=== PATIENT | female | born 1940 | race Caucasian/White ===

== ENCOUNTER 2020-02-01 09:42 | Outpatient (REF) | payer MEDICARE, OTHER, SELFPAY ==
[2020-02-01 10:35] LABS: MANUAL DIFF FLAG NO
[2020-02-01 10:45] LABS: Basophils Percent Auto 0.3 % (0-2); Eosinophils Absolute Auto 0.1 X10*3/uL (0.0-0.4); Eosinophils Percent Auto 1.4 % (0-4); Hematocrit 44.1 % (37-47); Hemoglobin 14.1 g/dl (12.0-16.0); Imm Gran Abs Auto 0.02 X10*3/uL (0.00-0.03); Imm Gran Pct Auto 0.2 % (0.0-0.4); Lymphocytes Absolute Auto 3.7 X10*3/uL (1.2-4.9); Lymphocytes Percent Auto 40.6 % (20-40); Mean Corpuscular Hemoglobin 29.3 pg (27.0-33.0); Mean Corpuscular Volume 91.7 fL (80-98); Mean Platelet Volume 11.9 fL (9.4-12.3); Monocytes Absolute Auto 0.7 X10*3/uL (0.1-1.2); Monocytes Percent Auto 7.3 % (2-11); Neutrophils Absolute Auto 4.5 X10*3/uL (2.0-8.3); Neutrophils Percent Auto 50.2 % (45-73); Platelet Count 180 X10*3/uL (160-400); Red Blood Count 4.81 X10*6/uL (4.20-5.50); Red Cell Distribution Width 13.5 % (11.0-16.0)
[2020-02-01 12:25] LABS: Thyroid Stimulating Hormone 1.61 mIU/mL (0.32-4.0)
== END 2020-02-01 09:43 | disposition home or self-care (01) ==
LOC: HO.LAB 09:42
PROVIDERS: PCP Internal Medicine; Visit Provider Internal Medicine
DX: R53.83 Other fatigue (principal); D72.820 Lymphocytosis (symptomatic)
CPT/HCPCS: 36415; 84443; 85025

== ENCOUNTER 2020-12-19 11:11 | Outpatient (REF) | payer MEDICARE, OTHER, SELFPAY ==
[2020-12-19 11:14] LABS: MANUAL DIFF FLAG NO
[2020-12-19 11:30] LABS: Basophils Percent Auto 0.5 % (0-2); Eosinophils Absolute Auto 0.2 X10*3/uL (0.0-0.4); Eosinophils Percent Auto 2.2 % (0-4); Hematocrit 44.9 % (37-47); Hemoglobin 14.4 g/dl (12.0-16.0); Imm Gran Abs Auto 0.03 X10*3/uL (0.00-0.03); Imm Gran Pct Auto 0.4 % (0.0-0.4); Lymphocytes Absolute Auto 3.7 X10*3/uL (1.2-4.9); Lymphocytes Percent Auto 44.6 % (20-40); Mean Corpuscular HGB Conc 32.1 g/dl (31.0-35.0); Mean Corpuscular Hemoglobin 29.3 pg (27.0-33.0); Mean Corpuscular Volume 91.4 fL (80-98); Mean Platelet Volume 12.3 fL (9.4-12.3); Monocytes Absolute Auto 0.6 X10*3/uL (0.1-1.2); Monocytes Percent Auto 7.8 % (2-11); Neutrophils Absolute Auto 3.7 X10*3/uL (2.0-8.3); Neutrophils Percent Auto 44.5 % (45-73); Platelet Count 180 X10*3/uL (160-400); Red Blood Count 4.91 X10*6/uL (4.20-5.50); Red Cell Distribution Width 14.3 % (11.0-16.0); White Blood Count 8.3 X10*3/uL (4.8-10.8)
[2020-12-19 12:10] LABS: Alanine Aminotransferase 20 U/L (0-31); Alkaline Phosphatase 63 U/L (39-117); Anion Gap 10 (12-20); Aspartate Amino Transferase 30 U/L (5-31); Bilirubin Total 0.5 mg/dL (0.0-1.0); Blood Urea Nitrogen 19 mg/dL (9-16); Calcium 9.3 mg/dL (8.4-10.2); Carbon Dioxide 29 mmol/L (22-29); Chloride 107 mmol/L (96-108); Cholesterol 146 mg/dL; Estimated Glomerular Filt Rate > 60; Glucose Fasting 92 mg/dL (60-99); HDL Cholesterol 60 mg/dL; LDL Cholesterol Calculated 71 mg/dl; Potassium 4.2 mmol/L (3.3-5.1); Sodium 142 mmol/L (135-145); Total Protein 6.6 g/dL (6.5-8.0); Triglycerides 78 mg/dL
[2020-12-19 12:35] LABS: Prostate Specific Antigen < 0.05 ng/mL; Vitamin D 25-OH Total 33.4 ng/mL (>30)
[2020-12-19 12:43] LABS: Appearance Urine CLEAR; Color Urine YELLOW; Glucose Urine UA NEG (NEG); Leukocyte Esterase Urine NEG (NEG); Nitrite Urine NEG (NEG); Specific Gravity - Urine 1.025 (1.005-1.025); Urine Blood NEG (NEG); Urine Ketones NEG (NEG); Urine Protein NEG (NEG-TRACE)
[2020-12-19 12:46] LABS: Reflex LDLD? No
[2020-12-19 12:50] LABS: Creatinine Urine 112.51 mg/dL; Microalbum/Creatinine Ratio Ur 19.5 ug/mg cr
[2020-12-19 13:17] LABS: Estimated Average Glucose 103 mg/dL; Hemoglobin A1c % 5.2 %
== END 2020-12-19 11:12 | disposition home or self-care (01) ==
LOC: HO.LNP 11:11
PROVIDERS: Visit Provider Internal Medicine
DX: E78.00 Pure hypercholesterolemia, unspecified (principal); I10 Essential (primary) hypertension; R73.03 Prediabetes; E55.9 Vitamin D deficiency, unspecified
CPT/HCPCS: 80053; 80061; 81003; 82043; 82306; 83036; 84153; 85025

== ENCOUNTER 2021-05-21 10:19 | Outpatient (REF) | payer MEDICARE, OTHER, SELFPAY ==
[2021-05-21 10:40] LABS: Alanine Aminotransferase 18 U/L (0-31); Alkaline Phosphatase 60 U/L (39-117); Aspartate Amino Transferase 30 U/L (5-31); Bilirubin Direct 0.3 mg/dL (0.0-0.5); Bilirubin Total 0.7 mg/dL (0.0-1.0); Cholesterol 155 mg/dL; Glucose Fasting 96 mg/dL (60-99); HDL Cholesterol 53 mg/dL; LDL Cholesterol Calculated 87 mg/dl; Total Protein 6.7 g/dL (6.5-8.0); Triglycerides 75 mg/dL
[2021-05-21 10:57] LABS: Estimated Average Glucose 108 mg/dL; Hemoglobin A1c % 5.4 %
[2021-05-21 12:54] LABS: Reflex LDLD? No
== END 2021-05-21 10:20 | disposition home or self-care (01) ==
LOC: HO.LNP 10:19
PROVIDERS: PCP Internal Medicine; Visit Provider Internal Medicine
DX: E78.00 Pure hypercholesterolemia, unspecified (principal); R73.03 Prediabetes
CPT/HCPCS: 80061; 80076; 82947; 83036

== ENCOUNTER 2021-08-30 07:32 | Outpatient (REF) | payer MEDICARE, OTHER, SELFPAY ==
--- NOTE | ~2021-08-30 | XR_ITS ---
EXAMINATION: BILATERAL AP KNEE STANDING. RIGHT KNEE. CLINICAL INFORMATION: Knee pain. COMPARISON: Right knee 02/02/2015. TECHNIQUE: AP bilateral knee standing and right knee 2 views. FINDINGS: Bilateral AP knee standing. There is moderate signal loss of medial and mild loss of lateral compartment joint space with periarticular spurring medial compartment right knee. No visible acute fracture, dislocation seen. There are no loose bodies. Right knee: There is moderate loss of the distal femoral compartment joint space without bony erosive changes. There are no loose bodies. No suprapatellar joint effusion seen. XR/XR knee RT 2V IMPRESSION: Mild degenerative changes medial and lateral compartments of both knees with periarticular spurring medial compartment right knee. No visible acute fracture or dislocation seen. There is mild degenerative changes patellofemoral compartment with mild inferior spurring.
--- NOTE | ~2021-08-30 | XR_ITS ---
EXAMINATION: BILATERAL AP KNEE STANDING. RIGHT KNEE. CLINICAL INFORMATION: Knee pain. COMPARISON: Right knee 02/02/2015. TECHNIQUE: AP bilateral knee standing and right knee 2 views. FINDINGS: Bilateral AP knee standing. There is moderate signal loss of medial and mild loss of lateral compartment joint space with periarticular spurring medial compartment right knee. No visible acute fracture, dislocation seen. There are no loose bodies. Right knee: There is moderate loss of the distal femoral compartment joint space without bony erosive changes. There are no loose bodies. No suprapatellar joint effusion seen. XR/XR knee standing BI IMPRESSION: Mild degenerative changes medial and lateral compartments of both knees with periarticular spurring medial compartment right knee. No visible acute fracture or dislocation seen. There is mild degenerative changes patellofemoral compartment with mild inferior spurring.
== END 2021-08-30 07:33 | disposition home or self-care (01) ==
LOC: HO.HOSX 07:32
PROVIDERS: Visit Provider Orthopaedic Surgery
DX: M17.11 Unilateral primary osteoarthritis, right knee (principal)
CPT/HCPCS: 20610; 73560; 73565; 99202; J1100

== ENCOUNTER 2021-12-24 11:51 | Outpatient (REF) | payer MEDICARE, OTHER, SELFPAY ==
[2021-12-24 11:57] LABS: MANUAL DIFF FLAG NO
[2021-12-24 12:18] LABS: Basophils Absolute Auto 0.1 X10*3/uL (0.0-0.2); Basophils Percent Auto 0.6 % (0-2); Eosinophils Absolute Auto 0.2 X10*3/uL (0.0-0.4); Eosinophils Percent Auto 2.4 % (0-4); Hematocrit 44.3 % (37.0-47.0); Hemoglobin 14.1 g/dl (12.0-16.0); Imm Gran Abs Auto 0.01 X10*3/uL (0.00-0.03); Imm Gran Pct Auto 0.1 % (0.0-0.4); Lymphocytes Absolute Auto 3.7 X10*3/uL (1.2-4.9); Lymphocytes Percent Auto 42.5 % (20-40); Mean Corpuscular HGB Conc 31.8 g/dl (31.0-35.0); Mean Corpuscular Volume 91.2 fL (80.0-98.0); Monocytes Absolute Auto 0.7 X10*3/uL (0.1-1.2); Monocytes Percent Auto 7.4 % (2-11); Neutrophils Absolute Auto 4.1 x10*3/uL (2.0-8.3); Platelet Count 186 X10*3/uL (160-400); Red Blood Count 4.86 X10*6/uL (4.20-5.50); White Blood Count 8.7 X10*3/uL (4.8-10.8)
[2021-12-24 12:20] LABS: Appearance Urine Clear; Color Urine Yellow; Glucose Urine UA Negative (Negative); Leukocyte Esterase Urine Trace (Negative); Nitrite Urine Negative (Negative); PH 6.5 (5.0-9.0); Specific Gravity - Urine 1.015 (1.005-1.025); Urine Blood Negative (Negative); Urine Ketones Negative (Negative); Urine Protein Negative (Neg-Trace)
[2021-12-24 12:26] LABS: Bacteria Urine 1+ (None Seen); Hyaline Casts Urine 0-2 /LPF (0-2); Squamous Epithelial Cell Urine 0-2 /HPF (0-2); WBC Urine 0-5 /HPF (0-5)
[2021-12-24 12:35] LABS: Estimated Average Glucose 103 mg/dL; Hemoglobin A1C 122.2767 umol/L; Hemoglobin A1c % 5.2 %
[2021-12-24 12:37] LABS: Alanine Aminotransferase 23 U/L (0-31); Albumin Level 3.8 g/dL (3.5-5.0); Alkaline Phosphatase 67 U/L (39-117); Anion Gap 17 (12-20); Aspartate Amino Transferase 33 U/L (5-31); Bilirubin Total 0.5 mg/dL (0.0-1.0); Blood Urea Nitrogen 16 mg/dL (9-16); Calcium 8.7 mg/dL (8.4-10.2); Carbon Dioxide 25 mmol/L (22-29); Chloride 106 mmol/L (96-108); Cholesterol 145 mg/dL; Estimated Glomerular Filt Rate > 60; Glucose Fasting 89 mg/dL (60-99); HDL Cholesterol 53 mg/dL; LDL Cholesterol Calculated 80 mg/dl; Potassium 4.5 mmol/L (3.3-5.1); Sodium 143 mmol/L (135-145); Total Protein 6.6 g/dL (6.5-8.0); Triglycerides 64 mg/dL
[2021-12-24 12:43] LABS: Microalbum/Creatinine Ratio Ur 21.6 ug/mg cr
[2021-12-24 12:53] LABS: Vitamin D 25-OH Total 40.2 ng/mL (>30)
== END 2021-12-24 11:52 | disposition home or self-care (01) ==
LOC: HO.LNP 11:51
PROVIDERS: Visit Provider Internal Medicine
DX: I10 Essential (primary) hypertension (principal); E55.9 Vitamin D deficiency, unspecified; R73.03 Prediabetes; E78.00 Pure hypercholesterolemia, unspecified; D72.820 Lymphocytosis (symptomatic); Z87.448 Personal history of other diseases of urinary system
CPT/HCPCS: 80053; 80061; 81001; 82043; 82306; 83036; 85025

== ENCOUNTER 2022-01-01 10:25 | Outpatient (REF) | payer MEDICARE, OTHER, SELFPAY ==
--- NOTE | ~2022-01-01 | XR_ITS ---
EXAMINATION: XR CHEST CLINICAL INFORMATION: Bilateral Rales COMPARISON: None TECHNIQUE: 2 views of the chest were obtained. FINDINGS: The lungs are well-expanded with increased interstitial markings but no consolidation or nodules seen. The heart size and pulmonary vascularity is normal. No gross bony abnormality. XR/XR chest 2V IMPRESSION: Bilateral increased interstitial markings likely chronic changes or interstitial pneumonitis. No acute consolidation seen. There is mild elevated left hemidiaphragm.
== END 2022-01-01 10:26 | disposition home or self-care (01) ==
LOC: HO.XRAY 10:25
PROVIDERS: PCP Internal Medicine; Visit Provider Internal Medicine
DX: R09.89 Other specified symptoms and signs involving the circulatory and respiratory systems (principal)
CPT/HCPCS: 71046

== ENCOUNTER → 2022-02-04 14:14 | Outpatient (BNVA) | payer MEDICARE, OTHER, SELFPAY | PROVIDERS: PCP Internal Medicine; Visit Provider Internal Medicine | DX: J84.10 Pulmonary fibrosis, unspecified (principal); Z87.891 Personal history of nicotine dependence | CPT/HCPCS: 99202 ==

== ENCOUNTER 2022-06-24 11:02 | Outpatient (REF) | payer MEDICARE, OTHER, SELFPAY ==
[2022-06-24 12:26] LABS: Alanine Aminotransferase 20 U/L (0-31); Alkaline Phosphatase 66 U/L (39-117); Aspartate Amino Transferase 32 U/L (5-31); Bilirubin Direct 0.2 mg/dL (0.0-0.5); Bilirubin Total 0.8 mg/dL (0.0-1.0); Cholesterol 160 mg/dL; Glucose Fasting 96 mg/dL (60-99); HDL Cholesterol 53 mg/dL; LDL Cholesterol Calculated 92 mg/dl; Total Protein 6.6 g/dL (6.5-8.0); Triglycerides 78 mg/dL
[2022-06-24 12:44] LABS: Estimated Average Glucose 105 mg/dL; Hemoglobin A1c % 5.3 %
[2022-06-24 13:55] LABS: Reflex LDLD? No
== END 2022-06-24 11:03 | disposition home or self-care (01) ==
LOC: HO.LNP 11:02
PROVIDERS: Visit Provider Internal Medicine
DX: R73.03 Prediabetes (principal); E78.00 Pure hypercholesterolemia, unspecified
CPT/HCPCS: 80061; 80076; 82947; 83036

== ENCOUNTER 2022-12-27 12:04 | Outpatient (REF) | payer MEDICARE, OTHER, SELFPAY ==
[2022-12-27 12:43] LABS: Appearance Urine Clear; Color Urine Yellow; Glucose Urine UA Negative (Negative); Leukocyte Esterase Urine Small (1+) (Negative); Nitrite Urine Negative (Negative); PH 6.5 (5.0-9.0); Specific Gravity - Urine 1.015 (1.005-1.025); UMIC TRIGGER UACC YES; Urine Blood Negative (Negative); Urine Ketones Negative (Negative); Urine Protein Negative (Neg-Trace)
[2022-12-27 12:54] LABS: Basophils Absolute Auto 0.1 X10*3/uL (0.0-0.2); Basophils Percent Auto 0.5 % (0-2); Eosinophils Absolute Auto 0.5 X10*3/uL (0.0-0.4); Hematocrit 44.8 % (37.0-47.0); Hemoglobin 14.3 g/dl (12.0-16.0); Imm Gran Abs Auto 0.03 X10*3/uL (0.00-0.03); Imm Gran Pct Auto 0.3 % (0.0-0.4); Lymphocytes Absolute Auto 5.2 X10*3/uL (1.2-4.9); Lymphocytes Percent Auto 46.6 % (20-40); MANUAL DIFF FLAG SCAN; Mean Corpuscular HGB Conc 31.9 g/dl (31.0-35.0); Mean Corpuscular Hemoglobin 28.5 pg (27.0-33.0); Mean Corpuscular Volume 89.4 fL (80.0-98.0); Mean Platelet Volume 12.4 fL (9.4-12.3); Monocytes Percent Auto 8.5 % (2-11); Neutrophils Absolute Auto 4.5 x10*3/uL (2.0-8.3); Neutrophils Percent Auto 40.1 % (45-73); Platelet Count 211 X10*3/uL (160-400); Red Blood Count 5.01 X10*6/uL (4.20-5.50); Red Cell Distribution Width 14.5 % (11.0-16.0); SCAN SMEAR FLAG 1; White Blood Count 11.2 X10*3/uL (4.8-10.8)
[2022-12-27 13:03] LABS: Bacteria Urine None Seen (None Seen); Hyaline Casts Urine 0-2 /LPF (0-2); Squamous Epithelial Cell Urine 0-2 /HPF (0-2); UACC Culture Trigger YES; WBC Urine 0-5 /HPF (0-5)
[2022-12-27 13:20] LABS: SLIDE REVIEW VERIFIED
[2022-12-27 14:25] LABS: Alanine Aminotransferase 17 U/L (0-31); Albumin Level 3.8 g/dL (3.5-5.0); Alkaline Phosphatase 61 U/L (39-117); Anion Gap 12 (12-20); Aspartate Amino Transferase 35 U/L (5-31); Bilirubin Total 0.5 mg/dL (0.0-1.0); Blood Urea Nitrogen 22 mg/dL (9-16); Calcium 9.2 mg/dL (8.4-10.2); Carbon Dioxide 26 mmol/L (22-29); Chloride 108 mmol/L (96-108); Cholesterol 152 mg/dL (<200); Estimated Glomerular Filt Rate > 60; Glucose Fasting 84 mg/dL (60-99); HDL Cholesterol 55 mg/dL (>40); LDL Cholesterol Calculated 84 mg/dL (<100); Sodium 142 mmol/L (135-145); Total Protein 6.8 g/dL (6.5-8.0); Triglycerides 67 mg/dL (<150); Vitamin D 25-OH Total 55.1 ng/mL (>30)
[2022-12-27 15:04] LABS: Estimated Average Glucose 100 mg/dL; Hemoglobin A1c % 5.1 % (<6.0)
[2022-12-27 15:17] LABS: Creatinine Urine 73.13 mg/dL; Microalbum/Creatinine Ratio Ur 10.9 ug/mg cr (<30)
== END 2022-12-27 12:05 | disposition home or self-care (01) ==
LOC: HO.LNP 12:04
PROVIDERS: Visit Provider Internal Medicine
DX: I10 Essential (primary) hypertension (principal); E55.9 Vitamin D deficiency, unspecified; R73.03 Prediabetes; E78.00 Pure hypercholesterolemia, unspecified; D72.820 Lymphocytosis (symptomatic)
CPT/HCPCS: 80053; 80061; 81001; 82043; 82306; 82570; 83036; 85025; 87086

== ENCOUNTER 2023-01-03 11:51 | Outpatient (REF) | payer MEDICARE, OTHER, SELFPAY ==
--- NOTE | ~2023-01-03 | XR_ITS ---
EXAMINATION: XR CHEST CLINICAL INFORMATION: Pulmonary fibrosis COMPARISON: 01/01/2022 TECHNIQUE: 2 views of the chest were obtained. FINDINGS: There is no gross pneumothorax. Lung volumes are low. Redemonstration of prominent bilateral diffuse increased interstitial markings. No pleural effusion. Degenerative changes in the thoracic spine. XR/XR chest 2V IMPRESSION: Redemonstration of prominent bilateral diffuse increased interstitial markings.
== END 2023-01-03 11:52 | disposition home or self-care (01) ==
LOC: HO.XRAY 11:51
PROVIDERS: PCP Internal Medicine; Visit Provider Internal Medicine
DX: J84.10 Pulmonary fibrosis, unspecified (principal)
CPT/HCPCS: 71046

== ENCOUNTER 2023-01-17 11:15 | Outpatient (REF) | payer MEDICARE, OTHER, SELFPAY | END 2023-01-17 11:16 | disposition home or self-care (01) | LOC: HO.LNP 11:15 | PROVIDERS: Visit Provider Internal Medicine | DX: D72.820 Lymphocytosis (symptomatic) (principal) | CPT/HCPCS: 85025 ==

== ENCOUNTER 2023-02-17 10:50 | Outpatient (REF) | payer MEDICARE, OTHER, SELFPAY ==
[2023-02-17 10:53] LABS: MANUAL DIFF FLAG NO
[2023-02-17 10:58] LABS: Basophils Absolute Auto 0.1 X10*3/uL (0.0-0.2); Basophils Percent Auto 0.7 % (0-2); Eosinophils Absolute Auto 0.5 X10*3/uL (0.0-0.4); Eosinophils Percent Auto 4.7 % (0-4); Hematocrit 45.7 % (37.0-47.0); Hemoglobin 14.7 g/dl (12.0-16.0); Imm Gran Abs Auto 0.02 X10*3/uL (0.00-0.03); Imm Gran Pct Auto 0.2 % (0.0-0.4); Lymphocytes Absolute Auto 3.9 X10*3/uL (1.2-4.9); Mean Corpuscular HGB Conc 32.2 g/dl (31.0-35.0); Mean Corpuscular Hemoglobin 29.1 pg (27.0-33.0); Mean Corpuscular Volume 90.5 fL (80.0-98.0); Mean Platelet Volume 12.4 fL (9.4-12.3); Monocytes Percent Auto 9.7 % (2-11); Neutrophils Absolute Auto 4.5 x10*3/uL (2.0-8.3); Neutrophils Percent Auto 45.7 % (45-73); Platelet Count 199 X10*3/uL (160-400); Red Blood Count 5.05 X10*6/uL (4.20-5.50); Red Cell Distribution Width 14.4 % (11.0-16.0); White Blood Count 9.9 X10*3/uL (4.8-10.8)
== END 2023-02-17 10:51 | disposition home or self-care (01) ==
LOC: HO.LNP 10:50
PROVIDERS: Visit Provider Internal Medicine
DX: D72.820 Lymphocytosis (symptomatic) (principal)
CPT/HCPCS: 85025

== ENCOUNTER 2023-02-26 10:07 | Outpatient (AMB) | payer MEDICARE, OTHER, SELFPAY ==
[2023-02-26 10:16] VITALS: BP 120/70; PULSE 102; O2SAT 93; BMI 28.7
--- NOTE | 2023-02-26 10:16 | MHC.OFFVIS ---
Intake Vital Signs 02/26/23 10:16 Height 5 ft Weight 147 lb BMI 28.7 BP 120/70 Blood Pressure Location Lt brachial Position Sitting Pulse 102 H Pulse Source Pulse Oximeter Pulse Oximetry (%) 93 Oxygen Delivery Method Room Air Intake Visit Reasons: Shortness of breath Intake Note: pt is here for a follow up and states her breathing is not good with any exertion and even standing. [employer] Supervisor Required: No Allergies anthesia Adverse Reaction (Uncoded 02/26/23 10:46) Confusion Medication List - Last Reconciled 02/26/23 by Abrahan Bautista MD aspirin 81 mg PO DAILY atorvastatin 10 mg PO DAILY cetirizine (Zyrtec) 10 mg PO DAILY cholecalciferol (vitamin D3) 25 mcg PO DAILY estazolam 0.5 mg PO BEDTIME PRN hvvnsuhj-ppl-xplaf-[id number]-bxrm 500-500-66.7 mg (Fszrmwqoyyz-Xmwcbkxevqr-KGY (with antiox)) tabs PO melatonin 0.5 mg PO BEDTIME PRN sctlsqlmmvqr-Ov-nbir-minerals tabs PO naproxen 375 mg PO BID raloxifene 60 mg PO DAILY valsartan 80 mg PO DAILY Do you need a note to return to daycare/school/sports/work: No HPI Shortness of breath HPI Details 83 years old very pleasant female, 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 Luckily she has been free of any acute infection. Today she comes with the complaint of gradually increasing shortness of breath on minimal exertion at home, like walking. Around of or especially climbing stairs Along with that she also starts having intermittent cough, without much sputum. Denies. Any chest pain She did have nuclear stress test for the heart recently and she was told that there was no ischemia or infarction. And LVEF was 66%. However she was told by the nurse that her O2 sat did drop into low 80s during exercise. [facility] Medical History (Updated 02/26/23 @ 11:23 by Abrahan Bautista MD) Exercise hypoxemia Pulmonary fibrosis History of smoking at least 1 pack per day for at least 30 years Early menopause Hypertension Surgical History H/O oral surgery Social History Patient Tobacco Use Status: Former Tobacco user Years Smoked: 39 Review of Systems Const All systems reviewed & are unremarkable except as noted in HPI and below Eyes Reports no additional complaints ENT Reports nasal congestion (Mild off and on) and Reports nasal discharge (Mild off and on, when she has sinus infection.) Card Denies chest pain, Denies irregular heart rhythm and Denies leg edema Resp Reports as per HPI GI Reports no additional complaints Reports no additional complaints Musc Reports arthralgias (mild) Skin/Breast Reports system reviewed and no additional complaints, except as documented Neuro Reports no additional complaints Psych Reports no additional complaints Endo Reports no additional complaints Physical Exam Vital Signs: Last Vital Signs Pulse 102 H 02/26/23 10:16 BP 120/70 02/26/23 10:16 Pulse Ox 93 02/26/23 10:16 Oxygen Delivery Method Room Air 02/26/23 10:16 BMI result Body Mass Index 28.7 Const General: healthy appearing, comfortable, no acute distress, alert and awake Orientation/consciousness: patient oriented x3 HEENT Head: Yes normal to inspection General nose exam: No nasal polyps present and No nasal discharge present Face and sinus: Yes sinuses nontender Mouth: oropharynx normal Throat: Yes posterior oropharynx normal Eyes General: appearance normal, both eyes and all related structures Neck Neck: Yes normal visual inspection, Yes no lymphadenopathy, Yes trachea midline and Yes no JVD Thyroid: Thyroid normal Chest Chest palpation & inspection: normal inspection of the chest, normal palpation of entire chest wall and no tenderness Resp Other: Percussion note is resonant, She does have good breath sounds on both sides. Inspiratory crackles are heard over both lower lobes and mid lungs. Cardio Palpation: normal PMI Rate: regular rate Rhythm: regular rhythm Heart sounds: no gallops and no murmurs Peripheral pulses: Peripheral pulses 2+ throughout GI Palpation (GI): Soft to palpation, nontender, No hepatosplenomegaly present and no masses Auscultation: normal bowel sounds Back/Spine/Pelvis Thoracic/Lumbar Spine: thoracic and lumbar spine normal to inspection Skin General skin exam: no rashes or lesions noted Neuro General: patient oriented x3 and no focal motor deficits Cranial nerves: Yes CN's II-XII intact bilaterally Extrem General: Yes normal to inspection, Yes no clubbing, cyanosis or edema and Yes no calf tenderness Psych Appearance: grossly normal and well kempt Speech and movement: Normal speech and movement present Results Reviewed Results Reviewed: 6 minutes walk test ; Desaturates very quickly and required O2 2 L/minute during walk. Tested for oxygen conserving unit. She was able to maintain O2 sat above 92% with 2 L/minute. Assessment & Plan Assessment & Plan (1) Pulmonary fibrosis: Comment: Physical examination and chest x-ray findings are consistent with interstitial lung disease/pulmonary fibrosis. She has been relatively asymptomatic , and in good general health. However during the past year her symptoms are glad jury worsening. Clinically I think the pulmonary fibrosis has progressed. PLAN : CT scan of the chest, high-resolution. Pulmonary function test , complete, especially for DLCO. Discussed about further modalities of treatment , including oxygen, possible use of anti fibrotic agents, and possible use of steroids.. Will decide after the above planned workup. Code(s): J84.10 - Pulmonary fibrosis, unspecified (2) History of smoking at least 1 pack per day for at least 30 years: Comment: She has history of smoking 3/4 packs a day for 40 years. Luckily she quit more than 25 years ago. Code(s): Z87.891 - Personal history of nicotine dependence (3) Exercise hypoxemia: Comment: Patient has increasing shortness of breath on minimal walking or doing any physical work. 6 minutes walk confirms that she has exercise induced hypoxemia, Controlled with O2 2 L/minute. She does qualify for using oxygen conserving unit. Discussed with her in detail and also with her son. She does except to go on portable O2 2 L/minute . SHE DOES QUALIFY FOR A POC. Code(s): R09.02 - Hypoxemia Orders: Orders CT chest wo con - High Res Today J84.10 - Pulmonary fibrosis, unspecified, Z87.891 - Personal history of nicotine dependence PFT pulmonary function test Today J84.10 - Pulmonary fibrosis, unspecified, Z87.891 - Personal history of nicotine dependence Coding Level of Care Code Est Pt Level 4 (61407) Diagnoses Pulmonary fibrosis J84.10 History of smoking at least 1 pack per day for at least 30 years Z87.891 Exercise hypoxemia R09.02
[2023-02-26 11:41] VITALS: PULSE 84; O2SAT 94
== END 2023-02-26 11:17 | disposition home or self-care (01) ==
PROVIDERS: PCP Internal Medicine; Visit Provider Internal Medicine
DX: J84.10 Pulmonary fibrosis, unspecified (principal); Z87.891 Personal history of nicotine dependence; R09.02 Hypoxemia
CPT/HCPCS: 94618; 99214

== ENCOUNTER → 2023-02-26 10:07 | Outpatient (BNVA) | payer MEDICARE, OTHER, SELFPAY | PROVIDERS: PCP Internal Medicine; Visit Provider Internal Medicine | DX: J84.10 Pulmonary fibrosis, unspecified (principal); R09.02 Hypoxemia; Z87.891 Personal history of nicotine dependence | CPT/HCPCS: 94618; 99212 ==

== ENCOUNTER 2023-03-11 14:06 | Outpatient (REF) | payer MEDICARE, OTHER, SELFPAY ==
--- NOTE | ~2023-03-11 | CT_ITS ---
STUDY: UNENHANCED CT of chest INDICATION: Pulmonary pulmonary fibrosis. COMPARISON: 01/03/2023 chest radiograph TECHNIQUE: Without IV contrast. Reconstructed images performed in the coronal and sagittal planes. High-resolution imaging and MIP images generated. This CT examination was performed using dose optimization techniques as appropriate, variously including the following: *Automated exposure control *Adjustment of mA and/or kV according to patient size (this includes techniques or standardized protocols for targeted exams where dose is matched to indication/reason for exam; i.e. extremities or head) *Use of iterative reconstruction technique TOTAL EXAM DLP: 126 mGy-cm FINDINGS: Blocklayer: Fibrotic changes. Aortic calcifications. Slightly elevated left hemidiaphragm with air-filled viscus structure. Airways and lungs: Study limited by respiratory motion. The lungs are hyper aerated with centrilobular and paraseptal emphysema. Peripheral septal thickening/fibrosis identified upper and lower lobes. Honeycombing present predominantly in the lower lobes. No consolidations or groundglass opacities. No focal lung nodules. Pleura: No effusions, pneumothoraces, thickening or masses. Mediastinum: Unremarkable thyroid. Multiple prominent mediastinal lymph nodes largest in the left paratracheal region measuring 9 mm in short axis. Heart size within normal limits. No pericardial effusion. Degree of coronary calcifications: Moderate. Nonaneurysmal aorta with atherosclerotic calcifications. Mildly ectatic pulmonary arteries. Chest wall and axilla: No pathologic lymphadenopathy. Upper abdomen: No upper abdominal pathology recognized. Osseous structures: Degenerative changes. No suspicious osseous lesions. 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 Prominent mediastinal lymph nodes.
== END 2023-03-11 14:07 | disposition home or self-care (01) ==
LOC: HO.CT 14:06
PROVIDERS: PCP Internal Medicine; Visit Provider Internal Medicine
DX: J84.10 Pulmonary fibrosis, unspecified (principal); Z87.891 Personal history of nicotine dependence
CPT/HCPCS: 71250

== ENCOUNTER 2023-03-25 09:40 | Outpatient (REF) | payer MEDICARE, OTHER, SELFPAY ==
--- NOTE | 2023-03-25 09:46 | PFT_ITS ---
Flows: FEV1: 108 % of predicted at 1.69 L FVC: 99 % of predicted at 1.96 L FEV1/FVC: 86 % Bronchodilator response: Present in small to medium airways only Volumes: Total lung capacity: 60 % of predicted at 2.54 L Residual volume: 30 % of predicted at 0.56 L Slow vital capacity: 88 % of predicted at 1.98 L Expiratory reserve volume: 15 % of predicted at 0.08 L Diffusion capacity: Mildly decreased. Impression: Mild restrictive ventilatory defect with no bronchodilator response except and small to medium airways. Decreased diffusion capacity suggests emphysema. MTDD
== END 2023-03-25 09:41 | disposition home or self-care (01) ==
LOC: HO.RESP 09:40
PROVIDERS: PCP Internal Medicine; Visit Provider Internal Medicine
DX: J84.10 Pulmonary fibrosis, unspecified (principal); R09.02 Hypoxemia; Z87.891 Personal history of nicotine dependence
CPT/HCPCS: 94010; 94729; 99212

== ENCOUNTER 2023-03-25 09:44 | Outpatient (AMB) | payer MEDICARE, OTHER, SELFPAY ==
[2023-03-25 11:48] VITALS: BP 112/68; PULSE 96; O2SAT 97; BMI 27.9
--- NOTE | 2023-03-25 11:48 | MHC.OFFVIS ---
Intake Vital Signs 03/25/23 11:48 Height 5 ft Weight 143 lb BMI 27.9 BP 112/68 Blood Pressure Location Lt brachial Position Sitting Pulse 96 Pulse Source Pulse Oximeter Pulse Oximetry (%) 97 Oxygen Delivery Method Room Air Intake Visit Reasons: Same day PFT Intake Note: pt is here for follow up and just had pft, she is noticing when she has little movement that her O2 stays good, but pulse goes high, what are the perimeters for the pulse for her to watch for her to do something. (109 to 112). She is also having trouble sleeping that has been going on for many years. Hx of using prosom but pcp had some concerns, she is wondering what is safe for her to take. [employer] Delegate Required: No Allergies anthesia Adverse Reaction (Uncoded 03/25/23 12:01) Confusion Medication List - Last Reconciled 03/25/23 by Abrahan Bautista MD aspirin 81 mg PO DAILY atorvastatin 10 mg PO DAILY cetirizine (Zyrtec) 10 mg PO DAILY cholecalciferol (vitamin D3) 25 mcg PO DAILY estazolam 0.5 mg PO BEDTIME PRN dndfwxhr-dhh-cqjyf-ldh311-ssxu 500-500-66.7 mg (Dyhsnjoqwul-Kbrkqkwjdov-SVE (with antiox)) tabs PO melatonin 0.5 mg PO BEDTIME PRN qiclbpiohcuu-Gh-jwhj-minerals tabs PO naproxen 375 mg PO BID raloxifene 60 mg PO DAILY valsartan 80 mg PO DAILY Do you need a note to return to daycare/school/sports/work: No HPI Same day PFT HPI Details THIS 83 YEARS OLD VERY PLEASANT FEMALE WITH THE PULMONARY FIBROSIS, HAS BEEN STARTED ON OXYGEN, SHE IS NOT USING ANY OTHER MEDS FOR PULMONARY FIBROSIS, SHE HAS HAD CT SCAN WELL PULMONARY FUNCTION TEST AND. IS HERE FOR FOLLOW-UP HER MAIN COMPLAINT IS INTERMITTENT COUGH, AND SHE GETS SHORT OF BREATH VERY EASILY ON ANY PHYSICAL EXERTION LIKE EVEN WALKING IN THE HOUSE. SHE DOES USE PORTABLE OXYGEN EVEN WHEN SHE IS WALKING IN THE HOUSE, AND P.R.N. DURING THE DAYTIME. [facility] Medical History Exercise hypoxemia Pulmonary fibrosis History of smoking at least 1 pack per day for at least 30 years Early menopause Hypertension Surgical History H/O oral surgery Social History Patient Tobacco Use Status: Former Tobacco user Years Smoked: 39 Review of Systems Const All systems reviewed & are unremarkable except as noted in HPI and below Eyes Reports no additional complaints ENT Reports nasal congestion (Mild off and on) and Reports nasal discharge (Mild off and on, when she has sinus infection.) Card Denies chest pain, Denies irregular heart rhythm and Denies leg edema Resp Reports as per HPI GI Reports no additional complaints Reports no additional complaints Musc Reports arthralgias (mild) Skin/Breast Reports system reviewed and no additional complaints, except as documented Neuro Reports no additional complaints Psych Reports no additional complaints Endo Reports no additional complaints Physical Exam Vital Signs: Last Vital Signs Pulse 96 03/25/23 11:48 BP 112/68 03/25/23 11:48 Pulse Ox 97 03/25/23 11:48 Oxygen Delivery Method Room Air 03/25/23 11:48 BMI result Body Mass Index 27.9 Const General: healthy appearing, comfortable, no acute distress, alert and awake Orientation/consciousness: patient oriented x3 HEENT Head: Yes normal to inspection General nose exam: No nasal polyps present and No nasal discharge present Face and sinus: Yes sinuses nontender Mouth: oropharynx normal Throat: Yes posterior oropharynx normal Eyes General: appearance normal, both eyes and all related structures Neck Neck: Yes normal visual inspection, Yes no lymphadenopathy, Yes trachea midline and Yes no JVD Thyroid: Thyroid normal Chest Chest palpation & inspection: normal inspection of the chest, normal palpation of entire chest wall and no tenderness Resp Other: Percussion note is resonant, She does have good breath sounds on both sides. Inspiratory crackles are heard over both lower lobes and mid lungs. Cardio Palpation: normal PMI Rate: regular rate Rhythm: regular rhythm Heart sounds: no gallops and no murmurs Peripheral pulses: Peripheral pulses 2+ throughout GI Palpation (GI): Soft to palpation, nontender, No hepatosplenomegaly present and no masses Auscultation: normal bowel sounds Back/Spine/Pelvis Thoracic/Lumbar Spine: thoracic and lumbar spine normal to inspection Skin General skin exam: no rashes or lesions noted Neuro General: patient oriented x3 and no focal motor deficits Cranial nerves: Yes CN's II-XII intact bilaterally Extrem General: Yes normal to inspection, Yes no clubbing, cyanosis or edema and Yes no calf tenderness Psych Appearance: grossly normal and well kempt Speech and movement: Normal speech and movement present Results Reviewed Results Reviewed: IMPRESSION: Diffuse pulmonary fibrosis with predominantly lower lobe honeycombing suspicious for UIP pattern, 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 Prominent mediastinal lymph nodes. PULM. FUNCTION ; MODERATELY SEVERE RESTRICTIVE PULMONARY DISORDER. NO OBSTRUCTIVE AIRWAY DISORDER, Assessment & Plan Assessment & Plan (1) History of smoking at least 1 pack per day for at least 30 years: Comment: She has history of smoking 3/4 packs a day for 40 years. Luckily she quit more than 25 years ago. Code(s): Z87.891 - Personal history of nicotine dependence Plan: ABOVE (2) Pulmonary fibrosis: Comment: Physical examination and chest x-ray findings are consistent with interstitial lung disease/pulmonary fibrosis. She has been relatively asymptomatic , and in good general health. However during the past year her symptoms are glad jury worsening. Clinically I think the pulmonary fibrosis has progressed to some extent . PLAN : CT scan of the chest, high-resolution. Pulmonary function test , complete, especially for DLCO. Code(s): J84.10 - Pulmonary fibrosis, unspecified Plan: Discussed about further modalities of treatment , including oxygen, At this time I think using oxygen is the mainstay of her treatment. I do not think antifibrotic agents or warranted at this time. Patient is being referred for pulmonary rehab program, to improve her strength and ability to cope with. Her disease . The main objective is to prevent any respiratory infections. (3) Exercise hypoxemia: Comment: Patient is doing better with oxygen. Code(s): R09.02 - Hypoxemia Plan: Advised to use 2 L/minute whenever she has to walk even in the house or go outdoors. She can use. 2 L/minute p.r.n. even when resting Orders: Orders Pulmonary Rehab Today J84.10 - Pulmonary fibrosis, unspecified, R09.02 - Hypoxemia Coding Level of Care Code Est Pt Level 4 (75332) Diagnoses History of smoking at least 1 pack per day for at least 30 years Z87.891 Pulmonary fibrosis J84.10 Exercise hypoxemia R09.02
== END 2023-03-25 13:16 | disposition home or self-care (01) ==
PROVIDERS: PCP Internal Medicine; Visit Provider Internal Medicine
DX: J84.10 Pulmonary fibrosis, unspecified (principal)
CPT/HCPCS: 94060; 94727; 94729; 99214

== ENCOUNTER 2023-05-30 07:44 | Outpatient (REF) | payer MEDICARE, OTHER, SELFPAY ==
--- NOTE | ~2023-05-30 | FL_ITS ---
EXAMINATION: XR FLUOROSCOPY UPPER GI WITH AIR CLINICAL INFORMATION: GERD, dysphagia COMPARISON: 02/05/2011 TECHNIQUE: Fluoroscopic air contrast upper GI examination was performed utilizing standard techniques with thin and thick barium and effervescent granules. Numerous spot images were obtained. FINDINGS: The diaphragms are tented bilaterally, and there appears to be pulmonary fibrosis in the lung bases. Lateral cine images of the oropharynx and hypopharynx demonstrate normal swallow mechanism with normal epiglottic inversion and soft palate elevation. There is trace laryngeal penetration with thick barium. No glottic or subglottic aspiration. No nasopharyngeal reflux present. Hypopharyngeal structures appear normal without evidence of mass. There is a small posterior pharyngeal diverticulum present. There is ballooning of hypopharynx with associated moderate cricopharyngeal achalasia. Dual and single contrast images of the esophagus demonstrate normal caliber, contour, and mucosal pattern. No evidence of stricture, mass, or ulcerations identified. There is to and fro motion of the barium column with extensive disorganized esophageal peristalsis. There is mild narrowing at the GE junction, possibly related to benign stricture versus mild achalasia. No evidence of hiatus hernia identified. No significant gastroesophageal reflux was seen during the course of the examination and on reflux views. Dual contrast and single contrast images of the stomach demonstrated a normal contour. The gastric mucosal rugae appear mildly thickened. There are multiple areas of contrast pooling in the body and antrum of the stomach, without surrounding edema, suggesting aphthous type ulcers. No discrete mass identified. Contrast freely passed into the gastric antrum and duodenal bulb without delay. Single and air-contrast images of the duodenal bulb demonstrate no abnormality. The duodenal sweep also demonstrates somewhat diffuse fold thickening suggesting peptic disease. There is a small diverticulum in the second portion of the duodenum. The imaged proximal jejunum has a normal fold pattern and caliber. FLUOROSCOPY TIME: 6 minutes 15 seconds Number of Spot Images: 18 Number of Cine: 8 DOSE AREA PRODUCT: 2262 uGy-m2 (microgray-meter squared) FL/FL upper GI series IMPRESSION: 1. Trace laryngeal penetration with thick barium. 2. Ballooning of the hypopharynx with associated moderate cricopharyngeal achalasia. 3. Small posterior pharyngeal diverticulum. 4. Marked esophageal dysmotility 5. Mild to moderate narrowing at the GE junction that may represent mild achalasia versus benign stricture. 6. Thickened gastric mucosal folds. Focal areas of contrast pooling in the body and antrum of the stomach, suggesting abscess type ulcers. These findings suggest erosive gastritis. Recommend correlation with EGD. 7. Diffuse duodenal fold thickening suggesting duodenal inflammation, likely peptic in nature. Small diverticulum in the second portion the duodenum. This procedure was performed by Hamlet Galloway PA-C, and supervised by Dr. Gonzalez
== END 2023-05-30 07:45 | disposition home or self-care (01) ==
LOC: HO.XRAY 07:44
PROVIDERS: PCP Internal Medicine; Visit Provider Internal Medicine
DX: R13.19 Other dysphagia (principal)
CPT/HCPCS: 74240

== ENCOUNTER → 2023-05-30 07:46 | Outpatient (BNV) | payer MEDICARE, OTHER, SELFPAY | PROVIDERS: PCP Internal Medicine; Visit Provider Radiology Diagnostic Radiology | DX: R13.10 Dysphagia, unspecified (principal); K21.9 Gastro-esophageal reflux disease without esophagitis | CPT/HCPCS: 74246 ==

== ENCOUNTER 2023-06-20 11:42 | Outpatient (REF) | payer MEDICARE, OTHER, SELFPAY ==
[2023-06-20 12:58] LABS: Alanine Aminotransferase 18 U/L (0-31); Albumin Level 3.9 g/dL (3.5-5.0); Alkaline Phosphatase 69 U/L (39-117); Aspartate Amino Transferase 33 U/L (5-31); Bilirubin Direct 0.2 mg/dL (0.0-0.5); Bilirubin Total 0.5 mg/dL (0.0-1.0); Cholesterol 157 mg/dL (<200); HDL Cholesterol 51 mg/dL (>40); LDL Cholesterol Calculated 90 mg/dL (<100); Triglycerides 83 mg/dL (<150)
[2023-06-20 15:31] LABS: Reflex LDLD? No
== END 2023-06-20 11:43 | disposition home or self-care (01) ==
LOC: HO.LNP 11:42
PROVIDERS: Visit Provider Internal Medicine
DX: E78.00 Pure hypercholesterolemia, unspecified (principal)
CPT/HCPCS: 80061; 80076

== ENCOUNTER 2023-06-24 10:09 | Outpatient (AMB) | payer MEDICARE, OTHER, SELFPAY ==
[2023-06-24 10:19] VITALS: BP 120/72; PULSE 85; O2SAT 98; BMI 26.9
--- NOTE | 2023-06-24 10:19 | A.OFFVIS_ITS ---
Intake Vital Signs 06/24/23 10:19 Height 5 ft Weight 137 lb 12.623 oz BMI 26.9 BP 120/72 Blood Pressure Location Lt brachial Position Sitting Pulse 85 Pulse Source Pulse Oximeter Pulse Oximetry (%) 98 Oxygen Delivery Method Nasal Cannula Oxygen Flow Rate 2 Intake Visit Reasons: pulm. fibrosis Intake Note: pt is here for follow up and she is doing well, in pulm rehab, and she is enjoying the pulm rehab program, and will continue one day a week on her own. Agriculture Specialist Required: No Allergies anthesia Adverse Reaction (Uncoded 06/24/23 10:48) Confusion Medication List - Last Reconciled 06/24/23 by Abrahan Bautista MD aspirin 81 mg PO DAILY atorvastatin 10 mg PO DAILY cetirizine (Zyrtec) 10 mg PO DAILY cholecalciferol (vitamin D3) 25 mcg PO DAILY estazolam 0.5 mg PO BEDTIME PRN dxnnhdnu-xhz-ffpti-lka620-srxr 500-500-66.7 mg (Hmtixmjbosn-Yphkmcanfrg-KEE (with antiox)) tabs PO melatonin 0.5 mg PO BEDTIME PRN xcsvfevjokly-Zh-wwak-minerals tabs PO naproxen 375 mg PO BID PRN raloxifene 60 mg PO DAILY Do you need a note to return to daycare/school/sports/work: No HPI pulm. fibrosis HPI Details This 83 years old, most pleasant lady, is being followed up for pulmonary fibrosis. She has completed her pulmonary rehab program, and now would be signing for maintenance phase. She uses O2 2 L/minute mainly when with any physical activity or when she goes outdoors. Patient is not on any bronchodilator inhalers or steroids. She is holding very stable, without any further decline. [facility] Medical History Exercise hypoxemia Pulmonary fibrosis History of smoking at least 1 pack per day for at least 30 years Early menopause Hypertension Surgical History H/O oral surgery Social History Patient Tobacco Use Status: Former Tobacco user Years Smoked: 39 Review of Systems Const All systems reviewed & are unremarkable except as noted in HPI and below Eyes Reports no additional complaints ENT Reports nasal congestion (Mild off and on) and Reports nasal discharge (Mild off and on, when she has sinus infection.) Card Denies chest pain, Denies irregular heart rhythm and Denies leg edema Resp Reports as per HPI GI Reports no additional complaints Reports no additional complaints Musc Reports arthralgias (mild) Skin/Breast Reports system reviewed and no additional complaints, except as documented Neuro Reports no additional complaints Psych Reports no additional complaints Endo Reports no additional complaints Physical Exam Vital Signs: Last Vital Signs Pulse 85 06/24/23 10:19 BP 120/72 06/24/23 10:19 Pulse Ox 98 06/24/23 10:19 Oxygen Delivery Method Nasal Cannula 06/24/23 10:19 Oxygen Flow Rate 2 06/24/23 10:19 BMI result Body Mass Index 26.9 Const General: healthy appearing, comfortable, no acute distress, alert and awake Orientation/consciousness: patient oriented x3 HEENT Head: Yes normal to inspection General nose exam: No nasal polyps present and No nasal discharge present Face and sinus: Yes sinuses nontender Mouth: oropharynx normal Throat: Yes posterior oropharynx normal Eyes General: appearance normal, both eyes and all related structures Neck Neck: Yes normal visual inspection, Yes no lymphadenopathy, Yes trachea midline and Yes no JVD Thyroid: Thyroid normal Chest Chest palpation & inspection: normal inspection of the chest, normal palpation of entire chest wall and no tenderness Resp Other: Percussion note is resonant, She does have good breath sounds on both sides. Inspiratory crackles are heard over both lower lobes and mid lungs. Cardio Palpation: normal PMI Rate: regular rate Rhythm: regular rhythm Heart sounds: no gallops and no murmurs Peripheral pulses: Peripheral pulses 2+ throughout GI Palpation (GI): Soft to palpation, nontender, No hepatosplenomegaly present and no masses Auscultation: normal bowel sounds Back/Spine/Pelvis Thoracic/Lumbar Spine: thoracic and lumbar spine normal to inspection Skin General skin exam: no rashes or lesions noted Neuro General: patient oriented x3 and no focal motor deficits Cranial nerves: Yes CN's II-XII intact bilaterally Extrem General: Yes normal to inspection, Yes no clubbing, cyanosis or edema and Yes no calf tenderness Psych Appearance: grossly normal and well kempt Speech and movement: Normal speech and movement present Results Reviewed Results Reviewed: CT scan of the chest on 03/11/2023 High resolution : IMPRESSION: Diffuse pulmonary fibrosis with predominantly lower lobe honeycombing suspicious for UIP pattern, 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 Prominent mediastinal lymph nodes. Assessment & Plan Assessment & Plan (1) Pulmonary fibrosis: Comment: Physical examination and chest x-ray findings are consistent with interstitial lung disease/pulmonary fibrosis. She has been relatively asymptomatic , and in good general health. Her status of pulmonary fibrosis has remained stable Code(s): J84.10 - Pulmonary fibrosis, unspecified Plan: Continue to use O2 2 L/minute with any physical activity. Continue in the maintenance phase of pulmonary rehab program. Discuss about any possible meds. I told her that she does not need to use any systemic steroids, and she is not candidate for antifibrotic agents. (2) History of smoking at least 1 pack per day for at least 30 years: Comment: She has history of smoking 3/4 packs a day for 40 years. Luckily she quit more than 25 years ago. Code(s): Z87.891 - Personal history of nicotine dependence Plan: as above (3) Exercise hypoxemia: Comment: She was found to have exercise induced hypoxemia , being treated with O2 2 L/minute why a POC, and is very happy with this. Code(s): R09.02 - Hypoxemia Plan: Continue to use O2 2 L/minute with portable unit. And use O2 2 L/minute at home only p.r.n. if there is any increased shortness of breath. Coding Level of Care Code Est Pt Level 3 (65735) Diagnoses Pulmonary fibrosis J84.10 History of smoking at least 1 pack per day for at least 30 years Z87.891 Exercise hypoxemia R09.02
== END 2023-06-24 10:50 | disposition home or self-care (01) ==
PROVIDERS: PCP Internal Medicine; Visit Provider Internal Medicine
DX: J84.10 Pulmonary fibrosis, unspecified (principal); Z87.891 Personal history of nicotine dependence; R09.02 Hypoxemia
CPT/HCPCS: 99213

== ENCOUNTER → 2023-06-24 10:09 | Outpatient (BNVA) | payer MEDICARE, OTHER, SELFPAY | PROVIDERS: PCP Internal Medicine; Visit Provider Internal Medicine | DX: J84.10 Pulmonary fibrosis, unspecified (principal); R09.02 Hypoxemia; Z87.891 Personal history of nicotine dependence | CPT/HCPCS: 99212 ==

== ENCOUNTER 2023-09-25 10:51 | Outpatient (REF) | payer MEDICARE, OTHER, SELFPAY ==
[2023-09-25 11:33] LABS: Alanine Aminotransferase 20 U/L (0-31); Alkaline Phosphatase 75 U/L (39-117); Aspartate Amino Transferase 36 U/L (5-31); Bilirubin Direct 0.2 mg/dL (0.0-0.5); Bilirubin Total 0.5 mg/dL (0.0-1.0); Cholesterol 148 mg/dL (<200); Glucose Fasting 97 mg/dL (60-99); HDL Cholesterol 54 mg/dL (>40); LDL Cholesterol Calculated 83 mg/dL (<100); Total Protein 7.1 g/dL (6.5-8.0); Triglycerides 58 mg/dL (<150)
[2023-09-25 11:44] LABS: Estimated Average Glucose 105 mg/dL; Hemoglobin A1c % 5.3 % (<6.0)
[2023-09-25 12:06] LABS: Reflex LDLD? No
== END 2023-09-25 10:52 | disposition home or self-care (01) ==
LOC: HO.LNP 10:51
PROVIDERS: Visit Provider Internal Medicine
DX: E78.00 Pure hypercholesterolemia, unspecified (principal); R73.09 Other abnormal glucose
CPT/HCPCS: 80061; 80076; 82947; 83036

== ENCOUNTER 2023-12-29 10:52 | Outpatient (REF) | payer MEDICARE, OTHER, SELFPAY ==
[2023-12-29 11:11] LABS: Basophils Absolute Auto 0.1 X10*3/uL (0.0-0.2); Basophils Percent Auto 0.6 % (0-2); Eosinophils Absolute Auto 0.5 X10*3/uL (0.0-0.4); Eosinophils Percent Auto 4.3 % (0-4); Hemoglobin 14.9 g/dl (12.0-16.0); Imm Gran Abs Auto 0.03 X10*3/uL (0.00-0.03); Imm Gran Pct Auto 0.3 % (0.0-0.4); Lymphocytes Absolute Auto 5.1 X10*3/uL (1.2-4.9); Lymphocytes Percent Auto 46.8 % (20-40); MANUAL DIFF FLAG SCAN; Mean Corpuscular HGB Conc 32.4 g/dl (31.0-35.0); Mean Corpuscular Hemoglobin 29.2 pg (27.0-33.0); Mean Corpuscular Volume 90.2 fL (80.0-98.0); Mean Platelet Volume 12.5 fL (9.4-12.3); Monocytes Absolute Auto 0.8 X10*3/uL (0.1-1.2); Monocytes Percent Auto 7.5 % (2-11); Neutrophils Absolute Auto 4.4 x10*3/uL (2.0-8.3); Neutrophils Percent Auto 40.5 % (45-73); Platelet Count 217 X10*3/uL (160-400); Red Cell Distribution Width 14.6 % (11.0-16.0); SCAN SMEAR FLAG 1; White Blood Count 10.8 X10*3/uL (4.8-10.8)
[2023-12-29 11:13] LABS: Appearance Urine Clear; Color Urine Yellow; Glucose Urine UA Negative (Negative); Leukocyte Esterase Urine Trace (Negative); Nitrite Urine Negative (Negative); PH 6.5 (5.0-9.0); Specific Gravity - Urine 1.015 (1.005-1.025); UMIC TRIGGER UACC YES; Urine Blood Negative (Negative); Urine Ketones Negative (Negative); Urine Protein Negative (Neg-Trace)
[2023-12-29 11:17] LABS: Bacteria Urine None Seen (None Seen); Hyaline Casts Urine 0-2 /LPF (0-2); RBC Urine 0-2 /HPF (0-2); WBC Urine 0-5 /HPF (0-5)
[2023-12-29 11:27] LABS: Alanine Aminotransferase 19 U/L (0-31); Albumin Level 3.8 g/dL (3.5-5.0); Alkaline Phosphatase 69 U/L (39-117); Anion Gap 12 (12-20); Aspartate Amino Transferase 35 U/L (5-31); Bilirubin Total 0.6 mg/dL (0.0-1.0); Blood Urea Nitrogen 15 mg/dL (9-16); Calcium 9.4 mg/dL (8.4-10.2); Carbon Dioxide 27 mmol/L (22-29); Chloride 107 mmol/L (96-108); Cholesterol 148 mg/dL (<200); Estimated Glomerular Filt Rate > 60; Glucose Fasting 99 mg/dL (60-99); HDL Cholesterol 51 mg/dL (>40); LDL Cholesterol Calculated 83 mg/dL (<100); Potassium 3.9 mmol/L (3.3-5.1); Sodium 142 mmol/L (135-145); Total Protein 6.9 g/dL (6.5-8.0); Triglycerides 71 mg/dL (<150)
[2023-12-29 11:46] LABS: SLIDE REVIEW VERIFIED
== END 2023-12-29 10:53 | disposition home or self-care (01) ==
LOC: HO.LNP 10:52
PROVIDERS: Visit Provider Internal Medicine
DX: I10 Essential (primary) hypertension (principal); E55.9 Vitamin D deficiency, unspecified; E78.00 Pure hypercholesterolemia, unspecified; D72.820 Lymphocytosis (symptomatic)
CPT/HCPCS: 80053; 80061; 81001; 82306; 85025

== ENCOUNTER 2024-01-21 14:31 | Outpatient (AMB) | payer MEDICARE, OTHER, SELFPAY ==
[2024-01-21 14:45] VITALS: BP 102/60; PULSE 83; O2SAT 95; BMI 24.3
--- NOTE | 2024-01-21 14:45 | A.OFFVIS_ITS ---
Vital Signs 01/21/24 14:45 Height 5 ft Weight 124 lb 8.979 oz BMI 24.3 BP 102/60 Blood Pressure Location Lt brachial Position Sitting Pulse 83 Pulse Source Pulse Oximeter Pulse Oximetry (%) 95 Oxygen Delivery Method Nasal Cannula Oxygen Flow Rate 2 Intake Visit Reasons: pulm fibrosis Intake Note: pt is here for follow up and states mostly pretty good, still in pulm rehab 2x a week, using oxygen when showering. Cardiac Cath Technologist Required: No Allergies anthesia Adverse Reaction (Uncoded 01/21/24 15:26) Confusion Medication List - Last Reconciled 01/21/24 by Abrahan Bautista MD aspirin 81 mg PO DAILY atorvastatin 10 mg PO DAILY cetirizine (Zyrtec) 10 mg PO DAILY cholecalciferol (vitamin D3) 25 mcg PO DAILY estazolam 0.5 mg PO BEDTIME PRN eziwrdpt-ssc-ltmya-jxb068-breo 500-500-66.7 mg (Wvclysklmeq-Eczpaeaucgp-ZJT (with antiox)) tabs PO melatonin 0.5 mg PO BEDTIME PRN opqqsuvxztmc-Ev-nqre-minerals tabs PO naproxen 375 mg PO BID PRN omeprazole 20 mg PO BID raloxifene 60 mg PO DAILY Do you need a note to return to daycare/school/sports/work: No HPI HPI pulm fibrosis: Details: THIS 83 YEARS OLD VERY PLEASANT FEMALE, IS HERE FOR 6 MONTHS FOLLOW-UP FOR HER PULMONARY FIBROSIS AND EXERTIONAL HYPOXEMIA. SHE HAS BEEN DOING VERY WELL. SHE IS GOING FOR PULMONARY REHAB PROGRAM REGULARLY TWICE A WEEK. SHE LOVES THE PULMONARY REHAB PROGRAM AND THE TEAM. AT HOME REMAINS ACTIVE. SHE DOES MOST OF THE HOUSEWORK HERSELF . SHE USES O2 2 L/MINUTE WITH ANY PHYSICAL ACTIVITY AND WHEN SHE GOES OUTDOORS. DOES NOT NEED TO USE O2 AT REST OR DURING SLEEP. SHE DOES NOT NEED TO USE ANY INHALERS. LUCKILY SHE HAS HAD NO RESPIRATORY INFECTION. [facility] Medical History Exercise hypoxemia Pulmonary fibrosis History of smoking at least 1 pack per day for at least 30 years Early menopause Hypertension Surgical History H/O oral surgery Social History Patient Tobacco Use Status: Former Tobacco user Years Smoked: 39 Review of Systems Const All systems reviewed & are unremarkable except as noted in HPI and below Eyes Reports no additional complaints ENT Reports nasal congestion (Mild off and on) and Reports nasal discharge (Mild off and on, when she has sinus infection.) Card Denies chest pain, Denies irregular heart rhythm and Denies leg edema Resp Reports as per HPI GI Reports no additional complaints Reports no additional complaints Musc Reports arthralgias (mild) Skin/Breast Reports system reviewed and no additional complaints, except as documented Neuro Reports no additional complaints Psych Reports no additional complaints Endo Reports no additional complaints Physical Exam Vital Signs: Last Vital Signs Pulse 83 01/21/24 14:45 BP 102/60 01/21/24 14:45 Pulse Ox 95 01/21/24 14:45 Oxygen Delivery Method Nasal Cannula 01/21/24 14:45 Oxygen Flow Rate 2 01/21/24 14:45 BMI result Body Mass Index 24.3 Const General: healthy appearing, comfortable, no acute distress, alert and awake Orientation/consciousness: patient oriented x3 HEENT Head: Yes normal to inspection General nose exam: No nasal polyps present and No nasal discharge present Face and sinus: Yes sinuses nontender Mouth: oropharynx normal Throat: Yes posterior oropharynx normal Eyes General: appearance normal, both eyes and all related structures Neck Neck: Yes normal visual inspection, Yes no lymphadenopathy, Yes trachea midline and Yes no JVD Thyroid: Thyroid normal Chest Chest palpation & inspection: normal inspection of the chest, normal palpation of entire chest wall and no tenderness Resp Other: Percussion note is resonant, She does have good breath sounds on both sides. Inspiratory crackles are heard over both lower lobes and mid lungs. Cardio Palpation: normal PMI Rate: regular rate Rhythm: regular rhythm Heart sounds: no gallops and no murmurs Peripheral pulses: Peripheral pulses 2+ throughout GI Palpation (GI): Soft to palpation, nontender, No hepatosplenomegaly present and no masses Auscultation: normal bowel sounds Back/Spine/Pelvis Thoracic/Lumbar Spine: thoracic and lumbar spine normal to inspection Skin General skin exam: no rashes or lesions noted Neuro General: patient oriented x3 and no focal motor deficits Cranial nerves: Yes CN's II-XII intact bilaterally Extrem General: Yes normal to inspection, Yes no clubbing, cyanosis or edema and Yes no calf tenderness Psych Appearance: grossly normal and well kempt Speech and movement: Normal speech and movement present Assessment & Plan Assessment & Plan (1) History of smoking at least 1 pack per day for at least 30 years: Comment: She has history of smoking 3/4 packs a day for 40 years. Luckily she quit more than 25 years ago. Code(s): Z87.891 - Personal history of nicotine dependence Category: Social Hx Plan: HAS NO URGE TO GO BACK TO SMOKING (2) Pulmonary fibrosis: Comment: Physical examination and chest x-ray findings are consistent with interstitial lung disease/pulmonary fibrosis. She has been relatively asymptomatic , and in good general health. Her status of pulmonary fibrosis has remained stable Code(s): J84.10 - Pulmonary fibrosis, unspecified Category: Medical Plan: NO SPECIFIC MEDS FOR PULMONARY FIBROSIS. THE ONLY TREATMENT IS WITH O2 , AND SHE IS ADVISED TO CONTINUE MAINTENANCE PHASE OF PULMONARY REHAB PROGRAM (3) Exercise hypoxemia: Comment: She was found to have exercise induced hypoxemia , being treated with O2 2 L/minute via POC, and is very happy with this. Code(s): R09.02 - Hypoxemia Category: Medical Plan: Continue to use O2 2 L/minute, with any physical activity and also when going outdoors. Coding Level of Care Code Est Pt Level 3 (56841) Diagnoses History of smoking at least 1 pack per day for at least 30 years Z87.891 Pulmonary fibrosis J84.10 Exercise hypoxemia R09.02
== END 2024-01-21 15:30 | disposition home or self-care (01) ==
PROVIDERS: PCP Internal Medicine; Visit Provider Internal Medicine
DX: Z87.891 Personal history of nicotine dependence (principal); J84.10 Pulmonary fibrosis, unspecified; R09.02 Hypoxemia
CPT/HCPCS: 99213

== ENCOUNTER → 2024-01-21 14:31 | Outpatient (BNVA) | payer MEDICARE, OTHER, SELFPAY | PROVIDERS: PCP Internal Medicine; Visit Provider Internal Medicine | DX: J84.10 Pulmonary fibrosis, unspecified (principal); R09.02 Hypoxemia; Z87.891 Personal history of nicotine dependence | CPT/HCPCS: 99212 ==

== ENCOUNTER 2024-02-10 08:59 | Outpatient (AMB) | payer MEDICARE, OTHER, SELFPAY ==
[2024-02-10 11:14] VITALS: BP 116/60; PULSE 96; O2SAT 95
--- NOTE | 2024-02-10 11:14 | MHC.OFFVIS ---
Vital Signs 02/10/24 11:14 Height 5 ft BP 116/60 Blood Pressure Location Rt brachial Position Sitting Pulse 96 Pulse Source Pulse Oximeter Pulse Oximetry (%) 95 Oxygen Delivery Method Nasal Cannula Intake Visit Reasons: 6 minute walk Allergies anthesia Adverse Reaction (Uncoded 02/10/24 11:14) Confusion Medication List - Last Reconciled 02/10/24 by Shirley Allen LPN aspirin 81 mg PO DAILY atorvastatin 10 mg PO DAILY cetirizine (Zyrtec) 10 mg PO DAILY cholecalciferol (vitamin D3) 25 mcg PO DAILY estazolam 0.5 mg PO BEDTIME PRN iroskbkx-abp-rblag-qor360-iacb 500-500-66.7 mg (Kvrhgsbvmgs-Jdflzbmqmus-HDU (with antiox)) tabs PO melatonin 0.5 mg PO BEDTIME PRN rzhsjiwvbywd-Hx-palr-minerals tabs PO naproxen 375 mg PO BID PRN omeprazole 20 mg PO BID raloxifene 60 mg PO DAILY PFSH Medical History Exercise hypoxemia Pulmonary fibrosis History of smoking at least 1 pack per day for at least 30 years Early menopause Hypertension Surgical History H/O oral surgery Social History Patient Tobacco Use Status: Former Tobacco user Years Smoked: 39 Physical Exam Vital Signs: Last Vital Signs Pulse 96 02/10/24 11:14 BP 116/60 02/10/24 11:14 Pulse Ox 95 02/10/24 11:14 Oxygen Delivery Method Nasal Cannula 02/10/24 11:14 Office Procedures 6 Minute Walk Time:: 09:00 SPO2 % at rest: 95 Pulse at rest: 96 SPO2 % during excercise: 87 Pulse during excercise: 108 SPO2 % after excercise: 97 Pulse after excercise: 106 Distance in yards walked: 200 Ellen Score: 3 Performance Observations:: Radha walked on level ground with the assistance of a walker. She walked on room air for 100 yards before her SPO2 decreased to 87%, pulsed O2 started at setting 2 her SPO2 recovered to 96%. She walked for 75 yards before her SPO2 decreased to 88% pulsed O2 increased to setting 3. She maintained her SPO2 95-96% on setting #3 pulsed O2. [address] - 6 Minute Walk Assessment & Plan Assessment & Plan (1) Exercise hypoxemia: Comment: She was found to have exercise induced hypoxemia , being treated with O2 2 L/minute via POC, and is very happy with this. Code(s): R09.02 - Hypoxemia Category: Medical Plan: TESTED FOR USE OF O2 CONSERVING UNIT. MAINTAINED O2 SAT ABOVE 90% WITH 2-3 L/MINUTE SETTING. Plan SHE IS FIT TO USE THE POC UNIT OR BE CYLINDER FOR EASY PORTABILITY. Orders: Orders AMB 6 minute walk Today R09.02 - Hypoxemia Coding Level of Care Code Established Pt Est Pt Level 1 (89746) Patient Type Established Diagnoses Exercise hypoxemia R09.02 CPT Codes Coding ([id number]) Comment NURSE VISIT ONLY
[2024-02-10 11:17] VITALS: PULSE 96; O2SAT 95
== END 2024-02-10 11:18 | disposition home or self-care (01) ==
LOC: HO.HPS 09:00
PROVIDERS: PCP Internal Medicine; Visit Provider Internal Medicine
DX: R09.02 Hypoxemia (principal)
CPT/HCPCS: 94618

== ENCOUNTER → 2024-02-10 08:59 | Outpatient (BNVA) | payer MEDICARE, OTHER, SELFPAY | PROVIDERS: PCP Internal Medicine; Visit Provider Internal Medicine | DX: R09.02 Hypoxemia (principal) | CPT/HCPCS: 94618; 99211 ==

== ENCOUNTER 2024-06-28 10:41 | Outpatient (REF) | payer MEDICARE, OTHER, SELFPAY ==
[2024-06-28 13:14] LABS: Alanine Aminotransferase 17 U/L (0-31); Albumin Level 3.9 g/dL (3.5-5.0); Alkaline Phosphatase 69 U/L (39-117); Aspartate Amino Transferase 33 U/L (5-31); Bilirubin Direct 0.2 mg/dL (0.0-0.5); Bilirubin Total 0.6 mg/dL (0.0-1.0); Cholesterol 150 mg/dL (<200); HDL Cholesterol 53 mg/dL (>40); LDL Cholesterol Calculated 82 mg/dL (<100); Total Protein 7.1 g/dL (6.5-8.0); Triglycerides 76 mg/dL (<150)
[2024-06-28 13:21] LABS: Reflex LDLD? No
== END 2024-06-28 10:42 | disposition home or self-care (01) ==
LOC: HO.LNP 10:41
PROVIDERS: Visit Provider Internal Medicine
DX: E78.00 Pure hypercholesterolemia, unspecified (principal)
CPT/HCPCS: 80061; 80076

== ENCOUNTER 2024-07-26 10:10 | Outpatient (AMB) | payer MEDICARE, OTHER, SELFPAY ==
[2024-07-26 10:22] VITALS: BP 120/68; PULSE 80; O2SAT 98; BMI 21.3
--- NOTE | 2024-07-26 10:22 | MHC.OFFVIS ---
Vital Signs 07/26/24 10:22 Height 5 ft Weight 109 lb 2.061 oz BMI 21.3 BP 120/68 Blood Pressure Location Lt brachial Position Sitting Pulse 80 Pulse Source Pulse Oximeter Pulse Oximetry (%) 98 Oxygen Delivery Method Nasal Cannula Oxygen Flow Rate 3 Intake Visit Reasons: Pulm Fibrosis Intake Note: pt is here for follow up and states is mostly on 3 liters now, and 4 liters on exertion. Transfer Engineer Required: No Allergies anthesia Adverse Reaction (Uncoded 07/26/24 10:40) Confusion Medication List - Last Reconciled 07/26/24 by Abrahan Bautista MD aspirin 81 mg PO DAILY atorvastatin 10 mg PO DAILY cetirizine (Zyrtec) 10 mg PO DAILY cholecalciferol (vitamin D3) 25 mcg PO DAILY estazolam 0.5 mg PO BEDTIME PRN fqvahbon-qis-jeevs-rbz451-wwst 500-500-66.7 mg (Eijwdjirdnq-Ntkfinldiwf-IVV (with antiox)) tabs PO guaifenesin 200 mg PO BID PRN melatonin 0.5 mg PO BEDTIME PRN azjzyujfqsom-Fl-jjvc-minerals tabs PO naproxen 375 mg PO BID PRN pantoprazole 40 mg PO DAILY raloxifene 60 mg PO DAILY Do you need a note to return to daycare/school/sports/work: No HPI HPI Pulm Fibrosis: Details: THIS 84 YEARS OLD VERY PLEASANT FEMALE, IS HERE FOR 6 MONTHS FOLLOW-UP FOR HER PULMONARY FIBROSIS AND EXERTIONAL HYPOXEMIA. SHE DOES HAVE POC UNIT AND USES O2 3-4 L/MINUTE TO MAINTAIN HER O2 SATS ABOVE 90%. SHE HAS BEEN DOING VERY WELL. SHE IS GOING FOR PULMONARY REHAB PROGRAM REGULARLY TWICE A WEEK, AND LOVES IT . AT HOME REMAINS ACTIVE. SHE DOES MOST OF THE HOUSEWORK HERSELF . SHE USES O2 3 L/MINUTE WITH ANY PHYSICAL ACTIVITY AND WHEN SHE GOES OUTDOORS. AFTER HER LAST VISIT SHE WAS QUALIFIED FOR USING OXYGEN CONSERVING UNIT, AND SINCE THEN SHE HAS HAD A POC. FOR PORTABILITY SHE IS VERY HAPPY ABOUT THIS . DOES NOT NEED TO USE O2 AT REST OR DURING SLEEP. SHE DOES NOT NEED TO USE ANY INHALERS. LUCKILY SHE HAS HAD NO RESPIRATORY INFECTION. [facility] Medical History Exercise hypoxemia Pulmonary fibrosis History of smoking at least 1 pack per day for at least 30 years Early menopause Hypertension Surgical History H/O oral surgery Social History Patient Tobacco Use Status: Former Tobacco user Years Smoked: 39 Review of Systems Const All systems reviewed & are unremarkable except as noted in HPI and below Eyes Reports no additional complaints ENT Reports nasal congestion (Mild off and on) and Reports nasal discharge (Mild off and on, when she has sinus infection.) Card Denies chest pain, Denies irregular heart rhythm and Denies leg edema Resp Reports as per HPI GI Reports no additional complaints Reports no additional complaints Musc Reports arthralgias (mild) Skin/Breast Reports system reviewed and no additional complaints, except as documented Neuro Reports no additional complaints Psych Reports no additional complaints Endo Reports no additional complaints Physical Exam Vital Signs: Last Vital Signs Pulse 80 07/26/24 10:22 BP 120/68 07/26/24 10:22 Pulse Ox 98 07/26/24 10:22 Oxygen Delivery Method Nasal Cannula 07/26/24 10:22 Oxygen Flow Rate 3 07/26/24 10:22 BMI result Body Mass Index 21.3 Const General: healthy appearing, comfortable, no acute distress, alert and awake Orientation/consciousness: patient oriented x3 HEENT Head: Yes normal to inspection General nose exam: No nasal polyps present and No nasal discharge present Face and sinus: Yes sinuses nontender Mouth: oropharynx normal Throat: Yes posterior oropharynx normal Eyes General: appearance normal, both eyes and all related structures Neck Neck: Yes normal visual inspection, Yes no lymphadenopathy, Yes trachea midline and Yes no JVD Thyroid: Thyroid normal Chest Chest palpation & inspection: normal inspection of the chest, normal palpation of entire chest wall and no tenderness Resp Other: Percussion note is resonant, She does have good breath sounds on both sides. Inspiratory crackles are heard over both lower lobes and mid lungs, not any worse than before. Cardio Palpation: normal PMI Rate: regular rate Rhythm: regular rhythm Heart sounds: no gallops and no murmurs Peripheral pulses: Peripheral pulses 2+ throughout GI Palpation (GI): Soft to palpation, nontender, No hepatosplenomegaly present and no masses Auscultation: normal bowel sounds Back/Spine/Pelvis Thoracic/Lumbar Spine: thoracic and lumbar spine normal to inspection Skin General skin exam: no rashes or lesions noted Neuro General: patient oriented x3 and no focal motor deficits Cranial nerves: Yes CN's II-XII intact bilaterally Extrem General: Yes normal to inspection, Yes no clubbing, cyanosis or edema and Yes no calf tenderness Psych Appearance: grossly normal and well kempt Speech and movement: Normal speech and movement present Assessment & Plan Assessment & Plan (1) Pulmonary fibrosis: Comment: Physical examination and chest x-ray findings are consistent with interstitial lung disease/pulmonary fibrosis. She has been relatively asymptomatic , and in good general health. Except for the need to use O2 with any physical activity. Her status of pulmonary fibrosis has remained stable Code(s): J84.10 - Pulmonary fibrosis, unspecified Category: Medical Plan: We discussed about pulmonary fibrosis and treatment modalities. She does not need to use any antifibrotic agents. She is also not needing to use. Any bronchodilators She is happy with the use of oxygen. (2) Exercise hypoxemia: Comment: She was found to have exercise induced hypoxemia , being treated with O2 3 L/minute via POC, and is very happy with this. Had lot of questions about the oximeter recording devices, and finally she understands that she can use any good compliance. Code(s): R09.02 - Hypoxemia Category: Medical Plan: Continue to use O2 3-4 L/minute with POC. Goal is to keep O2 sat above 89%. (3) History of smoking at least 1 pack per day for at least 30 years: Comment: She has history of smoking 3/4 packs a day for 40 years. Luckily she quit more than 25 years ago. Code(s): Z87.891 - Personal history of nicotine dependence Category: Social Hx Plan: She has no inclination to go back to smoker Coding Level of Care Code Est Pt Level 3 (70472) Diagnoses Pulmonary fibrosis J84.10 Exercise hypoxemia R09.02 History of smoking at least 1 pack per day for at least 30 years Z87.891
--- OUTSIDE RECORDS SUMMARY | 2024-07-26 11:35 | XMS_ITS ---
Author Organization Grant Corlye MD Address [address] [place], [place] [phone] Care Team Providers Care Pelletizer Operator Name Role Phone Grant Corley Primary Care Provider [phone] Allergies No Known Allergies REASON FOR VISIT [...] kg/m2 07/05/2024 weight is down 5 pounds [facility] e 03-19-24 Encounters Encounter Location Date Provider Diagnosis Grant Corley MD [address] [place] [address] [place] [phone] 07/05/2024 Grant Corley Esophageal dysmotility K22.4 ; [...] Details Provider Name:Grant chamorro, 12/30/2024 07:45:00 AM, [address] [place] [address], [address], [place], [place], [phone], Provider Name:Grant paulr, 01/06/2025 01:00:00 PM, [address] [facility], [address], [place], [phone], Progress Notes * Radha SILVERMAN MDOB: [birth year] (84 yo F)Acc No.[id number]:07/05/2024 Progress Notes Patient:?Radha SILVERMAN Provider:?Grant Corley MD :1940???Age:84 Y???Sex:Female D ate:07/05/2024 Address:[address] [place], [place] [phone] Subjective: * Chief Complaints: * ???6 MO F/U * HPI: ???Symptom(s):?patient is a 84 yo female here for 6 month follow up visit, some day good and some days bad. has? to take pantoprazole. * ROS:?General/Constitutional:?Denies?Chills.?Denies?Fatigue.?Denies?Fever.?Denies?Headache.?ENT:?Patient denies?decreased sense of smell, any loss of taste, sore throat.?Denies?Sore throat.?Respiratory:?Patient complaining of?shortness of breath with exertion even with oxygen. pulsing oxygen not as good as the tanks.?.?Denies?Cough.?Denies?Shortness of breath at rest.?Denies?Shortness of breath with exertion.?Gastrointestinal:?Denies?Diarrhea.?Denies?Nausea.?Musculoskeletal:?Patient denies?muscle aches.?Peripheral Vascular:?Patient denies?red and blue toes.? * Medical History:? * Surgical History:? * Hospitalization/Major Diagno stic Procedure:? * Medications:?TakingOndansetr on 4 MG Tablet Disintegrating 1 tablet on [...] reviewed and reconciled with the patient * Allergies:?N.K.D.A.yes[Aller gies Verified] Objective: * Vitals:?Ht: 61, Wt: 113, BMI :21.35, BP:114/80, Wt-k.26. weight is down 5 pounds since 03-19-24. * ???Past Orders: ???Lab:Liver Panel (Order Da te 06/28/2024) (Collection Date & Time - 06/28/2024 07:45 AM) ? Value Reference Range ?Bilirubin Total 0.6 0.0- 1.0 - mg/dL ?Bilirubin Direct 0.2 0.0 -0.5 - mg/dL ?Aspartate Amino Transferase 33 H 5-31 - U/L ?Alanine Aminotransferase 17 0-31 - U/L ?Total Protein 7.1 6.5-8. 0 - g/dL ?Albumin Level 3.9 3.5-5. 0 - g/dL ?Alkaline Phosphatase 69 39-117 - U/L ???Lab:Lipid Panel with Refl ex (Order Date - 06/28/2024) (Collection Date & Time - 06/28/2024 07:45 AM) ? Value Reference Range ?Triglycerides 76 <150 - mg/dL ?Cholesterol 150 <200 - m g/dL ?LDL Cholesterol Calculated 82 <100 - mg/dL ?HDL Cholesterol 53 >40 - mg/dL * Examination: ???General Examination: ?GENERAL APPEARANCE:?alert, well hydrated, in no distress.?HEAD:?normocephalic.?EYES:?extraocular movement full and smooth.?SKIN:?good turgor.?HEART:?regular rate and rhythm, no murmurs, rubs, gallops.?LUNGS:?with few rales and wheezes.? Assessment: * Assessment: 1.?Esophageal dysmotility - K22.4 (Primary)???2.?Insomnia - G47.00???3.?Herpes - B00.9??? Plan: * Treatment: 2.?Insomnia? Refill Estazolam Tablet, 1 MG, take 1 tablet by mouth every day at bedtime as needed, Orally, Once a day as needed, 90 days, 60, Refills 3.?? 3.?Herpes? Continue Valtrex Tablet, 1 GM, 1 tablet, Orally, 3 times a day, 7 days, 21 Tablet, Refills 3.?? * Procedure Codes:? * * Sign off status: Completed true * Provider:?Grant Corley MD Date:?0 07/05/2024 Generated for Jocelyn winters/Sarahi/eTransmitting on:?07/26/2024 11:35 AM EDT History and Physical Notes * HPI [...]
--- OUTSIDE RECORDS SUMMARY | 2024-07-26 11:35 | XMS_ITS ---
Author Organization Grant Corley MD Address [address] [place] [phone] Care Team Providers Care Rn Clinical Documentation Specialist Name Role Phone Grant Corley Primary Care Provider [phone] REASON FOR VISIT tacchycardia Encounters Encounter Location Date Provider Diagnosis Grant Corley MD [address] [place] [address] [address] [place] [phone] 06/11/2024 Grant Corley Plan Of Treatment Next Appt Details Provider Name:Grant Coe ier, 12/30/2024 07:45:00 AM, [address] [place] [address], [address] [place], [phone], Provider Name:Grant chamorro, 01/06/2025 01:00:00 PM, [address] [place] [address], [address] [place], [phone], Progress Notes * Radha SILVERMAN MDOB: [birth year] (84 yo F)Acc No.[id number]:06/11/2024 Progress Notes Patient:?Radha SILVERMAN Provider:?Grant Corley MD :1940???Age:84 Y???Sex:Female D ate:06/11/2024 Address:[address] [place] [address] Subjective: * Chief Complaints: * ???1. Tacchycardia. * Medical History:? Objective: * Vitals:? Assessment: Plan: * Treatment: * * The named appointment provid er may or may not be the originator of this progress note, and it is not deemed complete until electronically signed by the appointment provider. Sign off status: Pending * Provider:?Grant Corley MD Date:?0 06/11/2024 Generated for Jocelyn winters/Sarahi/Davonsmitting on:?07/26/2024 11:35 AM EDT
--- OUTSIDE RECORDS SUMMARY | 2024-07-26 11:36 | XMS_ITS | Patient Health Record ---
Author Organization Grant Corley MD Address [address] [place], [place] [id number] Care Team Providers Care [facility]care Center Director Name Role Phone Grant Corley Primary Care Provider Allergies No Known Allergies Results Component Value Reference Range Notes Liver Panel Reviewed date:09/25/2023 12:08:56 PM Interpretation: Performing Lab:[facility], [address] [place] [phone] Notes/Report: Bilirubin Total 0.5 0.0-1.0 mg/dL Bilirubin Direct 0.2 0.0-0.5 mg/dL Aspartate Amino Transferase 36 5-31 U/L Alanine Aminotransferase 20 0-31 U/L Total Protein 7.1 6.5-8.0 g/dL Albumin Level 4.0 3.5-5.0 g/dL Alkaline Phosphatase 75 39-117 U/L Glucose Fasting Reviewed date:09/25/2023 12:08:26 PM Interpretation: Performing Lab:[facility], [address] [place] [phone] Notes/Report: Glucose Fasting 97 60-99 mg/dL Lipid Panel with Reflex Reviewed date:09/25/2023 12:21:01 PM Interpretation: Performing Lab:[facility], [address] [place] [phone] Notes/Report: Triglycerides 58 <150 mg/dL Desirable Triglyceride: less than 150 mg/dL Borderline High Triglyceride 150-199 mg/dL High Triglyceride: 200-499 mg/dL Very High Triglyceride: greater than or equal to 5OO mg/dL Cholesterol 148 <200 mg/dL Desirable Cholesterol: less than 200 mg/dL Borderline High Cholesterol: 200-239 mg/dL High Cholesterol: greater than 239 mg/dL LDL Cholesterol Calculated 83 <100 mg/dL Desirable LDL: less than 100 mg/dL Near Optimal/Above Optimal LDL: 110-129 mg/dL Borderline High LDL: 130-159 mg/dL High LDL: 160-189 mg/dL Very High LDL: greater than or equal to 190 mg/dL HDL Cholesterol 54 >40 mg/dL Desirable HDL: greater than 40 mg/dL Note: This HDL assay may give artificially low results in patients with liver disease. Hemoglobin A1c Reviewed date:09/25/2023 11:56:07 AM Interpretation: Performing Lab:[facility], [address] [place] [phone] Notes/Report: Hemoglobin A1c % 5.3 <6.0 % Hemoglobin A1C Reference Range Adults: 4.8 - 6.0 % Non diabetic: < 6.0 % Goal: < 7.0 % Additional Action Suggested: > 8.0 % Note: Hemoglobin A1c results are invalid for patients with abnormal amounts of HbF. Blood transfusions may impact the HbA1c concentration in the patient sample. Estimated Average Glucose 105 eAG = Estimated average glucose which is %A1C expressed as average glucose, using the formula of the [id number] Average Glucose study (ADAG), Diabetes Care, Vol.31,#8, Nov. 2007 Complete Blood Count Auto Di ff Reviewed date:12/29/2023 12:52:35 PM Interpretation: Performing Lab:[facility], [address] [place] [phone] Notes/Report: White Blood Count 10.8 4.8-10.8 X10*3/uL Red Blood Count 5.10 4.20-5.50 X10*6/uL Hemoglobin 14.9 12.0-16.0 g/dl Hematocrit 46.0 37.0-47.0 % Mean Corpuscular Volume 90.2 80.0-98.0 fL Mean Corpuscular Hemoglobin 29.2 27.0-33.0 pg Mean Corpuscular HGB Conc 32.4 31.0-35.0 g/dl Red Cell Distribution Width 14.6 11.0-16.0 % Platelet Count 217 160-400 X10*3/uL Mean Platelet Volume 12.5 9.4-12.3 fL Neutrophils Percent Auto 40.5 45-73 % Imm Gran Pct Auto 0.3 0.0-0.4 % Lymphocytes Percent Auto 46.8 20-40 % Monocytes Percent Auto 7.5 2-11 % Eosinophils Percent Auto 4.3 0-4 % Basophils Percent Auto 0.6 0-2 % NRBC Pct Auto 0.0 0.0-0.2 /100WBC Neutrophils Absolute Auto 4.4 2.0-8.3 x10*3/u L Imm Gran Abs Auto 0.03 0.00-0.03 X10*3/uL Lymphocytes Absolute Auto 5.1 1.2-4.9 X10*3/u L Monocytes Absolute Auto 0.8 0.1-1.2 X10*3/uL Eosinophils Absolute Auto 0.5 0.0-0.4 X10*3/u L Basophils Absolute Auto 0.1 0.0-0.2 X10*3/uL NRBC Abs Auto 0.000 0.0-0.012 X10*3/uL White Blood Count 10.8 4.8-10.8 X10*3/uL Red Blood Count 5.10 4.20-5.50 X10*6/uL Hemoglobin 14.9 12.0-16.0 g/dl Hematocrit 46.0 37.0-47.0 % Mean Corpuscular Volume 90.2 80.0-98.0 fL Mean Corpuscular Hemoglobin 29.2 27.0-33.0 pg Mean Corpuscular HGB Conc 32.4 31.0-35.0 g/dl Red Cell Distribution Width 14.6 11.0-16.0 % Platelet Count 217 160-400 X10*3/uL Mean Platelet Volume 12.5 9.4-12.3 fL Neutrophils Percent Auto 40.5 45-73 % Imm Gran Pct Auto 0.3 0.0-0.4 % Lymphocytes Percent Auto 46.8 20-40 % Monocytes Percent Auto 7.5 2-11 % Eosinophils Percent Auto 4.3 0-4 % Basophils Percent Auto 0.6 0-2 % NRBC Pct Auto 0.0 0.0-0.2 /100WBC Neutrophils Absolute Auto 4.4 2.0-8.3 x10*3/u L Imm Gran Abs Auto 0.03 0.00-0.03 X10*3/uL Lymphocytes Absolute Auto 5.1 1.2-4.9 X10*3/u L Monocytes Absolute Auto 0.8 0.1-1.2 X10*3/uL Eosinophils Absolute Auto 0.5 0.0-0.4 X10*3/u L Basophils Absolute Auto 0.1 0.0-0.2 X10*3/uL NRBC Abs Auto 0.000 0.0-0.012 X10*3/uL CORRECTED REPORT CORRECTED REPORT Comprehensive Palmer. Panel Fa st Reviewed date:12/29/2023 12:53:08 PM Interpretation: Performing Lab:[facility], [address] [place] [phone] Notes/Report: Sodium 142 135-145 mmol/L Potassium 3.9 3.3-5.1 mmol/L Slight Hemoly sis Chloride 107 96-108 mmol/L Carbon Dioxide 27 22-29 mmol/L Anion Gap 12 12-20 Blood Urea Nitrogen 15 9-16 mg/dL Creatinine 0.83 0.5-1.4 mg/dL Estimated Glomerular Filt Rate > 60 NOTE: For -[place] individuals, multiply the result by 1.210. Chronic Kidney Disease: Estimated GFR < 60 mL/min/1.73m2 Severe Kidney Disease: Estimated GFR < 15 mL/min/1.73m2 Glucose Fasting 99 60-99 mg/dL Calcium 9.4 8.4-10.2 mg/dL Bilirubin Total 0.6 0.0-1.0 mg/dL Aspartate Amino Transferase 35 5-31 U/L Slight Hemolysis Alanine Aminotransferase 19 0-31 U/L Total Protein 6.9 6.5-8.0 g/dL Albumin Level 3.8 3.5-5.0 g/dL Alkaline Phosphatase 69 39-117 U/L Lipid Panel Reviewed date:12/29/2023 12:42:41 PM Interpretation: Performing Lab:[facility], [address] [place] [phone] Notes/Report: Triglycerides 71 <150 mg/dL Desirable Triglyceride: less than 150 mg/dL Borderline High Triglyceride 150-199 mg/dL High Triglyceride: 200-499 mg/dL Very High Triglyceride: greater than or equal to 5OO mg/dL Cholesterol 148 <200 mg/dL Desirable Cholesterol: less than 200 mg/dL Borderline High Cholesterol: 200-239 mg/dL High Cholesterol: greater than 239 mg/dL LDL Cholesterol Calculated 83 <100 mg/dL Desirable LDL: less than 100 mg/dL Near Optimal/Above Optimal LDL: 110-129 mg/dL Borderline High LDL: 130-159 mg/dL High LDL: 160-189 mg/dL Very High LDL: greater than or equal to 190 mg/dL HDL Cholesterol 51 >40 mg/dL Desirable HDL: greater than 40 mg/dL Note: This HDL assay may give artificially low results in patients with liver disease. Vitamin D 25-OH Total Reviewed date:12/29/2023 12:43:08 PM Interpretation: Performing Lab:[facility], [address] [place] [phone] Notes/Report: Vitamin D 25-OH Total 62.0 >30 ng/mL Health Based Reference Values* < 20 ng/mL Deficient 20-30 ng/mL Insufficient > 30 ng/mL Sufficient *Umberto AC. N Engl J Med. 2007;357:266-280 Care must be taken in interpreting Vitamin D results from different laboratories and methodologies. Published data demonstrated that results from patients undergoing hemodialysis may show a negative bias when tested with various automated 25-OH vitamin D assays when compared to LC-MS/MS. When testing samples from patients whose predominant form of Vitamin D is Vitamin D2, such as patients receiving Vitamin D2 supplementation, results that are subtherapeutic should be confirmed with another method such as LC-MS/MS. UA ClnCatch+Micro w/rflx Cul t Reviewed date:12/29/2023 05:03:52 PM Interpretation: Performing Lab:[address] [phone] Notes/Report: Urine, Clean Catch Color Urine Yellow Appearance Urine Clear PH 6.5 5.0-9.0 Glucose Urine UA Negative Negative mg/dL Urine Blood Negative Negative Specific [place] - Urine 1.015 1.005-1.025 Urine Protein Negative Neg-Trace mg/dL Urine Ketones Negative Negative mg/dL Nitrite Urine Negative Negative Leukocyte Esterase Urine Trace Negative RBC Urine 0-2 0-2 /HPF WBC Urine 0-5 0-5 /HPF Squamous Epithelial Cell Urine 6-10 0-2 /HPF Bacteria Urine None Seen None Seen Hyaline Casts Urine 0-2 0-2 /LPF Liver Panel Reviewed date:06/28/2024 04:21:08 PM Interpretation: Performing Lab:[facility], [address] [place] [phone] Notes/Report: Bilirubin Total 0.6 0.0-1.0 mg/dL Bilirubin Direct 0.2 0.0-0.5 mg/dL Aspartate Amino Transferase 33 5-31 U/L Alanine Aminotransferase 17 0-31 U/L Total Protein 7.1 6.5-8.0 g/dL Albumin Level 3.9 3.5-5.0 g/dL Alkaline Phosphatase 69 39-117 U/L Lipid Panel with Reflex Reviewed date:06/28/2024 04:21:39 PM Interpretation: Performing Lab:[address] [phone] Notes/Report: Triglycerides 76 <150 mg/dL Desirable Triglyceride: [...] low results in patients with liver disease. Rivka Jimenes Reviewed date:09/25/2023 11:56:37 AM Interpretation: Performing Lab:[facility], [address] [place] [phone] Notes/Report: Rivka Jimenes See Note Specimen held untested for 24 hours; Call to request Chemistry testing. MAMMOGRAM DIGITAL BILATERAL SCREEN Reviewed date:10/27/2023 11:08:05 AM Interpretation:Negative Performing Lab: Notes/Report: Negative Rivka Jimenes Reviewed date:12/29/2023 12:42:30 PM Interpretation: Performing Lab:[facility], [address] [place] [phone] Notes/Report: Rivka Jimenes See Note Specimen held untested for 24 hours; Call to request Chemistry testing. SLIDE REVIEW Reviewed date:12/29/2023 12:42:22 PM Interpretation: Performing Lab:[facility], [address] [place] [phone] Notes/Report: SLIDE REVIEW VERIFIED Rivka Jimenes Reviewed date:06/28/2024 11:59:55 AM Interpretation: Performing Lab:[facility], [address] [place] [phone] Notes/Report: Rivka Jimenes See Note Specimen held untested for 24 hours; Call to request Chemistry testing. Reason For Referral No Information Medications Medication SIG (Take, Route, Frequency, Duration) Notes Start Date End Date Status Atorvastatin Calcium 20 MG TAKE 1 TABLET BY MOUTH EVERY DAY FOR 90 DAYS for 90 Active Prosom Active Myrbetriq 25 MG 1 tablet Orally Once a day for 30 day(s) 07/02/2022 Not-Taking Pantoprazole Sodium 40 MG 1 tablet 1/2 t o 1 hour before morning meal Orally Once a day for 90 days 03/19/2024 Active ZyrTEC Allergy 10 MG 1 tablet Orally Onc e a day Active Aspir-81 81 MG 1 tablet Orally Once a day 08/06/2012 Active Naproxen 375 MG TAKE 1 TABLET BY JUAN CARLOS TH TWICE A DAY for 90 Active Ondansetron 4 MG 1 tablet on the tong ue and allow to dissolve Orally Once a day for 30 day(s) 03/19/2024 Active Raloxifene HCl 60 MG TAKE 1 TABLET BY MO UTH EVERY DAY for 90 Active Estazolam 1 MG take 1 tablet by juan carlos th every day at bedtime as needed Orally Once a day as needed for 90 days 07/05/2024 Active Glucosamine Chondroitin Vit D3 1500/1200 as directed Orally once a day Active Valtrex 1 GM 1 tablet Orally 3 ti mes a day for 7 days 03/18/2023 Active Vitamin D 25 MCG (1000 UT) 1 tablet Orally Once a day Active Immunizations Vaccine Route Administration Date Status Comme nts Flu Vaccine IM Intramuscular 01/01/2011 Administered Shingles IM Intramuscular 02/04/2011 Administered Tetanus IM Intramuscular 03/04/2011 Administered TDaP IM Intramuscular 12/09/2011 Administered Flu Vaccine IM Intramuscular 12/30/2011 Administered Prevnar 13 IM Intramuscular 05/05/2012 Administered PPSV23 (Pnemovax) Unknown 02/05/2005 Administered Flu Vaccine IM Intramuscular 12/24/2012 Administered Fluarix Quadrivalent IM Intramuscular 12/28/2013 Administe red PPSV23 (Pnemovax) IM Intramuscular 05/05/2014 Administered Fluarix Quadrivalent IM Intramuscular 01/24/2015 Administe red Fluarix Quadrivalent IM Intramuscular 12/29/2015 Administe red Fluarix Quadrivalent IM Intramuscular 01/17/2017 Administe red Shingrix IM Intramuscular 09/12/2017 Administered Shingrix IM Intramuscular 12/16/2017 Administered Fluarix Quadrivalent IM Intramuscular 01/01/2018 Administe red Fluarix Quadrivalent IM Intramuscular 12/22/2018 Administe red PPSV23 (Pnemovax) IM Intramuscular 11/01/2019 Administered Influenza High Dose Unknown 01/18/2020 Administered Grisel jones's SARS-COV-2 Pfizer Unknown 05/23/2020 Administered SARS-COV-2 Pfizer Unknown 06/13/2020 Administered SARS-COV-2 Pfizer Unknown 01/25/2021 Administered Influenza High Dose Unknown 01/02/2021 Administered SARS-COV-2 Pfizer Unknown 08/15/2021 [facility]ered [facility] Influenza High Dose Unknown 01/07/2022 [facility]ered [facility] SARS-COV-2 Pfizer Unknown 01/14/2022 Administered SARS-COV-2 Pfizer Unknown 08/09/2022 [facility]ered [facility] SARS-COV-2 Pfizer Unknown 01/21/2023 [facility]ered [facility] RSV Unknown 01/31/2023 [facility]ered [facility] SARS-COV-2 Pfizer Unknown 01/15/2024 [facility]ered [facility] Influenza High Dose Unknown 01/22/2024 [facility]ered [facility] Flu Vaccine Unknown 12/28/2013 Pending Social History Tobacco Use: Social History Observation Description Date Details (start date - stop date) Former Smoker NA - NA Tobacco Use/Smoking Question Answer Notes Patient is a former smoker How long has it been since y ou last smoked? > 10 years Additional Findings: Tobacco Non-User Fo rmer smoker, currently using no form of tobacco Alcohol Screen Question Answer Notes Did you have a drink contain ing alcohol in the past year? Yes How often did you have a dri nk containing alcohol in the past year? Monthly or less (1 point) How many drinks did you have on a typical day when you were drinking in the past year? 1 or 2 drinks (0 point) How often did you have 6 or more drinks on one occasion in the past year? 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) Active confirmed Problem 30435805 Essential hypert ension (I10) Active confirmed Problem 6471358 Prediabetes (R73.09) Active confirmed Problem 92551471 RBBB (I45.10) Active confirmed Problem 392993583 History of hemat uria (Z87.448) Active confirmed Problem 085816217 Esophageal dysmo tility (K22.4) Active confirmed Problem 84098184 Dysthymia (F34.1) Active confirmed Problem 85280771 Carotid stenosis (I65.29) Active confirmed Problem 512228251 Pure hypercholesterolemia (E78.00) Active confirmed Problem 18285348 Pulmonary fibros is (J84.10) Active confirmed Problem 936675827 Osteopenia deter mined by x-ray (M85.80) Active confirmed Problem 639230831 Chronic insomnia (F51.04) Active confirmed Problem 196534256 Seasonal allergi c rhinitis, unspecified trigger (J30.2) Active confirmed Problem 336925637 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) Active confirmed Vital Signs Blood pressure diastolic 80 mm Hg 07/05/2024 nel ght is down 5 pounds since 03-19-24 Height 61 in 07/05/2024 weight is down 5 pounds since 03-19-24 Blood pressure systolic 114 mm Hg 07/05/2024 weig ht is down 5 pounds since 03-19-24 Weight 113 lbs 07/05/2024 weight is down 5 pounds since 03-19-24 BMI 21.35 kg/m2 07/05/2024 weight is down 5 pounds since 03-19-24 Encounters Encounter Location Date Provider Diagnosis Grant Corley MD [address] [place] [id number] 09/25/2023 Grant Corley Prediabetes R73.09 a nd Pure hypercholesterolemia E78.00 Grant Corley MD [address] [place] [id number] 12/29/2023 Grant Corley Essential hypertensi on I10 ; Vitamin D deficiency E55.9 ; Pure hypercholesterolemia E78.00 and Lymphocytosis D72.820 Grant Corley MD [address] [place] [id number] 06/28/2024 Grant Corley Pure hypercholestero lemia E78.00 Grant Corley MD [address] [place] [id number] 10/03/2023 Grant Corley Idiopathic interstit ial fibrosis J84.112 ; Pulmonary fibrosis J84.10 and Insomnia G47.00 Grant Corley MD [address] [place] [id number] 01/05/2024 Grant Corley Insomnia G47.00 ; Essential hypertension I10 ; Pure hypercholesterolemia E78.00 ; Chronic nausea R11.0 ; Esophageal dysmotility K22.4 ; Prediabetes R73.09 ; Vitamin D deficiency E55.9 and Lymphocytosis D72.820 Grant Corley MD [address] [place] [id number] 03/19/2024 Grant Corley Esophageal dysmotili ty K22.4 Grant Corley MD [address] [place] [id number] 07/05/2024 Grant Corley Esophageal dysmotili ty K22.4 ; Insomnia G47.00 and Herpes B00.9 Grant Corley MD [address] [place] [id number] 11/10/2023 Grant Corley MD [address] [place] [id number] 12/22/2023 Grant Corley Chronic nausea R11.0 Grant Corley MD [address] [place] [id number] 04/15/2024 Grant Corley Esophageal dysmotili ty K22.4 Grant Corley MD [address] [place] [id number] 06/01/2024 Grnat Corley Herpes B00.9 Assessments Encounter Date Diagnosis (ICD Code) Assessment Notes Treatment Notes Treatment Clinical Notes Section Notes 09/25/2023 Prediabetes (ICD-10 - R73.09) 09/25/2023 Pure hypercholesterolemia (ICD-10 - E78.00) 12/29/2023 Essential hypertensi on (ICD-10 - I10) 12/29/2023 Vitamin D deficiency (ICD-10 - E55.9) 06/28/2024 Pure hypercholesterolemia (ICD-10 - E78.00) 10/03/2023 Idiopathic interstit ial fibrosis (ICD-10 - J84.112) is doing a litlle better with going to rehab. still getting short of breath 10/03/2023 Pulmonary fibrosis (ICD-10 - J84.10) stable 01/05/2024 Insomnia (ICD-10 - G47.00) 03/19/2024 Esophageal dysmotili ty (ICD-10 - K22.4) [patient and caregiver verbalized understanding of medications and directions for use 07/05/2024 Esophageal dysmotili ty (ICD-10 - K22.4) taking pantoprazole daily and is doing better. 07/05/2024 Insomnia (ICD-10 - G47.00) 12/22/2023 Chronic nausea (ICD- 10 - R11.0) 04/15/2024 Esophageal dysmotili ty (ICD-10 - K22.4) 06/01/2024 Herpes (ICD-10 - B00.9) 12/29/2023 Pure hypercholesterolemia (ICD-10 - E78.00) 10/03/2023 Insomnia (ICD-10 - G47.00) doing well with the meds as is 01/05/2024 Essential hypertensi on (ICD-10 - I10) well controllled, is at goal, 01/05/2024 Pure hypercholesterolemia (ICD-10 - E78.00) doing well on meds, is at goal, will continue current regiment 07/05/2024 Herpes (ICD-10 - B00.9) 12/29/2023 Lymphocytosis (ICD-1 0 - D72.820) 01/05/2024 Chronic nausea (ICD- 10 - R11.0) maintian omeprazole 01/05/2024 Esophageal dysmotili ty (ICD-10 - K22.4) 01/05/2024 Prediabetes (ICD-10 - R73.09) stable, no need for medication at this time 01/05/2024 Vitamin D deficiency (ICD-10 - E55.9) stable at goal, will continue current regiment 01/05/2024 Lymphocytosis (ICD-1 0 - D72.820) still present, will continue to monitor Plan Of Treatment Pending Test Test Name Order Date Electrocardiogram (EKG) 02/04/2011 Electrocardiogram (EKG) 06/13/2017 XR CHEST 2 VIEW PA & LAT 12/31/2021 XR CHEST 2 VIEW PA & LAT 01/03/2023 XR GI SERIES 03/18/2023 Stress Test 01/06/2023 MAMMOGRAM DIGITAL BILATERAL SCREEN 05/12 Next Appt Details Provider Name:Grant chamorro, 12/30/2024 07:45:00 AM, [address] [place] [address], Suite [facility], [place], [place], [phone], Provider Name:Grant chamorro, 01/06/2025 01:00:00 PM, [address], [address], [place], [place], [phone], Insurance Providers Payer Name Payer Address Payer Phone Subscriber Number Group Number Insured Name Patient Relationship to Insured Coverage Start Date Coverage End Date [employer] [address] [place] [address] [id number] Miles, Radha Self - patient is the insured [facility] [address] [place] [phone] [id number] Miles, Radha Self - patient is the insured Medical (General) History Medical History History ICD Code hematuria worked up by dr cantrell 2006 esophageal dysmotility 201012/19/2010 Colonoscopy has [facility] appt in May DR. Nicolás wagner WRandell Valenzuela.
--- OUTSIDE RECORDS SUMMARY | 2024-07-26 11:36 | XMS_ITS ---
Author Organization Grant Corley MD Address [address] [place], [place] [id number] Care Team Providers Care Electrical Automation Engineer Name Role Phone Grant Corley Primary Care Provider [phone] Results Component Value Reference Range Notes Liver Panel Reviewed date:06/28/2024 04:21:08 PM Interpretation: Performing Lab:[facility], [address] [place] [phone] Notes/Report: Bilirubin Total 0.6 0.0-1.0 mg/dL Bilirubin Direct 0.2 0.0-0.5 mg/dL Aspartate Amino Transferase 33 5-31 U/L Alanine Aminotransferase 17 0-31 U/L Total Protein 7.1 6.5-8.0 g/dL Albumin Level 3.9 3.5-5.0 g/dL Alkaline Phosphatase 69 39-117 U/L Lipid Panel with Reflex Reviewed date:06/28/2024 04:21:39 PM Interpretation: Performing Lab:[facility], [address] [place] [address] Notes/Report: Triglycerides 76 <150 mg/dL Desirable Triglyceride: [...] Location Date Provider Diagnosis Grant Corley MD [address] [place] [address] [place] [id number] 06/28/2024 Grant Corley Pure hypercholestero lemia E78.00 Assessments Encounter Date Diagnosis (ICD Code) Assessment Notes Treatment Notes Treatment Clinical Notes Section Notes 06/28/2024 Pure hypercholesterolemia (ICD-10 - E78.00) Plan Of Treatment Next Appt Details Provider Name:Grant chamorro, 12/30/2024 07:45:00 AM, [address] [place] [address], [address], [phone], Provider Name:Grant chamorro, 01/06/2025 01:00:00 PM, [address] [place] [address], Suite [facility], [place], [place], [phone], Progress Notes * Radha SILVERMAN MDOB: [birth year] (84 yo F)Acc No.[id number]:06/28/2024 Progress Note Patient:?Radha SILVERMAN Provider:?Grant Corley MD :1940???Age:84 Y???Sex:Female D ate:06/28/2024 Address:[address] [place] [address] Subjective: * Chief Complaints: * ???1. FASTING LIPIDS. * Medical History:? Objective: * Vitals:? Assessment: * Assessment: 1.?Pure hypercholesterolemia - E78.00 (Primary)??? Plan: * Treatment: * Procedure Codes:?35959 VENIP UNCT, ROUTINE* * * The named appointment provid er may or may not be the originator of this progress note, and it is not deemed complete until electronically signed by the appointment provider. Sign off status: Pending * Provider:?Grant Corley MD Date:?0 06/28/2024 Generated for Jocelyn winters/Sarahi/Judyitting on:?07/26/2024 11:35 AM EDT
--- OUTSIDE RECORDS SUMMARY | 2024-07-26 11:36 | XMS_ITS | Clinical Summary ---
Author Organization [facility] Address [address] [place] [address] Care Team Providers Care Box Bender Name Role Phone Grant Turcios MD Primary Care Provider Social History Tobacco Use Types Packs/Day Years Used Date Smoking Tobacco: Former Cigarettes Q uit: 04/14/1995 Smokeless Tobacco: Never Alcohol Use Standard Drinks/Week Comments Yes 0 (1 standard drink = 0.6 oz pur e alcohol) Comments Unknown Sex and Gender Information Value Date Recorded Sex Assigned at Not on file Legal Sex Female 12:33 AM EST Gender Identity Not on file Sexual Orientation Not on file Obstetrics History Last Filed Vital Signs Vital Sign Reading Time Taken Comments Blood Pressure 128/74 02/05/2024 9:39 AM EDT Sit ting R Arm Pulse 102 08/06/2023 8:23 AM EDT Temperature - - Respiratory Rate - - Oxygen Saturation 97% 08/06/2023 8:23 AM EDT 2 l O2 Inhaled Oxygen Concentration - - Weight 58.1 kg (128 lb) 02/05/2024 9:39 AM EDT Height 152.4 cm (5') 02/05/2024 9:39 AM EDT Body Mass Index 25 02/05/2024 9:39 AM EDT Plan of Treatment Upcoming Encounters Date Type Department Care Team (Late st Contact Info) Description 01/24/2025 10:45 AM EDT Ancillary Procedure [facility] [address] [place] [address] Health Maintenance Due Date Last Done Comments DTaP,Tdap,and Td Vaccines (1 - Tdap) 02/10/1959 Pneumococcal Vaccine: 50+ Years (1 of 1 - PCV) 02/10/1990 Zoster Vaccines (1 of 2) 02/10/1990 RSV Immunization Adult Patients (1 - 1-dose 75+ series) 02/10/2015 Cholesterol Screening (Lipid Panel) 03/17/2022 Depression Screening 03/17/2022 Falls Risk Assessment 03/17/2022 Medicare Annual Wellness Visit 03/17/2022 Social Influencers of Health Screening 03/17/2022 Hypertension/CHF/CAD Annual BMP Blood Test 11/07/2023 COVID-19 Vaccine (1 - 2023-2 5 season) 2023 Influenza Vaccine (Season Ended) 2024 Osteoporosis Screening (Bone Density Screening) 10/18/2029 10/19/2019, 06/26/2017 HIB Vaccines Aged Out No longer eligi ble based on patient's age to complete this topic HPV Vaccines Aged Out No longer eligi ble based on patient's age to complete this topic Hepatitis A Vaccines Aged Out No long er eligible based on patient's age to complete this topic Hepatitis B Vaccines Aged Out No long er eligible based on patient's age to complete this topic IPV Vaccines Aged Out No longer eligi ble based on patient's age to complete this topic MMR Vaccines Aged Out No longer eligi ble based on patient's age to complete this topic Meningococcal ACWY Vaccine Aged Out N o longer eligible based on patient's age to complete this topic Meningococcal B Vaccine Aged Out No l onger eligible based on patient's age to complete this topic RSV Immunization Patients Under 20 months Aged Out No longer eligible b ased on patient's age to complete this topic Varicella Vaccines Aged Out No longer eligible based on patient's age to complete this topic Procedures Procedure Name Priority Date/Time Associated Diagnosis Comments [facility] DEXA AXIAL SKELETON Routine 10/19/2019 10:35 AM EDT Asymptomatic menopausal state from Last 3 Months or Most Recently Relevant to Health Maintenance Results * [facility] DEXA AXIAL SKELETON (10/19/2019 10:35 AM EDT) Anatomical Region Laterality Modality Mammography 10/19/2019 9:50 AM EDT Narrative 10/19/2019 10:[address] [facility] Diagnostic Imaging Department [address] [place] [address] Patient: ??RADHA SILVERMAN ?/Age/Sex: 1940 - F Unit#: ??[id number] ? Location/Status: ??SPDIMAM/REG CLI ? Mnemonic/Ordering Site: ??MAMDEXAAX/SPMAM Ordering Physician: ??GRANT TURCIOS MD [facility] Dexa Axial Skeleton - 10/19/19 - 1023 HISTORY: ??The patient is a 79-year-old postmenopausal female with clinical concern for metabolic bone disease. FINDINGS: ??Dual energy x-ray absorptiometry of the lumbar spine and femurs is performed. The mean bone mineral density at L1-2 is 1.049 gm/cm2 which is 90% of that of young normals and 110% of that of age matched controls. This yields a T- score of -1.0 and a Z-score of 0.8 and there is therefore no evidence of osteoporosis or osteopenia here. The mean bone mineral density of the femurs bilaterally is 0.846 gm/cm2 which is 84% of that of young normals and 110% of that of age matched controls. ??This yields a T-score of -1.3 and a Z-score of 0.6 which is diagnostic of osteopenia. The T-score of the right femoral neck is -2.1 and that of the left femoral neck is -1.8 which is diagnostic of osteopenia. IMPRESSION: 1. Osteopenia. ??There has been an increase of 6.5% in bone mineral density in the lumbar spine since the prior examination of 06/26/2017. ??There has been a decrease of 2.4% in bone mineral density in the right femur and a decrease of 2.1% in bone mineral density in the left femur. 2. FRAX analysis yields a 10-year probability of major osteoporotic fracture of 39.0% and a 10-year probability of hip fracture of 24.6%. Code 71807 Dictating Physician: ??CHRISTIANO JOSEPH MD Electronically Signed by: ??CHRISTIANO JOSEPH MD Dic Date/Time: ??10/19/19 1034 Sign date/Time: ??10/19/19 1035 Procedure Note Christiano Joseph MD - 04/03/2022 [facility] Diagnostic Imaging Department [address] [place] [address] Patient: ADALISANDEERADHACANDICE Dumont D.O.B./Age/Sex: 1940 - F Unit#: [id number] Location/Status: [facility] Mnemonic/Ordering Site: [facility] Ordering Physician: GRANT TURCIOS MD [facility] Dexa Axial Skeleton - 10/19/19 - 1023 HISTORY: The patient is a 79-year-old postmenopausal female withclinical concern for metabolic bone disease. FINDINGS: Dual energy x-ray absorptiometry of the lumbar spine and femursis performed. The mean bone mineral density at L1-2 is 1.049 gm/cm2 which is90% of that of young normals and 110% of that of age matched controls. Thisyields a T- score of -1.0 and a Z-score of 0.8 and there is therefore no evidence of osteoporosis or osteopenia here. The mean bone mineral density of the femurs bilaterally is 0.846 gm/mk0lhtwa is 84% of that of young normals and 110% of that of age matched controls.This yields a T-score of -1.3 and a Z-score of 0.6 which is diagnostic ofosteopenia. The T-score of the right femoral neck is -2.1 and that of the left femoralneck is -1.8 which is diagnostic of osteopenia. IMPRESSION: 1. Osteopenia. There has been an increase of 6.5% in bone mineral densityin the lumbar spine since the prior examination of 06/26/2017. There has madhav decrease of 2.4% in bone mineral density in the right femur and a decreaseof 2.1% in bone mineral density in the left femur. 2. FRAX analysis yields a 10-year probability of major osteoporoticfracture of 39.0% and a 10-year probability of hip fracture of 24.6%. Code 99868 Dictating Physician: CHRISTIANO JOSEPH MD Electronically Signed by: CHRISTIANO JOSEPH MD Dic Date/Time: 10/19/19 1034 Sign date/Time: 10/19/19 1035 Grant Turcios MD IMG BI PROCEDURES Final Res ult from Last 3 Months or Most Recently Relevant to Health Maintenance Insurance MEDICARE [facility] Care Teams Box Bender Relationship Specialty Start Date End Date Grant Turcios MD PCP - General 08/18/12
== END 2024-07-26 11:04 | disposition home or self-care (01) ==
LOC: HO.HPS 10:11
PROVIDERS: PCP Internal Medicine; Visit Provider Internal Medicine
DX: J84.10 Pulmonary fibrosis, unspecified (principal); R09.02 Hypoxemia; Z87.891 Personal history of nicotine dependence
CPT/HCPCS: 99213

== ENCOUNTER → 2024-07-26 10:10 | Outpatient (BNVA) | payer MEDICARE, OTHER, SELFPAY | PROVIDERS: PCP Internal Medicine; Visit Provider Internal Medicine | DX: J84.10 Pulmonary fibrosis, unspecified (principal); R09.02 Hypoxemia; Z99.81 Dependence on supplemental oxygen; Z87.891 Personal history of nicotine dependence | CPT/HCPCS: 99212 ==

== ENCOUNTER 2024-12-16 13:38 | Outpatient (AMB) | payer MEDICARE, OTHER, SELFPAY ==
--- OUTSIDE RECORDS SUMMARY | 2024-04-15 06:09 | XMS_ITS ---
Author Organization Grant Corley MD Address [address] [place] [phone] Care Team Providers Care Heel Reducer Name Role Phone Barney Grant Primary Care Provider [phone] REASON FOR VISIT refill Medications Medication SIG (Take, Route, Frequency, Duration) Notes Start Date End Date Status Pantoprazole Sodium 40 MG 1 tablet 1/2 t o 1 hour before morning meal Orally Once a day for 90 days 03/19/2024 Active Encounters Encounter Location Date Provider Diagnosis Grant Corley MD [address] [place] [phone] 04/15/2024 Grant Corley Esophageal dysmotility K22.4 Assessments Encounter Date Diagnosis (ICD Code) Assessment Notes Treatment Notes Treatment Clinical Notes Section Notes 04/15/2024 Esophageal dysmotility (ICD-10 - K22.4) Plan Of Treatment Medication Medication Name Sig Start Date Stop Date Notes Pantoprazole Sodium 40 MG 1 tablet 1/2 t o 1 hour before morning meal Orally Once a day for 90 days 03/19/2024 Next Appt Details Provider Name:Grant Coe ier, 12/30/2024 07:45:00 AM, [address] [place] [address], Suite [facility], [place], [place], [phone], Provider Name:Grant Coe ier, 01/06/2025 01:00:00 PM, [address] [place] [address], [place] [address], [place], [place], [phone], Progress Notes * Radha SILVERMAN MDOB: [birth year] (84 yo F)Acc No.[id number]:04/15/2024 Patient: Tim saini Radha Dumont :1940 A ge:84 Y S ex:Female Address:[address] [place] [id number] * Refills Refill Pantoprazole Sodium Tablet Delayed Release, 40 MG, Orally, 90, 1 tablet 1/2 to 1 hour before morning meal, Once a day, 90 days, Refills=3 * true * Date: Generated for Jocelyn winters/Sarahi/Judyitting on: 0 12/16/2024 02:54 PM EDT
--- OUTSIDE RECORDS SUMMARY | 2024-06-01 05:50 | XMS_ITS ---
Author Organization Grant Corley MD Address [address] [place] [phone] Care Team Providers Care Cloth Folder Machine Name Role Phone Barney Grant Primary Care Provider [phone] REASON FOR VISIT refill Medications Medication SIG (Take, Route, Frequency, Duration) Notes Start Date End Date Status Valtrex 1 GM 1 tablet Orally 3 ti mes a day for 7 days 03/18/2023 Active Encounters Encounter Location Date Provider Diagnosis Grant Corley MD [address] [place], [place] [phone] 06/01/2024 Grant Corley Herpes B00.9 Assessments Encounter Date Diagnosis (ICD Code) Assessment Notes Treatment Notes Treatment Clinical Notes Section Notes 06/01/2024 Herpes (ICD-10 - B00.9) Plan Of Treatment Medication Medication Name Sig Start Date Stop Date Notes Valtrex 1 GM 1 tablet Orally 3 times a day for 7 days 08/2022 Next Appt Details Provider Name:Grant Coe ier, 12/30/2024 07:45:00 AM, [address], [address], [place], [place], [phone], Provider Name:Grant Coe ier, 01/06/2025 01:00:00 PM, [address] [facility], Suite [facility], [place], [place], [phone], Progress Notes * Radha SILVERMAN MDOB: [birth year] (84 yo F)Acc No.[id number]:06/01/2024 Patient: Tim VALDES Radha Tim :1940 A ge:84 Y S ex:Female Address:[address] [place] [phone] * Refills Continue Valtrex Tablet, 1 GM, Orally, 21 Tablet, 1 tablet, 3 times a day, 7 days * true * Date: Generated for Jocelyn winters/Sarahi/eTransmitting on: 0 12/16/2024 02:54 PM EDT
--- OUTSIDE RECORDS SUMMARY | 2024-06-11 12:45 | XMS_ITS ---
Author Organization Grant Corley MD Address [address] [place] [phone] Care Team Providers Care Restaurant Host Name Role Phone Grant Corley Primary Care Provider REASON FOR VISIT tacchycardia Encounters Encounter Location Date Provider Diagnosis Grant Corley MD [address] [place] [address] [place] [phone] 06/11/2024 Grant Corley Plan Of Treatment Next Appt Details Provider Name:Grant Coe ier, 12/30/2024 07:45:00 AM, [address] [place] [address], [address] [place], [phone], Provider Name:Grant chamorro, 01/06/2025 01:00:00 PM, [address] [place] [address], [address] [place], [phone], Progress Notes * Radha SILVERMAN MDOB: [birth year] (84 yo F)Acc No.[id number]:06/11/2024 Progress Notes Patient: Radha DE LA ROSA Provider: Amber Corley MD :1940 A ge:84 Y S ex:Female Date:06/11/2024 Address:[address] [place] [address] Subjective: * Chief Complaints: * 1 . Tacchycardia. * Medical History: Objective: * Vitals: Assessment: Plan: * Treatment: * * The named appointment provid er may or may not be the originator of this progress note, and it is not deemed complete until electronically signed by the appointment provider. Sign off status: Pending * Provider: Amber Corley MD Date: 0 06/11/2024 Generated for Jocelyn winters/Sarahi/Judyitting on: 0 12/16/2024 02:54 PM EDT
--- OUTSIDE RECORDS SUMMARY | 2024-06-28 03:45 | XMS_ITS ---
Author Organization Grant Corley MD Address [address] [place], [place] [phone] Care Team Providers Care Referral Coordinator Name Role Phone Grant Corley Primary Care Provider [phone] Results Component Value Reference Range Notes Liver Panel Reviewed date:06/28/2024 04:21:08 PM Interpretation: Performing Lab:[facility], [address] [place] [phone] Notes/Report: Bilirubin Total 0.6 0.0-1.0 mg/dL Bilirubin Direct 0.2 0.0-0.5 mg/dL Aspartate Amino Transferase 33 5-31 U/L Alanine Aminotransferase 17 0-31 U/L Total Protein 7.1 6.5-8.0 g/dL Albumin Level 3.9 3.5-5.0 g/dL Alkaline Phosphatase 69 39-117 U/L Lipid Panel with Reflex Reviewed date:06/28/2024 04:21:39 PM Interpretation: Performing Lab:[facility], [address] [place] [phone] Notes/Report: Triglycerides 76 <150 mg/dL Desirable Triglyceride: less than 150 mg/dL Borderline High Triglyceride 150-199 mg/dL High Triglyceride: 200-499 mg/dL Very High Triglyceride: greater than or equal to 5OO mg/dL Cholesterol 150 <200 mg/dL Desirable Cholesterol: less than 200 mg/dL Borderline High Cholesterol: 200-239 mg/dL High Cholesterol: greater than 239 mg/dL LDL Cholesterol Calculated 82 <100 mg/dL Desirable LDL: less than 100 mg/dL Near Optimal/Above Optimal LDL: 110-129 mg/dL Borderline High LDL: 130-159 mg/dL High LDL: 160-189 mg/dL Very High LDL: greater than or equal to 190 mg/dL HDL Cholesterol 53 >40 mg/dL Desirable HDL: greater than 40 mg/dL Note: This HDL assay may give artificially low results in patients with liver disease. REASON FOR VISIT FASTING LIPIDS Encounters Encounter Location Date Provider Diagnosis Grant Corley MD [address] [place] [address] [place] [phone] 06/28/2024 Grant Corley Pure hypercholestero lemia E78.00 Assessments Encounter Date Diagnosis (ICD Code) Assessment Notes Treatment Notes Treatment Clinical Notes Section Notes 06/28/2024 Pure hypercholesterolemia (ICD-10 - E78.00) Plan Of Treatment Next Appt Details Provider Name:Grant chamorro, 12/30/2024 07:45:00 AM, [address] [place] [address], [address], [phone], Provider Name:Grant chamorro, 01/06/2025 01:00:00 PM, [address] [place] [address], Suite [facility], [place], [place], [phone], Progress Notes * Radha SILVERMAN MDOB: [birth year] (84 yo F)Acc No.[id number]:06/28/2024 Progress Note Patient: Terry DE LA ROSAtrude Tim Provider: Amber Corley MD :1940 A ge:84 Y S ex:Female Date:06/28/2024 Address:[address] [place], [place] [phone] Subjective: * Chief Complaints: * 1 . FASTING LIPIDS. * Medical History: Objective: * Vitals: Assessment: * Assessment: 1. P ure hypercholesterolemia - E78.00 (Primary) Plan: * Treatment: * Procedure Codes: 3 6415 VENIPUNCT, ROUTINE* * * The named appointment provid er may or may not be the originator of this progress note, and it is not deemed complete until electronically signed by the appointment provider. Sign off status: Pending * Provider: Amber Corley MD Date: 0 06/28/2024 Generated for Jocelyn winters/Sarahi/Judyitting on: 0 12/16/2024 02:54 PM EDT
--- OUTSIDE RECORDS SUMMARY | 2024-07-05 06:15 | XMS_ITS ---
Author Organization Grant Corley MD Address [address] [place], [place] [phone] Care Team Providers Care Pullman Conductor Name Role Phone Grant Corley Primary Care Provider Allergies No Known Allergies REASON FOR VISIT 6 MO F/U Medications Medication SIG (Take, Route, Frequency, Duration) Notes Start Date End Date Status Prosom Active ZyrTEC Allergy 10 MG 1 tablet Orally Onc e a day Active Aspir-81 81 MG 1 tablet Orally Once a day 08/06/2012 Active Ondansetron 4 MG 1 tablet on the tong ue and allow to dissolve Orally Once a day for 30 day(s) 03/19/2024 Active Myrbetriq 25 MG 1 tablet Orally Once a day for 30 day(s) 07/02/2022 Not-Taking Pantoprazole Sodium 40 MG 1 tablet 1/2 t o 1 hour before morning meal Orally Once a day for 90 days 03/19/2024 Active Naproxen 375 MG TAKE 1 TABLET BY JUAN CARLOS TH TWICE A DAY for 90 Active Raloxifene HCl 60 MG TAKE 1 TABLET BY MO UTH EVERY DAY for 90 Active Estazolam 1 MG take 1 tablet by juan carlos th every day at bedtime as needed Orally Once a day as needed for 90 days 07/05/2024 Active Atorvastatin Calcium 20 MG take 1 tablet by mouth every day Orally Once a day Active Glucosamine Chondroitin Vit D3 1500/1200 as directed Orally once a day Active Valtrex 1 GM 1 tablet Orally 3 ti mes a day for 7 days 03/18/2023 Active Vitamin D 25 MCG (1000 UT) 1 tablet Orally Once a day Active Vital Signs Blood pressure systolic 114 mm Hg 07/06/19 25 Blood pressure diastolic 80 mm Hg 025 Height 61 in 07/05/2024 Weight 113 lbs 07/05/2024 BMI 21.35 kg/m2 07/05/2024 weight is down 5 pounds [facility] [address] e 03-19-24 Encounters Encounter Location Date Provider Diagnosis Grant Corley MD [address] [place] [address] [place] [phone] 07/05/2024 Grant Corley Esophageal dysmotility K22.4 ; Insomnia G47.00 and Herpes B00.9 Assessments Encounter Date Diagnosis (ICD Code) Assessment Notes Treatment Notes Treatment Clinical Notes Section Notes 07/05/2024 Esophageal dysmotility (ICD-10 - K22.4) taking pantoprazole daily and is doing better. 07/05/2024 Insomnia (ICD-10 - G47.00) 07/05/2024 Herpes (ICD-10 - B00.9) Plan Of Treatment Medication Medication Name Sig Start Date Stop Date Notes Pantoprazole Sodium 40 MG 1 tablet 1/2 t o 1 hour before morning meal Orally Once a day for 90 days 03/19/2024 Estazolam 1 MG take 1 tablet by juan carlos th every day at bedtime as needed Orally Once a day as needed for 90 days 07/05/2024 Valtrex 1 GM 1 tablet Orally 3 ti mes a day for 7 days 03/18/2023 Treatment Notes Assessment Notes Esophageal dysmotility taking pantoprazo le daily and is doing better. Next Appt Details Provider Name:Grant chamorro, 12/30/2024 07:45:00 AM, [address], [address], [place], [place], [phone], Provider Name:Grant Coe ier, 01/06/2025 01:00:00 PM, [address], [address], [place], [place], [phone], Progress Notes * Radha SILVERMAN MDOB: [birth year] (84 yo F)Acc No.[id number]:07/05/2024 Progress Notes Patient: Radha DE LA ROSA Provider: Amber Corley MD :1940 A ge:84 Y S ex:Female Date:07/05/2024 Address:[address] [place], [place] [phone] Subjective: * Chief Complaints: * 6 MO F/U * HPI: S ymptom(s): patient is a 84 yo female here for 6 month follow up visit, some day good and some days bad. has? to take pantoprazole. * ROS: G eneral/Constitutional: Denies C hills. D enies F atigue. D enies F ever. D enies H eadache. E NT: Patient denies d ecreased sense of smell, any loss of taste, sore throat. D enies S ore throat. R espiratory: Patient complaining of s hortness of breath with exertion even with oxygen. pulsing oxygen not as good as the tanks. . D enies C ough. D enies?Shortness of breath at rest. D enies S hortness of breath with exertion. ? G astrointestinal: Denies D iarrhea. D enies N ausea. M usculoskeletal: Patient denies m uscle aches. P eripheral Vascular: Patient denies r ed and blue toes. * Medical History: * Surgical History: * Hospitalization/Major Diagno stic Procedure: * Medications: T akingOndansetron 4 MG Tablet Disintegrating 1 tablet on the tongue and allow to dissolve Orally Once a day Prosom ZyrTEC Allergy 10 MG Tablet 1 tablet Orally Once a day Aspir-81 81 MG Tablet Delayed Release 1 tablet Orally Once a day Glucosamine Chondroitin Vit D3 1500/1200 Capsule as directed Orally once a day Estazolam 1 MG Tablet take 1 tablet by mouth every day at bedtime as needed Orally Once a day as needed Vitamin D 25 MCG (1000 UT) Tablet 1 tablet Orally Once a day Atorvastatin Calcium 20 MG Tablet take 1 tablet by mouth every day Orally Once a day Pantoprazole Sodium 40 MG Tablet Delayed Release 1 tablet 1/2 to 1 hour before morning meal Orally Once a day Naproxen 375 MG Tablet TAKE 1 TABLET BY MOUTH TWICE A DAY Raloxifene HCl 60 MG Tablet TAKE 1 TABLET BY MOUTH EVERY DAY Valtrex 1 GM Tablet 1 tablet Orally 3 times a day Taking Ondansetron 4 MG Tablet Disintegrating 1 tablet on the tongue and allow to dissolve Orally Once a day Taking Prosom Taking ZyrTEC Allergy 10 MG Tablet 1 tablet Orally Once a day Taking Aspir-81 81 MG Tablet Delayed Release 1 tablet Orally Once a day Taking Glucosamine Chondroitin Vit D3 1500/1200 Capsule as directed Orally once a day Taking Estazolam 1 MG Tablet take 1 tablet by mouth every day at bedtime as needed Orally Once a day as needed Taking Vitamin D 25 MCG (1000 UT) Tablet 1 tablet Orally Once a day Taking Atorvastatin Calcium 20 MG Tablet take 1 tablet by mouth every day Orally Once a day Taking Pantoprazole Sodium 40 MG Tablet Delayed Release 1 tablet 1/2 to 1 hour before morning meal Orally Once a day Taking Naproxen 375 MG Tablet TAKE 1 TABLET BY MOUTH TWICE A DAY Taking Raloxifene HCl 60 MG Tablet TAKE 1 TABLET BY MOUTH EVERY DAY Taking Valtrex 1 GM Tablet 1 tablet Orally 3 times a day Not-Taking/PRNMyrbetriq 25 MG Tablet Extended Release 24 Hour 1 tablet Orally Once a day Not-Taking/PRN Myrbetriq 25 MG Tablet Extended Release 24 Hour 1 tablet Orally Once a day DiscontinuedMelatonin 3 MG Tablet 1 tablet at bedtime as needed Orally Once a day Medication List reviewed and reconciled with the patientDiscontinued Melatonin 3 MG Tablet 1 tablet at bedtime as needed Orally Once a day Medication List reviewed and reconciled with the patient * Allergies: N .K.D.A.yes[Allergies Verified] Objective: * Vitals: H t: 61, Wt: 113, BMI:21.35, BP:114/80, Wt-k.26. weight is down 5 pounds since 03-19-24. * P ast Orders: L ab:Liver Panel (Order Date - 06/28/2024) (Collection Date & Time - 06/28/2024 07:45 AM) Value Reference Range Bilirubin Total 0.6 0.0-1.0 - mg/dL Bilirubin Direct 0.2 0.0-0.5 - mg/dL Aspartate Amino Transferase 33 H 5-31 - U/L Alanine Aminotransferase 17 0-31 - U/L Total Protein 7.1 6.5-8.0 - g/dL Albumin Level 3.9 3.5-5.0 - g/dL Alkaline Phosphatase 69 39-117 - U/L L ab:Lipid Panel with Reflex (Order Date - 06/28/2024) (Collection Date & Time - 06/28/2024 07:45 AM) Value Reference Range Triglycerides 76 <150 - mg/dL Cholesterol 150 <200 - mg/dL LDL Cholesterol Calculated 82 <100 - mg/dL HDL Cholesterol 53 >40 - mg/dL * Examination: G eneral Examination: GENERAL APPEARANCE: a lert, well hydrated, in no distress.? HEAD: n ormocephalic. EYES: e xtraocular movement full and smooth. SKIN: g ood turgor. HEART: r egular rate and rhythm, no murmurs, rubs, gallops.? LUNGS: w ith few rales and wheezes. Assessment: * Assessment: 1. E sophageal dysmotility - K22.4 (Primary) 2 . I nsomnia - G47.00 ? 3 . H erpes - B00.9 Plan: * Treatment: 2. I nsomnia Refill Estazolam Tablet, 1 MG, take 1 tablet by mouth every day at bedtime as needed, Orally, Once a day as needed, 90 days, 60, Refills 3. 3. H erpes Continue Valtrex Tablet, 1 GM, 1 tablet, Orally, 3 times a day, 7 days, 21 Tablet, Refills 3. ? * Procedure Codes: * * Sign off status: Completed true * Provider: Amber Corley MD Date: 0 07/05/2024 Generated for Casandrai ng/Sarahi/eTransmitting on: 0 12/16/2024 02:54 PM EDT History and Physical Notes * HPI (History of Present Illness) Category Sub-Category Detail Notes Category Not es Symptom(s) patient is a 84 yo female here for 6 month follow up visit, some day good and some days bad. has to take pantoprazole. Examination Category Sub-Category Detail Notes Category Not es General Examination GENERAL APPEARANCE: alert, w ell hydrated, in no distress HEAD: normocephalic EYES: extraocular movement full and smooth HEART: regular rate and rhy thm, no murmurs, rubs, gallops LUNGS: with few rales and w heezes SKIN: good turgor
[2024-12-16 13:45] VITALS: BP 110/64; PULSE 92; O2SAT 93; BMI 18.7
--- NOTE | 2024-12-16 13:45 | MHC.OFFVIS ---
Vital Signs 12/16/24 13:45 Height 5 ft Weight 95 lb 14.417 oz BMI 18.7 BP 110/64 Blood Pressure Location Lt brachial Position Sitting Pulse 92 Pulse Source Pulse Oximeter Pulse Oximetry (%) 93 Oxygen Delivery Method Nasal Cannula Oxygen Flow Rate 3 Intake Visit Reasons: pulmonary fibrosis Intake Note: pt is here for follow up and would like to discuss changes that are occurring with her breathing, she is also dealing with allergies [employer] Required: No Allergies anthesia Adverse Reaction (Uncoded 12/16/24 13:53) Confusion Medication List - Last Reconciled 12/16/24 by Abrahan Bautista MD aspirin 81 mg PO DAILY atorvastatin 10 mg PO DAILY cetirizine (Zyrtec) 10 mg PO DAILY cholecalciferol (vitamin D3) 25 mcg PO DAILY estazolam 0.5 mg PO BEDTIME PRN yeyfirbj-ise-rfkto-hkm982-pklg 500-500-66.7 mg (Oluagzzgfkh-Feadwyixmkn-EDC (with antiox)) tabs PO guaifenesin 200 mg PO BID PRN melatonin 0.5 mg PO BEDTIME PRN xxkmhffbjxpo-Pt-jitl-minerals tabs PO naproxen 375 mg PO BID PRN pantoprazole 40 mg PO DAILY raloxifene 60 mg PO DAILY Do you need a note to return to daycare/school/sports/work: No HPI HPI pulmonary fibrosis: Details: 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 Is being treated for pulmonary fibrosis. Cough is mild to moderate and she does control it with Robitussin syrup p.r.n.. She gets short of breath when she walks around or goes outdoors but she stays in the house most of the time. Lately she is getting more short of breath on her usual level of exertion, and has to Colin up the oxygen flow to 4 or 5 L/minute with any physical exertion. Her main problem is generalized weakness, and also runny nose due to her lifelong allergy problem. Luckily she has had no acute bacterial infection. She lives alone in the house but is watched closely by her son who drops in the house a few times during the day. She is worried that her pulmonary fibrosis is progressing, and wants to know what else can be done. [facility] Medical History (Updated 12/16/24 @ 14:44 by Abrahan Bautista MD) Allergic rhinitis Exercise hypoxemia Pulmonary fibrosis History of smoking at least 1 pack per day for at least 30 years Early menopause Hypertension Surgical History H/O oral surgery Social History Patient Tobacco Use Status: Former Tobacco user Years Smoked: 39 Review of Systems Const All systems reviewed & are unremarkable except as noted in HPI and below Eyes Reports no additional complaints ENT Reports nasal congestion (Mild off and on) and Reports nasal discharge (Mild off and on, when she has sinus infection.) Card Denies chest pain, Denies irregular heart rhythm and Denies leg edema Resp Reports as per HPI GI Reports no additional complaints Reports no additional complaints Musc Reports arthralgias (mild) Skin/Breast Reports system reviewed and no additional complaints, except as documented Neuro Reports no additional complaints Psych Reports no additional complaints Endo Reports no additional complaints Physical Exam Vital Signs: Last Vital Signs Pulse 92 12/16/24 13:45 BP 110/64 12/16/24 13:45 Pulse Ox 93 12/16/24 13:45 Oxygen Delivery Method Nasal Cannula 12/16/24 13:45 Oxygen Flow Rate 3 12/16/24 13:45 BMI result Body Mass Index 18.7 She has lost a few lb of weight Const General: comfortable, no acute distress, alert and awake Orientation/consciousness: patient oriented x3 HEENT Head: Yes normal to inspection General nose exam: No nasal polyps present, No nasal discharge present and Other nasal findings present (Mild nasal congestion) Face and sinus: Yes sinuses nontender Mouth: oropharynx normal Throat: Yes posterior oropharynx normal Eyes General: appearance normal, both eyes and all related structures Neck Neck: Yes normal visual inspection, Yes no lymphadenopathy, Yes trachea midline and Yes no JVD Thyroid: Thyroid normal Chest Chest palpation & inspection: normal inspection of the chest, normal palpation of entire chest wall and no tenderness Resp Other: Percussion note is resonant, She does have good breath sounds on both sides. Inspiratory crackles are heard over both lower lobes and mid lungs, not any worse than before. Cardio Palpation: normal PMI Rate: regular rate Rhythm: regular rhythm Heart sounds: no gallops and no murmurs Peripheral pulses: Peripheral pulses 2+ throughout GI Palpation (GI): Soft to palpation, nontender, No hepatosplenomegaly present and no masses Auscultation: normal bowel sounds Back/Spine/Pelvis Thoracic/Lumbar Spine: thoracic and lumbar spine normal to inspection Skin General skin exam: no rashes or lesions noted Neuro General: patient oriented x3 and no focal motor deficits Cranial nerves: Yes CN's II-XII intact bilaterally Extrem General: Yes normal to inspection, Yes no clubbing, cyanosis or edema and Yes no calf tenderness Psych Appearance: grossly normal and well kempt Speech and movement: Normal speech and movement present Results Reviewed Results Reviewed: I showed her the images of previous CT scan of the chest the last being in 2022, showing bilateral pulmonary fibrosis with honeycombing, predominantly in the lower lobes Assessment & Plan Assessment & Plan (1) History of smoking at least 1 pack per day for at least 30 years: Comment: She has history of smoking 3/4 packs a day for 40 years. Luckily she quit more than 25 years ago. Code(s): Z87.891 - Personal history of nicotine dependence Category: Social Hx Plan: No active intervention at this time (2) Pulmonary fibrosis: Comment: Physical examination and chest x-ray / CT scan findings are consistent with interstitial lung disease/pulmonary fibrosis. She has been relatively asymptomatic , and in good general health. Except for the need to use O2 with any physical activity. Currently she feels that lung condition is getting little bit worse, as she has more cough and also needs higher flow of oxygen with exertion. Code(s): J84.10 - Pulmonary fibrosis, unspecified Category: Medical Plan: I think we should get a CT scan of her lungs to, see if there is any progression. We have discussed before about using antifibrotic agents but considering pros and cons have decided not to use. If on the repeat CT scan there is significant progression then she may need small dose of prednisone as anti-inflammatory agent. (3) Exercise hypoxemia: Comment: She was found to have exercise induced hypoxemia , being treated with O2 3 L/minute via POC, and is very happy with this. Had lot of questions about the oximeter recording devices, and finally she understands that she can use any good brand . As noted above she is requiring a higher flow when moving around going outdoors. Code(s): R09.02 - Hypoxemia Category: Medical Plan: Getting CT scan of the chest to see if there is any progression of the disease Advise that when she is using stationary concentrator and sitting and resting she can use O2 2 L/minute. With any exertion or doing any household work she can increase the flow to 4 or 5 L/minute. The goal is to keep O2 sat above 90%. (4) Allergic rhinitis: Comment: She has history of life long nasal allergies around the year. Has been using Zyrtec 10 mg daily for many years. She used to be on inhaled steroid preps , but it was stopped by the ENT specialist many years ago. Code(s): J30.9 - Allergic rhinitis, unspecified Category: Medical Plan: I advised her that she should try to cut down Zyrtec 10 mg tablet to half tablet a day. And also use Flonase -50, nasal spray 1 spray in each nostril b.i.d.. Orders: Orders CT chest wo IV con Today J84.10 - Pulmonary fibrosis, unspecified, R09.02 - Hypoxemia Coding Level of Care Code Est Pt Level 3 (39917) Diagnoses History of smoking at least 1 pack per day for at least 30 years Z87.891 Pulmonary fibrosis J84.10 Exercise hypoxemia R09.02 Allergic rhinitis J30.9
--- OUTSIDE RECORDS SUMMARY | 2024-12-16 14:55 | XMS_ITS | Patient Health Record ---
Author Organization [facility] Address [address] [place] [address] Care Team Providers Care Cold Roller Name Role Phone Grant Corley MD Primary Care Provider Sedrick Castillo [phone] Reason For Referral No Information Problems Problem Type SNOMED Code ICD Code Onset Dates Problem Status W/U Status Risk Notes Problem Screening for malignant neoplasm of colon (030224910) Special screening for malignant neoplasms, colon (V76.51) Active confirmed Plan Of Treatment No Information Insurance Providers Payer Name Payer Address Payer Phone Subscriber Number Group Number Insured Name Patient Relationship to Insured Coverage Start Date Coverage End Date MEDICARE OF [place] [address] [place] [address] [id number] BLAYNE BRO Self - patient is the insured [facility] [employer] [address] [place] [address] [phone] [id number] BLAYNE BRO Self - patient is the insured
--- OUTSIDE RECORDS SUMMARY | 2024-12-16 14:55 | XMS_ITS | Patient Health Record ---
Author Organization Grant Corley MD Address [address] [place], [place] [id number] Care Team Providers Care Boil Off Worker Name Role Phone Barney Grant Primary Care Provider Allergies No Known Allergies Results Component Value Reference Range Notes Complete Blood Count Auto Di ff Reviewed date:12/29/2023 12:52:35 PM Interpretation: Performing Lab:[facility], [address] [place] [phone] Notes/Report: White Blood Count 10.8 4.8-10.8 X10*3/uL [...] 0.0-0.012 X10*3/uL CORRECTED REPORT CORRECTED REPORT Comprehensive [place]. Panel Fa st Reviewed date:12/29/2023 12:53:08 PM Interpretation: Performing Lab:[facility], [address] [place] [phone] Notes/Report: Sodium 142 135-145 mmol/L Potassium 3.9 3.3-5.1 mmol/L Slight Hemoly sis Chloride 107 96-108 mmol/L Carbon Dioxide 27 22-29 mmol/L Anion Gap 12 12-20 Blood Urea Nitrogen 15 9-16 mg/dL Creatinine 0.83 0.5-1.4 mg/dL Estimated Glomerular Filt Rate > 60 NOTE: For -[place] individuals, multiply the result by 1.210. Chronic [...] Panel Reviewed date:12/29/2023 12:42:41 PM Interpretation: Performing Lab:[address] [phone] Notes/Report: Triglycerides 71 <150 mg/dL Desirable Triglyceride: [...] Total Reviewed date:12/29/2023 12:43:08 PM Interpretation: Performing Lab:[address] [phone] Notes/Report: Vitamin D 25-OH Total 62.0 >30 [...] t Reviewed date:12/29/2023 05:03:52 PM Interpretation: Performing Lab:[facility] [address] [phone] Notes/Report: Urine, Clean Catch Color Urine Yellow Appearance Urine Clear PH 6.5 5.0-9.0 Glucose Urine UA Negative Negative mg/dL Urine Blood Negative Negative Specific [place] - Urine 1.015 1.005-1.025 Urine Protein Negative Neg-Trace mg/dL Urine Ketones Negative Negative mg/dL Nitrite Urine Negative Negative Leukocyte Esterase Urine Trace Negative RBC Urine 0-2 0-2 /HPF WBC Urine 0-5 0-5 /HPF Squamous Epithelial Cell Urine 6-10 0-2 /HPF Bacteria Urine None Seen None Seen Hyaline Casts Urine 0-2 0-2 /LPF Liver Panel Reviewed date:06/28/2024 04:21:08 PM Interpretation: Performing Lab:[address] [phone] Notes/Report: Bilirubin Total 0.6 0.0-1.0 mg/dL Bilirubin Direct 0.2 0.0-0.5 mg/dL Aspartate Amino Transferase 33 5-31 U/L Alanine Aminotransferase 17 0-31 U/L Total Protein 7.1 6.5-8.0 g/dL Albumin Level 3.9 3.5-5.0 g/dL Alkaline Phosphatase 69 39-117 U/L Lipid Panel with Reflex Reviewed date:06/28/2024 04:21:39 PM Interpretation: Performing Lab:[address] [phone] Notes/Report: Triglycerides 76 <150 mg/dL Desirable Triglyceride: [...] patients with liver disease. Rivka Jimenes Reviewed date:12/29/2023 12:42:30 PM Interpretation: Performing Lab:[facility], [address] [place] [phone] Notes/Report: Rivka Jimenes See Note Specimen held untested for 24 hours; Call to request Chemistry testing. SLIDE REVIEW Reviewed date:12/29/2023 12:42:22 PM Interpretation: Performing Lab:[facility], [address] [place] [phone] Notes/Report: SLIDE REVIEW VERIFIED Rivka Jimenes Reviewed date:06/28/2024 11:59:55 AM Interpretation: Performing Lab:[facility], [address] [place] [phone] Notes/Report: Rivka Jimenes See Note Specimen held [...] Administered Influenza High Dose Unknown 01/18/[address] [facility] SARS-COV-2 Pfizer Unknown 05/23/2020 Administered SARS-COV-2 Pfizer [...] Status Risk Notes Problem Carotid artery disease (891281694) Carotid artery disease (447.9) Active confirmed Problem 46901247 Lymphocytosis (D72.820) Active confirm ed Problem Insomnia (808562758) Insomnia (G47.00) Active confirmed Problem 96201934 Vitamin D defici ency (E55.9) Active confirmed Problem 3172174 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) Active confirmed Problem 97726789 Essential hypert ension (I10) Active confirmed Problem 8067680 Prediabetes (R73.09) Active confirmed Problem 96647202 RBBB (I45.10) Active confirmed Problem 847782167 History of hemat uria (Z87.448) Active confirmed Problem 605342008 Esophageal dysmo tility (K22.4) Active confirmed Problem 10555274 Dysthymia (F34.1) Active confirmed Problem 88641120 Carotid stenosis (I65.29) Active confirmed Problem 260988830 Pure hypercholesterolemia (E78.00) Active confirmed Problem 61672712 Pulmonary fibros is (J84.10) Active confirmed Problem 503403456 Osteopenia deter mined by x-ray (M85.80) Active confirmed Problem 370935986 Chronic insomnia (F51.04) Active confirmed Problem 727452510 Seasonal allergi c rhinitis, unspecified trigger (J30.2) Active confirmed Problem 861123993 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) Active confirmed [...] Grant Corley MD [address] [place] [id number] 12/29/2023 Grant Corley Essential hypertensi on I10 ; Vitamin D deficiency E55.9 ; Pure hypercholesterolemia E78.00 and Lymphocytosis D72.820 Grant Corley MD [address] [place] [id number] 06/28/2024 Grant Corley Pure hypercholestero lemia E78.00 Grant Corley MD [address] [place] [id number] 01/05/2024 Grant Corley Insomnia G47.00 ; Essential hypertension I10 ; Pure hypercholesterolemia E78.00 ; Chronic nausea R11.0 ; Esophageal dysmotility K22.4 ; Prediabetes R73.09 ; Vitamin D deficiency E55.9 and Lymphocytosis D72.820 Grant Corley MD [address] [place] [address] [id number] 03/19/2024 Grant Corley Esophageal dysmotili ty K22.4 Grant Corley MD [address] [place] [address] [id number] 07/05/2024 Grant Corley Esophageal dysmotili ty K22.4 ; Insomnia G47.00 and Herpes B00.9 Grant Corley MD [address] [place] [id number] 12/22/2023 Grant Corley Chronic nausea R11.0 Grant Corley MD [address] [place] [address] [id number] 04/15/2024 Grant Corley Esophageal dysmotili ty K22.4 Grant Corley MD [address] [place] [address] [id number] 06/01/2024 Grant Corley Herpes B00.9 Assessments Encounter Date Diagnosis (ICD Code) Assessment Notes Treatment Notes Treatment Clinical Notes Section Notes 12/29/2023 Essential hypertensi on (ICD-10 - I10) 12/29/2023 Vitamin D deficiency (ICD-10 - E55.9) 06/28/2024 Pure hypercholesterolemia (ICD-10 - E78.00) 01/05/2024 Insomnia (ICD-10 - G47.00) 03/19/2024 Esophageal [...] B00.9) 12/29/2023 Pure hypercholesterolemia (ICD-10 - E78.00) 01/05/2024 Essential hypertensi on (ICD-10 - I10) [...] Provider Name:Grant chamorro, 12/30/2024 07:45:00 AM, [address] [facility], [address], [place], [place], [id number], Provider Name:Grant Coe ier, 01/06/2025 01:00:00 PM, [address] [facility], [address], [place], [place], [id number], Insurance Providers Payer Name Payer Address Payer Phone Subscriber Number Group Number Insured Name Patient Relationship to Insured Coverage Start Date Coverage End Date MEDICARE [facility] [address] [place] [address] [id number] Miles, Radha Self - patient is the insured [facility] [address] [place] [phone] [id number] Miles, Radha Self - patient is the insured Medical (General) History Medical History History ICD Code hematuria worked up by dr cantrell 2006 esophageal dysmotility 201012/19/2010 Colonoscopy has [facility] appt in May DR. Nicolás wagner WRandell S.
--- OUTSIDE RECORDS SUMMARY | 2024-12-16 14:55 | XMS_ITS | Clinical Summary ---
Author Organization [facility] Address [address] [place] [address] Care Team Providers Care Armature Straightener Name Role Phone Grant Turcios MD Primary Care Provider [phone] Social History Tobacco Use Types Packs/Day Years [...] Description 01/24/2025 10:45 AM EDT Ancillary Procedure [facility] [address] [place] [address] Health Maintenance Due Date Last Done Comments DTaP,Tdap,and Td Vaccines (1 - Tdap) 02/10/1959 Pneumococcal Vaccine: 50+ Years (1 of 1 - PCV) 02/10/1990 Zoster Vaccines (1 of 2) 02/10/1990 RSV Immunization Adult Patients (1 - 1-dose 75+ series) 02/10/2015 Cholesterol Screening (Lipid Panel) 03/17/2022 Falls Risk Assessment 03/17/2022 Medicare Annual Wellness Visit 03/17/2022 Social Influencers of Health Screening 03/17/2022 Hypertension/CHF/CAD Annual BMP Blood Test 11/07/2023 Depression Screening 04/14/2024 COVID-19 Vaccine (1 - 2023-2 5 season) 2024 Influenza Vaccine (#1) 2024 Osteoporosis Screening (Bone Density Screening) 10/18/2029 [...] Procedure Name Priority Date/Time Associated Diagnosis Comments [facility] DEXA AXIAL SKELETON Routine 10/19/2019 10:35 AM EDT Asymptomatic menopausal state from Last 3 Months or Most Recently Relevant to Health Maintenance Results * [facility] DEXA AXIAL SKELETON (10/19/2019 10:35 AM EDT) Anatomical Region Laterality Modality Mammography 10/19/2019 9:50 AM EDT Narrative 10/19/2019 10:35 AM EDT [facility] Diagnostic Imaging Department [address] [place] [address] Patient: RADHA SILVERMAN /Age/Sex: 1940 - 79 - F Unit#: [id number] Location/Status: [facility] CLI Mnemonic/Ordering Site: MAMDEXAAX/SPMAM Ordering Physician: GRANT TURCIOS MD [facility] Dexa Axial Skeleton - 10/19/19 - 1023 HISTORY: The patient is a 79-year-old postmenopausal female with clinical concern for metabolic bone disease. FINDINGS: Dual [...] of age matched controls. This yields a T-score of -1.3 and a [...] the prior examination of 06/26/2017. There has been a decrease of 2.4% in bone mineral density in the right femur and a decrease of 2.1% in bone mineral density in the left femur. 2. FRAX analysis yields a 10-year probability of major osteoporotic fracture of 39.0% and a 10-year probability of hip fracture of 24.6%. Code 56843 Dictating Physician: CHRISTIANO JOSEPH MD Electronically Signed by: CHRISTIANO JOSEPH MD Dic Date/Time: 10/19/19 1034 Sign date/Time: 10/19/19 1035 Procedure Note Christiano Joseph MD - 04/03/2022 [facility] Diagnostic Imaging Department [address] [place] [address] Patient: RADHA SILVERMAN./Age/Sex: 1940 - F Unit#: [id number] [facility]/Ordering Site: [facility] Ordering Physician: GRANT TURCIOS MD [facility] Dexa Axial Skeleton - 10/19/19 [...] density of the femurs bilaterally is 0.846 gm/[id number] is 84% of that of young normals [...] probability of hip fracture of 24.6%. Code 73105 Dictating Physician: CHRISTIANO JOSEPH MD Electronically Signed by: CHRISTIANO JOSEPH MD Dic Date/Time: 10/19/19 1034 Sign date/Time: 10/19/19 1035 Grant Turcios MD IMG BI PROCEDURES Final Res ult from Last 3 Months or Most Recently Relevant to Health Maintenance Insurance MEDICARE [facility] Care Teams Armature Straightener Relationship Specialty Start Date End Date Grant Turcios MD PCP - General 08/18/12
--- OUTSIDE RECORDS SUMMARY | 2024-12-16 14:55 | XMS_ITS | Clinical Summary ---
Author Organization [facility] Address [address] [address] Phone Care Team Providers Care Guest House Manager Name Role Phone Grant Corley MD Primary Care Provider Allergies No known active allergies Medications atorvastatin (LIPITOR) 10 MG tablet Take 1 tablet by mouth every morning. 02/01/2023 Active estazolam (PROSOM) 1 MG tablet Take 1 mg by mouth nightly at bedtime as needed. 01/06/2023 Active naproxen (NAPROSYN) 375 MG tablet Take 1 tablet by mouth 2 (two) times a day. 12/27/2022 Active raloxifene (EVISTA) 60 mg tablet Take 1 tablet by mouth every morning. 02/02/2023 Active aspirin 81 MG EC tablet Take 81 mg by mouth daily. Active glucosamine HCl/chondroitin barrientos (GLUCOSAMINE-CH ONDROITIN ORAL) Take 1 tablet by mouth daily. Active multivitamin/ir on/folic acid (SPECTRAVITE ULTRA WOMEN ORAL) Take 1 tablet by mouth daily. Active cetirizine (ZYRTEC) 10 MG tablet Take 10 mg by mouth daily. Active valsartan (DIOVAN) 80 MG tablet Take 2 tablets (160 mg total) by mouth every morning. 90 tablet 3 03/14/2023 Active Active Problems Problem Noted Date Diagnosed Date Benign essential hypertension 03/14/2023 Assessment & Plan (03/14/2023 11:54 AM EST): Her blood pressure could be better controlled I am going to increase Diovan to 160 a day Pure hypercholesterolemia 03/14/2023 Assessment & Plan (03/14/2023 11:54 AM EST): Given the peripheral arterial disease LDL should be less than 70 Peripheral arterial occlusive disease 03/14/2023 Assessment & Plan (03/14/2023 11:54 AM EST): She has mild to moderate PVD not symptomatic Pulmonary fibrosis 03/14/2023 Assessment & Plan (03/14/2023 11:54 AM EST): More than likely her shortness of breath is due to her recent diagnosis of pulmonary fibrosis she is on oxygen. I am going to order an echo and look at her right heart function and pulmonary artery systolic pressure. Social History Tobacco Use Types Packs/Day Years Used Date Smoking Tobacco: Former Cigarettes Smokeless Tobacco: Never Tobacco Cessation:Counseling Given: Not Answered Alcohol Use Standard Drinks/Week Comments Yes 0 (1 standard drink = 0.6 oz pur e alcohol) occasionally Education Answer Date Recorded Are you interested in more education? Not on andrea e 08/10/2022 Are you concerned about learning? Not on file 08/10/2022 No 08/10/2022 No 08/10/2022 Digital Access Answer Date Recorded No 09/10/2022 No 09/10/2022 Reliable internet access at home? Not on file 09/10/2022 Device with a working camera? Not on file Comments Unknown Sex and Gender Information Value Date Recorded Sex Assigned at Not on file Legal Sex Female 11:29 AM EDT Gender Identity Not on file Sexual Orientation Not on file Last Filed Vital Signs Vital Sign Reading Time Taken Comments Blood Pressure 140/74 03/14/2023 11:43 AM EST Pulse 105 03/14/2023 11:43 AM EST Temperature - - Respiratory Rate - - Oxygen Saturation 99% 03/14/2023 11:43 AM EST Inhaled Oxygen Concentration - - Weight 55.8 kg (123 lb) 03/14/2023 11:43 AM EST Height - - Body Mass Index - - Plan of Treatment Health Maintenance Due Date Last Done Comments Adult Td,Tdap Booster 1940 CREATININE LEVEL 1940 POTASSIUM LEVEL 1940 DEPRESSION SCREENING 1952 LIPID PANEL 02/10/1958 PNEUMOCOCCAL VACCINES (50+ y ears) (1 of 2 - PCV) 02/10/1959 ZOSTER VACCINES (1 of 2) 02/10/1990 OSTEOPOROSIS SCREENING INITI AL (ONE-TIME) 02/10/2005 RSV VACCINE (1 - 1-dose 75+ series) 02/10/2015 BLOOD PRESSURE 09/13/2023 03/14/2023 COVID-19 VACCINE (1 - 2023-2 5 season) 2023 HEPATITIS A VACCINES Aged Out No long er eligible based on patient's age to complete this topic HIB VACCINES Aged Out No longer eligi ble based on patient's age to complete this topic MENINGOCOCCAL VACCINES (ACWY) Aged Out No longer eligible based on patient's age to complete this topic MENINGOCOCCAL VACCINES (B) Aged Out N o longer eligible based on patient's age to complete this topic Medical Devices Not on file Insurance MEDICARE PART A & B [facility] MEDICARE SUPPLEMENT MEDICARE PART A & B [employer] MEDICARE SUPPLEMENT MEDICARE PART A & B [employer] MEDICARE SUPPLEMENT MEDICARE PART A & B [employer] MEDICARE SUPPLEMENT MEDICARE PART A & B [employer] MEDICARE SUPPLEMENT MEDICARE PART A & B [facility] MEDICARE SUPPLEMENT Care Teams Guest House Manager Relationship Specialty Start Date End Date Grant Corley MD [address] [place] [address] [place] [address] PCP - General Internal Medicine 08/05/22 Additional Source Comments The information contained in this document represents components of the legal health record. It is not the complete legal health record.[facility]
--- OUTSIDE RECORDS SUMMARY | 2024-12-16 14:55 | XMS_ITS | Patient Health Record ---
[facility] Address [address] [place] [address] Care Team Providers Care Camera Engineer Name Role Phone Grant Corley MD Primary Care Provider Arnie Cast Unavailable [phone] Allergies Allergen (clinical drug ingredient) Drug/Non Drug Allergy documented on EMR Reaction Allergy Type Onset Date Status codeine Codeine sleep Drug Allergy Active general slow to wake up Drug Allergy A ctive Reason For Referral No Information Medications Medication SIG (Take, Route, Frequency, Duration) Notes Start Date End Date Status Naprosyn 375 MG 1 tablet Orally Twic e a day; Duration: 30 day(s) Active Aspirin 81 MG 1 tablet Orally Once a day; Duration: 30 day(s) Active Lipitor 10 MG Orally Active Glucosamine-Chondroitin 1590-0937 MG/30ML 30 ounces after a meal Orally Once a day; Duration: 30 day(s) Active Calcium-Vitamin D 500-200 MG-UNIT 1 tablet with food Orally Once a day; Duration: 30 day(s) Not-Taking Evista 60 MG 1 tablet Orally Once a day; Duration: 30 day(s) Active Social History Tobacco Use: Social History Observation Description Date Details (start date - stop date) Former Smoker NA - NA Tobacco Use/Smoking Question Answer Notes Are you a: former smoker When did you stop smoking? 1995 Additional Findings: Tobacco Non-User Current no n-smoker Tobacco use other than smoking: Question Answer Notes Are you an other tobacco user? No Problems Problem Type SNOMED Code ICD Code Onset Dates Problem Status W/U Status Risk Notes Problem Pain in limb (85484069) Pain in unspecified foot (M79.673) Active confirmed Problem Acquired hammer toe of right foot (619340121095 9105) Other hammer toe(s) (acquired), right foot (M20.41) Active confirmed Problem Acquired hammer toe of left foot (206929863367 9103) Other hammer toe(s) (acquired), left foot (M20.42) Active confirmed Plan Of Treatment Pending Test Test Name Order Date X ray : Foot, right 3V 03/17/2017 [id number] Plate 08/21/2011 [id number] Plate 12/11/2011 Insurance Providers Payer Name Payer Address Payer Phone Subscriber Number Group Number Insured Name Patient Relationship to Insured Coverage Start Date Coverage End Date Medicare National [employer] [address] [place] [address] [id number] Radha Silverman Self - patient is the insured [id number] [facility] [address] [place] [address] [id number] Radha Silverman Self - patient is the insured Medical (General) History Medical History History ICD Code osteoarthritis broken bones cataracts glaucoma headaches/migraines sinus conditions measles chicken pox Back,Hip,and Knee pain Surgical History Surgery Date(Month/Year) cataract surgery 2002, 2003 iridectomy 2000, 2001 tridotomies 2000,2001 osseous surgeries 1979,1999
== END 2024-12-16 14:30 | disposition home or self-care (01) ==
LOC: HO.HPS 13:39
PROVIDERS: PCP Internal Medicine; Visit Provider Internal Medicine
DX: Z87.891 Personal history of nicotine dependence (principal); J84.10 Pulmonary fibrosis, unspecified; R09.02 Hypoxemia; J30.9 Allergic rhinitis, unspecified
CPT/HCPCS: 99213

== ENCOUNTER → 2024-12-16 13:38 | Outpatient (BNVA) | payer MEDICARE, OTHER, SELFPAY | PROVIDERS: PCP Internal Medicine; Visit Provider Internal Medicine | DX: J84.10 Pulmonary fibrosis, unspecified (principal); R06.02 Shortness of breath; J30.9 Allergic rhinitis, unspecified; Z87.891 Personal history of nicotine dependence | CPT/HCPCS: 99212 ==

== ENCOUNTER 2024-12-25 12:50 | Emergency (ER) | payer MEDICARE, OTHER, SELFPAY ==
--- OUTSIDE RECORDS SUMMARY | 2024-06-11 12:45 | XMS_ITS ---
Author Organization Grant Corley MD Address [address] [place] [phone] Care Team Providers Care Fuel Pilot Engineer Name Role Phone Grant Corley Primary Care Provider [phone] REASON FOR VISIT tacchycardia Encounters Encounter Location Date Provider Diagnosis Grant Corley MD [address] [place] [address] [place] [phone] 06/11/2024 Grant Corley Plan Of Treatment Next Appt Details Provider Name:Grant Coe ier, 12/30/2024 07:45:00 AM, [address] [place] [address], [address] [place], [phone], Provider Name:Grant chamorro, 01/06/2025 01:00:00 PM, [address] [place] [address], [address] [place], [phone], Progress Notes * Radha SILVERMAN MDOB: [birth year] (84 yo F)Acc No.[id number]:06/11/2024 Progress Notes Patient: Radha DE LA ROSA Provider: Amber Corley MD :1940 A ge:84 Y S ex:Female Date:06/11/2024 Address:[address] [place] [address] Subjective: * Chief Complaints: * 1 . [...] 06/11/2024 Generated for Jocelyn winters/Sarahi/Judyitting on: 0 12/25/2024 02:44 PM EDT
--- OUTSIDE RECORDS SUMMARY | 2024-06-28 03:45 | XMS_ITS ---
Author Organization Grant Corley MD Address [address] [place], [place] [phone] Care Team Providers Care Basting Marker Name Role Phone Grant Corley Primary Care Provider [phone] Results Component Value Reference Range Notes Liver Panel Reviewed date:06/28/2024 04:21:08 PM Interpretation: Performing Lab:[facility], [address] [place] [id number] Notes/Report: Bilirubin Total 0.6 0.0-1.0 mg/dL Bilirubin Direct 0.2 0.0-0.5 mg/dL Aspartate Amino Transferase 33 5-31 U/L Alanine Aminotransferase 17 0-31 U/L Total Protein 7.1 6.5-8.0 g/dL Albumin Level 3.9 3.5-5.0 g/dL Alkaline Phosphatase 69 39-117 U/L Lipid Panel with Reflex Reviewed date:06/28/2024 04:21:39 PM Interpretation: Performing Lab:[facility], [address] [place] [id number] Notes/Report: Triglycerides 76 <150 mg/dL Desirable Triglyceride: [...] Location Date Provider Diagnosis Grant Corley MD [address] [place] [address] [place] [phone] 06/28/2024 Grant Corley Pure hypercholestero lemia E78.00 Assessments Encounter Date Diagnosis (ICD Code) Assessment Notes Treatment Notes Treatment Clinical Notes Section Notes 06/28/2024 Pure hypercholesterolemia (ICD-10 - E78.00) Plan Of Treatment Next Appt Details Provider Name:Grant chamorro, 12/30/2024 07:45:00 AM, [address] [place] [address], [address], [phone], Provider Name:Grant chamorro, 01/06/2025 01:00:00 PM, [address] [place] [address], Suite [facility], [place], [place], [phone], Progress Notes * Radha SILVERMAN MDOB: [birth year] (84 yo F)Acc No.[id number]:06/28/2024 Progress Note Patient: Terry DE LA ROSAtrude Tim Provider: Amber Corley MD :1940 A ge:84 Y S ex:Female Date:06/28/2024 Address:[address] [place], [place] [id number] Subjective: * Chief Complaints: * 1 . [...] 06/28/2024 Generated for Jocelyn winters/Sarahi/Judyitting on: 0 12/25/2024 02:44 PM EDT
--- OUTSIDE RECORDS SUMMARY | 2024-07-05 06:15 | XMS_ITS ---
Author Organization Grant Corley MD Address [address] [place], [place] [phone] Care Team Providers Care Butcher Apprentice Name Role Phone Grant Corley Primary Care [...] kg/m2 07/05/2024 weight is down 5 pounds [facility] e 03-19-24 Encounters Encounter Location Date Provider Diagnosis Grant Corley MD [address] [place] [address] [place] [phone] 07/05/2024 Grant Corley Esophageal dysmotility K22.4 ; [...] 07:45:00 AM, [address], [address], [place], [place], [phone], Provider Name:Grant Coe ier, 01/06/2025 01:00:00 PM, [address], [address], [place], [place], [phone], Progress Notes * Radha SILVERMAN MDOB: [birth year] (84 yo F)Acc No.[id number]:07/05/2024 Progress Notes Patient: Radha DE LA ROSA Provider: Amber Corley MD :1940 A ge:84 Y S ex:Female Date:07/05/2024 Address:[address] [place], [place] [phone] Subjective: * Chief Complaints: * 6 MO [...] 07/05/2024 Generated for Casandrai ng/Sarahi/eTransmitting on: 0 12/25/2024 02:44 PM EDT History and Physical Notes * [...]
--- OUTSIDE RECORDS SUMMARY | 2024-12-20 07:10 | XMS_ITS ---
Author Organization Grant Corley MD Address [address] [place] [phone] Care Team Providers Care Teradata Solution Architect Name Role Phone Barney Grant Primary Care Provider REASON FOR VISIT refills Medications Medication SIG (Take, Route, Fr equency, Duration) Notes Start Date End Date Status Estazolam 1 MG take 1 tablet by erendira th every day at bedtime as needed Orally Once a day as needed for 90 days 12/20/2024 Active Encounters Encounter Location Date Provider Diagnosis Grant Corley MD [address] [place] [phone] 12/20/2024 Grant Corley Insomnia G47.00 Assessments Encounter Date Diagnosis (ICD Code) Assessment Notes Treatment Notes Treatment Clinical Notes Section Notes 12/20/2024 Insomnia (ICD-10 - G47.00) Plan Of Treatment Medication Medication Name Sig Start Date Stop Date Notes Estazolam 1 MG take 1 tablet by erendira th every day at bedtime as needed Orally Once a day as needed for 90 days 12/20/2024 Next Appt Details Provider Name:Grant Coe humbertor, 12/30/2024 07:45:00 AM, [address] [place] [address], [place] [address], [place], [place], [phone], Provider Name:Grant Coe ier, 01/06/2025 01:00:00 PM, [address] [place] [address], [place] [address], [place], [place], [phone], Progress Notes * Radha SILVERMAN MDOB: [birth year] (84 yo F)Acc No.[id number]:12/20/2024 Patient: Tim VALDES Radha Dumont :1940 A ge:84 Y S ex:Female Address:[address] [place] [address] * Refills Refill Estazolam Tablet, 1 MG, Orally, 60, take 1 tablet by mouth every day at bedtime as needed, Once a day as needed, 90 days, Refills=3 * true * Date: Generated for Jocelyn winters/Sarahi/Judyitting on: 0 12/25/2024 02:45 PM EDT
--- OUTSIDE RECORDS SUMMARY | 2024-12-23 09:22 | XMS_ITS ---
Author Organization Grant Corley MD Address [address] [place] [phone] Care Team Providers Care Heating Repair Technician Name Role Phone Grant Corley Primary Care Provider REASON FOR VISIT needs P-A for [place] Encounters Encounter Location Date Provider Diagnosis Grant Corley MD [facility] [address] [place] [phone] 12/23/2024 Grant Corley Plan Of Treatment Next Appt Details Provider Name:Grant chamorro, 12/30/2024 07:45:00 AM, [address] [place] [address], [address], [phone], Provider Name:Grant chamorro, 01/06/2025 01:00:00 PM, [address] [place] [address], [address], [phone], Progress Notes * Radha SILVERMAN MDOB: [birth year] (84 yo F)Acc No.[id number]:12/23/2024 Patient: Terry DE LA ROSAtrude Tim :1940 A ge:84 Y S ex:Female Address:[address] [place] [address] * * Date:
--- NOTE | ~2024-12-25 | XR_ITS ---
CLINICAL HISTORY: SOB 2 view chest x-ray Comparison: DX/SR - XR CHEST 2 VIEWS - 01/03/23 12:18 EDT CR/SR - XR CHEST 2 VIEWS - 01/01/22 10:56 EDT Findings: Reticular opacities throughout the left and right lung with decreased lung volumes. Heart size is normal. Mild osteopenia. Mild calcified atherosclerotic disease of the aortic arch. IMPRESSION: 1. IPF. 2. Mild osteopenia. 3. Mild calcified atherosclerotic disease of the aortic arch. This document has been electronically signed by: Sixto Preciado MD on 12/25/2024 14:00:24
[2024-12-25 13:02] VITALS: BP 135/77; PULSE 93; RESP 18; TEMP 36.3; O2SAT 95; BMI 18.6
--- NOTE | 2024-12-25 13:04 | ED.GENADULT ---
HPI - General Adult General Chief complaint: Weakness Stated complaint: weak Time Seen by Provider: 12/25/24 15:19 History of Present Illness ED Provider: Vasyl Minor MD HPI narrative: 84-year-old female previously self sufficient at home she does have oxygen requirement due to recently diagnosed about 2 years ago with pulmonary fibrosis. She sees pulmonology here. She has had worsening generalized deconditioning shortness of breath decreased exertional capacity and ability to care for self including preparing food. She is coming in for generalized weakness and inability to care for herself she feels personally she needs to be placed Related Data Home Medications ?Medication ?Instructions ?Recorded ?Confirmed atorvastatin 10 mg tablet 20 mg PO DAILY 08/30/21 12/26/24 raloxifene 60 mg tablet 60 mg PO DAILY 08/30/21 12/26/24 aspirin 81 mg tablet,delayed 81 mg PO DAILY 02/04/22 12/26/24 release cholecalciferol (vitamin D3) 25 25 mcg PO DAILY 02/04/22 12/26/24 mcg (1,000 unit) capsule cetirizine 10 mg tablet (Zyrtec) 10 mg PO DAILY 02/26/23 12/26/24 estazolam 1 mg tablet 0.5 mg PO BEDTIME PRN Sleep 02/26/23 12/26/24 naproxen 375 mg tablet 375 mg PO DAILY PRN Pain 06/24/23 12/26/24 pantoprazole 40 mg tablet,delayed 40 mg PO DAILY 07/26/24 12/26/24 release ondansetron 4 mg disintegrating 4 mg PO DAILY 12/26/24 12/26/24 tablet Allergies Allergy/AdvReac Type Severity Reaction Status Date / Time anthesia AdvReac Confusion Uncoded 12/25/24 13:03 [facility] Past Medical History Medical History Allergic rhinitis Exercise hypoxemia Pulmonary fibrosis History of smoking at least 1 pack per day for at least 30 years Early menopause Hypertension Surgical History H/O oral surgery Social History Social History Patient Tobacco Use Status: Former Tobacco user Years Smoked: 39 Smoked in Last 30 Days: No Advance Directives: No Advance Directives Information Provided: No Do you have a plan to hurt others: No Plan Physical Exam ED Exam Exam: EXAM: Gen: Alert, awake, thin and frail but not ill or toxic mild tachypnea rate 22 Head: Atraumatic Eyes: Anicteric, Normal conjunctiva. ENT: Moist mucosa, no pallor. ? Neck: Supple. Skin: ?No observable rash or bruising on exposed or examined skin Respiratory: Mild tachypnea. Mild diffuse crackles Cardiovascular: Regular rate and rhythm. No murmurs or rub. Well perfused periphery, warm extremities. No edema. ? Abdominal: No focal tenderness. Soft, no objective distension. No palpable masses or obvious organomegaly. ?No guarding, no rebound tenderness or other peritoneal findings. : No flank tenderness. Neuro: Alert. Gross movement of all extremities intact. ?5/5 strength distally and proximally of the lower legs and arms. Gait not assessed Psych: Calm. Cooperative. MSK: No grossly visible deformity. Vital signs: See flowsheet Vital Signs: Vital Signs - 24 hr 12/27/24 20:00 12/28/24 06:27 12/28/24 14:00 Temperature 97.8 F 97.9 F 98.5 F Pulse Rate 79 78 60 Respiratory Rate 19 18 16 Blood Pressure 138/69 109/68 122/79 Pulse Oximetry 97 96 100 Oxygen Delivery Method Nasal Cannula Nasal Cannula Room Air Oxygen Flow Rate 2 2 BMI result Body Mass Index 18.6 Course Course Course Narrative: Rapid medical examination performed in triage by Evita Arthur PA-C. Patient is a 84 year old assigned female at presenting to the emergency department with increased weakness and shortness of breath. Detailed physical exam and review of systems are deferred to the quarryman. EKG, labs, imaging, and swabs ordered. Patient placed back in the waiting room pending room availability and results. Reevaluation(s) Reevaluation #1: Time: 10:33 Date: 12/26/24 Provider: SARAH Cornell Patient in physician observation for case management needs. No acute events reported overnight.? No current issues or complaints. VS stable. Patient is pending PT/CM eval. Will continue to monitor. Time: 08:29 Date: 12/27/24 Provider: SARAH Perdue Patient in physician observation for case management needs. No acute events reported overnight.? No current issues or complaints. Vital signs stable, pending PT eval, case management to follow. We will continue to monitor. Time: 08:22 Date: 12/28/24 Provider: Evita Arthur PA-C Observation continues. Case management continues to follow. Time: 15:51 Date: 12/28/24 Provider: Evita Arthur PA-C Observation care revealed the the patient does not meet medical necessity for hospitalization. Final disposition of discharge to [facility] discussed with the patient. Patient completed observation care at 1550, total time spent in observation care was 1 day, 23 hours, and 37 minutes. Medications Administered Generic Name Dose Route Start Last Admin Trade Name Freq PRN Reason Stop Dose Admin Aspirin 81 mg 12/28/24 09:00 12/28/24 09:32 Aspirin Enteric Coated 81 Mg Tablet. PO 81 mg DAILY ROBERT Administration Atorvastatin Calcium 20 mg 12/26/24 10:45 12/28/24 09:32 Atorvastatin Calcium 20 Mg Tablet PO 20 mg DAILY ROBERT Administration Loratadine 10 mg 12/28/24 09:00 12/28/24 09:32 Loratadine 10 Mg Tablet PO 10 mg DAILY ROBERT Administration Pt Own (Estazolam 1 0.5 each 12/26/24 20:05 12/27/24 23:14 Mg Tablet) PO 0.5 each BEDTIME PRN Administration Sleep Omeprazole 20 mg 12/26/24 11:00 12/28/24 06:29 Omeprazole 20 Mg Capsule. PO 20 mg DAILY@0630 ROBERT Administration Vitamin D 25 mcg 12/28/24 09:00 12/28/24 09:32 Cholecalciferol (Vitamin D3) 25 Mcg Tablet PO 25 mcg DAILY ROBERT Administration Discontinued Medications Generic Name Dose Route Start Last Admin Trade Name Freq PRN Reason Stop Dose Admin Ondansetron HCl 4 mg 12/26/24 04:37 12/26/24 05:10 Ondansetron Odt 4 Mg Tab.Rapdis TRANSLINGU 12/26/24 04:38 4 mg ONCE ONE Administration Medical Decision Making Medical Decision Making MDM Narrative: Medical Decision Makin-year-old female with pulmonary fibrosis with generalized deconditioning at this point unable to take care of herself at home. There does not appear to be any acute decompensation of her pulmonary fibrosis she is at baseline stable oxygen requirement she is not distressed. No acute medical emergency identified on examination and workup here. Preliminary Favored Differential Diagnosis: Deconditioning, electrolyte derangement, dehydration, acute on chronic pulmonary fibrosis with decompensation among additional considered etiologies Testing Interpreted Independently: ?See below for details Radiology or Lab testing Results Reviewed: ?See below for details Consults: ?See below for details Independent Historians/External Chart Reviews: ?See below for details Social Determinants of Health Impacting MDM/Planning: ?See below for details Lab Data 12/25/24 13:21 12/25/24 13:21 Labs: Lab Results 12/25/24 12/25/24 Range/Units 13:21 13:29 WBC 10.0 (4.8-10.8) X10*3/uL RBC 5.26 (4.20-5.50) X10*6/uL Hgb 15.9 (12.0-16.0) g/dl Hct 47.5 H (37.0-47.0) % MCV 90.3 (80.0-98.0) fL MCH 30.2 (27.0-33.0) pg MCHC 33.5 (31.0-35.0) g/dl RDW 13.9 (11.0-16.0) % Plt Count 212 (160-400) X10*3/uL MPV 11.6 (9.4-12.3) fL Immature Gran % (Auto) 0.2 (0.0-0.4) % Neut % (Auto) 55.3 (45-73) % Lymph % (Auto) 33.5 (20-40) % [place] % (Auto) 7.0 (2-11) % Eos % (Auto) 3.5 (0-4) % Baso % (Auto) 0.5 (0-2) % Lymph # (Auto) 3.3 (1.2-4.9) X10*3/uL [place] # (Auto) 0.7 (0.1-1.2) X10*3/uL Eos # (Auto) 0.4 (0.0-0.4) X10*3/uL Baso # (Auto) 0.1 (0.0-0.2) X10*3/uL Abs Immat Gran (auto) 0.02 (0.00-0.03) X10*3/uL Absolute Neuts (auto) 5.5 (2.0-8.3) x10*3/uL Absolute Nucleated RBC 0.000 (0.0-0.012) X10*3/uL Nucleated RBC % (auto) 0.0 (0.0-0.2) /100WBC PT 11.6 (10.9-12.4) SEC INR 1.0 (0.9-1.1) VBG pH 7.42 (7.32-7.43) VBG pCO2 44 mmHg VBG pO2 40 mmHg VBG HCO3 28 H (22-26) mmol/L VBG O2 Saturation 64.0 % VBG Base Excess 3.6 mmol/L Sodium 141 (135-145) mmol/L Potassium 4.1 (3.3-5.1) mmol/L Chloride 103 (96-108) mmol/L Carbon Dioxide 28 (22-29) mmol/L Anion Gap 14 (12-20) BUN 14 (9-16) mg/dL Creatinine 0.72 (0.5-1.4) mg/dL Estim Creat Clear Calc 39.5 Estimated GFR > 60 Random Glucose 128 H (60-115) mg/dL Calcium 9.1 (8.4-10.2) mg/dL Magnesium 1.9 (1.6-2.6) mg/dL Total Bilirubin 0.7 (0.0-1.0) mg/dL AST 34 H (5-31) U/L ALT 20 (0-31) U/L Alkaline Phosphatase 64 (39-117) U/L Troponin I High Sens 5.3 (<3.5-17.0) ng/L B-Natriuretic Peptide 117 H (<100) pg/mL Total Protein 7.0 (6.5-8.0) g/dL Albumin 3.9 (3.5-5.0) g/dL COVID-19 (CHASE) Negative (Negative) COVID-19 Clin Com See Note Influenza Type A (PANCHO) Negative (Negative) Influenza Type B (PANCHO) Negative (Negative) Influenza A & B Note See Note Discharge Plan Discharge Clinical Impression: Shortness of breath, Physical deconditioning Patient Disposition: Xfer SNF Transfer Details: [facility] Prescriptions: No Action ondansetron 4 mg tablet,disintegrating 4 mg PO DAILY raloxifene 60 mg tablet 60 mg PO DAILY atorvastatin 10 mg tablet 20 mg PO DAILY naproxen 375 mg tablet 375 mg PO DAILY PRN (Reason: Pain) cholecalciferol (vitamin D3) 25 mcg (1,000 unit) capsule 25 mcg PO DAILY aspirin 81 mg tablet,delayed release (DR/EC) 81 mg PO DAILY cetirizine [Zyrtec] 10 mg tablet 10 mg PO DAILY estazolam 1 mg tablet 0.5 mg PO BEDTIME PRN (Reason: Sleep) pantoprazole 40 mg tablet,delayed release (DR/EC) 40 mg PO DAILY Referrals: [facility] [Other] Print Language: Occitan
--- NOTE | 2024-12-25 13:05 | ECG_ITS ---
Test Reason : WEAKNESS Blood Pressure : */* mmHG Vent. Rate : 84 BPM Atrial Rate : 84 BPM P-R Int : 128 ms QRS Dur : 126 ms QT Int : 402 ms P-R-T Axes : 74 114 -37 degrees QTcB Int : 475 ms Normal sinus rhythm Right bundle branch block Left posterior fascicular block Bifascicular block Cannot rule out Inferior infarct , age undetermined Abnormal ECG When compared with ECG of 08-Jun-2003 10:05, (RBBB and left posterior fascicular block) is now Present Referred By: Evita Arthur Electronically Signed By: TAWANA WATKINS MD
[2024-12-25 13:29] LABS: MANUAL DIFF FLAG NO
[2024-12-25 13:31] LABS: Hematocrit 47.5 % (37.0-47.0); Hemoglobin 15.9 g/dl (12.0-16.0); Imm Gran Abs Auto 0.02 X10*3/uL (0.00-0.03); Imm Gran Pct Auto 0.2 % (0.0-0.4); Lymphocytes Absolute Auto 3.3 X10*3/uL (1.2-4.9); Mean Corpuscular HGB Conc 33.5 g/dl (31.0-35.0); Mean Corpuscular Hemoglobin 30.2 pg (27.0-33.0); Mean Corpuscular Volume 90.3 fL (80.0-98.0); NRBC Abs Auto 0.000 X10*3/uL (0.0-0.012); NRBC Pct Auto 0.0 /100WBC (0.0-0.2); Platelet Count 212 X10*3/uL (160-400); Red Blood Count 5.26 X10*6/uL (4.20-5.50); White Blood Count 10.0 X10*3/uL (4.8-10.8)
[2024-12-25 13:32] LABS: Venous Blood Gas Refer to POC result
[2024-12-25 13:34] LABS: VBG HCO3 28 mmol/L (22-26); VBG O2 % Saturation 64.0 %
[2024-12-25 13:36] LABS: INTERNATIONAL NORM RATIO 1.0 (0.9-1.1); Prothrombin Time 11.6 SEC (10.9-12.4)
[2024-12-25 13:44] LABS: Alanine Aminotransferase 20 U/L (0-31); Albumin Level 3.9 g/dL (3.5-5.0); Alkaline Phosphatase 64 U/L (39-117); Anion Gap 14 (12-20); Aspartate Amino Transferase 34 U/L (5-31); Blood Urea Nitrogen 14 mg/dL (9-16); Calcium 9.1 mg/dL (8.4-10.2); Carbon Dioxide 28 mmol/L (22-29); Chloride 103 mmol/L (96-108); Creatinine Clr Calc Pharmacy 39.5; Estimated Glomerular Filt Rate > 60; Magnesium 1.9 mg/dL (1.6-2.6); Potassium 4.1 mmol/L (3.3-5.1); Sodium 141 mmol/L (135-145); Total Protein 7.0 g/dL (6.5-8.0)
[2024-12-25 13:48] LABS: COVID-19 Test Negative (Negative); IDNOW Serial# 55D5AD1C; IDNOW Serial# 58CA691E; Influenza B2 Negative (Negative)
[2024-12-25 13:51] LABS: Troponin-I High Sensitivity 5.3 ng/L (<3.5-17.0)
[2024-12-25 14:12] LABS: B Type Natriuretic Peptide 117 pg/mL (<100)
--- OUTSIDE RECORDS SUMMARY | 2024-12-25 14:44 | XMS_ITS | Patient Health Record ---
Author Organization Grant Corley MD Address [address] [place], [place] [address] Care Team Providers Care Program Clinician Name Role Phone Barney Grant Primary Care Provider Allergies No Known Allergies Results Component Value Reference Range Notes Complete Blood Count Auto Di ff Reviewed date:12/29/2023 12:52:35 PM Interpretation: Performing Lab:[facility], [address] [place] [phone] Notes/Report: White Blood Count 10.8 4.8-10.8 X10*3/uL [...] 0.0-0.2 /100WBC Neutrophils Absolute Auto 4.4 2.0-8.3 x10*3/uL Imm Gran Abs Auto 0.03 0.00-0.03 X10*3/uL Lymphocytes Absolute Auto 5.1 1.2-4.9 X10*3/uL Monocytes Absolute Auto 0.8 0.1-1.2 X10*3/uL Eosinophils Absolute Auto 0.5 0.0-0.4 X10*3/uL Basophils Absolute Auto 0.1 0.0-0.2 X10*3/uL NRBC [...] 0.0-0.2 /100WBC Neutrophils Absolute Auto 4.4 2.0-8.3 x10*3/uL Imm Gran Abs Auto 0.03 0.00-0.03 X10*3/uL Lymphocytes Absolute Auto 5.1 1.2-4.9 X10*3/uL Monocytes Absolute Auto 0.8 0.1-1.2 X10*3/uL Eosinophils Absolute Auto 0.5 0.0-0.4 X10*3/uL Basophils Absolute Auto 0.1 0.0-0.2 X10*3/uL NRBC Abs Auto 0.000 0.0-0.012 X10*3/uL C ORRECTED REPORT C ORRECTED REPORT Comprehensive [place]. Panel Fa st Reviewed date:12/29/2023 12:53:08 PM Interpretation: Performing Lab:[facility], [address] [place] [phone] Notes/Report: Sodium 142 135-145 mmol/L Potassium 3.9 3.3-5.1 mmol/L Slight Hemoly sis Chloride 107 96-108 mmol/L Carbon Dioxide 27 22-29 mmol/L Anion Gap 12 12-20 Blood Urea Nitrogen 15 9-16 mg/dL Creatinine 0.83 0.5-1.4 mg/dL Estimated Glomerular Filt Rate > 60 NOTE: For -[place] individuals, multiply the result by 1.210. Chronic [...] Panel Reviewed date:12/29/2023 12:42:41 PM Interpretation: Performing Lab:[facility], [address] [place] [phone] Notes/Report: Triglycerides 71 <150 mg/dL Desirable Triglyceride: [...] Total Reviewed date:12/29/2023 12:43:08 PM Interpretation: Performing Lab:[address] [phone] Notes/Report: Vitamin D 25-OH Total 62.0 >30 [...] t Reviewed date:12/29/2023 05:03:52 PM Interpretation: Performing Lab:[facility], [address] [place] [phone] Notes/Report: Urine, Clean Catch Color Urine Yellow Appearance Urine Clear PH 6.5 5.0-9.0 Glucose Urine UA Negative Negative mg/dL Urine Blood Negative Negative Specific [place] - Urine 1.015 1.005-1.025 Urine Protein Negative Neg-Trace mg/dL Urine Ketones Negative Negative mg/dL Nitrite Urine Negative Negative Leukocyte Esterase Urine Trace Negative RBC Urine 0-2 0-2 /HPF WBC Urine 0-5 0-5 /HPF Squamous Epithelial Cell Urine 6-10 0-2 /HPF Bacteria Urine None Seen None Seen Hyaline Casts Urine 0-2 0-2 /LPF Liver Panel Reviewed date:06/28/2024 04:21:08 PM Interpretation: Performing Lab:[address] [phone] Notes/Report: Bilirubin Total 0.6 0.0-1.0 mg/dL Bilirubin Direct 0.2 0.0-0.5 mg/dL Aspartate Amino Transferase 33 5-31 U/L Alanine Aminotransferase 17 0-31 U/L Total Protein 7.1 6.5-8.0 g/dL Albumin Level 3.9 3.5-5.0 g/dL Alkaline Phosphatase 69 39-117 U/L Lipid Panel with Reflex Reviewed date:06/28/2024 04:21:39 PM Interpretation: Performing Lab:[address] [phone] Notes/Report: Triglycerides 76 <150 mg/dL Desirable Triglyceride: [...] Jimenes Reviewed date:12/29/2023 12:42:30 PM Interpretation: Performing Lab:[facility], [address] [place] [phone] Notes/Report: Rivka Jimenes See Note Specimen held untested for 24 hours; Call to request Chemistry testing. SLIDE REVIEW Reviewed date:12/29/2023 12:42:22 PM Interpretation: Performing Lab:[facility], [address] [place] [phone] Notes/Report: SLIDE REVIEW VERIFIED Rivka Jimenes Reviewed date:06/28/2024 11:59:55 AM Interpretation: Performing Lab:[facility], [address] [place] [phone] Notes/Report: Rivka Jimenes See Note Specimen held untested for 24 hours; Call to request Chemistry testing. Complete Blood Count Auto Di ff (Not yet reviewed by provider) Interpretation: Performing Lab:[facility], [address] [place] [phone] Notes/Report: White Blood Count 10.0 4.8-10.8 X10*3/uL Red Blood Count 5.26 4.20-5.50 X10*6/uL Hemoglobin 15.9 12.0-16.0 g/dl Hematocrit 47.5 37.0-47.0 % Mean Corpuscular Volume 90.3 80.0-98.0 fL Mean Corpuscular Hemoglobin 30.2 27.0-33.0 pg Mean Corpuscular HGB Conc 33.5 31.0-35.0 g/dl Red Cell Distribution Width 13.9 11.0-16.0 % Platelet Count 212 160-400 X10*3/uL Mean Platelet Volume 11.6 9.4-12.3 fL Neutrophils Percent Auto 55.3 45-73 % Imm Gran Pct Auto 0.2 0.0-0.4 % Lymphocytes Percent Auto 33.5 20-40 % Monocytes Percent Auto 7.0 2-11 % Eosinophils Percent Auto 3.5 0-4 % Basophils Percent Auto 0.5 0-2 % NRBC Pct Auto 0.0 0.0-0.2 /100WBC Neutrophils Absolute Auto 5.5 2.0-8.3 x10*3/uL Imm Gran Abs Auto 0.02 0.00-0.03 X10*3/uL Lymphocytes Absolute Auto 3.3 1.2-4.9 X10*3/uL Monocytes Absolute Auto 0.7 0.1-1.2 X10*3/uL Eosinophils Absolute Auto 0.4 0.0-0.4 X10*3/uL Basophils Absolute Auto 0.1 0.0-0.2 X10*3/uL NRBC Abs Auto 0.000 0.0-0.012 X10*3/uL Prothrombin Time INR (Not ye t reviewed by provider) Interpretation: Performing Lab:[address] [phone] Notes/Report: Prothrombin Time 11.6 10.9-12.4 SEC INTERNATIONAL NORM RATIO 1.0 0.9-1.1 INTERNATIONAL NORMALIZED RATIO (INR) REFERENCE RANGES Reference Range For patients not on anticoagulant therapy: 0.9 - 1.1 INR ranges for oral anticoagulant therapy: For prevention and treatment of venous thrombosis and pulmonary embolism: 2.0 - 3.0 For acute myocardial infarction with aspirin therapy: 2.0 - 3.0 For acute myocardial infarction without aspirin therapy: 3.0 - 4.0 For patients with mechanical prosthetic heart valves: 2.5 - 3.5 Comprehensive Met. Panel (No t yet reviewed by provider) Interpretation: Performing Lab:[address] [address] Notes/Report: Sodium 141 135-145 mmol/L Potassium 4.1 3.3-5.1 mmol/L Chloride 103 96-108 mmol/L Carbon Dioxide 28 22-29 mmol/L Anion Gap 14 12-20 Blood Urea Nitrogen 14 9-16 mg/dL Creatinine 0.72 0.5-1.4 mg/dL Creatinine Clr Calc Pharmacy 39.5 Provided height and weight: 152.4 cm, 43.091 kg. eGFR (calculated from the MDRD study equation) and eCrCl (calculated from the Cockcroft-Gault equation) are based on different parameters and may not yield comparable results. If eCrCl result is absurd, please check patient's height/weight. Estimated Glomerular Filt Rate > 60 Chronic Kidney Disease: Estimated GFR < 60 mL/min/1.73m2 Severe Kidney Disease: Estimated GFR < 15 mL/min/1.73m2 Glucose Random 128 60-115 mg/dL Calcium 9.1 8.4-10.2 mg/dL Bilirubin Total 0.7 0.0-1.0 mg/dL Aspartate Amino Transferase 34 5-31 U/L Alanine Aminotransferase 20 0-31 U/L Total Protein 7.0 6.5-8.0 g/dL Albumin Level 3.9 3.5-5.0 g/dL Alkaline Phosphatase 64 39-117 U/L Magnesium (Not yet reviewed by provider) Interpretation: Performing Lab:[facility], [address] [place] [phone] Notes/Report: Magnesium 1.9 1.6-2.6 mg/dL Troponin-I High Sensitivity (Not yet reviewed by provider) Interpretation: Performing Lab:[address] [address] Notes/Report: Troponin-I High Sensitivity 5.3 <3.5-17.0 ng/L The [place] high sensitivity Troponin-I results should be used in conjunction with other diagnostic information such as ECG, clinical observations and information, and patient symptoms to aid in the diagnosis of [place]. B Type Natriuretic Peptide ( Not yet reviewed by provider) Interpretation: Performing Lab:[address] [phone] Notes/Report: B Type Natriuretic Peptide 117 <100 pg/mL COVID-19 ID NOW ([place]) (No t yet reviewed by provider) Interpretation: Performing Lab:[address] [address] Notes/Report: IDNOW Serial# [id number] COVID-19 Test Negative Negative COVID-19 Note See Note Results are for the identification of SARS-CoV2 RNA. The SARS-CoV2 RNA is generally detectable in respiratory samples during the acute phase of infection. Positive results are indicative of the presence of SARS-CoV-2 RNA; clinical correlation with patient history and other diagnostic information is necessary to determine patient infection status. Positive results do not rule out bacterial infection or co-infection with other viruses. Testing facilities within the [facility] and its territories are required to report all positive results to the appropriate public health authorities. Negative results should be treated as presumptive and, if inconsistent with clinical signs and symptoms or necessary for patient management, should be tested with different authorized or cleared molecular tests. Negative results do not preclude SARS-CoV2 RNA infection and should not be used as the sole basis for patient management decisions. Negative results should be considered in the context of a patient's recent exposures, history and the presence of clinical signs and symptoms consistent with COVID-19. This test has been authorized by the FDA under an Emergency Use Authorization (EUA) for use by authorized laboratories. Testing performed on the [place] ID NOW utilizing NAAT. Venous Blood Gases - POC (No t yet reviewed by provider) Interpretation: Performing Lab:[address] [address] Notes/Report: VBG pH 7.42 7.32-7.43 METER #: [id number] additional_comment: Cb moselef VBG pCO2 44 METER #: [id number] additional_comment: Cb moselef VBG pO2 40 METER #: [id number] additional_comment: Cb moselef VBG Base Excess 3.6 METER #: [id number] additional_comment: Cb moselef VBG HCO3 28 22-26 mmol/L METER #: [id number] additional_comment: Cb moselef VBG O2 % Saturation 64.0 METER #: [id number] additional_comment: rachel Influenza A B2 ID NOW ([place]) (Not yet reviewed by provider) Interpretation: Performing Lab:[facility], [address] [place] [phone] Notes/Report: IDNOW Serial# [id number] Influenza A Negative Negative Influenza B2 Negative Negative Influenza A B2 Note See Note The [place] ID NOW Influenza A B2 test is used for the qualitative detection of influenza A and B from patients with signs and symptoms of respiratory infection. Negative results do not preclude influenza virus infection and should not be used as the sole basis for diagnosis, treatment or other patient management decisions. There is a risk of false negative results due to the presence of variants in the viral targets of the assay, low levels of virus in the specimen and co-infection with Respiratory Syncytial Virus. XR chest 2V (Not yet reviewe d by provider) Interpretation: Performing Lab: Notes/Report: [address] [place] [address] XRay Report Signed Patient: Radha Silverman MR#: [id number] : 1940 Acct:[id number] Age/Sex: 84 / F ADM Date: 12/25/24 Loc: .ED Attending Dr: Ordering Physician: Evita Arthur Date of Service: 12/25/24 Procedure(s): XR chest 2V Accession Number(s): [id number] cc: Grant Corley MD; Evita Arthur Reason for Exam: SOB CLINICAL HISTORY: SOB 2 view chest x-ray Comparison: DX/SR - XR CHEST 2 VIEWS - 01/03/23 12:18 EDT CR/SR - XR CHEST 2 VIEWS - 01/01/22 10:56 EDT Findings: Reticular opacities throughout the left and right lung with decreased lung volumes. Heart size is normal. Mild osteopenia. Mild calcified atherosclerotic disease of the aortic arch. IMPRESSION: 1. IPF. 2. Mild osteopenia. 3. Mild calcified atherosclerotic disease of the aortic arch. This document has been electronically signed by: Sixto Preciado MD on 12/25/2024 14:00:24 Dictated By: Sixto Preciado MD Signed By: <Electronically signed by Sixto Preciado MD in [place]> 12/25/24 1401 DD/ 1400 TD/TT: 12/25/24 1400 Parachute Rigger: [place] [address] XRay Report Signed Patient: hCrista Silverman MR#: [id number] : 1940 Acct:[id number] Age/Sex: 84 / F ADM Date: 12/25/24 Loc: .ED Attending Dr: Ordering Physician: Evita Arthur Date of Service: 12/25/24 Procedure(s): XR guido st 2V Accession Number(s): [id number] cc: Grant Corley MD; Evita Arthur Reason for Exam: SOB CLINICAL HISTORY: SOB 2 view chest x-ray Comparison: DX/SR - XR CHEST 2 VIEWS - 01/03/23 12:18 EDT CR/SR - XR CHEST 2 VIEWS - 01/01/22 10:56 EDT Findings: Reticular opacities throughout the left and right lung with decreased lung volumes. Heart size is normal. Mild osteopenia. Mild calcified atherosclerotic disease of the aortic arch. IMPRESSION: 1. IPF. 2. Mild osteopenia. 3. Mild calcified atherosclerotic disease of the aortic arch. This document has be en electronically signed by: Sixto Preciado MD on 12/25/2024 14:00:24 Dictated By: Sixto Preciado MD Signed By: <Electronically signed by Sixto Preciado MD in OV> 12/25/24 1401 DD/ 1400 TD/TT: 12/25/24 1400 Parachute Rigger: Reason For Referral No Information Medications Medication [...] Naproxen 375 MG TAKE 1 TABLET BY [facility] TWICE A DAY for 90 Active Ondansetron 4 MG 1 tablet on the tong ue and allow to dissolve Orally Once a day for 30 day(s) 03/19/2024 Active Raloxifene HCl 60 MG TAKE 1 TABLET BY [facility] EVERY DAY for 90 Active Estazolam 1 MG [facility] day at bedtime as needed Orally Once a day as needed for 90 days 12/20/2024 Active Glucosamine Chondroitin Vit D3 1500/1200 as [...] Status Risk Notes Problem Carotid artery disease (050660987) Carotid artery disease (447.9) Active confirmed Problem 41701051 Lymphocytosis (D72.820) Active confirm ed Problem Insomnia (968452264) Insomnia (G47.00) Active confirmed Problem 72212983 Vitamin D defici ency (E55.9) Active confirmed Problem 7602799 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) Active confirmed Problem 97819036 Essential hypert ension (I10) Active confirmed Problem 3851059 Prediabetes (R73.09) Active confirmed Problem 99868353 RBBB (I45.10) Active confirmed Problem 630182092 History of hemat uria (Z87.448) Active confirmed Problem 002502582 Esophageal dysmo tility (K22.4) Active confirmed Problem 29957161 Dysthymia (F34.1) Active confirmed Problem 51403818 Carotid stenosis (I65.29) Active confirmed Problem 645606980 Pure hypercholesterolemia (E78.00) Active confirmed Problem 79516510 Pulmonary fibros is (J84.10) Active confirmed Problem 588974078 Osteopenia deter mined by x-ray (M85.80) Active confirmed Problem 746628855 Chronic insomnia (F51.04) Active confirmed Problem 234428905 Seasonal allergi c rhinitis, unspecified trigger (J30.2) Active confirmed Problem 295270402 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) Active confirmed [...] Grant Corley MD [address] [place] [id number] 12/29/2023 Grant Corley Essential hypertensi on I10 ; Vitamin D deficiency E55.9 ; Pure hypercholesterolemia E78.00 and Lymphocytosis D72.820 Grant Corley MD [address] [place] [id number] 06/28/2024 Grant Corley Pure hypercholestero lemia E78.00 Grant Corley MD [address] [place] [id number] 01/05/2024 Grant Corley Insomnia G47.00 ; Essential hypertension I10 ; Pure hypercholesterolemia E78.00 ; Chronic nausea R11.0 ; Esophageal dysmotility K22.4 ; Prediabetes R73.09 ; Vitamin D deficiency E55.9 and Lymphocytosis D72.820 Grant Corley MD [address] [place] [id number] 03/19/2024 Grant Corley Esophageal dysmotili ty K22.4 Grant Corley MD [address] [place] [id number] 07/05/2024 Grant Corley Esophageal dysmotili ty K22.4 ; Insomnia G47.00 and Herpes B00.9 rGant Corley MD [address] [place] [id number] 12/23/2024 Grant Corley MD [address] [place] [id number] 04/15/2024 Grant Corley Esophageal dysmotili ty K22.4 Grant Corley MD [address] [place] [id number] 06/01/2024 Grant Corley Herpes B00.9 Grant Corley MD [address] [place] [id number] 12/20/2024 Grant Corley Insomnia G47.00 Assessments Encounter [...] doing better. 07/05/2024 Insomnia (ICD-10 - G47.00) 04/15/2024 Esophageal dysmotili ty (ICD-10 - K22.4) 06/01/2024 Herpes (ICD-10 - B00.9) 12/20/2024 Insomnia (ICD-10 - G47.00) 12/29/2023 Pure hypercholesterolemia (ICD-10 - E78.00) 01/05/2024 [...] Test Test Name Order Date Electrocardiogram (EKG) 06/13/2017 Electrocardiogram (EKG) 02/04/2011 XR CHEST 2 VIEW PA & LAT 12/31/2021 XR CHEST 2 VIEW PA & LAT 01/03/2023 XR GI SERIES 03/18/2023 Stress Test 01/06/2023 Complete Blood Count Auto Diff Prothrombin Time INR 12/25/2024 Comprehensive Met. Panel 12/25/2024 Magnesium 12/25/2024 Troponin-I High Sensitivity 12/25/2024 B Type Natriuretic Peptide 12/25/2024 XR chest 2V 12/25/2024 COVID-19 ID NOW ([place]) 12/25/2024 Venous Blood Gases - POC 12/25/2024 Influenza A B2 ID NOW ([place]) MAMMOGRAM DIGITAL BILATERAL SCREEN 05/12 Next Appt Details Provider Name:Grantthea Coe ier, 12/30/2024 07:45:00 AM, [address] [place] [address], [address], [phone], Provider Name:Grantthea Coe ier, 01/06/2025 01:00:00 PM, [address] [place] [address], [place] [address], [place], [place], [phone], Insurance Providers Payer Name Payer Address Payer Phone Subscriber Number Group Number Insured Name Patient Relationship to Insured Coverage Start Date Coverage End Date MEDICARE [employer] [place] [address] [place] [address] [id number] [place] Radha Self - patient is the insured [facility] [address] [place] [phone] [id number] [place] [facility] Self - patient is the insured Medical (General) History Medical History History ICD Code hematuria worked up by dr cantrell 2006 esophageal dysmotility 201012/19/2010 Colonoscopy has [facility] appt in May Hannah Calderón Cas.
--- OUTSIDE RECORDS SUMMARY | 2024-12-25 14:44 | XMS_ITS | Clinical Summary ---
Author Organization [facility] Address [address] [place] [address] Care Team Providers Care Ultrasound Spec Name Role Phone Grant Turcios MD Primary [...] Description 01/24/2025 10:45 AM EDT Ancillary Procedure [facility] - [address] [place] [phone] 02/10/2025 8:20 AM EDT Office Visit [facility] - [facility] [address] [place] [phone] Sam Madrid MD [address] [place] [address] [place] [address] Health Maintenance Due Date Last Done Comments [...] Test 11/07/2023 Depression Screening 04/14/2024 COVID-19 Vaccine ( - 2023-2 5 season) 2024 Influenza Vaccine [...] Procedure Name Priority Date/Time Associated Diagnosis Comments [facility] DEXA AXIAL SKELETON Routine 10/19/2019 10:35 AM EDT Asymptomatic menopausal state from Last 3 Months or Most Recently Relevant to Health Maintenance Results * [facility] DEXA AXIAL SKELETON (10/19/2019 10:35 AM EDT) Anatomical Region Laterality Modality Mammography 10/19/2019 9:50 AM EDT Narrative 10/19/2019 10:35 AM EDT [facility] Diagnostic Imaging Department [address] [place] [address] Patient: ADALISANDEERADHAGIULIANA Tristan/Age/Sex: 1940 79 - F Unit#: [id number] Location/Status: SPDIMAM/REG CLI Mnemonic[facility] Ordering Physician: GRANT TURCIOS MD [facility] Dexa Axial Skeleton - 10/19/19 [...] probability of hip fracture of 24.6%. Code 09902 Dictating Physician: CHRISTIANO JOSEPH MD Electronically Signed by: CHRISTIANO JOSEPH MD Dic Date/Time: 10/19/19 1034 Sign date/Time: 10/19/19 1035 Procedure Note Christiano Joseph MD - 04/03/2022 [facility] Diagnostic Imaging Department [address] [place] [address] Patient: RADHA SILVERMAN Tim Art./Age/Sex: 1940 - 79 - F Unit#: [id number] Location/Status: [facility] Mnemonic/[facility]ing [facility] Ordering Physician: GRANT TURCIOS MD [facility] Dexa [...] density of the femurs bilaterally is 0.846 gm/od8qgpll is 84% of that of young normals [...] probability of hip fracture of 24.6%. Code 98948 Dictating Physician: CHRISTIANO JOSEPH MD Electronically Signed by: CHRISTIANO JOSEPH MD Dic Date/Time: 10/19/19 1034 Sign date/Time: 10/19/19 1035 Grant Turcios MD IM BI PROCEDURES Final Res ult from Last 3 Months or Most Recently Relevant to Health Maintenance Insurance MEDICARE [employer] Care Teams Ultrasound Spec Relationship Specialty Start Date End Date Grant Turcios MD PCP - General 08/18/12
--- OUTSIDE RECORDS SUMMARY | 2024-12-25 14:44 | XMS_ITS | Patient Health Record ---
Author Organization [facility] Address [address] [place] [address] Care Team Providers Care Zigzag Elastic Attacher Name Role Phone Grant Corley MD Primary Care Provider Arnie Cast Unavailable [phone] Allergies Allergen (clinical drug ingredient) Drug/Non Drug [...] Active Lipitor 10 MG Orally Active Glucosamine-Chondroitin 0458-1526 MG/30ML 30 ounces after a meal Orally [...] Status Risk Notes Problem Pain in limb (83331563) Pain in unspecified foot (M79.673) Active confirmed Problem Acquired hammer toe of right foot (180867257034 9105) Other hammer toe(s) (acquired), right foot (M20.41) Active confirmed Problem Acquired hammer toe of left foot (322385048404 9103) Other hammer toe(s) (acquired), left foot (M20.42) Active confirmed Plan Of Treatment Pending Test Test Name Order Date X ray : Foot, right 3V 03/17/2017 [id number] Plate 08/21/2011 [id number] Plate 12/11/2011 Insurance Providers Payer Name Payer Address Payer Phone Subscriber Number Group Number Insured Name Patient Relationship to Insured Coverage Start Date Coverage End Date Medicare National [employer] [address] [place] [address] [id number] Radha Silverman Self - patient is the insured [employer] [email or web address] [address] [place] [address] [id number] Radha Silverman Self - patient is the insured Medical (General) History Medical History History ICD Code osteoarthritis broken bones cataracts glaucoma headaches/migraines sinus conditions measles chicken pox Back,Hip,and Knee pain Surgical History Surgery Date(Month/Year) cataract surgery 2002, 2003 iridectomy 2000, 2001 tridotomies 2000,2001 osseous surgeries 1979,1999
--- OUTSIDE RECORDS SUMMARY | 2024-12-25 14:45 | XMS_ITS | Patient Health Record ---
Author Organization [facility] Address [address] [place] [address] Care Team Providers Care Technical Operator Name Role Phone Grant Corley MD Primary Care Provider Sedrick Castillo [phone] Reason For Referral No Information Problems Problem Type SNOMED Code ICD Code Onset Dates Problem Status W/U Status Risk Notes Problem Screening for malignant neoplasm of colon (075942144) Special screening for malignant neoplasms, colon (V76.51) Active confirmed Plan Of Treatment No Information Insurance Providers Payer Name Payer Address Payer Phone Subscriber Number Group Number Insured Name Patient Relationship to Insured Coverage Start Date Coverage End Date MEDICARE [place] [address] [place] [address] [id number] BLAYNE BRO Self - patient is the insured [facility] [employer] [employer] INDEMNITY [address] [place] [address] [id number] BLAYNE BRO Self - patient is the insured
[2024-12-25 15:06] VITALS: BP 123/63; PULSE 77; RESP 18; TEMP 36.6; O2SAT 96
--- NOTE | 2024-12-25 15:10 | PC.NURSE ---
Pt to ED 2 from triage, son present at bedside. A/O x 3, denies pain. Pt states she has had increased weakness and is having difficulty with ADL's. Also reports increased O2 requirements, wears 2L O2 baseline. Son is at bedside. Call tenorio placed within reach.
[2024-12-25 16:28] VITALS: BP 128/70; PULSE 78; RESP 20; TEMP 36.7; O2SAT 97
--- NOTE | 2024-12-25 19:03 | PC.NURSE ---
this rn assumed care of pt, pt resting in stretcher, respirations even and unlabored, offers no complaints at this time. pt placed in hospital bed for comfort. son at bedside.
[2024-12-25 20:27] VITALS: BP 141/80; PULSE 77; RESP 20; TEMP 36.6; O2SAT 97
[2024-12-25 22:06] VITALS: BP 141/78; PULSE 78; RESP 20; TEMP 36.5; O2SAT 97
[2024-12-26] VITALS (7 sets, daily range): BP systolic 124–142; BP diastolic 67–74; PULSE 70–87; RESP 14–20; TEMP 36.6–36.8; O2SAT 93–98
--- NOTE | 2024-12-26 05:59 | PC.NURSE ---
pt assisted to bathroom with 1A and 3L nc at baseline. pt tolerated well and offers no complaints. vss.
--- NOTE | 2024-12-26 12:04 | PHA.MEDREC ---
Addendum entered by Aki Mora, Ryan 12/26/24 12:07: MED REC CHECKED BY [facility] Original Note: Pharmacy Consult ? Medication Reconciliation Pharmacy has completed the medication reconciliation. Confirmed med rec from nursing team.
--- NOTE | 2024-12-26 16:14 | MHC.CM.ED ---
Received consult for assessment of d/c needs: pt resides alone in a single level ranch: has [employer] for home (O2 dependent) and was d/c'd from pulmonary rehab at [facility]. Pt has a son who assists w/appts and shopping but pt feels her strength is markedly declined and needs STR. Pt does not have a Medicare qualifying stay: will refer to acute rehab initially - pt does have a LTC insurance plan - interested facilities can contact pt's son for information on policy. HCP copy requested. PT eval on 12/27. ED CM to follow
[2024-12-26] MEDS: ESTAZOLAM 1 MG 0.5 EACH PO (20:47)
[2024-12-27 05:52] VITALS: BP 123/74; PULSE 81; RESP 18; TEMP 36.6; O2SAT 97
[2024-12-27 08:42] VITALS: BP 123/74; PULSE 81; O2SAT 97
--- NOTE | 2024-12-27 09:53 | MHC.CM.ED ---
Patient remains in ER. Physical therapy eval completed. Rehab is recommended. [facility] is unable to offer a bed. Clinical updates sent to Veronica. Continue to monitor for d/c needs.
--- NOTE | 2024-12-27 14:34 | MHC.CM.ED ---
[facility] can accept patient clinically. However, they don't have a bed available today. Met with patient and son, Fernando, in regards to discharge planning. Patient and Fernando are aware of above information. Aware they will be in the ER overnight. Continue to monitor for d/c needs.
--- NOTE | 2024-12-27 14:58 | PC.NURSE ---
Pt arrives from Main ED. A&Ox3, son at bedside. Pt expresses feeling overwhelmed with all the changes and information happening. Pt assured that resources are available for all questions and that she can alert staff at any time of needs and/or questions. Pt offers no complaints at this time. NAD noted.
--- NOTE | 2024-12-27 17:28 | MHC.CM.ED ---
Pt and son are agreeable to Acute rehab at [facility]. Son is aware that they do not have a bed yet. Will re-assess tomorrow.
[2024-12-27 20:00] VITALS: BP 138/69; PULSE 79; RESP 19; TEMP 36.6; O2SAT 97
--- NOTE | 2024-12-27 22:21 | PC.NURSE ---
1 assist to commode, continent void of urine
[2024-12-27] MEDS: ESTAZOLAM 1 MG 0.5 EACH PO (23:14)
--- NOTE | 2024-12-28 02:48 | PC.NURSE ---
Patient up to commode with one assist
--- NOTE | 2024-12-28 05:50 | PC.NURSE ---
pt up to urinate with very minim assistance to the commode
[2024-12-28 06:27] VITALS: BP 109/68; PULSE 78; RESP 18; TEMP 36.6; O2SAT 96
[2024-12-28] MEDS: Aspirin Enteric Coated 81 MG TABLET.DR PO (09:32)
[2024-12-28 14:00] VITALS: BP 122/79; PULSE 60; RESP 16; TEMP 36.9; O2SAT 100
--- NOTE | 2024-12-28 14:52 | MHC.CM.ED ---
Patient remains in ER overflow. [facility] can offer a bed. Patient can leave at 5pm. Germán TAYLOR booked. Med [facility] with chart. Patient, son Janette King RN and Evita SMITH aware. Continue to monitor for d/c needs.
[2024-12-28 17:17] VITALS: BP 122/79; PULSE 60; RESP 16; TEMP 36.9; O2SAT 95
== END 2024-12-28 17:21 | disposition skilled nursing facility (03) ==
PROVIDERS: Physician Assistant Medical; Emergency Provider Emergency Medicine; PCP Internal Medicine
DX: R06.02 Shortness of breath (principal); R53.1 Weakness; J84.10 Pulmonary fibrosis, unspecified; I10 Essential (primary) hypertension; Z79.899 Other long term (current) drug therapy; Z03.818 Encounter for observation for suspected exposure to other biological agents ruled out; Z74.1 Need for assistance with personal care
CPT/HCPCS: 71046; 80053; 82803; 83735; 83880; 84484; 85025; 85610; 87502; 87635; 93005; 97161; 99285

== ENCOUNTER → 2024-12-25 13:05 | Outpatient (BNV) | payer MEDICARE, OTHER, SELFPAY | PROVIDERS: Emergency Provider Emergency Medicine; PCP Internal Medicine; Visit Provider Internal Medicine Cardiovascular Disease | DX: I45.2 Bifascicular block (principal) | CPT/HCPCS: 93010 ==

== ENCOUNTER → 2024-12-25 13:05 | Outpatient (BNV) | payer MEDICARE, OTHER, SELFPAY | PROVIDERS: PCP Internal Medicine; Visit Provider Radiology Diagnostic Radiology | DX: J84.112 Idiopathic pulmonary fibrosis (principal) | CPT/HCPCS: 71046 ==

== ENCOUNTER 2025-03-08 16:24 | Outpatient (REF) | payer MEDICARE, OTHER, SELFPAY ==
--- OUTSIDE RECORDS SUMMARY | 2025-01-06 11:30 | XMS_ITS ---
Author Organization Grant Corley MD Address [address] [place], [place] [phone] Care Team Providers Care Principal Architect Name Role Phone Grant Corley Primary Care Provider Allergies No Known Allergies REASON FOR VISIT COMP EXAM Social History Tobacco Use: Social History Observation [...] Never (0 point) Points 1 Interpretation Negative Encounters Encounter Location Date Provider Diagnosis Grant Corley MD [address] [place], [place] [phone] 01/06/2025 Grant Corley Plan Of Treatment Next Appt Details Provider Name:Grant Coe ier, 04/18/2025 10:00:00 AM, [address], [address], [place], [place], [phone], Progress Notes * Radha SILVERMAN MDOB: [birth year] (85 yo F)Acc No.[id number]:01/06/2025 Patient: Christa DE LA ROSAude Tim Provider: Amber Corley MD :1940 A ge:84 Y S ex:Female Date:01/06/2025 Address:[address] [place] [address] Subjective: * Chief Complaints: * 1 . COMP EXAM. * HPI: D epression Screening: PHQ-9 L ittle interest or pleasure in doing things N ot at all, F eeling down, depressed, or hopeless N ot at all, T rouble falling or staying asleep, or sleeping too much N ot at all, F eeling tired or having little energy N ot at all, P oor appetite or overeating N ot at all, F eeling bad about yourself or that you are a failure, or have let yourself or your family down N ot at all, T rouble concentrating on things, such as reading the newspaper or watching television N ot at all, M oving or speaking so slowly that other people could have noticed; or the opposite, being so fidgety or restless that you have been moving around a lot more than usual N ot at all, T houghts that you would be better off or of hurting yourself in some way N ot at all, T otal Score 0 . C ommunication Needs: Communication Needs D oes the patient have a hearing impairment N o, D oes the patient have a vision impairment? Y es, I f yes, what is the vision impairment? G lasses, D oes the patient have a cognition impairment? N o. F all Risk: History H ave you had any falls with injury in the past year? N o, H ave you had two or more falls in the past year? N o. S ELICIA Questions: SDOH Questions I n the past year have you been worried about losing housing? N o, I n the past year have you or any family members you live with been unable to get any of the following when it was really needed? Check all that apply: N one. * Medical History: H ematuria worked up by dr cantrell 2006, Esophageal dysmotility 2010, 12/19/2010 Colonoscopy, has [employer] [facility] appt in May Hannah Staples. * Family History: F ather: 76 yrs, diagnosed with Hypertension. M other: 93 yrs, stroke.?1 sister(s) . 1 son(s) . . 1 brother 1 sister, Denies mental health/substance abuse family history, No pertinent family medical history, Denies mental health/substance abuse family history. * Social History: T obacco Use: T obacco Use/Smoking P atient is a f ormer smoker, H ow long has it been since you last smoked? > 10 years, A dditional Findings: Tobacco Non-User F ormer smoker, currently using no form of tobacco. D rugs/Alcohol: A lcohol Screen D id you have a drink containing alcohol in the past year? Y es, H ow often did you have a drink containing alcohol in the past year? M onthly or less (1 point), H ow many drinks did you have on a typical day when you were drinking in the past year? 1 or 2 drinks (0 point), H ow often did you have 6 or more drinks on one occasion in the past year? N ever (0 point), P oints 1 , I nterpretation N egative. M iscellaneous: C affeine: yes, frequency:, 1-2 cups per day. Children: yes. Community involvements: yes. Exercise: yes, 3 times a week, couple times a week walking Treadmill half hour 2 times a week Pulmonary Rehab. Housing: owning. Living with: alone. Marital status: . Occupation: retired. Pets: none. * Allergies: N .K.D.A. Objective: * Vitals: Assessment: Plan: * Treatment: * * The named appointment provid er may or may not be the originator of this progress note, and it is not deemed complete until electronically signed by the appointment provider. Sign off status: Pending * Provider: Amber Corley MD Date: 0 01/06/2025 Generated for Jocelyn winters/Sarahi/Davonsmitting on: 05/08/2024 07:32 PM EST History and Physical Notes * HPI (History of Present Illness) Category Sub-Category Detail Notes Category Not es Depression Screening PHQ-9 Little inte rest or pleasure in doing things: Not at all Feeling down, depressed, or hopeless: No t at all Trouble falling or staying asleep, or sl eeping too much: Not at all Feeling tired or having little energy: N ot at all Poor appetite or overeating: Not at all Feeling bad about yourself o r that you are a failure, or have let yourself or your family down: Not at all Trouble concentrating on thi ngs, such as reading the newspaper or watching television: Not at all Moving or speaking so slowly that other people could have noticed; or the opposite, being so fidgety or restless that you have been moving around a lot more than usual: Not at all Thoughts that you would be b saul off or of hurting yourself in some way: Not at all Total Score: 0 SDOH Questions SDOH Questions In the past year have you been worried about losing housing?: No In the past year have you or any family members you live with been unable to get any of the following when it was really needed? Check all that apply:: None Fall Risk History Have you had any falls with injury i n the past year?: No Have you had two or more falls in the year?: No Communication Needs Communication Needs Does the patient have a hearing impairment: No Does the patient have a vision impairmen t?: Yes If yes, what is the vision impairment?: Glasses Does the patient have a cognition impair ment?: No
--- OUTSIDE RECORDS SUMMARY | 2025-01-10 04:45 | XMS_ITS ---
Author Organization Grant Corley MD Address [address] [place] [phone] Care Team Providers Care Shadow Graph Weight Operator Name Role Phone Barney Grant Primary Care Provider REASON FOR VISIT ischarge summary rec'd Encounters Encounter Location Date Provider Diagnosis Grant Corley MD [address] [place] [address] [place] [phone] 01/10/2025 Grant Corley Plan Of Treatment Next Appt Details Provider Name:Grant chamorro, 04/18/2025 10:00:00 AM, [address] [place] [address], [address], [phone], Progress Notes * Radha SILVERMAN MDOB: [birth year] (84 yo F)Acc No.[id number]:01/10/2025 Patient: Radha DE LA ROSA :1940 A ge:84 Y S ex:Female Address:[address] [place] [address] * true * Date: Generated for Jocelyn winters/Sarahi/Zoila on: 05/08/2024 07:32 PM EST
--- OUTSIDE RECORDS SUMMARY | 2025-01-14 08:30 | XMS_ITS ---
Author Organization Grant Corley MD Address [address] [place], [place] [phone] Care Team Providers Care Hot Die Press Feeder Name Role Phone Grant Corley Primary Care Provider Allergies No Known Allergies REASON FOR VISIT PH/TCM, Accompanied by son Medications Medication SIG (Take, Route, Frequency, Duration) Notes Start Date End Date Status Pantoprazole Sodium 40 MG 1 tablet 1/2 t o 1 hour before morning meal Orally Once a day for 90 days 03/19/2024 Active Valtrex 1 GM 1 tablet Orally 3 times a day for 7 days 03/18/2023 Active Atorvastatin Calcium 20 MG TAKE 1 TABLET BY MOUTH EVERY DAY FOR 90 DAYS for 90 Active Estazolam 1 MG take 1 tablet by mouth every day at bedtime as needed Orally Once a day as needed for 90 days 12/20/2024 Active Myrbetriq 25 MG 1 tablet Orally Once a day for 30 day(s) 07/02/2022 Not-Taking Raloxifene HCl 60 MG TAKE 1 TABLET BY MOUTH EVERY DAY for 90 Active Glucosamine Chondroitin Vit D3 1500/1200 as directed Orally once a day Active Naproxen 375 MG TAKE 1 TABLET BY MOUTH TWICE A DAY for 90 Active Prosom Active Aspir-81 81 MG 1 tablet Orally Once a day 08/06/2012 Active Flonase Allergy Relief 50 MCG/ACT 1 spray in each nostril Nasally Twice a day Active Cetirizine HCl 10 MG 0.5 tab Orally Once a day Active Cholecalciferol 25 MCG (1000 UT) 1 capsule Orally Once a day Active Mucinex 600 MG 1 tablet as needed Orally every 12 hrs Active Ondansetron 4 MG 1 tablet on the tongue and allow to dissolve Orally Once a day for 30 day(s) 03/19/2024 Active Immunizations Vaccine Route Administration Date Status Comme nts Influenza High Dose IM Intramuscular 01/14/2025 Administer ed Problems Problem Type SNOMED Code ICD Code Onset Dates Problem Status W/U Status Risk Notes Problem 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) (439039858050222 02) Bed sore on buttock, right, unstageable (L89.310) Active confirmed Vital Signs Blood pressure systolic 85 mm Hg 01/15/20 25 Blood pressure diastolic 50 mm Hg 025 Height 61 in 01/14/2025 Weight 97 lbs 01/14/2025 BMI 18.33 kg/m2 01/14/2025 weight is down 16 pounds sin 3-24-25 Encounters Encounter Location Date Provider Diagnosis Grant Corley MD 10 [facility] [address] [place] [phone] 01/14/2025 Grant Corley Essential hypertensi on I10 ; Idiopathic interstitial fibrosis J84.112 ; Bed sore on buttock, right, unstageable L89.310 and Encounter for administration of vaccine Z23 Assessments Encounter Date Diagnosis (ICD Code) Assessment Notes Treatment Notes Treatment Clinical Notes Section Notes 01/14/2025 Essential hypertension (ICD-10 - I10) running low, will continue to monitor 01/14/2025 Idiopathic interstitial fibrosis (ICD-10 - J84.112) doing better after her admission 01/14/2025 Bed sore on buttock, right, unstageable (ICD-10 - L89.310) is almost healed, will continue to monitor 01/14/2025 Encounter for administration of vaccine (ICD-10 - Z23) HD flu vaccine administered Plan Of Treatment Treatment Notes Assessment Notes Essential hypertension running low, will continue to monitor Idiopathic interstitial fibrosis doing b saul after her admission Bed sore on buttock, right, unstageable is almost healed, will continue to monitor Encounter for administration of vaccine HD flu vaccine administered Next Appt Details Follow Up: 3 Months, Reason: Provider Name:Grant Coe ier, 04/18/2025 10:00:00 AM, [address] [place] [address], [address], [place], [place], [phone], Progress Notes * Radha SILVERMAN MDOB: [birth year] (84 yo F)Acc No.[id number]:01/14/2025 Patient: Radha DE LA ROSA Provider: Amber Corley MD :1940 A ge:84 Y S ex:Female Date:01/14/2025 Address:[address] [place] [address] Subjective: * Chief Complaints: * P H/TCMAccompanied by son * HPI: S ymptom(s): patient is a 84 yo female here for transitional care management visit following recent hospitalization. Discharge summary has been reviewed and medications reconcilled/ got to the point that couldn't take care of self at home. went to er. and they found nothing acute. [facility] days. did alt of rehab and pt and ot. wore o2 at night made no difference. * ROS: G eneral/Constitutional: Denies C hills. D enies F atigue. D enies F ever. D enies H eadache. E NT: Denies S ore throat. R espiratory: Denies C ough. D enies S hortness of breath at rest. D enies S hortness of breath with exertion. G astrointestinal: Denies D iarrhea. A dmits N ausea. * Medical History: * Surgical History: * Hospitalization/Major Diagno stic Procedure: * Medications: T akingFlonase Allergy Relief 50 MCG/ACT Suspension 1 spray in each nostril Nasally Twice a day Cetirizine HCl 10 MG Tablet 0.5 tab Orally Once a day Cholecalciferol 25 MCG (1000 UT) Capsule 1 capsule Orally Once a day Mucinex 600 MG Tablet Extended Release 12 Hour 1 tablet as needed Orally every 12 hrs Ondansetron 4 MG Tablet Disintegrating 1 tablet on the tongue and allow to dissolve Orally Once a day Prosom Aspir-81 81 MG Tablet Delayed Release 1 tablet Orally Once a day Glucosamine Chondroitin Vit D3 1500/1200 Capsule as directed Orally once a day Naproxen 375 MG Tablet TAKE 1 TABLET BY MOUTH TWICE A DAY Raloxifene HCl 60 MG Tablet TAKE 1 TABLET BY MOUTH EVERY DAY Pantoprazole Sodium 40 MG Tablet Delayed Release 1 tablet 1/2 to 1 hour before morning meal Orally Once a day Valtrex 1 GM Tablet 1 tablet Orally 3 times a day Atorvastatin Calcium 20 MG Tablet TAKE 1 TABLET BY MOUTH EVERY DAY FOR 90 DAYS Estazolam 1 MG Tablet take 1 tablet by mouth every day at bedtime as needed Orally Once a day as needed Taking Flonase Allergy Relief 50 MCG/ACT Suspension 1 spray in each nostril Nasally Twice a day Taking Cetirizine HCl 10 MG Tablet 0.5 tab Orally Once a day Taking Cholecalciferol 25 MCG (1000 UT) Capsule 1 capsule Orally Once a day Taking Mucinex 600 MG Tablet Extended Release 12 Hour 1 tablet as needed Orally every 12 hrs Taking Ondansetron 4 MG Tablet Disintegrating 1 tablet on the tongue and allow to dissolve Orally Once a day Taking Prosom Taking Aspir-81 81 MG Tablet Delayed Release 1 tablet Orally Once a day Taking Glucosamine Chondroitin Vit D3 1500/1200 Capsule as directed Orally once a day Taking Naproxen 375 MG Tablet TAKE 1 TABLET BY MOUTH TWICE A DAY Taking Raloxifene HCl 60 MG Tablet TAKE 1 TABLET BY MOUTH EVERY DAY Taking Pantoprazole Sodium 40 MG Tablet Delayed Release 1 tablet 1/2 to 1 hour before morning meal Orally Once a day Taking Valtrex 1 GM Tablet 1 tablet Orally 3 times a day Taking Atorvastatin Calcium 20 MG Tablet TAKE 1 TABLET BY MOUTH EVERY DAY FOR 90 DAYS Taking Estazolam 1 MG Tablet take 1 tablet by mouth every day at bedtime as needed Orally Once a day as needed Not-Taking/PRNMyrbetriq 25 MG Tablet Extended Release 24 Hour 1 tablet Orally Once a day Medication List reviewed and reconciled with the patientNot-Taking/PRN Myrbetriq 25 MG Tablet Extended Release 24 Hour 1 tablet Orally Once a day Medication List reviewed and reconciled with the patient * Allergies: N .K.D.A.yes[Allergies Verified] Objective: * Vitals: H t: 61, Wt: 97, BMI:18.33, BP:85/50, Wt-k. weight is down 16 pounds since 07-05-24. * Examination: G eneral Examination: GENERAL APPEARANCE: p leasant, in no acute distress. HEAD: n ormocephalic. SKIN: g ood turgor. bed sore has healed almost completely.? HEART: n o murmurs, rubs, gallops, regular rate and rhythm.? LUNGS: n o wheezes, rales, rhonchi, good air movement, clear to auscultation bilaterally. Assessment: * Assessment: 1. E ssential hypertension - I10 (Primary) 2 . I diopathic interstitial fibrosis - J84.112 3 . B ed sore on buttock, right, unstageable - L89.310 ? 4 . E ncounter for administration of vaccine - Z23 Plan: * Treatment: 2. I diopathic interstitial fibrosis Notes: doing better after her admission 3. B ed sore on buttock, right, unstageable Notes: is almost healed, will continue to monitor 4. E ncounter for administration of vaccine Notes: HD flu vaccine administered * Immunizations: Influenza High Dose : 0.5 mL (Dose No:1) (Route: Intramuscular) given by Jyotsna Specne , Office Staff on Left Deltoid * Procedure Codes: 9 0662 FLU VACC PRSV FREE INC [id number] ADMN FLU VAC NO FEE SCHED SAME DAY * Follow Up: 3 Months * * Sign off status: Completed true * Provider: Amber Corley MD Date: Generated for Jocelyn winters/Sarahi/Judyitting on: 05/08/2024 07:33 PM EST History and Physical Notes * HPI (History of Present Illness) Category Sub-Category Detail Notes Category Not es Symptom(s) patient is a 84 yo female here for transitional care management visit following recent hospitalization. Discharge summary has been reviewed and medications reconcilled/ got to the point that couldn't take care of self at home. went to er. and they found nothing acute. [facility]. did alt of rehab and pt and ot. wore o2 at night made no difference. Examination Category Sub-Category Detail Notes Category Not es General Examination GENERAL APPEARANCE: pleasant, in n o acute distress HEAD: normocephalic HEART: no murmurs, rubs, ga llops, regular rate and rhythm LUNGS: no wheezes, rales, r honchi, good air movement, clear to auscultation bilaterally SKIN: good turgor. bed sor e has healed almost completely
--- OUTSIDE RECORDS SUMMARY | 2025-02-03 08:20 | XMS_ITS ---
Author Organization Grant Corley MD Address [address] [place] [phone] Care Team Providers Care Car Body Inspector Name Role Phone Grant Corley Primary Care Provider [phone] REASON FOR VISIT NOSE BLEEDS Encounters Encounter Location Date Provider Diagnosis Grant Corley MD 10 [facility] [address] [place] [phone] 02/03/2025 Grant Corley Plan Of Treatment Next Appt Details Provider Name:Grant Coe ier, 04/18/2025 10:00:00 AM, [address] [place] [address], [address] [place] [address], [phone], Progress Notes * Radha SILVERMAN MDOB: [birth year] (84 yo F)Acc No.[id number]:02/03/2025 Patient: Radha DE LA ROSA :1940 A ge:84 Y S ex:Female Address:[address] [place] [address] * true * Date: Generated for Jocelyn winters/Sarahi/Zoila on: 05/08/2024 07:33 PM EST
--- OUTSIDE RECORDS SUMMARY | 2025-02-07 03:15 | XMS_ITS ---
Author Organization Grant Corley MD Address [address] [place] [address] [phone] Care Team Providers Care Street Light Wirer Name Role Phone Barney Grant Primary Care Provider REASON FOR VISIT ER Visit rec'd Encounters Encounter Location Date Provider Diagnosis Grant Corley MD [address] [place] [address] [place] [address] [phone] 02/07/2025 Grant Corley Plan Of Treatment Next Appt Details Provider Name:Grant chamorro, 04/18/2025 10:00:00 AM, [address] [place] [address], [address], [phone], Progress Notes * Radha SILVERMAN MDOB: [birth year] (84 yo F)Acc No.[id number]:02/07/2025 Patient: Radha DE LA ROSA :1940 A ge:84 Y S ex:Female Address:[address] [place] [address] * true * Date: Generated for Jocelyn winters/Sarahi/Zoila on: 05/08/2024 07:33 PM EST
--- OUTSIDE RECORDS SUMMARY | 2025-02-07 10:30 | XMS_ITS ---
Author Organization Grant Corley MD Address [address] [place] [address] [phone] Care Team Providers Care Strip Deburrer Name Role Phone Grant Corley Primary Care Provider REASON FOR VISIT NOSE BLEEDS Encounters Encounter Location Date Provider Diagnosis Grant Corley MD [address] [place] [address] [place] [address] [phone] 02/07/2025 Grant Corley Plan Of Treatment Next Appt Details Provider Name:Grant Coe ier, 04/18/2025 10:00:00 AM, [address] [place] [address], [address] [place] [address], [phone], Progress Notes * Radha SILVERMAN MDOB: [birth year] (84 yo F)Acc No.[id number]:02/07/2025 Patient: Radha DE LA ROSA :1940 A ge:84 Y S ex:Female Address:[address] [place] [address] * true * Date: Generated for Jocelyn winters/Sarahi/Zoila on: 05/08/2024 07:33 PM EST
--- OUTSIDE RECORDS SUMMARY | 2025-02-08 04:42 | XMS_ITS ---
Author Organization Grant Corley MD Address [address] [place] [address] [phone] Care Team Providers Care Alliance Director Name Role Phone Barney Grant Primary Care Provider REASON FOR VISIT ER visit rec'd Encounters Encounter Location Date Provider Diagnosis Grant Corley MD 10 [facility] [address] [place] [address] [phone] 02/08/2025 Grant Corley Plan Of Treatment Next Appt Details Provider Name:Grant chamorro, 04/18/2025 10:00:00 AM, [address] [place] [address], [address], [phone], Progress Notes * Radha SILVERMAN MDOB: [birth year] (85 yo F)Acc No.[id number]:02/08/2025 Patient: Radha DE LA ROSA :1940 A ge:84 Y S ex:Female Address:[address] [place] [address] * true * Date: Generated for Jocelyn winters/Sarahi/Zoila on: 05/08/2024 07:32 PM EST
--- OUTSIDE RECORDS SUMMARY | 2025-02-11 09:05 | XMS_ITS ---
Author Organization Grant Corley MD Address [address] [place] [address] [phone] Care Team Providers Care Card Services Specialist Name Role Phone Grant Corley Primary Care Provider [phone] Encounters Encounter Location Date Provider Diagnosis Grant Corley MD 10 [facility] [address] [place] [address] [phone] 2025 Grant Corley Plan Of Treatment Next Appt Details Provider Name:Grant Coe ier, 04/18/2025 10:00:00 AM, [address] [place] [address], Suite [facility], [place], [place], [phone], Progress Notes * Radha SILVERMAN MDOB: [birth year] (85 yo F)Acc No.[id number]:2025 Patient: Radha DE LA ROSA :1940 A ge:85 Y S ex:Female Address:[address] [place] [address] * true * Date: Generated for Jocelyn winters/Sarahi/Zoila on: 05/08/2024 07:31 PM EST
--- OUTSIDE RECORDS SUMMARY | 2025-02-14 11:30 | XMS_ITS ---
Author Organization Grant Corley MD Address [address] [place] [address] [phone] Care Team Providers Care Power Plant Mechanic Name Role Phone Grant Corley Primary Care Provider REASON FOR VISIT PH/TCM Encounters Encounter Location Date Provider Diagnosis Grant Corley MD 10 [facility] [address] [place] [address] [phone] 02/14/2025 Grant Corley Plan Of Treatment Next Appt Details Provider Name:Grant Coe ier, 04/18/2025 10:00:00 AM, [address] [place] [address], [address] [place] [address], [phone], Progress Notes * Radha SILVERMAN MDOB: [birth year] (85 yo F)Acc No.[id number]:02/14/2025 Patient: Radha DE LA ROSA Provider: Amber Corley MD :1940 A ge:85 Y S ex:Female Date:02/14/2025 Address:[address] [place], [place] [phone] Subjective: * Chief Complaints: * 1 . PH/TCM. * Medical History: Objective: * Vitals: Assessment: Plan: * Treatment: * * The named appointment provid er may or may not be the originator of this progress note, and it is not deemed complete until electronically signed by the appointment provider. Sign off status: Pending * Provider: Amber Corley MD Date: 04/16/2024 Generated for Jocelyn winters/Sarahi/Judyitting on: 05/08/2024 07:33 PM EST
--- OUTSIDE RECORDS SUMMARY | 2025-02-24 08:32 | XMS_ITS ---
Author Organization Grant Corley MD Address [address] [place] [address] [phone] Care Team Providers Care Docketing Specialist Name Role Phone Grant Corley Primary Care Provider REASON FOR VISIT medication request Encounters Encounter Location Date Provider Diagnosis Grant Corley MD 10 [facility] [address] [place] [address] [phone] 02/24/2025 Grant Corley Plan Of Treatment Next Appt Details Provider Name:Grant Coe ier, 04/18/2025 10:00:00 AM, [address] [place] [address], [address] [place] [address], [phone], Progress Notes * Radha SILVERMAN MDOB: [birth year] (85 yo F)Acc No.[id number]:02/24/2025 Patient: Radha DE LA ROSA :1940 A ge:85 Y S ex:Female Address:[address] [place] [address] * true * Date: Generated for Jocelyn winters/Sarahi/Zoila on: 05/08/2024 07:32 PM EST
--- NOTE | ~2025-03-08 | CT_ITS ---
EXAMINATION: CT CHEST WITHOUT CONTRAST CLINICAL INFORMATION: J84.10 - Pulmonary fibrosis, unspecified, to evaluate for progression of the disease; COMPARISON: 03-11-23 TECHNIQUE: Multidetector volumetric CT imaging of the chest was done. Axial MIP volume rendering provided. Sagittal and coronal reformatted images were obtained. This CT examination was performed using dose optimization techniques as appropriate, variously including the following: *Automated exposure control *Adjustment of mA and/or kV according to patient size (this includes techniques or standardized protocols for targeted exams where dose is matched to indication/reason for exam; i.e. extremities or head) *Use of iterative reconstruction technique FINDINGS: LUNGS: Again seen are diffuse abnormalities most pronounced in the lung bases. There is extensive honeycombing in the lung bases, more so posteriorly, increased from the prior. There is also peripheral honeycombing extending up to the lung apexes. There is also underlying centrilobular emphysema, more pronounced in the upper lungs.. There are also scattered pulmonary cysts and bulla. The largest is in the posterior right chest, at the posterior superior extent of the major fissure, the junction of upper and lower lobes measuring 3 x 4.6 cm (AP by transverse). There is cystic bronchiectasis, more pronounced in the posterior lower lobes, greater on the left. MEDIASTINUM: There are a few shotty AP window lymph nodes, less prominent than on the prior Heart size is within normal limits. CORONARY ARTERY CALCIFICATION: Present and dense PLEURA: There is no pleural effusion. No pleural mass or thickening. AXILLA: No lymphadenopathy. UPPER ABDOMEN: Again seen is a simple cyst partially exophytic involving medial upper pole right kidney. There is elevation of the left hemidiaphragm. OSSEOUS STRUCTURES: Multilevel degenerative disc disease is mildly progressed since the prior. There is moderate degenerative changes of the shoulders with joint space narrowing and subchondral sclerosis. 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 Fleischner guidelines were followed. Electronically signed by: Rick Huang MD 03/08/2025 04:59 PM EST
--- OUTSIDE RECORDS SUMMARY | 2025-03-08 19:32 | XMS_ITS | Clinical Summary ---
Author Organization [address] [place] [address] [place] [phone] Phone Care Team Providers Care Cotton Ginner Name Role Phone Yuri Turcios MD Primary Care Provider [phone] Allergies No known active allergies Medications atorvastatin (LIPITOR) 20 mg tablet Take 1 tablet (20 mg total) by mouth 1 (one) time each day. Active estazolam (PROSOM) 1 mg tablet Take 1 tablet (1 mg total) by mouth at bedtime as needed for sleep. Active cholecalciferol (VITAMIN D-3) 25 mcg (1,000 unit) tablet Take 1 tablet (1,000 Units total) by mouth 1 (one) time each day. Active pantoprazole (PROTONIX) 40 mg EC tablet Take 1 tablet (40 mg total) by mouth 1 (one) time each day before breakfast. Active raloxifene (EVISTA) 60 mg tablet Take 1 tablet (60 mg total) by mouth 1 (one) time each day. Active aspirin 81 mg EC tablet Take 1 tablet (81 mg total) by mouth 1 (one) time each day. 02/09/20 Discontinu ed(Stop Taking at Discharge) naproxen (NAPROSYN) 375 mg tablet Take 1 tablet (375 mg total) by mouth 2 (two) times a day with meals. 02/09/20 Discontinu ed(Stop Taking at Discharge) Active Problems Problem Noted Date Diagnosed Date Epistaxis 02/07/2025 Encounters Date Type Department Care Team Description 02/07/2025 3:06 PM EDT - 02/08/2025 12:03 PM EDT Hospital Encounter [facility] [address] [place] [phone] Wendie John MD Bukalo, Nermina, MD Ziebro, John, MD Jones, Christopher, MD Alam, Aroosa, MD Acute anterior epistaxis (Primary Dx); Epistaxis Discharge Disposition: Home-Health Care Svc 02/05/2025 10:31 AM EDT - 02/05/2025 11:13 AM EDT Emergency [facility] [address] [place] [phone] Arminda Frost MD Epistaxis (Primary Dx) Discharge Disposition: Home or Self Care 01/24/2025 Telephone [facility]iology [facility] [address] [place] [phone] Sam Madrid MD 01/03/2025 Lab Requisition [facility] [address] [place] [address] Deniz Duran MD Encounter for other general examination 12/29/2024 Lab Requisition [facility] [address] [place] [address] Donal Rodriguez PA Other usp (current) drug therapy from Last 3 Months Surgical History Surgery Date Site/Laterality Comments CATARACT EXTRACTION Medical History Medical History Date Comments Carotid stenosis Pulmonary fibrosis ([facility] V24, [facility] V28) Chronic hypoxic respiratory failure ([facility] V24 , [facility] V28) Family History Medical History Relation Name Comments Coronary artery disease Father No Known Problems Mother Rheum arthritis Sister Relation Name Status Comments Father Mother Sister Social History Tobacco Use Types Packs/Day Years Used Date Smoking Tobacco: Former Cigarettes 0 Q uit: 04/14/1995 Smokeless Tobacco: Never Alcohol Use Standard Drinks/Week Comments Yes 0 (1 standard drink = 0.6 oz pur e alcohol) occasional consumption Housing Instability Answer Date Recorde d Are you worried that in the next 2 months you may not have stable housing? No 02/07/2025 Food Access & Nutrition Answer Date Rec orded Do you have access to a vari ety of food including fruits and vegetables? Yes 02/07/2025 Health Literacy Answer Date Recorded How often do you need to hav e someone help you when you read instructions, pamphlets, or other written material from your doctor or pharmacy? Never 02/07/2025 Caregiver: How often do you need to have someone help you when you read instructions, pamphlets, or other written material from your doctor or pharmacy? Not on file 02/07/2025 Financial Risk Answer Date Recorded How hard is it for you to pa y for the very basics like food, housing, medical care, and air conditioning / heating? Not very hard 02/07/2025 Transportation Answer Date Recorded Has the lack of transportati on kept you from meetings, work, or from getting things needed for daily living? No Has the lack of transportati on kept you from medical appointments or from getting medications? No 02/07/2025 Social Isolation Answer Date Recorded How often do you feel lonely or isolated from th ose around you? Never 02/07/2025 Food Risk Answer Date Recorded Within the past 12 months we worried whether our food would run out before we got money to buy more. Never true 02/07/2025 Within the past 12 months th e food we bought just didn't last and we didn't have money to get more. Never true 02/07/2025 Dependent Care Answer Date Recorded Do you need help finding or paying for care for your loved ones. For example, child daycare worker or elderly care for an older adult? No 02/07/2025 Education Answer Date Recorded Do you think completing more education or training, like finishing a GED, going to college, or learning a trade, would be helpful for you? No 02/07/2025 Employment and Income Answer Date Recor ded During the last four weeks, have you been actively looking for work? No 02/07/2025 Living Situation Answer Date Recorded What is your living situation? Unrecognized valu e 02/07/2025 Interpersonal Safety Answer Date Record ed Physical Abuse Unrecognized value 02/07/2025 Verbal Abuse Unrecognized value 02/07/2025 Comments No Sex and Gender Information Value Date Recorded Sex Assigned at Not on file Legal Sex Female 12:33 AM EST Gender Identity Not on file Sexual Orientation Not on file Obstetrics History Last Filed Vital Signs Vital Sign Reading Time Taken Comments Blood Pressure 123/66 02/08/2025 7:59 AM EDT Pulse 82 02/08/2025 7:59 AM EDT Temperature 36.7 C (98.1 F) 02/08/2025 7:59 AM EDT Respiratory Rate 16 02/08/2025 7:59 AM EDT Oxygen Saturation 99% 02/08/2025 7:59 AM EDT Inhaled Oxygen Concentration - - Weight 39.4 kg (86 lb 13.8 oz) 02/07/2025 8:10 P M EDT Height 152.4 cm (5') 02/07/2025 8:10 PM EDT Body Mass Index 16.96 02/07/2025 8:10 PM EDT Plan of Treatment Health Maintenance Due Date Last Done Comments DTaP,Tdap,and Td Vaccines (1 - Tdap) 02/10/1959 Cholesterol Screening (Lipid Panel) 03/17/2022 Medicare Annual Wellness Visit 03/17/2022 Depression Screening 04/14/2024 COVID-19 Vaccine ( season) 2025 01/30/2025, 07/26/2024, 01/15/2024, Additional history exists Social Influencers of Health Screening 02/07/2026 02/07/2025 Falls Risk Assessment 02/08/2026 02/08/2025 Hypertension/CHF/CAD Annual BMP Blood Test 02/08/2026 02/08/2025, 01/03/2025, 12/29/2024 Osteoporosis Screening (Bone Density Screening) 10/18/2029 10/19/2019, 06/26/2017 Zoster Vaccines Completed 12/16/2017, 09/12/2017 RSV Immunization Adult Patients Completed 01/31/2023 Pneumococcal Vaccine: 50+ Years Completed 09/12/2024, 11/01/2019 Influenza Vaccine Completed 01/14/2025, , 01/13/2023, Additional history exists HIB Vaccines Aged Out No longer eligi [...] 20 months Aged Out No longer eligible based on patient's age to complete this topic Varicella Vaccines Aged Out No longer eligible based on patient's age to complete this topic Procedures Procedure Name Priority Date/Time Associated Diagnosis Comments COMPLETE BLOOD COUNT Routine 02/08/2025 6:23 AM EDT BASIC METABOLIC PANEL Routine 02/08/2025 6:23 AM EDT CBC WITH AUTO DIFFERENTIAL STAT 02/07/2025 4:54 PM EDT CBC AND DIFFERENTIAL STAT 02/07/2025 4:54 PM EDT HC TREATMENT/PROCEDURE ENT Routine 02/07/2025 4:49 PM EDT OH CONTROL NOSEBLEED ANTERIOR SIMPLE Routine 02/07/2025 4:49 PM EDT OH CRITICAL CARE 30-74 MINUTES Routine 02/07/2025 2:55 PM EDT CBC WITH AUTO DIFFERENTIAL Routine 01/03/2025 5:49 AM EDT Encounter for other general examination COMPREHENSIVE METABOLIC PANEL Routine 01/03/2025 5:49 AM EDT Encounter for other general examination CBC AND DIFFERENTIAL Routine 01/03/2025 5:49 AM EDT Encounter for other general examination CBC WITH AUTO DIFFERENTIAL Routine 12/29/2024 6:30 AM EDT Other drencher (current) drug therapy MAGNESIUM Routine 12/29/2024 6:30 AM EDT Other usp (current) drug therapy COMPREHENSIVE METABOLIC PANEL Routine 12/29/2024 6:30 AM EDT Other usp (current) drug therapy CBC AND DIFFERENTIAL Routine 12/29/2024 6:30 AM EDT Other drencher (current) drug therapy SHANNEN DEXA AXIAL SKELETON Routine 10/19/2019 10:35 AM EDT Asymptomatic menopausal state from Last 3 Months or Most Recently Relevant to Health Maintenance Results * (ABNORMAL) Complete blood count (02/08/2025 6:23 AM EDT) [facility] WBC 10.3 4.8 - 10.8 K/mcL LAB HEMETOLOGY METHOD 02/08/2025 7:28 AM [facility] RBC 4.90(H) 3.80 - 4.80 M/mcL LAB HEMETOLOGY METHOD 02/08/2025 7:28 AM [facility] Hemoglobin 14.4 11.5 - 16.0 g/dL LAB HEMETOLOGY METHOD 02/08/2025 7:28 AM [facility] Hematocrit 45.4 35.0 - 47.0 % LAB HEMETOLOGY METHOD 02/08/2025 7:28 AM [facility] MCV 93.4 79.0 - 98.0 FL LAB HEMETOLOGY METHOD 02/08/2025 7:28 AM [facility] MCH 29.6 27.0 - 32.0 pcg LAB HEMETOLOGY METHOD 02/08/2025 7:28 AM [facility] MCHC 31.7(L) 32.0 - 37.0 g/dL LAB HEMETOLOGY METHOD 02/08/2025 7:28 AM [facility] RDW 14.8 11.0 - 15.0 % LAB HEMETOLOGY METHOD 02/08/2025 7:28 AM [facility] Platelets 208 130 - 400 K/mcL LAB HEMETOLOGY METHOD 02/08/2025 7:28 AM EDT [facility] MPV 11.8(H) 7.0 - 11.0 FL LAB HEMETOLOGY METHOD 02/08/2025 7:28 AM EDT [facility] NRBC 0.0 <1.0 % LAB HEMETOLOGY METHOD 02/08/2025 7:28 AM EDT [facility] NRBC Absolute 0.00 <0.10 K/mcL LAB HEMETOLOGY METHOD 02/08/2025 7:28 AM EDT [facility] Blood Venous blood specimen / Unknown Venipuncture / Unknown 02/08/2025 6:23 AM EDT 02/08/2025 7:10 AM EDT us Robert Jones MD LAB BLOOD ORDERABLES Final Res ult [facility] [address] [place] [address], [place] [phone] * Basic metabolic panel (02/08/2025 6:23 AM EDT) Sodium 139 133 - 145 mmol/L LAB CHEMISTRY METHOD 02/08/2025 7:55 AM [facility] Potassium 4.2 3.5 - 5.5 mmol/L LAB CHEMISTRY METHOD 02/08/2025 7:55 AM [facility] Chloride 104 96 - 110 mmol/L LAB CHEMISTRY METHOD 02/08/2025 7:55 AM [facility] CO2 31 21 - 32 mmol/L LAB CHEMISTRY METHOD 02/08/2025 7:55 AM [facility] Anion Gap 4 3 - 11 LAB CHEMISTRY METHOD 02/08/2025 7:55 AM [facility] Glucose 79 70 - 100 mg/dL LAB CHEMISTRY METHOD 02/08/2025 7:55 AM EDT [facility] BUN 15 5 - 25 mg/dL LAB CHEMISTRY METHOD 02/08/2025 7:55 AM EDT [facility] Creatinine 0.62 0.50 - 1.10 mg/dL LAB CHEMISTRY METHOD 02/08/2025 7:55 AM EDT [facility] eGFR 88 >=60 mL/min/1. 73m2 LAB CHEMISTRY METHOD 02/08/2025 7:55 AM EDT [facility] Comment:Calculation based on the Chronic Kidney Disease Epidemiology Collaboration (CKD-EPI) equation refit without adjustment for race. BUN/Creatinine Ratio 24.2 LAB CHEMISTRY METHOD 02/08/2025 7:55 AM EDT [facility] Calcium 8.9 8.5 - 10.5 mg/dL LAB CHEMISTRY METHOD [facility] Blood Venous blood specimen / Unknown Venipuncture / Unknown 02/08/2025 6:23 AM EDT 02/08/2025 7:10 AM EDT us Robert Jones MD LAB BLOOD ORDERABLES Final Res ult [facility] [address] [place] [address], [place] [phone] * (ABNORMAL) CBC auto differential (02/07/2025 4:54 PM EDT) Only the most recent of3 resultswithin the time period is included. WBC 10.9(H) 4.8 - 10.8 K/mcL LAB HEMETOLOGY METHOD 02/07/2025 5:27 PM EDT [facility] RBC 4.90(H) 3.80 - 4.80 M/mcL LAB HEMETOLOGY METHOD 02/07/2025 5:27 PM EDT [facility] Hemoglobin 14.4 11.5 - 16.0 g/dL LAB HEMETOLOGY METHOD 02/07/2025 5:27 PM EDT [facility] Hematocrit 45.0 35.0 - 47.0 % LAB HEMETOLOGY METHOD 02/07/2025 5:27 PM EDT [facility] MCV 92.6 79.0 - 98.0 FL LAB HEMETOLOGY METHOD 02/07/2025 5:[facility] MCH 29.6 27.0 - 32.0 pcg LAB HEMETOLOGY METHOD 02/07/2025 5:27 PM EDT [facility] MCHC 32.0 32.0 - 37.0 g/dL LAB HEMETOLOGY METHOD 02/07/2025 5:27 [facility] RDW 14.9 11.0 - 15.0 % LAB HEMETOLOGY METHOD 02/07/2025 5:27 [facility] Platelets 212 130 - 400 K/mcL LAB HEMETOLOGY METHOD 02/07/2025 5:27 PM EDT [facility] MPV 11.7(H) 7.0 - 11.0 FL LAB HEMETOLOGY METHOD 02/07/2025 5:27 PM [facility] NRBC 0.0 <1.0 % LAB HEMETOLOGY METHOD 02/07/2025 5:27 [facility] NRBC Absolute 0.00 <0.10 K/mcL LAB HEMETOLOGY METHOD 02/07/2025 5:27 PM [facility] Neutrophils Relative 53.4 % LAB HEMETOLOGY METHOD 02/07/2025 5:27 PM EDT [facility] Lymphocytes Relative 35.4 % LAB HEMETOLOGY METHOD 02/07/2025 5:27 PM [facility] Monocytes Relative 7.8 % LAB HEMETOLOGY METHOD 02/07/2025 5:27 [facility] Eosinophils Relative 2.5 % LAB HEMETOLOGY METHOD 02/07/2025 5:27 PM EDT [facility] Basophils Relative 0.6 % LAB HEMETOLOGY METHOD 02/07/2025 5:27 PM EDT [facility] Immature Granulocytes Relative 0.3 % LAB HEMETOLOGY METHOD 02/07/2025 5:27 PM EDT [facility] Neutrophils Absolute 5.83 1.50 - 7.00 K/mcL LAB HEMETOLOGY METHOD 02/07/2025 5:27 PM EDT [facility] Lymphocytes Absolute 3.86 1.00 - 5.00 K/mcL LAB HEMETOLOGY METHOD 02/07/2025 5:27 PM EDT [facility] Monocytes Absolute 0.85 0.20 - 1.00 K/mcL LAB HEMETOLOGY METHOD 02/07/2025 5:27 PM EDT [facility] Eosinophils Absolute 0.27 0.00 - 0.50 K/mcL LAB HEMETOLOGY METHOD 02/07/2025 5:27 PM EDT [facility] Basophils Absolute 0.06 0.00 - 0.20 K/mcL LAB HEMETOLOGY METHOD 02/07/2025 5:27 PM EDT [facility] Immature Granulocytes Absolute 0.03 0.00 - 0.03 K/mcL LAB HEMETOLOGY METHOD 02/07/2025 5:27 PM EDT [facility] Blood Venous blood specimen / Unknown Venipuncture / Unknown 02/07/2025 4:54 PM EDT 02/07/2025 5:18 PM EDT us Wendie John MD LAB BLOOD ORDERABLES Final Result [facility] [address] [place] [address], * OH CONTROL NOSEBLEED ANTERIOR SIMPLE, HC TREATMENT/PROCEDURE ENT (02/07/2025 4:49 PM EDT) Narrative Wendie John MD - 02/07/2025 4:49 PM EDT Wendie John MD 02/07/2025 6:12 PM Epistaxis Management Date/Time: 02/07/2025 4:49 PM Performed by: Wendie John MD Authorized by: Wendie John MD Consent: Consent obtained: Verbal Consent given by: Patient Risks, benefits, and alternatives were discussed: yes Risks discussed: Nasal injury and pain [place] protocol: Patient identity confirmed: Verbally with patient and arm band Anesthesia: Anesthesia method: None Procedure details: Treatment site: L anterior Treatment method: Silver nitrate Treatment complexity: Limited Treatment episode: initial Post-procedure details: Assessment: Bleeding stopped Procedure completion: Tolerated well, no immediate complications Comments: Procedure completed at approximately 4:30 PM. Will observe to ensure hemostasis. Will check CBC, anticipate can be discharged should patient remain stable. Will apply bacitracin to the area. us Wendie John MD IN CLINIC/BEDSIDE ORDERABLE S Final Result * [facility] CRITICAL CARE 30-74 MINUTES (02/07/2025 2:55 PM EDT) Narrative Wendie John MD - 02/07/2025 2:55 PM EDT Wendie John MD 02/07/2025 6:12 PM Critical Care Performed by: Wendie John MD Authorized by: Wendie John MD Critical care provider statement: Critical care time (minutes): 35 Total face to face critical care time (minutes): 20 Critical care time was exclusive of: Separately billable procedures and treating other patients Critical care was necessary to treat or prevent imminent or life-threatening deterioration of the following conditions: epistaxis. Critical care was time spent personally by me on the following activities: Re-evaluation of patient's condition, review of old charts, ordering and performing treatments and interventions and discussions with consultants I assumed direction of critical care for this patient from another provider in my specialty: no Care discussed with: admitting provider us Wendie John MD IN CLINIC/BEDSIDE ORDERABLE S Final Result * (ABNORMAL) Comprehensive metabolic panel (01/03/2025 5:49 AM EDT) Only the most recent of2 resultswithin the time period is included. Sodium 139 133 - 145 mmol/L LAB CHEMISTRY METHOD 01/03/2025 2:25 PM [facility] Potassium 4.3 3.5 - 5.5 mmol/L LAB CHEMISTRY METHOD 01/03/2025 2:25 PM [facility] Chloride 100 96 - 110 mmol/L LAB CHEMISTRY METHOD 01/03/2025 2:25 PM [facility] CO2 32 21 - 32 mmol/L LAB CHEMISTRY METHOD 01/03/2025 2:25 PM [facility] Anion Gap 7 3 - 11 LAB CHEMISTRY METHOD 01/03/2025 2:25 PM [facility] Glucose 66(L) 70 - 100 mg/dL LAB CHEMISTRY METHOD 01/03/2025 2:25 PM [facility] BUN 13 5 - 25 mg/dL LAB CHEMISTRY METHOD 01/03/2025 2:25 PM [facility] Creatinine 0.64 0.50 - 1.10 mg/dL LAB CHEMISTRY METHOD 01/03/2025 2:25 PM [facility] eGFR 87 >=60 mL/min/1. 73m2 LAB CHEMISTRY METHOD 01/03/2025 2:25 PM [facility] Comment:Calculation based on the Chronic Kidney Disease Epidemiology Collaboration (CKD-EPI) equation refit without adjustment for race. BUN/Creatinine Ratio 20.3 LAB CHEMISTRY METHOD 01/03/2025 2:25 PM [facility] Calcium 8.8 8.5 - 10.5 mg/dL LAB CHEMISTRY METHOD 01/03/2025 2:25 PM [facility] AST (SGOT) 30 10 - 42 unit/L LAB CHEMISTRY METHOD 01/03/2025 2:25 PM [facility] ALT (SGPT) 29 10 - 60 unit/L LAB CHEMISTRY METHOD 01/03/2025 2:25 PM EDT [facility] Alkaline Phosphatase 58 42 - 121 unit/L LAB CHEMISTRY METHOD 01/03/2025 2:25 PM EDT [facility] Total Protein 5.7(L) 6.0 - 8.0 g/dL LAB CHEMISTRY METHOD 01/03/2025 2:25 PM EDT [facility] Albumin 3.1(L) 3.2 - 5.0 g/dL LAB CHEMISTRY METHOD 01/03/2025 2:25 PM EDT [facility] Total Bilirubin 0.5 0.0 - 1.4 mg/dL LAB CHEMISTRY METHOD 01/03/2025 2:25 PM EDT [facility] Blood Venous blood specimen / Unknown Venipuncture / Unknown 01/03/2025 5:49 AM EDT 01/03/2025 11:04 AM EDT Deniz Duran MD LAB BLOOD ORDERABLES Final Resu lt [facility] [address] [place] [address], [place] [phone] * Magnesium (12/29/2024 6:30 AM EDT) Magnesium 2.1 1.9 - 2.6 mg/dL LAB CHEMISTRY METHOD 12/29/2024 11:26 AM EDT [facility] Blood Venous blood specimen / Unknown Venipuncture / Unknown 12/29/2024 6:30 AM EDT 12/29/2024 10:37 AM EDT Donal SMITH LAB BLOOD ORDERABLES Final R esult [facility] [address] [place] [address], [place] [phone] * SHANNEN DEXA AXIAL SKELETON (10/19/2019 10:35 AM EDT) Anatomical Region Laterality Modality Mammography 10/19/2019 9:50 AM EDT Narrative 10/19/2019 10:35 AM EDT [facility] Diagnostic Imaging Department [address] [place] [id number] Patient: ADALIRADHA Tim PryorB./Age/Sex: 1940 - Unit#: [id number] Location/Status: SPDIMAM/REG CLI [facility] Ordering Physician: YURI TURCIOS MD Shannen Dexa Axial Skeleton - [...] probability of hip fracture of 24.6%. Code 88353 Dictating Physician: CHRISTIANO JOSEPH MD Electronically Signed by: CHRISTIANO JOSEPH MD Dic Date/Time: 10/19/19 1034 Sign date/Time: 10/19/19 1035 Procedure Note Christiano Joseph MD - 04/03/2022 [facility] Diagnostic Imaging Department [address] [place] [address] Patient: ADALISANDEERADHACANDICE Art./Age/Sex: 1940 - 79 - F Unit#: [id number] Location/Status: [facility]em[facility] Ordering Physician: YURI TURCIOS MD Shannen Dexa Axial Skeleton - [...] density of the femurs bilaterally is 0.846 gm/[id number] is 84% of that of young normals [...] probability of hip fracture of 24.6%. Code 43575 Dictating Physician: CHRISTIANO JOSEPH MD Electronically Signed by: CHRISTIANO JOSEPH MD Dic Date/Time: 10/19/19 1034 Sign date/Time: 10/19/19 1035 Yuri Turcios MD IMG BI PROCEDURES Final Res ult from Last 3 Months or Most Recently Relevant to Health Maintenance Insurance MEDICARE [employer] Advance Directives * No CPR/Do Not Intubate (Latest Code Status on File) Date Activated Date Inactivated Comments 02/07/2025 8:42 PM 02/08/2025 2:03 PM This code status was ascertained in the following way: Code status discussion: discussion with patient and son arminda/HCP at bedside. To update the patient's code status, place a code status order. Do not modify or discontinue any currently active code status orders. * Full Code - Default Date Activated Date Inactivated Comments 02/07/2025 6:20 PM 02/07/2025 8:42 PM This is or bekah is used when code status has not been discussed with the patient, or code status is otherwise unknown/unconfirmed To update the patient's code status, place a code status order. Do not modify or discontinue any currently active code status orders. Care Teams Cotton Ginner Relationship Specialty Start Date End Date Yuri Turcios MD [address] [facility] [address] [place] [id number] PCP - General Internal Medicine 02/07/25
--- OUTSIDE RECORDS SUMMARY | 2025-03-08 19:32 | XMS_ITS | Patient Health Record ---
Author Organization Grant Corley MD Address [address] [place], [place] [id number] Care Team Providers Care Contact Lens Manufacturer Name Role Phone Grant Corley Primary Care Provider [phone] Allergies No Known Allergies Results Component Value Reference Range Notes Liver Panel Reviewed date:06/28/2024 04:21:08 PM Interpretation: Performing Lab:[facility], [address] [place] [phone] Notes/Report: Bilirubin Total 0.6 0.0-1.0 mg/dL Bilirubin Direct 0.2 0.0-0.5 mg/dL Aspartate Amino Transferase 33 5-31 U/L Alanine Aminotransferase 17 0-31 U/L Total Protein 7.1 6.5-8.0 g/dL Albumin Level 3.9 3.5-5.0 g/dL Alkaline Phosphatase 69 39-117 U/L Lipid Panel with Reflex Reviewed date:06/28/2024 04:21:39 PM Interpretation: Performing Lab:[facility], [address] [place] [phone] Notes/Report: Triglycerides 76 <150 mg/dL Desirable Triglyceride: [...] patients with liver disease. Rivka Jimenes Reviewed date:06/28/2024 11:59:55 AM Interpretation: Performing Lab:[facility], [address] [place] [phone] Notes/Report: Rivka Jimenes See Note Specimen held untested for 24 hours; Call to request Chemistry testing. Complete Blood Count Auto Di ff Reviewed date:12/26/2024 05:41:47 PM Interpretation: Performing Lab:[facility], [address] [place] [phone] Notes/Report: White Blood Count 10.0 4.8-10.8 X10*3/uL [...] Auto 0.000 0.0-0.012 X10*3/uL Prothrombin Time INR Reviewed date:12/26/2024 05:39:16 PM Interpretation: Performing Lab:[address] [address] Notes/Report: Prothrombin Time 11.6 10.9-12.4 [employer] [...] valves: 2.5 - 3.5 Comprehensive Met. Panel Reviewed date:12/26/2024 05:35:28 PM Interpretation: Performing Lab:[address] [address] Notes/Report: Sodium 141 135-145 mmol/L Potassium 4.1 [...] g/dL Alkaline Phosphatase 64 39-117 U/L Magnesium Reviewed date:12/26/2024 05:34:36 PM Interpretation: Performing Lab:[facility], [address] [place] [phone] Notes/Report: Magnesium 1.9 1.6-2.6 mg/dL Troponin-I High Sensitivity Reviewed date:12/26/2024 05:34:15 PM Interpretation: Performing Lab:[facility], [address] [place] [phone] Notes/Report: Troponin-I High Sensitivity 5.3 <3.5-17.0 ng/L The [place] high sensitivity Troponin-I results should be used in conjunction with other diagnostic information such as ECG, clinical observations and information, and patient symptoms to aid in the diagnosis of RI. B Type Natriuretic Peptide Reviewed date:12/26/2024 05:33:21 PM Interpretation: Performing Lab:[facility], [address] [place] [phone] Notes/Report: B Type Natriuretic Peptide 117 <100 pg/mL COVID-19 ID NOW ([place]) Reviewed date:12/26/2024 05:34:26 PM Interpretation: Performing Lab:[facility], [address] [place] [phone] Notes/Report: IDNOW Serial# [id number] COVID-19 Test Negative Negative COVID-19 Note See [...] with other viruses. Testing facilities within the [facility] and its territories are required to [...] by authorized laboratories. Testing performed on the [facility] ID NOW utilizing NAAT. Venous Blood Gases - POC Reviewed date:12/26/2024 05:39:26 PM Interpretation: Performing Lab:[address] [address] Notes/Report: VBG pH 7.42 7.32-7.43 METER #: [id number] additional_comment: Cb yinaelef VBG pCO2 44 METER #: [id number] additional_comment: Cb yinaelef VBG pO2 40 METER #: [id number] additional_comment: Cb yinaelef VBG Base Excess 3.6 METER #: [id number] additional_comment: Cb yinaelef VBG HCO3 28 22-26 mmol/L METER #: [id number] additional_comment: Cb yinaelef VBG O2 % Saturation 64.0 METER #: [id number] additional_comment: Silas christoph Influenza A B2 ID NOW ([facility]ot [facility]) Reviewed date:12/26/2024 05:42:00 PM Interpretation: Performing Lab:[address] [address] Notes/Report: [facility] Serial# [id number] Influenza A Negative Negative Influenza B2 Negative [...] with Respiratory Syncytial Virus. XR chest 2V Reviewed date:12/26/2024 05:34:05 PM Interpretation: Performing Lab: Notes/Report: [address] [address] XRay Report Signed Patient: Radha Silverman MR#: [id number] 1466 : 1940 Acct:[id number] Age/Sex: 84 / F ADM Date: 12/25/24 Loc: .ED Attending Dr: Ordering Physician: Evita Arthur Date of Service: 12/25/24 Procedure(s): XR chest 2V Accession Number(s): [id number] cc: Grant Corley MD; Evita Arthur Reason [...] 12/25/24 1401 DD/ 1400 TD/TT: 12/25/24 1400 Apartment Rental Agent: [address] [address] XRay Report Signed Patient: Christa Sliverman MR#: [id number] 1466 : 1940 Acct:[id number] Age/Sex: 84 / F ADM Date: 12/25/24 Loc: HO.ED Attending Dr: Ordering Physician: Evita Arthur Date of Service: 12/25/24 Procedure(s): XR guido st 2V Accession Number(s): [id number] cc: Grant Corley MD; Evita Arthur Reason [...] 12/25/24 1401 DD/ 1400 TD/TT: 12/25/24 1400 Apartment Rental Agent: CT chest wo con (Not yet rev iewed by provider) Interpretation: Performing Lab: Notes/Report: [place] [address] CT Scan Report Signed Patient: Radha Silverman MR#: [id number] 1466 : 1940 Acct:[id number] Age/Sex: 85 / F ADM Date: 03/08/25 Loc: HO.CT Attending Dr: Abrahan Bautista MD Ordering Physician: Abrahan Bautista MD Date of Service: 03/08/25 Procedure(s): CT chest wo IV con Accession Number(s): [id number] cc: Abrahan Bautista MD; Grant Corley MD Report Number: [id number]: Total DLP = 73.00 mGy-cm Reason for Exam: J84.10 - Pulmonary fibrosis, unspecified EXAMINATION: CT CHEST WITHOUT CONTRAST CLINICAL INFORMATION: J84.10 - Pulmonary fibrosis, unspecified, to evaluate for progression of the disease; COMPARISON: 03-11-23 TECHNIQUE: Multidetector volumetric CT imaging of the chest was done. Axial MIP volume rendering provided. Sagittal and coronal reformatted images were obtained. This CT examination was performed using dose optimization techniques as appropriate, variously including the following: *Automated exposure control *Adjustment of mA and/or kV according to patient size (this includes techniques or standardized protocols for targeted exams where dose is matched to indication/reason for exam; i.e. extremities or head) *Use of iterative reconstruction technique FINDINGS: LUNGS: Again seen are diffuse abnormalities most pronounced in the lung bases. There is extensive honeycombing in the lung bases, more so posteriorly, increased from the prior. There is also peripheral honeycombing extending up to the lung apexes. There is also underlying centrilobular emphysema, more pronounced in the upper lungs.. There are also scattered pulmonary cysts and bulla. The largest is in the posterior right chest, at the posterior superior extent of the major fissure, the junction of upper and lower lobes measuring 3 x 4.6 cm (AP by transverse). There is cystic bronchiectasis, more pronounced in the posterior lower lobes, greater on the left. MEDIASTINUM: There are a few shotty AP window lymph nodes, less prominent than on the prior Heart size is within normal limits. CORONARY ARTERY CALCIFICATION: Present and dense PLEURA: There is no pleural effusion. No pleural mass or thickening. AXILLA: No lymphadenopathy. UPPER ABDOMEN: Again seen is a simple cyst partially exophytic involving medial upper pole right kidney. There is elevation of the left hemidiaphragm. OSSEOUS STRUCTURES: Multilevel degenerative disc disease is mildly progressed since the prior. There is moderate degenerative changes of the shoulders with joint space narrowing and subchondral sclerosis. 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 Fleischner guidelines were followed. Electronically signed by: Rick Huang MD 03/08/2025 04:59 PM EST Dictated By: Rick Huang MD Signed By: <Electronically signed by Rick Huang MD in [place]> 03/08/25 1659 DD/ 1631 TD/TT: 03/08/25 1642 Apartment Rental Agent: [address] [address] [address] Scan Report Signed Patient: Chrsita Silverman MR#: [id number] 1466 : 1940 Acct:[id number] Age/Sex: 85 / F ADM Date: 03/08/25 Loc: HO.CT Attending Dr: Dania Bautista MD Ordering Physician: Abrahan Bautista MD Date of Service: 03/08/25 Procedure(s): CT guido st wo IV con Accession Number(s): [id number] cc: Abrahan Bautista MD; Grant Corley MD Report Number: [id number]: Total DLP = 73.00 mGy-cm Reason for Exam: J84 .10 - Pulmonary fibrosis, unspecified EXAMINATION: CT CHEST WITHOUT CONTRAST CLINICAL INFORMATION: J84.10 - Pulmonary fibrosis, unspecified, to evaluate for progression of the disease; COMPARISON: 03-11-23 TECHNIQUE: Multidetector volumetric CT imaging of the chest was done. Axial MIP volume rendering provided. Sagittal and coronal reformatted images were obtained. This CT examination was performed using dose optimization techniques as appropriate, various ly including the following: *Automated exposure control *Adjustment of mA and/or kV according to patient size (this includes techniques or standardized protocols for targeted exams where dose is matched to indication/reason for exam; i.e. extremities or head) *Use of iterative reconstruction technique FINDINGS: LUNGS: Again seen are diffu se abnormalities most pronounced in the lung bases. There is extensive honeycombing in the lung bases, more so posteriorly, increased from the prior. There is also peripheral honeycombing extending up to the lung apexes. There is also underlying centrilobular emphysema, more pronounced in the upper lungs.. There are also scattered pulmonary cysts and bulla. The largest is in the posterior right chest, at the posterior superior extent of the major fissure, the junction of upper and lower lobes measuring 3 x 4.6 cm (AP by transverse). There is cystic bronchiectasis, more pronounced in the posterior lower lobes, greater on th e left. MEDIASTINUM: There are a few shot ty AP window lymph nodes, less prominent than on the prior Heart size is within normal limits. CORONARY ARTERY CALCIFICATION: Present and dense PLEURA: There is no pleural effusion. No pleural mass or thickening. AXILLA: No lymphadenopathy. UPPER ABDOMEN: Again seen is a simple cyst partially exophytic involving medial upp er pole right kidney. There is elevation o f the left hemidiaphragm. OSSEOUS STRUCTURES: Multilevel degenerative disc disease is mildly progressed since the prior. There is moderate degenerative changes of the shoulders with joint space narrowing and subchondral sclerosis. 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 Fleischner guideline s were followed. Electronically jorje d by: Rick Huang MD 03/08/2025 04:59 PM EST Dictated By: Rick Huang MD Signed By: <Electronically signed by Rick Huang MD in [place]> 03/08/25 1659 DD/ 1631 TD/TT: 03/08/25 1642 Apartment Rental Agent: Reason For Referral No Information Medications Medication SIG (Take, Route, Frequency, Duration) Notes Start Date End Date Status Pantoprazole Sodium 40 MG 1 tablet 1/2 t o 1 hour before morning meal Orally Once a day for 90 days 03/19/2024 Active Flonase Allergy Relief 50 MCG/ACT 1 spray in each nostril Nasally Twice a day Active Valtrex 1 GM 1 tablet Orally 3 times a day for 7 days 03/18/2023 Active Cetirizine HCl 10 MG 0.5 tab Orally Once a day Active Atorvastatin Calcium 20 MG TAKE 1 TABLET BY MOUTH EVERY DAY FOR 90 DAYS for 90 Active Cholecalciferol 25 MCG (1000 UT) 1 capsule Orally Once a day Active Estazolam 1 MG take 1 tablet by mouth every day at bedtime as needed Orally Once a day as needed for 90 days 12/20/2024 Active Raloxifene HCl 60 MG TAKE 1 TABLET BY MOUTH EVERY DAY for 90 Active Glucosamine Chondroitin Vit D3 1500/1200 as directed Orally once a day Active Naproxen 375 MG TAKE 1 TABLET BY MOUTH TWICE A DAY for 90 Active Mucinex 600 MG 1 tablet as needed Orally every 12 hrs Active Myrbetriq 25 MG 1 tablet Orally Once a day for 30 day(s) 07/02/2022 Not-Taking Ondansetron 4 MG 1 tablet on the tongue and allow to dissolve Orally Once a day for 30 day(s) 03/19/2024 Active Prosom Active Aspir-81 81 MG 1 tablet Orally Once a day 08/06/2012 Active Immunizations Vaccine Route Administration Date Status [...] Influenza High Dose Unknown 01/22/2024 Administered [facility] Influenza High Dose IM Intramuscular 01/14/2025 Administer ed Flu Vaccine Unknown 12/28/2013 Pending Social History [...] Status Risk Notes Problem Carotid artery disease (560131061) Carotid artery disease (447.9) Active confirmed Problem 19312063 Lymphocytosis (D72.820) Active confirm ed Problem Insomnia (158289542) Insomnia (G47.00) Active confirmed Problem 24145892 Vitamin D defici ency (E55.9) Active confirmed Problem 6007479 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) Active confirmed Problem 29559420 Essential hypert ension (I10) Active confirmed Problem 0259954 Prediabetes (R73.09) Active confirmed Problem 37234230 RBBB (I45.10) Active confirmed Problem 965414487 History of hemat uria (Z87.448) Active confirmed Problem 479889066 Esophageal dysmo tility (K22.4) Active confirmed Problem 25892821 Dysthymia (F34.1) Active confirmed Problem 71859917 Carotid stenosis (I65.29) Active confirmed Problem 120112930 Pure hypercholesterolemia (E78.00) Active confirmed Problem 21527872 Pulmonary fibros is (J84.10) Active confirmed Problem 004713320 Osteopenia deter mined by x-ray (M85.80) Active confirmed Problem 179363177 Chronic insomnia (F51.04) Active confirmed Problem 566438189 Seasonal allergi c rhinitis, unspecified trigger (J30.2) Active confirmed Problem 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) (6469503633331 9102) Bed sore on buttock, right, unstageable (L89.310) Active confirmed Problem 710538722 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) Active confirmed Vital Signs Blood pressure diastolic 50 mm Hg 01/14/2025 nel ght is down 16 pounds since 07-05-24 Height 61 in 01/14/2025 weight is down 16 pounds since 07-05-24 Blood pressure systolic 85 mm Hg 01/14/2025 weig ht is down 16 pounds since 07-05-24 Weight 97 lbs 01/14/2025 weight is down 16 pounds since 07-05-24 BMI 18.33 kg/m2 01/14/2025 weight is down 16 pounds since 07-05-24 Encounters Encounter Location Date Provider Diagnosis Grant Corley MD [address] [place] [id number] 06/28/2024 Grant Corley Pure hypercholestero lemia E78.00 Grant Corley MD [address] [place] [id number] 03/19/2024 Grant Corley Esophageal dysmotili ty K22.4 Grant Corley MD [address] [place] [id number] 07/05/2024 Grant Corley Esophageal dysmotili ty K22.4 ; Insomnia G47.00 and Herpes B00.9 Grant Corley MD [address] [place] [id number] 01/14/2025 Grant Corley Essential hypertensi on I10 ; Idiopathic interstitial fibrosis J84.112 ; Bed sore on buttock, right, unstageable L89.310 and Encounter for administration of vaccine Z23 Grant Corley MD [address] [place] [id number] 04/15/2024 Grant Corley Esophageal dysmotili ty K22.4 Grant Corley MD [address] [place] [id number] 06/01/2024 Grant Corley Herpes B00.9 Grant Corley MD [address] [place] [id number] 12/20/2024 Grant Corley Insomnia G47.00 Grant Corley MD [address] [place] [id number] 12/23/2024 Grant Corley MD [address] [place] [id number] 01/10/2025 Grant Corley MD [address] [place] [address] [id number] 02/03/2025 Grant Corley MD [address] [place] [address] [id number] 02/07/2025 Grant Corley MD [address] [place] [address] [id number] 02/07/2025 Grant Corley MD [address] [place] [address] [id number] 02/08/2025 Grant Corley MD [address] [place] [id number] 2025 Grant Corley MD [address] [place] [address] [id number] 02/24/2025 Grant Corley Assessments Encounter Date Diagnosis (ICD Code) Assessment Notes Treatment Notes Treatment Clinical Notes Section Notes 06/28/2024 Pure hypercholesterolemia (ICD-10 - E78.00) 03/19/2024 Esophageal dysmotili ty (ICD-10 - K22.4) [patient and caregiver verbalized understanding of medications and directions for use 07/05/2024 Esophageal dysmotili ty (ICD-10 - K22.4) taking pantoprazole daily and is doing better. 07/05/2024 Insomnia (ICD-10 - G47.00) 01/14/2025 Essential hypertensi on (ICD-10 - I10) running low, will continue to monitor 01/14/2025 Idiopathic interstit ial fibrosis (ICD-10 - J84.112) doing better after her admission 04/15/2024 Esophageal dysmotili ty (ICD-10 - K22.4) 06/01/2024 Herpes (ICD-10 - B00.9) 12/20/2024 Insomnia (ICD-10 - G47.00) 07/05/2024 Herpes (ICD-10 - B00.9) 01/14/2025 Bed sore on buttock, right, unstageable (ICD-10 - L89.310) is almost healed, will continue to monitor 01/14/2025 Encounter for administration of vaccine (ICD-10 - Z23) HD flu vaccine administered Plan Of Treatment Pending Test Test Name Order Date Electrocardiogram (EKG) 06/13/2017 Electrocardiogram (EKG) 02/04/2011 XR CHEST 2 VIEW PA & LAT 12/31/2021 XR CHEST 2 VIEW PA & LAT 01/03/2023 XR GI SERIES 03/18/2023 Stress Test 01/06/2023 CT chest wo con 03/08/2025 MAMMOGRAM DIGITAL BILATERAL SCREEN 05/12 Next Appt Details Provider Name:Grant chamorro, 04/18/2025 10:00:00 AM, [address] [place] [address], [address], [place], [place], [id number], Insurance Providers Payer Name Payer Address Payer Phone Subscriber Number Group Number Insured Name Patient Relationship to Insured Coverage Start Date Coverage End Date MEDICARE [facility] [place] [address] [place] [address] [id number] Miles, Radha Self - patient is the insured [facility] [address] [place] [phone] [id number] Miles, Radha Self - patient is the insured Medical (General) History Medical History History ICD Code hematuria worked up by dr cantrell 2006 esophageal dysmotility 201012/19/2010 Colonoscopy has [facility] appt in May DR. Nicolás wagner, W. S.
--- OUTSIDE RECORDS SUMMARY | 2025-03-08 19:32 | XMS_ITS | Patient Health Record ---
Author Organization [facility] Address [address] [place] [address] Care Team Providers Care Slab Installer Name Role Phone Grant Corley MD Primary Care Provider Sedrick Castillo [phone] Reason For Referral No Information Problems Problem Type SNOMED Code ICD Code Onset Dates Problem Status W/U Status Risk Notes Problem Screening for malignant neoplasm of colon (017320888) Special screening for malignant neoplasms, colon (V76.51) Active confirmed Plan Of Treatment No Information Insurance Providers Payer Name Payer Address Payer Phone Subscriber Number Group Number Insured Name Patient Relationship to Insured Coverage Start Date Coverage End Date MEDICARE OF [place] [address] [place] [address] [phone] [id number] BLAYNE BRO Self - patient is the insured [facility] [address] [place] [address] [id number] BLAYNE BRO Self - patient is the insured
--- OUTSIDE RECORDS SUMMARY | 2025-03-08 19:33 | XMS_ITS | Encounter Summary ---
Author Organization [facility] Address [address] [place] [address] Care Team Providers Care Duct Cleaner Name Role Phone Grant Corley MD Primary Care Provider [phone] Encounter Details Date Type Department Care Team (Late st Contact Info) Description 01/03/2025 Lab Requisition [facility] - Main Lab [address] [place] [address] Deniz Duran MD [address] [place] [id number] Encounter for other general examination Social History Tobacco Use Types Packs/Day Years [...] on file Sexual Orientation Not on file documented as of this encounter Plan of Treatment Not on file documented as of this encounter Procedures Procedure Name Priority Date/Time Associated Diagnosis Comments CBC WITH AUTO DIFFERENTIAL Routine 01/03/2025 5:49 AM EDT Encounter for other general examination CBC AND DIFFERENTIAL Routine 01/03/2025 5:49 AM EDT Encounter for other general examination COMPREHENSIVE METABOLIC PANEL Routine 01/03/2025 5:49 AM EDT Encounter for other general examination documented in this encounter Results * (ABNORMAL) CBC auto differential (01/03/2025 5:49 AM EDT) [facility] WBC 9.1 4.8 - 10.8 K/mcL LAB HEMETOLOGY METHOD 01/03/2025 12:10 PM [facility] RBC 4.80 3.80 - 4.80 M/mcL LAB HEMETOLOGY METHOD 01/03/2025 12:10 PM [facility] Hemoglobin 14.5 11.5 - 16.0 g/dL LAB HEMETOLOGY METHOD 01/03/2025 12:10 PM [facility] Hematocrit 45.4 35.0 - 47.0 % LAB HEMETOLOGY METHOD 01/03/2025 12:10 PM [facility] MCV 94.2 79.0 - 98.0 FL LAB HEMETOLOGY METHOD 01/03/2025 12:10 PM [facility] MCH 30.1 27.0 - 32.0 pcg LAB HEMETOLOGY METHOD 01/03/2025 12:10 PM [facility] MCHC 31.9(L) 32.0 - 37.0 g/dL LAB HEMETOLOGY METHOD 01/03/2025 12:10 PM [facility] RDW 13.9 11.0 - 15.0 % LAB HEMETOLOGY METHOD 01/03/2025 12:10 PM [facility] Platelets 186 130 - 400 K/mcL LAB HEMETOLOGY METHOD 01/03/2025 12:10 PM [facility] MPV 12.3(H) 7.0 - 11.0 FL LAB HEMETOLOGY METHOD 01/03/2025 12:10 PM [facility] NRBC 0.0 <1.0 % LAB HEMETOLOGY METHOD 01/03/2025 12:10 PM [facility] NRBC Absolute 0.00 <0.10 K/mcL LAB HEMETOLOGY METHOD 01/03/2025 12:10 PM EDT [facility] Neutrophils Relative 43.4 % LAB HEMETOLOGY METHOD 01/03/2025 12:10 PM [facility] Lymphocytes Relative 39.1 % LAB HEMETOLOGY METHOD [facility]/03[facility]25 [facility] Monocytes Relative 9.4 % LAB HEMETOLOGY METHOD 01/03/2025 12:10 PM [facility] Eosinophils Relative 7.2 % LAB HEMETOLOGY METHOD 01/03/2025 12:10 PM [facility] Basophils Relative 0.7 % LAB HEMETOLOGY METHOD 01/03/2025 12:10 PM [facility] Immature Granulocytes Relative 0.2 % LAB HEMETOLOGY METHOD 01/03/2025 12:10 PM [facility] Neutrophils Absolute 3.96 1.50 - 7.00 K/mcL LAB HEMETOLOGY METHOD 01/03/2025 12:10 PM [facility] Lymphocytes Absolute 3.57 1.00 - 5.00 K/mcL LAB HEMETOLOGY METHOD 01/03/2025 12:10 PM [facility] Monocytes Absolute 0.86 0.20 - 1.00 K/mcL LAB HEMETOLOGY METHOD 01/03/2025 12:10 PM [facility] Eosinophils Absolute 0.66(H) 0.00 - 0.50 K/mcL LAB HEMETOLOGY METHOD 01/03/2025 12:10 PM [facility] Basophils Absolute 0.06 0.00 - 0.20 K/mcL LAB HEMETOLOGY METHOD 01/03/2025 12:10 PM [facility] Immature Granulocytes Absolute 0.02 0.00 - 0.03 K/mcL LAB HEMETOLOGY METHOD 01/03/2025 12:10 PM EDT [facility] Blood Venous blood specimen / Unknown Venipuncture / Unknown 01/03/2025 5:49 AM EDT 01/03/2025 11:04 AM EDT us Deniz Duran MD LAB BLOOD ORDERABLES Final Resu lt [facility] LAB [address] [place] [address], [place] [phone] * (ABNORMAL) Comprehensive metabolic panel (01/03/2025 5:49 AM EDT) Sodium 139 133 - 145 mmol/L LAB CHEMISTRY METHOD 01/03/2025 2:25 PM [facility] Potassium 4.3 3.5 - 5.5 mmol/L LAB CHEMISTRY METHOD 01/03/2025 2:25 PM [facility] Chloride 100 96 - 110 mmol/L LAB CHEMISTRY METHOD 01/03/2025 2:25 PM [facility] CO2 32 21 - 32 mmol/L LAB CHEMISTRY METHOD 01/03/2025 2:25 PM [facility] Anion Gap 7 3 - 11 LAB CHEMISTRY METHOD 01/03/2025 2:25 PM [facility] Glucose 66(L) 70 - 100 mg/dL LAB CHEMISTRY METHOD 01/03/2025 2:25 PM [facility] BUN 13 5 - 25 mg/dL LAB CHEMISTRY METHOD 01/03/2025 2:25 PM [facility] Creatinine 0.64 0.50 - 1.10 mg/dL LAB CHEMISTRY METHOD 01/03/2025 2:25 PM [facility] eGFR 87 >=60 mL/min/1. 73m2 LAB CHEMISTRY METHOD 01/03/2025 2:25 PM [facility] Comment:Calculation based on the Chronic Kidney Disease Epidemiology Collaboration (CKD-EPI) equation refit without adjustment for race. BUN/Creatinine Ratio 20.3 LAB CHEMISTRY METHOD 01/03/2025 2:25 PM EDT [facility] Calcium 8.8 8.5 - 10.5 mg/dL LAB CHEMISTRY METHOD 01/03/2025 2:25 PM EDT [facility] AST (SGOT) 30 10 - 42 unit/L LAB CHEMISTRY METHOD 01/03/2025 2:25 PM EDT [facility] ALT (SGPT) 29 10 - 60 unit/L LAB CHEMISTRY METHOD 01/03/2025 2:25 PM EDT [facility] Alkaline Phosphatase 58 42 - 121 unit/L LAB CHEMISTRY METHOD 01/03/2025 2:25 PM EDT [facility] Total Protein 5.7(L) 6.0 - 8.0 g/dL LAB CHEMISTRY METHOD 01/03/2025 2:25 PM EDT [facility] Albumin 3.1(L) 3.2 - 5.0 g/dL LAB CHEMISTRY METHOD 01/03/2025 2:25 PM EDT [facility] Total Bilirubin 0.5 0.0 - 1.4 mg/dL LAB CHEMISTRY METHOD 01/03/2025 2:25 PM EDT [facility] Blood Venous blood specimen / Unknown Venipuncture / Unknown 01/03/2025 5:49 AM EDT 01/03/2025 11:04 AM EDT us Deniz Duran MD LAB BLOOD ORDERABLES Final Resu lt [facility] LAB [address] [place] [address], documented in this encounter Visit Diagnoses Diagnosis Encounter for other general examination documented in this encounter Care Teams Duct Cleaner Relationship Specialty Start Date End Date Grant Corley MD [address] [place] [address] [id number] PCP - General Internal Medicine 02/07/25 documented as of this encounter
--- OUTSIDE RECORDS SUMMARY | 2025-03-08 19:33 | XMS_ITS | Encounter Summary ---
Author Organization [facility] Address [address] [place] [address] Care Team Providers Care Equal Opportunity Counselor Name Role Phone Grant Corley MD Primary Care Provider [phone] Encounter Details Date Type Department Care Team (Late st Contact Info) Description 12/29/2024 Lab Requisition [facility] - Main Lab [address] [facility] [place] [address] Donal Rodriguez PA [address] [phone] Other medical terminologist (current) drug therapy Social History Tobacco Use Types Packs/Day Years [...] Diagnosis Comments CBC WITH AUTO DIFFERENTIAL Routine 12/29/2024 6:30 AM EDT Other correction (current) drug therapy CBC AND DIFFERENTIAL Routine 12/29/2024 6:30 AM EDT Other medical terminologist (current) drug therapy MAGNESIUM Routine 12/29/2024 6:30 AM EDT Other medical terminologist (current) drug therapy COMPREHENSIVE METABOLIC PANEL Routine 12/29/2024 6:30 AM EDT Other medical terminologist (current) drug therapy documented in this encounter Results * (ABNORMAL) CBC auto differential (12/29/2024 6:30 AM EDT) [facility] WBC 10.8 4.8 - 10.8 K/mcL LAB [facility]OLOG[facility] RBC 5.10(H) 3.80 - 4.80 M/mcL LAB HEMETOLOGY METHOD 12/29/2024 10:59 AM [facility] Hemoglobin 14.8 11.5 - 16.0 g/dL LAB HEMETOLOGY METHOD 12/29/2024 10:59 AM [facility] Hematocrit 46.8 35.0 - 47.0 % LAB HEMETOLOGY METHOD 12/29[facility]2024 [facility] MCV 92.3 79.0 - 98.0 FL LAB HEMETOLOGY METHOD 12/29/2024 10:59 AM [facility] MCH 29.2 27.0 - 32.0 pcg LAB HEMETOLOGY METHOD 12/29/2024 10:59 AM [facility] LAB MCHC 31.6(L) 32.0 - 37.0 g/dL LAB HEMETOLOGY METHOD 12/29/2024 10:59 AM EDT [facility] LAB RDW 14.1 11.0 - 15.0 % LAB HEMETOLOGY METHOD 12/29/2024 10:59 AM [facility] Platelets 210 130 - 400 K/mcL LAB HEMETOLOGY METHOD 12/29/2024 10:59 AM [facility] LAB MPV 12.3(H) 7.0 - 11.0 FL LAB HEMETOLOGY METHOD 12/29/2024 10:59 AM [facility] NRBC 0.0 <1.0 % LAB HEMETOLOGY METHOD 12/29/2024 10:59 AM [facility] LAB NRBC Absolute 0.00 <0.10 K/mcL LAB HEMETOLOGY METHOD 12/29/2024 10:59 AM [facility] Neutrophils Relative 46.1 % LAB HEMETOLOGY METHOD 12/29/2024 10:59 AM [facility] Lymphocytes Relative 37.7 % LAB HEMETOLOGY METHOD 12/29/2024 10:59 AM [facility] Monocytes Relative 8.2 % LAB HEMETOLOGY METHOD 12/29/2024 10:59 AM [facility] Eosinophils Relative 7.1 % LAB HEMETOLOGY METHOD 12/29/2024 10:59 AM [facility] Basophils Relative 0.7 % LAB HEMETOLOGY METHOD 12/29/2024 10:59 AM [facility] Immature Granulocytes Relative 0.2 % LAB HEMETOLOGY METHOD 12/29/2024 10:59 AM [facility] Neutrophils Absolute 4.99 1.50 - 7.00 K/mcL LAB HEMETOLOGY METHOD 12/29/2024 10:59 AM [facility] Lymphocytes Absolute 4.09 1.00 - 5.00 K/mcL LAB HEMETOLOGY METHOD 12/29/2024 10:59 AM [facility] Monocytes Absolute 0.89 0.20 - 1.00 K/mcL LAB HEMETOLOGY METHOD 12/29/2024 10:59 AM [facility] Eosinophils Absolute 0.77(H) 0.00 - 0.50 K/mcL LAB HEMETOLOGY METHOD 12/29/2024 10:59 AM [facility] Basophils Absolute 0.08 0.00 - 0.20 K/mcL LAB HEMETOLOGY METHOD 12/29/2024 10:59 AM EDT [facility] Immature Granulocytes Absolute 0.02 0.00 - 0.03 K/mcL LAB HEMETOLOGY METHOD 12/29/2024 10:59 AM EDT [facility] Blood Venous blood specimen / Unknown Venipuncture / Unknown 12/29/2024 6:30 AM EDT 12/29/2024 10:37 AM EDT Donal SMITH LAB BLOOD ORDERABLES Final R esult [facility] [address] [place] [address], [place] [phone] * Magnesium (12/29/2024 6:30 AM EDT) Magnesium 2.1 1.9 - 2.6 mg/dL LAB CHEMISTRY METHOD 12/29/2024 11:26 AM EDT [facility] Blood Venous blood specimen / Unknown Venipuncture / Unknown 12/29/2024 6:30 AM EDT 12/29/2024 10:37 AM EDT Donal SMITH LAB BLOOD ORDERABLES Final R esult [facility] [address] [place] [address], [place] [phone] * Comprehensive metabolic panel (12/29/2024 6:30 AM EDT) Sodium 139 133 - 145 mmol/L LAB CHEMISTRY METHOD 12/29/2024 11:29 AM EDT [facility] Potassium 4.1 3.5 - 5.5 mmol/L LAB CHEMISTRY METHOD 12/29/2024 11:29 AM EDT [facility] Chloride 102 96 - 110 mmol/L LAB CHEMISTRY METHOD 12/29/2024 11:29 AM [facility] CO2 30 21 - 32 mmol/L LAB CHEMISTRY METHOD 12/29/2024 11:29 AM [facility] Anion Gap 7 3 - 11 LAB CHEMISTRY METHOD 12/29/2024 11:29 AM [facility] Glucose 77 70 - 100 mg/dL LAB CHEMISTRY METHOD 12/29/2024 11:29 AM [facility] BUN 19 5 - 25 mg/dL LAB CHEMISTRY METHOD 12/29/2024 11:29 AM [facility] Creatinine 0.67 0.50 - 1.10 mg/dL LAB CHEMISTRY METHOD 12/29/2024 11:29 AM [facility] LAB eGFR 86 >=60 mL/min/1. 73m2 LAB CHEMISTRY METHOD 12/29/2024 11:29 AM [facility] LAB Comment:Calculation based on the Chronic Kidney Disease Epidemiology Collaboration (CKD-EPI) equation refit without adjustment for race. BUN/Creatinine Ratio 28.4 LAB CHEMISTRY METHOD 12/29/2024 11:29 AM [facility] Calcium 8.7 8.5 - 10.5 mg/dL LAB CHEMISTRY METHOD 12/29/2024 11:29 AM [facility] AST (SGOT) 28 10 - 42 unit/L LAB CHEMISTRY METHOD 12/29/2024 11:29 AM [facility] ALT (SGPT) 26 10 - 60 unit/L LAB CHEMISTRY METHOD 12/29/2024 11:29 AM [facility] Alkaline Phosphatase 67 42 - 121 unit/L LAB CHEMISTRY METHOD 12/29/2024 11:29 AM [facility] Total Protein 6.2 6.0 - 8.0 g/dL LAB CHEMISTRY METHOD 12/29/2024 11:29 AM [facility] Albumin 3.3 3.2 - 5.0 g/dL LAB CHEMISTRY METHOD 12/29/2024 11:29 AM EDT [facility] Total Bilirubin 0.5 0.0 - 1.4 mg/dL LAB CHEMISTRY METHOD 12/29/2024 11:29 AM EDT [facility] Blood Venous blood specimen / Unknown Venipuncture / Unknown 12/29/2024 6:30 AM EDT 12/29/2024 10:37 AM EDT us Donal SMITH LAB BLOOD ORDERABLES Final R esult [facility] [address] [place] [address], documented in this encounter Visit Diagnoses Diagnosis Other medical terminologist (current) drug therapy documented in this encounter Care Teams Equal Opportunity Counselor Relationship Specialty Start Date End Date Grant Corley MD [address] [place] [address] Drive [address] [place] [address] PCP - General Internal Medicine 02/07/25 documented as of this encounter
--- OUTSIDE RECORDS SUMMARY | 2025-03-08 19:33 | XMS_ITS | Clinical Summary ---
Author Organization [facility] Address [address] [address] Phone Care Team Providers Care Hair Weaver Name Role Phone Grant Corley MD Primary [...] 75+ series) 02/10/2015 BLOOD PRESSURE 09/13/2023 03/14/2023 INFLUENZA VACCINE (#1) 2024 COVID-19 VACCINE (1 - 2024-2 6 season) 2024 HEPATITIS A VACCINES Aged Out No long [...] file Insurance MEDICARE PART A & B [employer] MEDICARE SUPPLEMENT MEDICARE PART A & B [employer] MEDICARE SUPPLEMENT MEDICARE PART A & B [employer] MEDICARE SUPPLEMENT MEDICARE PART A & B [employer] MEDICARE SUPPLEMENT MEDICARE PART A & B [employer] MEDICARE SUPPLEMENT MEDICARE PART A & B [employer] MEDICARE SUPPLEMENT Care Teams Hair Weaver Relationship Specialty Start Date End Date Grant Corley MD [address] [place] [address] [place] [address] PCP - General Internal Medicine 08/05/22 Additional Source Comments The information contained in this document represents components of the legal health record. It is not the complete legal health record.[facility]
--- OUTSIDE RECORDS SUMMARY | 2025-03-08 19:33 | XMS_ITS | Patient Health Record ---
Author Organization [facility] Address [address] [place] [address] Care Team Providers Care Assistant Designer Name Role Phone Grant Corley MD Primary Care Provider Arnie Montano Unavailable [phone] Allergies Allergen (clinical drug ingredient) Drug/Non Drug [...] Active Lipitor 10 MG Orally Active Glucosamine-Chondroitin 9238-5599 MG/30ML 30 ounces after a meal Orally [...] Status Risk Notes Problem Pain in limb (81237026) Pain in unspecified foot (M79.673) Active confirmed Problem Acquired hammer toe of right foot (922201567591 9105) Other hammer toe(s) (acquired), right foot (M20.41) Active confirmed Problem Acquired hammer toe of left foot (430966903790 9103) Other hammer toe(s) (acquired), left foot (M20.42) Active confirmed Plan Of Treatment Pending Test Test Name Order Date X ray : Foot, right 3V 03/17/2017 [id number] Plate 08/21/2011 [id number] Plate 12/11/2011 Insurance Providers Payer Name Payer Address Payer Phone Subscriber Number Group Number Insured Name Patient Relationship to Insured Coverage Start Date Coverage End Date Medicare [employer] [address] [place] [address] [id number] Radha Silverman Self - patient is the insured 5 better. ([facility]) [address] [place] [address] [id number] Radha Silverman Self - patient is the insured Medical (General) History Medical History History ICD Code osteoarthritis broken bones cataracts glaucoma headaches/migraines sinus conditions measles chicken pox Back,Hip,and Knee pain Surgical History Surgery Date(Month/Year) cataract surgery 2002, 2003 iridectomy 2000, 2001 tridotomies 2000,2001 osseous surgeries 1979,1999
--- OUTSIDE RECORDS SUMMARY | 2025-03-10 19:00 | XMS_ITS | Clinical Summary ---
Author Organization Unknown Care Team Providers Care Counter Waiter Name Role Phone TAM JUAREZ, YURI Unavailable Unavailable SHELIA COOPER OT Unavailable Unavailkristian BARRAGAN PT, BERTIN Unavailable Unavailable SHON MEYERNEDILIA Unavailable Unavailable ANA RN, ZAYRA Unavailable Unavailable Payers Payer Name Policy Type Policy Number Effective Date Expira tion Date MEDICARE - [facility] [place] - [place] [id number] Problems Condition Name Condition Details Condition Category Status Onset Date Resolution Date Last Treatment Date Treating Clinician Comments PULMONARY FIBROSIS, UNSPECIFIED Active 04-14 00:00: 00 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 Active 04-14 00:00: 00 ESSENTIAL (PRIMARY) HYPERTENSION Active 04-14 00:00: 00 UNSPECIFIED GLAUCOMA Active 04-14 00:00: 00 AGE-RELATED OSTEOPOROSIS W/O CURRENT PATHOLOGICAL FRACTURE Active 04-14 00:00: 00 INSOMNIA, UNSPECIFIED Active 04-14 00:00: 00 PRESSURE ULCER OF [place], STAGE 1 Active 04-14 00:00: 00 UNSPECIFIED SEVERE PROTEIN-DWIGHT [place] MALNUTRITION Active 04-14 00:00: 00 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 Ordering Clinician Indication Dosage Frequency Signature (SIG) Comments Components estazolam 1 mg tablet 5-05 00:00: 00 Yes [id number] 0.5 tablet BEDTIME 0.5 tablet BEDTIME (route: oral) Med Classific ation: Central Nervous System Agents aspirin 81 mg tablet,raya yed release 5-12 00:00: 00 02-08 23:59 :00 No [id number] 1 tablet DAILY 1 tablet DAILY (route: oral) Med Classific ation: Hematolog ical Agents atorvastati n 20 mg tablet 5-05 00:00: 00 Yes [id number] 1 tablet BEDTIME 1 tablet BEDTIME (route: oral) Med Classific ation: Cardiovas cular Therapy Agents cetirizine 10 mg tablet 6-02 00:00: 00 Yes [id number] 1 tablet DAILY 1 tablet DAILY (route: oral) Med Classific ation: Respirato ry Therapy Agents cholecalcif ronnie (vitamin D3) 25 mcg (1,000 unit) capsule 2-03 00:00: 00 Yes [id number] 1 capsule DAILY 1 capsule DAILY (route: oral) Med Classific ation: Electroly te Balance-N utritiona l Products Flonase Allergy Relief 50 mcg/actuati on nasal spray,suspe nsion 3-03 00:00: 00 Yes [id number] 2 spray DAILY 2 spray DAILY (route: nasal) Med Classific ation: Respirato ry Therapy Agents Mucinex 600 mg tablet, extended release 7-07 00:00: 00 Yes [id number] 1 tablet 2 TIMES DAILY 1 tablet 2 TIMES DAILY (route: oral) Med Classific ation: Respirato ry Therapy Agents naproxen 375 mg tablet 4-07 00:00: 00 02-08 23:59 :00 No [id number] 1 tablet 2 TIMES DAILY 1 tablet 2 TIMES DAILY (route: oral) Med Classific ation: Analgesic , Anti-infl ammatory or Antipyret ic oxygen gas for inhalation 2-03 00:00: 00 Yes [id number] 3 Liter O2 - CONTINUOUS 3 Liter O2 - CONTINUOUS (route: inhalation ) Med Classific ation: Medical Supplies and Durable Medical Equipment (DME) pantoprazol e 40 mg tablet,raya yed release -07 00:00: 00 Yes [id number] 1 tablet DAILY 1 tablet DAILY (route: oral) Med Classific ation: Gastroint estinal Therapy Agents raloxifene 60 mg tablet 5-05 00:00: 00 Yes [id number] 1 tablet DAILY 1 tablet DAILY (route: oral) Med Classific ation: Endocrine Valtrex 500 mg tablet 01-09 00:00: 00 01-15 23:59 :00 No [id number] 1 tablet 3 TIMES DAILY 1 tablet 3 TIMES DAILY (route: oral) Med Classific ation: Anti-Infe ctive Agents Simply Saline 0.9 % nasal spray aerosol 2024-04 00:00: 00 Yes [id number] Per instruc tions DIRECTED Per instructio ns DIRECTED (route: nasal) Med Classific ation: Respirato ry Therapy Agents valacyclovi r 1 gram tablet 2024-04 00:00: 00 03-04 23:59 :00 No [id number] 1 tablet 3 TIMES DAILY 1 tablet 3 TIMES DAILY (route: oral) Med Classific ation: Anti-Infe ctive Agents Immunizations Ordered Immunization Name Filled Immunization Name Date Status Comments Refusal Reason INFLUENZA, TIV (INACTIVATED) 2025-01-14 00:00:00 COVID BOOSTER, COVID BOOSTER 2024-07-20 00:00:00 Vital Signs Vital Name Observation Time Observation Value Commen ts Temperature 2025-03-04 10:11:00.000 97.4 [degF] Temperature 2025-03-03 12:40:00.000 98.5 [degF] Temperature 2025-02-28 16:19:00.000 98.2 [degF] Temperature 2025-02-25 13:53:00.000 97.8 [degF] Temperature 2025-02-24 12:15:00.000 98.4 [degF] Temperature 2025-02-21 16:22:00.000 98.2 [degF] Temperature 2025-02-15 12:18:00.000 97.8 [degF] Temperature 2025-02-10 12:10:00.000 98.5 [degF] Temperature 2025-02-09 14:24:00.000 97.8 [degF] Temperature 2025-02-07 18:45:00.000 98.1 [degF] Temperature 2025-02-03 12:16:00.000 98.2 [degF] Temperature 2025-02-01 17:00:00.000 97.9 [degF] Temperature 2025-01-27 12:28:00.000 98.5 [degF] Temperature 2025-01-25 13:44:00.000 97.8 [degF] Temperature 2025-01-21 13:15:00.000 98.1 [degF] Temperature 2025-01-21 11:20:00.000 98.5 [degF] Temperature 2025-01-18 12:36:00.000 97.5 [degF] Temperature 2025-01-11 13:13:00.000 98.1 [degF] BMI (%) 2025-01-11 13:13:00.000 18 kg/m2 Height 2025-01-11 13:13:00.000 60 [in_us] Pulse 2025-03-04 10:11:00.000 64 /min Pulse 2025-03-03 12:40:00.000 68 /min Pulse 2025-03-02 14:35:00.000 82 /min Pulse 2025-02-28 16:19:00.000 92 /min Pulse 2025-02-25 13:53:00.000 88 /min Pulse 2025-02-24 12:15:00.000 65 /min Pulse 2025-02-23 14:29:00.000 86 /min Pulse 2025-02-21 16:22:00.000 93 /min Pulse 2025-02-15 12:18:00.000 87 /min Pulse 2025-02-10 12:10:00.000 63 /min Pulse 2025-02-09 14:24:00.000 63 /min Pulse 2025-02-07 18:45:00.000 100 /min Pulse 2025-02-03 12:16:00.000 80 /min Pulse 2025-02-02 12:36:00.000 90 /min Pulse 2025-02-01 17:00:00.000 89 /min Pulse 2025-01-27 12:28:00.000 63 /min Pulse 2025-01-26 12:14:00.000 98 /min Pulse 2025-01-25 13:44:00.000 81 /min Pulse 2025-01-21 13:15:00.000 80 /min Pulse 2025-01-21 11:20:00.000 68 /min Pulse 2025-01-19 09:57:00.000 100 /min Pulse 2025-01-18 12:36:00.000 96 /min Pulse 2025-01-11 13:13:00.000 84 /min O2 Saturation (%) 2025-03-04 10:11:00.000 98 % O2 Saturation (%) 2025-03-03 12:40:00.000 96 % O2 Saturation (%) 2025-03-02 14:35:00.000 95 % O2 Saturation (%) 2025-02-28 16:19:00.000 97 % O2 Saturation (%) 2025-02-25 13:53:00.000 97 % O2 Saturation (%) 2025-02-24 12:15:00.000 98 % O2 Saturation (%) 2025-02-23 14:29:00.000 94 % O2 Saturation (%) 2025-02-21 16:22:00.000 98 % O2 Saturation (%) 2025-02-15 12:18:00.000 98 % O2 Saturation (%) 2025-02-10 12:10:00.000 96 % O2 Saturation (%) 2025-02-09 14:24:00.000 97 % O2 Saturation (%) 2025-02-07 18:45:00.000 96 % O2 Saturation (%) 2025-02-03 12:16:00.000 98 % O2 Saturation (%) 2025-02-02 12:36:00.000 98 % O2 Saturation (%) 2025-02-01 17:00:00.000 99 % O2 Saturation (%) 2025-01-27 12:28:00.000 95 % O2 Saturation (%) 2025-01-26 12:14:00.000 98 % O2 Saturation (%) 2025-01-25 13:44:00.000 97 % O2 Saturation (%) 2025-01-21 13:15:00.000 96 % O2 Saturation (%) 2025-01-21 11:20:00.000 99 % O2 Saturation (%) 2025-01-19 09:57:00.000 97 % O2 Saturation (%) 2025-01-18 12:36:00.000 98 % O2 Saturation (%) 2025-01-11 13:13:00.000 98 % Respirations 2025-03-04 10:11:00.000 18 /min Respirations 2025-03-03 12:40:00.000 16 /min Respirations 2025-02-28 16:19:00.000 18 /min Respirations 2025-02-25 13:53:00.000 20 /min Respirations 2025-02-24 12:15:00.000 16 /min Respirations 2025-02-21 16:22:00.000 18 /min Respirations 2025-02-15 12:18:00.000 20 /min Respirations 2025-02-10 12:10:00.000 16 /min Respirations 2025-02-09 14:24:00.000 18 /min Respirations 2025-02-07 18:45:00.000 18 /min Respirations 2025-02-03 12:16:00.000 16 /min Respirations 2025-02-01 17:00:00.000 18 /min Respirations 2025-01-27 12:28:00.000 16 /min Respirations 2025-01-25 13:44:00.000 18 /min Respirations 2025-01-21 13:15:00.000 18 /min Respirations 2025-01-21 11:20:00.000 16 /min Respirations 2025-01-18 12:36:00.000 18 /min Respirations 2025-01-11 13:13:00.000 18 /min Weight (lbs) 2025-01-11 13:13:00.000 97 [lb_av] Systolic Blood Pressure 2025-03-04 10:11:00.000 115 mm [Hg] Systolic Blood Pressure 2025-03-03 12:40:00.000 132 mm [Hg] Systolic Blood Pressure 2025-02-28 16:19:00.000 116 mm [Hg] Systolic Blood Pressure 2025-02-25 13:53:00.000 112 mm [Hg] Systolic Blood Pressure 2025-02-24 12:15:00.000 128 mm [Hg] Systolic Blood Pressure 2025-02-21 16:22:00.000 118 mm [Hg] Systolic Blood Pressure 2025-02-15 12:18:00.000 105 mm [Hg] Systolic Blood Pressure 2025-02-10 12:10:00.000 114 mm [Hg] Systolic Blood Pressure 2025-02-09 14:24:00.000 122 mm [Hg] Systolic Blood Pressure 2025-02-07 18:45:00.000 120 mm [Hg] Systolic Blood Pressure 2025-02-03 12:16:00.000 118 mm [Hg] Systolic Blood Pressure 2025-02-02 12:36:00.000 98 mm[ Hg] Systolic Blood Pressure 2025-02-01 17:00:00.000 122 mm [Hg] Systolic Blood Pressure 2025-01-27 12:28:00.000 132 mm [Hg] Systolic Blood Pressure 2025-01-26 12:14:00.000 122 mm [Hg] Systolic Blood Pressure 2025-01-25 13:44:00.000 102 mm [Hg] Systolic Blood Pressure 2025-01-21 13:15:00.000 110 mm [Hg] Systolic Blood Pressure 2025-01-21 11:20:00.000 138 mm [Hg] Systolic Blood Pressure 2025-01-19 09:57:00.000 90 mm[ Hg] Systolic Blood Pressure 2025-01-18 12:36:00.000 102 mm [Hg] Systolic Blood Pressure 2025-01-11 13:13:00.000 116 mm [Hg] Diastolic Blood Pressure 2025-03-04 10:11:00.000 68 mm [Hg] Diastolic Blood Pressure 2025-03-03 12:40:00.000 76 mm [Hg] Diastolic Blood Pressure 2025-02-28 16:19:00.000 68 mm [Hg] Diastolic Blood Pressure 2025-02-25 13:53:00.000 70 mm [Hg] Diastolic Blood Pressure 2025-02-24 12:15:00.000 70 mm [Hg] Diastolic Blood Pressure 2025-02-21 16:22:00.000 64 mm [Hg] Diastolic Blood Pressure 2025-02-15 12:18:00.000 62 mm [Hg] Diastolic Blood Pressure 2025-02-10 12:10:00.000 70 mm [Hg] Diastolic Blood Pressure 2025-02-09 14:24:00.000 64 mm [Hg] Diastolic Blood Pressure 2025-02-07 18:45:00.000 62 mm [Hg] Diastolic Blood Pressure 2025-02-03 12:16:00.000 74 mm [Hg] Diastolic Blood Pressure 2025-02-02 12:36:00.000 58 mm [Hg] Diastolic Blood Pressure 2025-02-01 17:00:00.000 60 mm [Hg] Diastolic Blood Pressure 2025-01-27 12:28:00.000 72 mm [Hg] Diastolic Blood Pressure 2025-01-26 12:14:00.000 70 mm [Hg] Diastolic Blood Pressure 2025-01-25 13:44:00.000 58 mm [Hg] Diastolic Blood Pressure 2025-01-21 13:15:00.000 58 mm [Hg] Diastolic Blood Pressure 2025-01-21 11:20:00.000 76 mm [Hg] Diastolic Blood Pressure 2025-01-19 09:57:00.000 58 mm [Hg] Diastolic Blood Pressure 2025-01-18 12:36:00.000 60 mm [Hg] Diastolic Blood Pressure 2025-01-11 13:13:00.000 64 mm [Hg] Plan of Treatment Planned Activity Planned Date Details Comments Future Scheduled Test SKILLED NU RSE TO EVALUATE PATIENT, IDENTIFY PRIMARY AND CO-MORBID CONDITIONS CODED PER CODING GUIDELINES, AND DEVELOP PATIENT SPECIFIC PLAN OF CARE THAT INCLUDES PATIENT GOAL FOR HOME HEALTH. [code = SKILLED NURSE TO EVALUATE PATIENT, IDENTIFY PRIMARY AND CO-MORBID CONDITIONS CODED PER CODING GUIDELINES, AND DEVELOP PATIENT SPECIFIC PLAN OF CARE THAT INCLUDES PATIENT GOAL FOR HOME HEALTH.] Future Scheduled Test SKILLED NU RSE TO PROVIDE TEACHING/REINFORCEMENT RELATED TO URINARY INCONTINENCE. [code = SKILLED NURSE TO PROVIDE TEACHING/REINFORCEMENT RELATED TO URINARY INCONTINENCE.] Future Scheduled Test OXYGEN VIA NASAL CANNULA @ 3 LITERS CONTINUOUS. SKILLED NURSE FOR O/A AND SKILLED TEACHING OF SAFE OXYGEN USE IN THE HOME. [code = OXYGEN VIA NASAL CANNULA @ 3 LITERS CONTINUOUS. SKILLED NURSE FOR O/A AND SKILLED TEACHING OF SAFE OXYGEN USE IN THE HOME.] Future Scheduled Test SKILLED NU RSE FOR INSTRUCTION/ REINFORCEMENT OF NEEDS RELATED TO NUTRITION/HYDRATION. [code = SKILLED NURSE FOR INSTRUCTION/ REINFORCEMENT OF NEEDS RELATED TO NUTRITION/HYDRATION.] Future Scheduled Test SKILLED NU RSE FOR O/A, TEACHING RELATED TO GERD FOR EARLY IDENTIFICATION OF EXACERBATION OF DISEASE PROCESS. [code = SKILLED NURSE FOR O/A, TEACHING RELATED TO GERD FOR EARLY IDENTIFICATION OF EXACERBATION OF DISEASE PROCESS.] Future Scheduled Test OCCUPATION AL THERAPIST TO EVALUATE PATIENT FOR PHYSICAL DECONDITIONING [code = OCCUPATIONAL THERAPIST TO EVALUATE PATIENT FOR PHYSICAL DECONDITIONING] Future Scheduled Test SKILLED NU RSE FOR O/A OF RESPIRATORY SYSTEM TO IDENTIFY CHANGES ASSOCIATED WITH EXACERBATION AND TO PROVIDE SKILLED TEACHING ON MANAGEMENT OF PULMONARY FIBROSIS RESPIRATORY DISEASE PROCESS. [code = SKILLED NURSE FOR O/A OF RESPIRATORY SYSTEM TO IDENTIFY CHANGES ASSOCIATED WITH EXACERBATION AND TO PROVIDE SKILLED TEACHING ON MANAGEMENT OF PULMONARY FIBROSIS RESPIRATORY DISEASE PROCESS.] Future Scheduled Test SKILLED NU RSE FOR O/A AND SKILLED TEACHING RELATED TO SIGNS AND SYMPTOMS OF INFECTION AND INFECTION CONTROL MEASURES. [code = SKILLED NURSE FOR O/A AND SKILLED TEACHING RELATED TO SIGNS AND SYMPTOMS OF INFECTION AND INFECTION CONTROL MEASURES.] Future Scheduled Test NEED FOR S KILLED TEACHING AND INTERVENTION RELATED TO STAGE 1 PRESSURE ULCER ON BILATERAL BUTTOCKS SKILLED NURSE TO EDUCATE PATIENT/CAREGIVER TO PERFORM WOUND CARE USING CLEAN TECHNIQUE, CLEANSE WITH WOUND CLEANSER, PAT DRY WITH GAUZE, APPLY TRIAD PASTE TO WOUND BED, LEAVE OPEN TO AIR. WOUND CARE TO BE PERFORMED DAILY BY PATIENT/CARE AND PRN IF SOILED OR DISLODGED. 1-2 PRN SKILLED NURSE VISITS FOR WOUND CARE DUE TO COMPLICATIONS. SKILLED NURSE TO OBTAIN WOUND CULTURE PRN S/S OF INFECTION. SN TO ASSESS ONCE WEEK WOUND CARE WILL BE PERFORMED BY TRAINED CAREGIVER ON DAYS WHEN SKILLED NURSE IS NOT SCHEDULED FOR A VISIT. DISCONTINUE WOUND CARE/SUPPLIES ONCE WOUND IS HEALED. [code = NEED FOR SKILLED TEACHING AND INTERVENTION RELATED TO STAGE 1 PRESSURE ULCER ON BILATERAL BUTTOCKS SKILLED NURSE TO EDUCATE PATIENT/CAREGIVER TO PERFORM WOUND CARE USING CLEAN TECHNIQUE, CLEANSE WITH WOUND CLEANSER, PAT DRY WITH GAUZE, APPLY TRIAD PASTE TO WOUND BED, LEAVE OPEN TO AIR. WOUND CARE TO BE PERFORMED DAILY BY PATIENT/CARE AND PRN IF SOILED OR DISLODGED. 1-2 PRN SKILLED NURSE VISITS FOR WOUND CARE DUE TO COMPLICATIONS. SKILLED NURSE TO OBTAIN WOUND CULTURE PRN S/S OF INFECTION. SN TO ASSESS ONCE WEEK WOUND CARE WILL BE PERFORMED BY TRAINED CAREGIVER ON DAYS WHEN SKILLED NURSE IS NOT SCHEDULED FOR A VISIT. DISCONTINUE WOUND CARE/SUPPLIES ONCE WOUND IS HEALED.] Future Scheduled Test PHYSICAL T HERAPIST TO EVALUATE PATIENT FOR PHYSICAL DECONDITIONING [code = PHYSICAL THERAPIST TO EVALUATE PATIENT FOR PHYSICAL DECONDITIONING] Future Scheduled Test SKILLED NU RSE TO PROVIDE TEACHING ON SIGNS AND SYMPTOMS AND MANAGEMENT OF HYPERTENSION. [code = SKILLED NURSE TO PROVIDE TEACHING ON SIGNS AND SYMPTOMS AND MANAGEMENT OF HYPERTENSION.] Future Scheduled Test SKILLED NU RSE FOR O/A AND SKILLED TEACHING RELATED TO ALTERED SKIN INTEGRITY HERPES ZOSTER RASH ON BUTTOCKS [code = SKILLED NURSE FOR O/A AND SKILLED TEACHING RELATED TO ALTERED SKIN INTEGRITY HERPES ZOSTER RASH ON BUTTOCKS] Future Scheduled Test SKILLED NU RSE FOR O/A AND TEACHING ON SIGNS AND SYMPTOMS AND MANAGEMENT OF ORTHOSTATIC HYPOTENSION [code = SKILLED NURSE FOR O/A AND TEACHING ON SIGNS AND SYMPTOMS AND MANAGEMENT OF ORTHOSTATIC HYPOTENSION] Future Scheduled Test SKILLED NU RSE FOR O/A AND SKILLED TEACHING RELATED TO SIGNS AND SYMPTOMS AND MANAGEMENT OF OSTEOPOROSIS. [code = SKILLED NURSE FOR O/A AND SKILLED TEACHING RELATED TO SIGNS AND SYMPTOMS AND MANAGEMENT OF OSTEOPOROSIS.] Future Scheduled Test PATIENT MATTHEWS S A RISK OF HOSPITALIZATION AND ED USE. SKILLED NURSE TO ESTABLISH SUPPORT MEASURES TO MINIMIZE RISK OF HOSPITALIZATION AND ED USE, AND INSTRUCT PATIENT/CAREGIVER ON METHODS TO REDUCE AVOIDABLE HOSPITALIZATION AND ED USE. [code = PATIENT HAS A RISK OF HOSPITALIZATION AND ED USE. SKILLED NURSE TO ESTABLISH SUPPORT MEASURES TO MINIMIZE RISK OF HOSPITALIZATION AND ED USE, AND INSTRUCT PATIENT/CAREGIVER ON METHODS TO REDUCE AVOIDABLE HOSPITALIZATION AND ED USE.] Future Scheduled Test SKILLED NU RSE TO PROVIDE INSTRUCTION TO PATIENT/CAREGIVER RELATED TO DISCHARGE PLANNING. [code = SKILLED NURSE TO PROVIDE INSTRUCTION TO PATIENT/CAREGIVER RELATED TO DISCHARGE PLANNING.] Future Scheduled Test SKILLED NU RSE TO PERFORM ENVIRONMENTAL SAFETY RISK ASSESSMENT AND FALL RISK ASSESSMENT AND PROVIDE INSTRUCTION TO IMPLEMENT ENVIRONMENTAL SAFETY AND FALL PREVENTION STRATEGIES THROUGHOUT THE CERTIFICATION PERIOD. SKILLED NURSE WILL MAINTAIN SITUATIONAL AWARENESS AND WILL NOTIFY CLINICAL THIRD HELPER AND PHYSICIAN/PROVIDER WITH ANY CHANGE IN CONDITION. [code = SKILLED NURSE TO PERFORM ENVIRONMENTAL SAFETY RISK ASSESSMENT AND FALL RISK ASSESSMENT AND PROVIDE INSTRUCTION TO IMPLEMENT ENVIRONMENTAL SAFETY AND FALL PREVENTION STRATEGIES THROUGHOUT THE CERTIFICATION PERIOD. SKILLED NURSE WILL MAINTAIN SITUATIONAL AWARENESS AND WILL NOTIFY CLINICAL THIRD HELPER AND PHYSICIAN/PROVIDER WITH ANY CHANGE IN CONDITION.] Future Scheduled Test SKILLED NU RSE FOR OBSERVATION AND ASSESSMENT OF PATIENT S PAIN LEVEL AND EFFECTIVENESS OF PAIN MANAGEMENT REGIMEN. SKILLED NURSE TO INSTRUCT PATIENT/CAREGIVER REGARDING PHARMACOLOGIC AND NON-PHARMACOLOGIC PAIN CONTROL MEASURES. SKILLED NURSE TO REPORT TO PHYSICIAN IF PAIN LEVEL IS OUTSIDE OF ESTABLISHED PARAMETERS. [code = SKILLED NURSE FOR OBSERVATION AND ASSESSMENT OF PATIENT S PAIN LEVEL AND EFFECTIVENESS OF PAIN MANAGEMENT REGIMEN. SKILLED NURSE TO INSTRUCT PATIENT/CAREGIVER REGARDING PHARMACOLOGIC AND NON-PHARMACOLOGIC PAIN CONTROL MEASURES. SKILLED NURSE TO REPORT TO PHYSICIAN IF PAIN LEVEL IS OUTSIDE OF ESTABLISHED PARAMETERS.] Future Scheduled Test SKILLED NU RSE TO ASSESS PATIENT'S SKIN INTEGRITY AND INSTRUCT PATIENT/CAREGIVER ON MEASURES TO PREVENT PRESSURE ULCERS. [code = SKILLED NURSE TO ASSESS PATIENT'S SKIN INTEGRITY AND INSTRUCT PATIENT/CAREGIVER ON MEASURES TO PREVENT PRESSURE ULCERS.] Future Scheduled Test SKILLED NU RSE TO REVIEW PATIENT MEDICATIONS (PRESCRIPTION/OTC). INSTRUCT PATIENT/CAREGIVER ON ALL MEDICATIONS INCLUDING PURPOSE, WHEN TO TAKE, IMPORTANCE OF MEDICATION ADHERENCE, MONITORING OF EFFECTIVENESS, ADVERSE DRUG REACTIONS, POSSIBLE SIDE EFFECTS, AND WHEN TO NOTIFY AGENCY OR PHYSICIAN/PROVIDER OF ANY CONCERNS. [code = SKILLED NURSE TO REVIEW PATIENT MEDICATIONS (PRESCRIPTION/OTC). INSTRUCT PATIENT/CAREGIVER ON ALL MEDICATIONS INCLUDING PURPOSE, WHEN TO TAKE, IMPORTANCE OF MEDICATION ADHERENCE, MONITORING OF EFFECTIVENESS, ADVERSE DRUG REACTIONS, POSSIBLE SIDE EFFECTS, AND WHEN TO NOTIFY AGENCY OR PHYSICIAN/PROVIDER OF ANY CONCERNS.] Future Scheduled Test OCCUPATION AL THERAPIST TO EVALUATE PATIENT SECONDARY TO FUNCTIONAL DEFICITS/SAFETY CONCERNS IDENTIFIED DURING EVALUATION OCCUPATIONAL THERAPY TO ESTABLISH /UPGRADE/DOWNGRADE THERAPEUTIC EXERCISE PROGRAM AND INSTRUCT PATIENT/CAREGIVER ON EXERCISE PRECAUTIONS WITH WRITTEN HOME PROGRAM. MAY INCLUDE PROM, AAROM, AROM, RROM APPROPRIATE TO IMPROVE FUNCTIONAL STRENGTH AND/OR RANGE OF MOTION. OCCUPATIONAL THERAPY TO INSTRUCT PATIENT/CAREGIVER ON SAFE TRANSFER TECHNIQUES USING PROPER BODY MECHANICS AND EQUIPMENT TO ENHANCE PARTICIPATION IN ADL S. OCCUPATIONAL THERAPY TO ASSESS AND RECOMMEND HOME SAFETY ADAPTATIONS AND EDUCATE PATIENT /CAREGIVER ON FALL PREVENTION STRATEGIES TO ENHANCE PARTICIPATION IN ADL S. OCCUPATIONAL THERAPY TO PROVIDE PATIENT/CAREGIVER WITH INSTRUCTIONS AND RECOMMENDATIONS TO IMPROVE ADL S WHILE USING APPROPRIATE ADAPTIVE DEVICES RECOMMENDED. SUMMARY OF THERAPY EVAL/ASSESSMENT FINDINGS AND REASON(S) SKILLS OF A THERAPIST ARE INDICATED: OT EVALUATION (01/19/25) PATIENT IS AN 84 YEAR OLD FEMALE REFERRED TO OCCUPATIONAL THERAPY SERVICES AFTER RECENT HOSPITALIZATION DUE TO WEAKNESS AND DECONDITIONING. PATIENT WAS STABILIZED AND TRANSFERRED TO [facility] FOR SHORT-TERM REHAB BEFORE DISCHARGING HOME. 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 PRIOR LEVEL OF FUNCTION: PATIENT LIVES ALONE IN A SINGLE LEVEL SINGLE FAMILY HOME. SHE AMBULATES WITH THE USE OF A ROLLATOR AND IS ON CONTINUOUS O2 VIA NASAL CANNULA. INDEPENDENT WITH BASIC ADL TASKS THAT REQUIRED INCREASED TIME. VERY SUPPORTIVE SON INVOLVED FOR TRANSPORTATION TO APPOINTMENTS SHOPPING AND ANY OTHER NEEDED ADL/IADL TASKS. PATIENT DOES HAVE A LIFE ALERT. CURRENT LEVEL OF PATIENT SITTING IN CHAIR UPON THERAPIST ARRIVAL. PATIENT PLEASANT AND ENGAGED IN EVALUATION. NOTED TO BE SHORT OF BREATH WITH JUST TALKING DURING THE EVALUATION AND SIGNIFICANT DYSPNEA WITH MOBILITY TO THE BATHROOM AND BEDROOM. SHE WAS ABLE TO DEMONSTRATE [id number] TRANSFER SUPERVISION AND CUES FOR PROPER HAND PLACEMENT. CUEING AND SAFETY INSTRUCTIONS REQUIRED ON PROPER MANAGEMENT OF O2 TUBING WITH HER MOBILITY. SHE KEPT GETTING CAUGHT ON THE TUBING. EDUCATION PROVIDED TO HER WELL THE LEAD CLINICAL RESEARCH COORDINATOR ON HOW TO NAVIGATE AND WHERE TO PLACE THE TUBING WHILE SHE IS MOVING AROUND THE HOUSE. PATIENT IS ABLE TO GET ON AND OFF THE TOILET INDEPENDENTLY. SHE RECENTLY OBTAINED A TUB SEAT WITHOUT A BACK AND A HANDHELD SHOWERHEAD. EDUCATION PROVIDED TODAY TUBE LEAD CLINICAL RESEARCH COORDINATOR AND PATIENT IN REGARDS TO SITTING AND SWINGING USING THE TUB SEAT. ADJUSTMENTS MADE TO THE HEIGHT OF THE CHAIR. EDUCATION ALSO PROVIDED TO PATIENT ON OBTAINING TERRYCLOTH ROBE 2 UTILIZED POST SHOWER. PATIENT ALSO REPORTS DIFFICULTY WITH THE WEIGHT OF THE CURRENT ROBE SHE HAS SO MADE RECOMMENDATION TO OBTAIN CHILD SIZE SHE IS [place] AND IN NATURE TO HELP WITH LENGTH AND WEIGHT. AIDE WILL ASSIST PATIENT AND DRYING AND DRESSING SHE HAS DUE TO PATIENT'S SIGNIFICANT DYSKINESIA WITH MINIMAL ACTIVITY. PATIENT ALSO REPORTS SHE IS UP MULTIPLE TIMES THROUGHOUT THE NIGHT TO GO PEE AND DIFFICULT TO PUT EVERYTHING ON INCLUDING HER PULSE OXIMETER HER LIFE ALERT PUTTING ON HER SHOES AND GETTING OUT OF BED. DISCUSSED OBTAINING A COMMODE F OCCUPATIONAL THERAPIST TO ASSESS BEST PRACTICE INTERVENTIONS TO ASSIST PATIENTS TO IMPROVE OR STABILIZE MEDICAL STATUS AND PREVENT RE-HOSPITALIZATION. MEASURES INCLUDING REVIEW AND IDENTIFICATION OF CONCERNS FOR THE FOLLOWING AREAS: DRUG REGIMEN, DIABETIC FOOT CARE, ENVIRONMENTAL SAFETY ISSUES AND FALLS, PRESSURE ULCERS, PAIN, AND DISEASE MANAGEMENT. THERAPIST TO REVIEW PATIENT MEDICATIONS (PRESCRIPTION/OTC). INSTRUCT PATIENT/CAREGIVER ON ALL MEDICATIONS INCLUDING PURPOSE, WHEN TO TAKE, IMPORTANCE OF MEDICATION ADHERENCE, MONITORING OF EFFECTIVENESS, ADVERSE DRUG EVENTS, POSSIBLE SIDE EFFECTS, AND WHEN TO NOTIFY AGENCY OR PHYSICIAN/PROVIDER OF ANY CONCERNS. THERAPIST TO PROVIDE FUNCTIONAL STRATEGIES/TECHNIQUES FOR MANAGING MEDICATIONS. [code = OCCUPATIONAL THERAPIST TO EVALUATE PATIENT SECONDARY TO FUNCTIONAL DEFICITS/SAFETY CONCERNS IDENTIFIED DURING EVALUATION OCCUPATIONAL THERAPY TO ESTABLISH /UPGRADE/DOWNGRADE THERAPEUTIC EXERCISE PROGRAM AND INSTRUCT PATIENT/CAREGIVER ON EXERCISE PRECAUTIONS WITH WRITTEN HOME PROGRAM. MAY INCLUDE PROM, AAROM, AROM, RROM APPROPRIATE TO IMPROVE FUNCTIONAL STRENGTH AND/OR RANGE OF MOTION. OCCUPATIONAL THERAPY TO INSTRUCT PATIENT/CAREGIVER ON SAFE TRANSFER TECHNIQUES USING PROPER BODY MECHANICS AND EQUIPMENT TO ENHANCE PARTICIPATION IN ADL S. OCCUPATIONAL THERAPY TO ASSESS AND RECOMMEND HOME SAFETY ADAPTATIONS AND EDUCATE PATIENT /CAREGIVER ON FALL PREVENTION STRATEGIES TO ENHANCE PARTICIPATION IN ADL S. OCCUPATIONAL THERAPY TO PROVIDE PATIENT/CAREGIVER WITH INSTRUCTIONS AND RECOMMENDATIONS TO IMPROVE ADL S WHILE USING APPROPRIATE ADAPTIVE DEVICES RECOMMENDED. SUMMARY OF THERAPY EVAL/ASSESSMENT FINDINGS AND REASON(S) SKILLS OF A THERAPIST ARE INDICATED: OT EVALUATION (01/19/25) PATIENT IS AN 84 YEAR OLD FEMALE REFERRED TO OCCUPATIONAL THERAPY SERVICES AFTER RECENT HOSPITALIZATION DUE TO WEAKNESS AND DECONDITIONING. PATIENT WAS STABILIZED AND TRANSFERRED TO [facility] FOR SHORT-TERM REHAB BEFORE DISCHARGING HOME. 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 PRIOR LEVEL OF FUNCTION: PATIENT LIVES ALONE IN A SINGLE LEVEL SINGLE FAMILY HOME. SHE AMBULATES WITH THE USE OF A ROLLATOR AND IS ON CONTINUOUS O2 VIA NASAL CANNULA. INDEPENDENT WITH BASIC ADL TASKS THAT REQUIRED INCREASED TIME. VERY SUPPORTIVE SON INVOLVED FOR TRANSPORTATION TO APPOINTMENTS SHOPPING AND ANY OTHER NEEDED ADL/IADL TASKS. PATIENT DOES HAVE A LIFE ALERT. CURRENT LEVEL OF PATIENT SITTING IN CHAIR UPON THERAPIST ARRIVAL. PATIENT PLEASANT AND ENGAGED IN EVALUATION. NOTED TO BE SHORT OF BREATH WITH JUST TALKING DURING THE EVALUATION AND SIGNIFICANT DYSPNEA WITH MOBILITY TO THE BATHROOM AND BEDROOM. SHE WAS ABLE TO DEMONSTRATE [id number] TRANSFER SUPERVISION AND CUES FOR PROPER HAND PLACEMENT. CUEING AND SAFETY INSTRUCTIONS REQUIRED ON PROPER MANAGEMENT OF O2 TUBING WITH HER MOBILITY. SHE KEPT GETTING CAUGHT ON THE TUBING. EDUCATION PROVIDED TO HER WELL THE LEAD CLINICAL RESEARCH COORDINATOR ON HOW TO NAVIGATE AND WHERE TO PLACE THE TUBING WHILE SHE IS MOVING AROUND THE HOUSE. PATIENT IS ABLE TO GET ON AND OFF THE TOILET INDEPENDENTLY. SHE RECENTLY OBTAINED A TUB SEAT WITHOUT A BACK AND A HANDHELD SHOWERHEAD. EDUCATION PROVIDED TODAY TUBE LEAD CLINICAL RESEARCH COORDINATOR AND PATIENT IN REGARDS TO SITTING AND SWINGING USING THE TUB SEAT. ADJUSTMENTS MADE TO THE HEIGHT OF THE CHAIR. EDUCATION ALSO PROVIDED TO PATIENT ON OBTAINING TERRYCLOTH ROBE 2 UTILIZED POST SHOWER. PATIENT ALSO REPORTS DIFFICULTY WITH THE WEIGHT OF THE CURRENT ROBE SHE HAS SO MADE RECOMMENDATION TO OBTAIN CHILD SIZE SHE IS PET[place] AND IN NATURE TO HELP WITH LENGTH AND WEIGHT. AIDE WILL ASSIST PATIENT AND DRYING AND DRESSING SHE HAS DUE TO PATIENT'S SIGNIFICANT DYSKINESIA WITH MINIMAL ACTIVITY. PATIENT ALSO REPORTS SHE IS UP MULTIPLE TIMES THROUGHOUT THE NIGHT TO GO PEE AND DIFFICULT TO PUT EVERYTHING ON INCLUDING HER PULSE OXIMETER HER LIFE ALERT PUTTING ON HER SHOES AND GETTING OUT OF BED. DISCUSSED OBTAINING A COMMODE F OCCUPATIONAL THERAPIST TO ASSESS BEST PRACTICE INTERVENTIONS TO ASSIST PATIENTS TO IMPROVE OR STABILIZE MEDICAL STATUS AND PREVENT RE-HOSPITALIZATION. MEASURES INCLUDING REVIEW AND IDENTIFICATION OF CONCERNS FOR THE FOLLOWING AREAS: DRUG REGIMEN, DIABETIC FOOT CARE, ENVIRONMENTAL SAFETY ISSUES AND FALLS, PRESSURE ULCERS, PAIN, AND DISEASE MANAGEMENT. THERAPIST TO REVIEW PATIENT MEDICATIONS (PRESCRIPTION/OTC). INSTRUCT PATIENT/CAREGIVER ON ALL MEDICATIONS INCLUDING PURPOSE, WHEN TO TAKE, IMPORTANCE OF MEDICATION ADHERENCE, MONITORING OF EFFECTIVENESS, ADVERSE DRUG EVENTS, POSSIBLE SIDE EFFECTS, AND WHEN TO NOTIFY AGENCY OR PHYSICIAN/PROVIDER OF ANY CONCERNS. THERAPIST TO PROVIDE FUNCTIONAL STRATEGIES/TECHNIQUES FOR MANAGING MEDICATIONS.] Future Scheduled Test PHYSICAL T HERAPIST TO EVALUATE PATIENT SECONDARY TO FUNCTIONAL DEFICITS/SAFETY CONCERNS. PHYSICAL THERAPIST TO ASSESS BEST PRACTICE INTERVENTIONS TO ASSIST PATIENTS TO IMPROVE OR STABILIZE MEDICAL STATUS AND PREVENT RE-HOSPITALIZATION. MEASURES INCLUDING REVIEW AND IDENTIFICATION OF CONCERNS FOR THE FOLLOWING AREAS: DISEASE MANAGEMENT. PHYSICAL THERAPY TO ESTABLISH /UPGRADE/DOWNGRADE THERAPEUTIC EXERCISE PROGRAM AND INSTRUCT PATIENT/CAREGIVER ON EXERCISE PRECAUTIONS WITH WRITTEN HOME PROGRAM. MAY INCLUDE PROM, AAROM, AROM, RROM APPROPRIATE TO IMPROVE FUNCTIONAL STRENGTH AND RANGE OF MOTION. PHYSICAL THERAPY TO INSTRUCT PATIENT/CAREGIVER ON BED MOBILITY TECHNIQUES TO IMPROVE PATIENT MOBILITY AND POSITIONING TECHNIQUES IN ORDER TO INCREASE PATIENT S COMFORT AND DECREASE RISK OF SKIN BREAKDOWN. PHYSICAL THERAPY TO INSTRUCT PATIENT/CAREGIVER ON SAFE TRANSFER TECHNIQUES USING PROPER BODY MECHANICS AND EQUIPMENT. PHYSICAL THERAPY TO INSTRUCT PATIENT/CAREGIVER ON GAIT TRAINING TECHNIQUES USING APPROPRIATE ASSISTIVE DEVICE, PROPER BODY MECHANICS TO IMPROVE MOBILITY, AND PREVENT INJURY OF PATIENT AND/OR CAREGIVER. PHYSICAL THERAPY TO ASSESS AND RECOMMEND HOME SAFETY ADAPTATIONS AND EDUCATE PATIENT /CAREGIVER ON FALL PREVENTION STRATEGIES. PHYSICAL THERAPY FOR OBSERVATION AND ASSESSMENT OF PAIN, EFFECTIVENESS OF PAIN MANAGEMENT REGIMEN AND SKILLED TEACHING RELATED TO PAIN MANAGEMENT. THERAPIST TO REPORT INCREASED PAIN LEVEL TO PHYSICIAN FOR PROMPT INTERVENTION. PHYSICAL THERAPY TO INSTRUCT PATIENT/CAREGIVER ON BALANCE AND BALANCE STRATEGIES TO IMPROVE SAFE MOBILITY AND REDUCE RISK FOR FALL AND INJURY SUMMARY OF THERAPY EVAL/ASSESSMENT FINDINGS AND REASON(S) SKILLS OF A THERAPIST ARE INDICATED: 01/21: PATIENT IS AN 84-YEAR-OLD FEMALE WITH HISTORY OF GLAUCOMA, GERD, OSTEOPOROSIS, PULMONARY FIBROSIS WITH CHRONIC RESPIRATORY FAILURE ON 3 L O2 BASELINE, PRESENTS A REFERRAL FOR HOME PT SERVICES FOLLOWING ADMISSION TO [facility] FOR RECONDITIONING FOLLOWING INPATIENT ADMISSION FOR INABILITY TO CARE FOR SELF AT HOME/WEAKNESS/DECONDITIONING. PLOF: PATIENT LIVES ALONE IN SINGLE FAMILY HOME WITH 2 STAIRS TO ENTER, PATIENT ON STRAIGHT CANE AND ROLLATOR, PATIENT IS LIMITED AND COMMUNITY AMBULATION AT BASELINE, DENIES PRIOR FALLS HISTORY IN THE LAST 6 MONTHS. PATIENT'S PRIMARY GOAL WITH HOME PT SERVICES IS TO IMPROVE HER MOBILITY STATUS AND TRANSITION TO PULMONARY REHAB. PATIENT REQUIRES ASSISTANCE AT BASELINE FOR IADLS AND SOME ADLS. PATIENT REQUIRED CGA X1 FOR [id number] TRANSFERS FROM VARIOUS HEIGHTS AND SURFACES AROUND HER HOME AND FOR LEVEL SURFACE AMBULATION WITH ROLLATOR USE, PATIENT IS CURRENTLY FUNCTIONING BELOW BASELINE SECONDARY TO LOWER EXTREMITY WEAKNESS EVIDENCED BY 30 SECOND [id number] SCORE LESS THAN 6, IMPAIRED ENDURANCE/ACTIVITY TOLERANCE EVIDENCED BY 2 MINUTE STEP TEST LESS THAN 100 STEPS, AND IMPAIRED DYNAMIC STANDING BALANCE EVIDENCED BY TINETTI SCORE LESS THAN 19/30. PATIENT WILL REQUIRE HOME PT SERVICES IN ORDER TO MAXIMIZE CURRENT LEVEL OF FUNCTION AND INDEPENDENCE TO ALLOW PATIENT TO SAFELY ACCESS AND NAVIGATE HER HOME ENVIRONMENT WITH DECREASE RISK FOR FALLS/REHOSPITALIZATION. WILL PLAN FOR PT PLAN OF CARE 1 TIME A WEEK FOR NEXT COMING WEEKS. VERBAL ORDER RECEIVED FROM DALTON HAM MD OFFICE THERAPIST TO REVIEW PATIENT MEDICATIONS (PRESCRIPTION/OTC). INSTRUCT PATIENT/CAREGIVER ON ALL MEDICATIONS INCLUDING PURPOSE, WHEN TO TAKE, IMPORTANCE OF MEDICATION ADHERENCE, MONITORING OF EFFECTIVENESS, ADVERSE DRUG EVENTS, POSSIBLE SIDE EFFECTS, AND WHEN TO NOTIFY AGENCY OR PHYSICIAN/PROVIDER OF ANY CONCERNS. THERAPIST TO PROVIDE FUNCTIONAL STRATEGIES/TECHNIQUES FOR MANAGING MEDICATIONS. [code = PHYSICAL THERAPIST TO EVALUATE PATIENT SECONDARY TO FUNCTIONAL DEFICITS/SAFETY CONCERNS. PHYSICAL THERAPIST TO ASSESS BEST PRACTICE INTERVENTIONS TO ASSIST PATIENTS TO IMPROVE OR STABILIZE MEDICAL STATUS AND PREVENT RE-HOSPITALIZATION. MEASURES INCLUDING REVIEW AND IDENTIFICATION OF CONCERNS FOR THE FOLLOWING AREAS: DISEASE MANAGEMENT. PHYSICAL THERAPY TO ESTABLISH /UPGRADE/DOWNGRADE THERAPEUTIC EXERCISE PROGRAM AND INSTRUCT PATIENT/CAREGIVER ON EXERCISE PRECAUTIONS WITH WRITTEN HOME PROGRAM. MAY INCLUDE PROM, AAROM, AROM, RROM APPROPRIATE TO IMPROVE FUNCTIONAL STRENGTH AND RANGE OF MOTION. PHYSICAL THERAPY TO INSTRUCT PATIENT/CAREGIVER ON BED MOBILITY TECHNIQUES TO IMPROVE PATIENT MOBILITY AND POSITIONING TECHNIQUES IN ORDER TO INCREASE PATIENT S COMFORT AND DECREASE RISK OF SKIN BREAKDOWN. PHYSICAL THERAPY TO INSTRUCT PATIENT/CAREGIVER ON SAFE TRANSFER TECHNIQUES USING PROPER BODY MECHANICS AND EQUIPMENT. PHYSICAL THERAPY TO INSTRUCT PATIENT/CAREGIVER ON GAIT TRAINING TECHNIQUES USING APPROPRIATE ASSISTIVE DEVICE, PROPER BODY MECHANICS TO IMPROVE MOBILITY, AND PREVENT INJURY OF PATIENT AND/OR CAREGIVER. PHYSICAL THERAPY TO ASSESS AND RECOMMEND HOME SAFETY ADAPTATIONS AND EDUCATE PATIENT /CAREGIVER ON FALL PREVENTION STRATEGIES. PHYSICAL THERAPY FOR OBSERVATION AND ASSESSMENT OF PAIN, EFFECTIVENESS OF PAIN MANAGEMENT REGIMEN AND SKILLED TEACHING RELATED TO PAIN MANAGEMENT. THERAPIST TO REPORT INCREASED PAIN LEVEL TO PHYSICIAN FOR PROMPT INTERVENTION. PHYSICAL THERAPY TO INSTRUCT PATIENT/CAREGIVER ON BALANCE AND BALANCE STRATEGIES TO IMPROVE SAFE MOBILITY AND REDUCE RISK FOR FALL AND INJURY SUMMARY OF THERAPY EVAL/ASSESSMENT FINDINGS AND REASON(S) SKILLS OF A THERAPIST ARE INDICATED: 01/21: PATIENT IS AN 84-YEAR-OLD FEMALE WITH HISTORY OF GLAUCOMA, GERD, OSTEOPOROSIS, PULMONARY FIBROSIS WITH CHRONIC RESPIRATORY FAILURE ON 3 L O2 BASELINE, PRESENTS A REFERRAL FOR HOME PT SERVICES FOLLOWING ADMISSION TO IP R/[facility]COM[facility] REHAB FOR RECONDITIONING FOLLOWING INPATIENT ADMISSION FOR INABILITY TO CARE FOR SELF AT HOME/WEAKNESS/DECONDITIONING. PLOF: PATIENT LIVES ALONE IN SINGLE FAMILY HOME WITH 2 STAIRS TO ENTER, PATIENT ON STRAIGHT CANE AND ROLLATOR, PATIENT IS LIMITED AND COMMUNITY AMBULATION AT BASELINE, DENIES PRIOR FALLS HISTORY IN THE LAST 6 MONTHS. PATIENT'S PRIMARY GOAL WITH HOME PT SERVICES IS TO IMPROVE HER MOBILITY STATUS AND TRANSITION TO PULMONARY REHAB. PATIENT REQUIRES ASSISTANCE AT BASELINE FOR IADLS AND SOME ADLS. PATIENT REQUIRED CGA X1 FOR [id number] TRANSFERS FROM VARIOUS HEIGHTS AND SURFACES AROUND HER HOME AND FOR LEVEL SURFACE AMBULATION WITH ROLLATOR USE, PATIENT IS CURRENTLY FUNCTIONING BELOW BASELINE SECONDARY TO LOWER EXTREMITY WEAKNESS EVIDENCED BY 30 SECOND [id number] SCORE LESS THAN 6, IMPAIRED ENDURANCE/ACTIVITY TOLERANCE EVIDENCED BY 2 MINUTE STEP TEST LESS THAN 100 STEPS, AND IMPAIRED DYNAMIC STANDING BALANCE EVIDENCED BY TINETTI SCORE LESS THAN 19/30. PATIENT WILL REQUIRE HOME PT SERVICES IN ORDER TO MAXIMIZE CURRENT LEVEL OF FUNCTION AND INDEPENDENCE TO ALLOW PATIENT TO SAFELY ACCESS AND NAVIGATE HER HOME ENVIRONMENT WITH DECREASE RISK FOR FALLS/REHOSPITALIZATION. WILL PLAN FOR PT PLAN OF CARE 1 TIME A WEEK FOR NEXT COMING WEEKS. VERBAL ORDER RECEIVED FROM DALTON HAM MD OFFICE THERAPIST TO REVIEW PATIENT MEDICATIONS (PRESCRIPTION/OTC). INSTRUCT PATIENT/CAREGIVER ON ALL MEDICATIONS INCLUDING PURPOSE, WHEN TO TAKE, IMPORTANCE OF MEDICATION ADHERENCE, MONITORING OF EFFECTIVENESS, ADVERSE DRUG EVENTS, POSSIBLE SIDE EFFECTS, AND WHEN TO NOTIFY AGENCY OR PHYSICIAN/PROVIDER OF ANY CONCERNS. THERAPIST TO PROVIDE FUNCTIONAL STRATEGIES/TECHNIQUES FOR MANAGING MEDICATIONS.] Goal Patient Goal - GET STRONGER Goal Provider Goal - A PLAN OF CARE WILL BE ESTABLISHED THAT MEETS PATIENT'S [facility] NEEDS AND INCLUDES PATIENT GOAL FOR HOME HEALTH. Goal Provider Goal - PATIENT / CAREGIVER WILL VERBALIZE UNDERSTANDING OF EFFECTS OF URINARY INCONTINENCE BY THE END OF THE CERTIFICATION PERIOD. Goal Provider Goal - PATIENT/CAREGIVER WILL VERBALIZE/DEMONSTRATE UNDERSTANDING OF SAFE OXYGEN USE IN THE HOME THROUGHOUT THE EPISODE. Goal Provider Goal - PATIENT/CAREGIVER WILL DEMONSTRATE ABILITY TO SELF MANAGE NEEDS RELATED TO NUTRITION/HYDRATION THROUGHOUT THE EPISODE. Goal Provider Goal - EXACERBATIONS OF GASTROINTESTINAL DISEASE WILL BE PROMPTLY IDENTIFIED AND INTERVENTIONS IMPLEMENTED TO MINIMIZE RISKS TO PATIENT BY END OF EPISODE. Goal Provider Goal - OCCUPATIONAL THERAPY EVALUATION TO BE COMPLETED WITH RECOMMENDATIONS AND WRITTEN PLAN OF TREATMENT ESTABLISHED FOR THE PHYSICIAN S SIGNATURE. Goal Provider Goal - PATIENT/CAREGIVER WILL VERBALIZE/DEMONSTRATE MANAGEMENT OF PULMONARY FIBROSIS RESPIRATORY DISEASE PROCESS. CHANGES IN RESPIRATORY STATUS WILL BE IDENTIFIED AND REPORTED TO PHYSICIAN FOR PROMPT INTERVENTION THROUGHOUT THE CERTIFICATION PERIOD. Goal Provider Goal - PATIENT/CAREGIVER WILL VERBALIZE/DEMONSTRATE UNDERSTANDING OF S/S OF INFECTION AND INFECTION CONTROL MEASURES. SIGNS AND SYMPTOMS OF INFECTION WILL BE IDENTIFIED AND PHYSICIAN NOTIFIED FOR PROMPT INTERVENTION THROUGHOUT THE CERTIFICATION PERIOD. Goal Provider Goal - WOUND CARE WILL BE COMPLETED AND PATIENT WILL HAVE IMPROVED WOUND STATUS EVIDENCED BY NO SIGNS AND SYMPTOMS OF INFECTION, DECREASED WOUND SIZE, AND/OR NO COMPLICATIONS BY THE END OF THE CERTIFICATION PERIOD. Goal Provider Goal - A PHYSICAL THERAPY EVALUATION TO BE COMPLETED WITH RECOMMENDATIONS AND/OR WRITTEN PLAN OF TREATMENT ESTABLISHED FOR PHYSICIAN S SIGNATURE. Goal Provider Goal - PATIENT/CAREGIVER WILL VERBALIZE SIGNS AND SYMPTOMS OF HYPERTENSION AND WILL BE ABLE TO DEMONSTRATE ABILITY TO MANAGE EXACERBATION BY END OF THE EPISODE. Goal Provider Goal - PATIENT/CAREGIVER WILL VERBALIZE/DEMONSTRATE UNDERSTANDING OF TEACHING RELATED TO ALTERED SKIN INTEGRITY HERPES ZOSTER RASH ON BUTTOCKS BY END OF CERTIFICATION PERIOD. Goal Provider Goal - PATIENT/CAREGIVER WILL VERBALIZE SIGNS AND SYMPTOMS OF HYPOTENSION AND WILL BE ABLE TO DEMONSTRATE ABILITY TO MANAGE EXACERBATION BY END OF THE EPISODE. Goal Provider Goal - PATIENT/CAREGIVER WILL VERBALIZE UNDERSTANDING OF MUSCULOSKELETAL DISEASE INCLUDING SIGNS AND SYMPTOMS, MANAGEMENT, AND PRESCRIBED TREATMENT REGIMEN BY END OF EPISODE. Goal Provider Goal - PATIENT WILL HAVE SUPPORT MEASURES ESTABLISHED TO PREVENT HOSPITALIZATION AND ED USE AND PATIENT/CAREGIVER WILL VERBALIZE/DEMONSTRATE METHODS TO REDUCE AVOIDABLE HOSPITALIZATION AND ED USE BY END OF EPISODE. Goal Provider Goal - PATIENT/CAREGIVER WILL VERBALIZE UNDERSTANDING OF DISCHARGE PLANNING INSTRUCTIONS BY DATE OF DISCHARGE. Goal Provider Goal - PATIENT/CAREGIVER WILL VERBALIZE/DEMONSTRATE EFFECTIVE ENVIRONMENTAL SAFETY AND FALL PREVENTION STRATEGIES, WILL REMAIN SAFE IN THE COMMUNITY, AND WILL BE FREE OF DANGER TO SELF AND OTHERS THROUGHOUT THE CERTIFICATION PERIOD. Goal Provider Goal - PATIENT/CAREGIVER WILL DEMONSTRATE UNDERSTANDING OF PHARMACOLOGIC AND NONPHARMACOLOGIC PAIN CONTROL MEASURES AND PATIENT WILL HAVE IMPROVEMENT IN PAIN INTERFERING WITH ACTIVITY EVIDENCED BY PAIN AT A LEVEL THAT IS ACCEPTABLE TO THE PATIENT AND PAIN LEVEL WITHIN ESTABLISHED PARAMETERS BY END OF CERTIFICATION PERIOD. Goal Provider Goal - PATIENT/CAREGIVER WILL VERBALIZE UNDERSTANDING OF PRESSURE ULCER PREVENTION BY END OF THE EPISODE. Goal Provider Goal - PATIENT/CAREGIVER WILL VERBALIZE UNDERSTANDING OF EDUCATION PROVIDED ON MEDICATIONS BY THE END OF THE CERTIFICATION PERIOD. Goal Provider Goal - OCCUPATIONAL THERAPIST TO EVALUATE PATIENT SECONDARY TO FUNCTIONAL DEFICITS/SAFETY CONCERNS IDENTIFIED DURING EVALUATION. PATIENT/CAREGIVER WILL PERFORM THERAPEUTIC EXERCISE/S AND DEMONSTRATE PARTICIPATION IN A HOME PROGRAM. PATIENT/CAREGIVER WILL DEMONSTRATE SAFE TRANSFERS USING APPROPRIATE ASSISTIVE DEVICE, BODY MECHANICS AND EQUIPMENT. CAREGIVER/PATIENT WILL DEMONSTRATE/VERBALIZE UNDERSTANDING OF RECOMMENDATIONS TO INCREASE SAFETY IN THE HOME AND FALL PREVENTION. PATIENT/CAREGIVER WILL DEMONSTRATE IMPROVED ABILITY TO PERFORM ACTIVITIES OF DAILY LIVING. PATIENT/CAREGIVER VERBALIZES UNDERSTANDING OF THE INITIAL BEST PRACTICE RECOMMENDATIONS. PHYSICIAN TO BE NOTIFIED APPROPRIATE FOR ANY CHANGES OR COMPLICATIONS THROUGHOUT THE CERTIFICATION PERIOD. PATIENT/CAREGIVER WILL VERBALIZE/DEMONSTRATE UNDERSTANDING OF MEDICATIONS AND STRATEGIES/TECHNIQUES FOR MEDICATION MANAGEMENT BY THE END OF THE CERTIFICATION PERIOD. Goal Provider Goal - PHYSICAL THERAPY EVALUATION TO BE COMPLETED WITH RECOMMENDATIONS AND/OR WRITTEN TREATMENT PLAN OF CARE ESTABLISHED FOR THE PHYSICIAN S SIGNATURE PATIENT/CAREGIVER VERBALIZES UNDERSTANDING OF THE INITIAL BEST PRACTICE RECOMMENDATIONS. PHYSICIAN TO BE NOTIFIED APPROPRIATE FOR ANY CHANGES OR COMPLICATIONS THROUGHOUT THE CERTIFICATION PERIOD. PATIENT/CAREGIVER WILL PERFORM THERAPEUTIC EXERCISE/S AND DEMONSTRATE PARTICIPATION IN A HOME PROGRAM. PATIENT/CAREGIVER WILL DEMONSTRATE IMPROVED BED MOBILITY TECHNIQUES. PATIENT/CAREGIVER WILL DEMONSTRATE SAFE TRANSFERS USING APPROPRIATE ASSISTIVE DEVICE, BODY MECHANICS AND EQUIPMENT. PATIENT/CAREGIVER WILL DEMONSTRATE IMPROVED GAIT TECHNIQUES TO MINIMIZE RISK OF INJURY. PATIENT/CAREGIVER WILL DEMONSTRATE/VERBALIZE UNDERSTANDING OF RECOMMENDATIONS TO INCREASE SAFETY IN THE HOME AND FALL PREVENTION. INCREASED PAIN OR INEFFECTIVE PAIN CONTROL MEASURES WILL BE IDENTIFIED AND PROMPTLY REPORTED TO THE PHYSICIAN. PATIENT/CAREGIVER WILL DEMONSTRATE EFFECTIVE PAIN MANAGEMENT. PATIENT/CAREGIVER WILL DEMONSTRATE IMPROVED BALANCE AND REDUCE THE RISK OF FALLS AND INJURY. PATIENT/CAREGIVER WILL VERBALIZE/DEMONSTRATE UNDERSTANDING OF MEDICATIONS AND STRATEGIES/TECHNIQUES FOR MEDICATION MANAGEMENT BY THE END OF THE CERTIFICATION PERIOD. Encounters Start Date/Time End Date/Time Encounter Type Admission Type Attending [facility] Care Department Encounter ID Discharge Date Discharge Status Discharge Condition Discharge Reason Percent Goals Met 2025-01-11 00:00:00 2025-03-11 00:00:00 Outpatient NEW ADMISSION ZAYRA PEREZ [facility] [id number] 64.15
== END 2025-03-08 16:25 | disposition home or self-care (01) ==
LOC: HO.CT 16:24
PROVIDERS: PCP Internal Medicine; Visit Provider Internal Medicine
DX: R09.02 Hypoxemia (principal); J84.10 Pulmonary fibrosis, unspecified
CPT/HCPCS: 71250

== ENCOUNTER → 2025-03-08 16:27 | Outpatient (BNV) | payer MEDICARE, OTHER, SELFPAY | PROVIDERS: PCP Internal Medicine; Visit Provider Radiology Diagnostic Radiology | DX: J84.10 Pulmonary fibrosis, unspecified (principal) | CPT/HCPCS: 71250 ==

== ENCOUNTER 2025-03-24 15:27 | Outpatient (AMB) | payer MEDICARE, OTHER, SELFPAY ==
--- OUTSIDE RECORDS SUMMARY | 2025-01-06 11:30 | XMS_ITS ---
Author Organization Grant Corley MD Address [address] [place], [place] [phone] Care Team Providers Care Band Builder Name Role Phone Grant Corley Primary Care [...] MD [address] [place], [place] [phone] 01/06/2025 Grant Corley Plan Of Treatment Next Appt Details Provider Name:Grant Coe ier, 04/18/2025 10:00:00 AM, [address], [address], [place], [place], [phone], Progress Notes * Radha SILVERMAN MDOB: [birth year] (85 yo F)Acc No.[id number]:01/06/2025 Patient: Christa DE LA ROSAude Tim Provider: Amber Corley MD :1940 A ge:84 Y S ex:Female Date:01/06/2025 Address:[address] [place] [address] Subjective: * Chief Complaints: * 1 . [...] 2006, Esophageal dysmotility 2010, 12/19/2010 Colonoscopy, has [employer] [facility] appt in May Hannah Staples. [...] 0 01/06/2025 Generated for Jocelyn winters/Sarahi/Davonsmitting on: 1 05/25/2024 10:59 PM EST History and Physical Notes * [...]
--- OUTSIDE RECORDS SUMMARY | 2025-01-10 04:45 | XMS_ITS ---
Author Organization Grant Corley MD Address [address] [place] [phone] Care Team Providers Care Parachute Supervisor Name Role Phone Barney Grant Primary Care Provider REASON FOR VISIT ischarge summary rec'd Encounters Encounter Location Date Provider Diagnosis Grant Corley MD [address] [place] [address] [place] [phone] 01/10/2025 Grant Corley Plan Of Treatment Next Appt Details Provider Name:Grant chamorro, 04/18/2025 10:00:00 AM, [address] [place] [address], [address], [phone], Progress Notes * Radha SILVERMAN MDOB: [birth year] (84 yo F)Acc No.[id number]:01/10/2025 Patient: Radha D ELA ROSA :1940 A ge:84 Y S ex:Female Address:[address] [place] [address] * true * Date: Generated for Jocelyn winters/Sarahi/Zoila on: 05/25/2024 10:59 PM EST
--- OUTSIDE RECORDS SUMMARY | 2025-01-14 08:30 | XMS_ITS ---
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) (728810027140689 02) Bed sore on buttock, right, unstageable (L89.310) Active confirmed Vital Signs Blood pressure systolic 85 mm Hg 01/15/20 25 Blood pressure diastolic 50 mm Hg 025 Height 61 in 01/14/2025 Weight 97 lbs 01/14/2025 BMI 18.33 kg/m2 01/14/2025 weight is down 16 pounds sin 3-24-25 Encounters Encounter Location Date Provider Diagnosis Grant Corley MD 10 [facility] [address] [place] [phone] 01/14/2025 Grant Corley Essential hypertensi on I10 [...] Provider Name:Grant Coe ier, 04/18/2025 10:00:00 AM, [address] [place] [address], [address], [place], [place], [phone], Progress Notes * Radha SILVERMAN MDOB: [birth year] (84 yo F)Acc No.[id number]:01/14/2025 Patient: Radha DE LA ROSA Provider: Amber Corley MD :1940 A ge:84 Y S ex:Female Date:01/14/2025 Address:[address] [place] [address] Subjective: * Chief Complaints: * P H/TCMAccompanied [...] (Dose No:1) (Route: Intramuscular) given by Jyotsna Spence , Office Staff on Left Deltoid * Procedure Codes: 9 0662 FLU VACC PRSV FREE INC [id number] ADMN FLU VAC NO FEE SCHED SAME DAY * Follow Up: 3 Months * * Sign off status: Completed true * Provider: Amber Corley MD Date: Generated for Jocelyn winters/Sarahi/Judyitting on: 05/25/2024 11:00 PM EST History and Physical Notes * [...]
--- OUTSIDE RECORDS SUMMARY | 2025-02-03 08:20 | XMS_ITS ---
Author Organization Grant Corley MD Address [address] [place] [address] [phone] Care Team Providers Care Diesel Dinkey Operator Name Role Phone Grant Corley Primary Care Provider [phone] REASON FOR VISIT NOSE BLEEDS Encounters Encounter Location Date Provider Diagnosis Grant Corley MD [address] [place] [address] [phone] 02/03/2025 Grant Corley Plan Of Treatment Next Appt Details Provider Name:Grant Coe ier, 04/18/2025 10:00:00 AM, [address] [place] [address], [address] [place] [address], [phone], Progress Notes * Radha SILVERMAN MDOB: [birth year] (84 yo F)Acc No.[id number]:02/03/2025 Patient: Radha DE LA ROSA :1940 A ge:84 Y S ex:Female Address:[address] [place] [address] * true * Date: Generated for Jocelyn winters/Sarahi/Zoila on: 05/25/2024 10:59 PM EST
--- OUTSIDE RECORDS SUMMARY | 2025-02-07 03:15 | XMS_ITS ---
Author Organization Gratn Corley MD Address [address] [place] [address] [phone] Care Team Providers Care Net Development Manager Name Role Phone Barney Grant Primary Care Provider REASON FOR VISIT ER Visit rec'd Encounters Encounter Location Date Provider Diagnosis Grant Corley MD 10 [facility] [address] [place] [address] [phone] 02/07/2025 Grant Corley Plan Of Treatment Next Appt Details Provider Name:Grant chamorro, 04/18/2025 10:00:00 AM, [address] [place] [address], [address], [phone], Progress Notes * Radha SILVERMAN MDOB: [birth year] (84 yo F)Acc No.[id number]:02/07/2025 Patient: Radha DE LA ROSA :1940 A ge:84 Y S ex:Female Address:[address] [place] [address] * true * Date: Generated for Jocelyn winters/Sarahi/Zoila on: 05/25/2024 10:59 PM EST
--- OUTSIDE RECORDS SUMMARY | 2025-02-07 10:30 | XMS_ITS ---
Author Organization Grant Corley MD Address [address] [place] [address] [phone] Care Team Providers Care Dairy Nutrition Specialist Name Role Phone Grant Corley Primary Care Provider REASON FOR VISIT NOSE BLEEDS Encounters Encounter Location Date Provider Diagnosis Grant Corley MD 10 [facility] [address] [place] [address] [phone] 02/07/2025 Grant Corley Plan Of Treatment Next Appt Details Provider Name:Grant Coe ier, 04/18/2025 10:00:00 AM, [address] [place] [address], [address] [place] [address], [phone], Progress Notes * Radha SILVERMAN MDOB: [birth year] (84 yo F)Acc No.[id number]:02/07/2025 Patient: Radha DE LA ROSA :1940 A ge:84 Y S ex:Female Address:[address] [place] [address] * true * Date: Generated for Jocelyn winters/Sarahi/Zoila on: 05/25/2024 11:00 PM EST
--- OUTSIDE RECORDS SUMMARY | 2025-02-08 04:42 | XMS_ITS ---
Author Organization Grant Corley MD Address [address] [place] [address] [phone] Care Team Providers Care Trolley Collector Name Role Phone Barney Grant Primary Care Provider [phone] REASON FOR VISIT ER visit rec'd Encounters Encounter Location Date Provider Diagnosis Grant Corley MD 10 [facility] [address] [place] [address] [phone] 02/08/2025 Garnt Corley Plan Of Treatment Next Appt Details Provider Name:Grant chamorro, 04/18/2025 10:00:00 AM, [address] [place] [address], [address], [phone], Progress Notes * Radha SILVERMAN MDOB: [birth year] (85 yo F)Acc No.[id number]:02/08/2025 Patient: Radha DE LA ROSA :1940 A ge:84 Y S ex:Female Address:[address] [place] [address] * true * Date: Generated for Jocelyn winters/Sarahi/Zoila on: 05/25/2024 10:59 PM EST
--- OUTSIDE RECORDS SUMMARY | 2025-02-11 09:05 | XMS_ITS ---
Author Organization Grant Corley MD Address [address] [place] [address] [phone] Care Team Providers Care Rainbow Trout Farm Manager Name Role Phone Grant Corley Primary Care Provider [phone] Encounters Encounter Location Date Provider Diagnosis Grant Corley MD 10 [facility] [address] [place] [address] [phone] 2025 Grant Corley Plan Of Treatment Next Appt Details Provider Name:Grant Coe ier, 04/18/2025 10:00:00 AM, 10 [facility], Suite [facility], [place], [place], [phone], Progress Notes * Radha SILVERMAN MDOB: [birth year] (85 yo F)Acc No.[id number]:2025 Patient: Radha DE LA ROSA :1940 A ge:85 Y S ex:Female Address:[address] [place] [address] * true * Date: Generated for Jocelyn winters/Sarahi/Zoila on: 05/25/2024 10:58 PM EST
--- OUTSIDE RECORDS SUMMARY | 2025-02-14 11:30 | XMS_ITS ---
Author Organization Grant Corley MD Address [address] [place] [address] [phone] Care Team Providers Care Rn Field Case Manager Name Role Phone Grant Corley Primary Care Provider REASON FOR VISIT PH/TCM Encounters Encounter Location Date Provider Diagnosis Grant Corley MD 10 [facility] [address] [place] [address] [phone] 02/14/2025 Grant Corley Plan Of Treatment Next Appt Details Provider Name:rGant Coe ier, 04/18/2025 10:00:00 AM, [address] [place] [address], [address] [place] [address], [phone], Progress Notes * Radha SILVERMAN MDOB: [birth year] (85 yo F)Acc No.[id number]:02/14/2025 Patient: Radha DE LA ROSA Provider: Amber Corley MD :1940 A ge:85 Y S ex:Female Date:02/14/2025 Address:[address] [place], [place] [phone] Subjective: * Chief Complaints: * 1 . PH/TCM. * Medical History: Objective: * Vitals: Assessment: Plan: * Treatment: * * The named appointment provid er may or may not be the originator of this progress note, and it is not deemed complete until electronically signed by the appointment provider. Sign off status: Pending * Provider: Amber Corley MD Date: 1 04/16/2024 Generated for Jocelyn winters/Sarahi/Judyitting on: 05/25/2024 11:00 PM EST
--- OUTSIDE RECORDS SUMMARY | 2025-02-24 08:32 | XMS_ITS ---
Author Organization Grant Corley MD Address [address] [place] [address] [phone] Care Team Providers Care Supercharger Mechanic Name Role Phone Grant Corley Primary Care Provider REASON FOR VISIT medication request Encounters Encounter Location Date Provider Diagnosis Grant Corley MD 10 [facility] [address] [place] [address] [phone] 02/24/2025 Grant Corley Plan Of Treatment Next Appt Details Provider Name:Grant Coe ier, 04/18/2025 10:00:00 AM, [address] [place] [address], [address] [place] [address], [phone], Progress Notes * Radha SILVERMAN MDOB: [birth year] (85 yo F)Acc No.[id number]:02/24/2025 Patient: Radha DE LA ROSA :1940 A ge:85 Y S ex:Female Address:[address] [place] [address] * true * Date: Generated for Jocelyn winters/Sarahi/Zoila on: 05/25/2024 10:58 PM EST
[2025-03-24 15:32] VITALS: BP 124/68; PULSE 82; O2SAT 93; BMI 17.2
--- NOTE | 2025-03-24 15:32 | MHC.OFFVIS ---
Vital Signs 03/24/25 15:32 Height 5 ft Weight 88 lb 2.958 oz BMI 17.2 BP 124/68 Blood Pressure Location Lt brachial Position Sitting Pulse 82 Pulse Source Pulse Oximeter Pulse Oximetry (%) 93 Oxygen Delivery Method Nasal Cannula Oxygen Flow Rate 3 Intake Visit Reasons: pulmonary fibrosis Intake Note: pt is here for follow up and had ct scan done, and has home physical therapy and states she feels pretty good, she is at times holding her own. Crm Marketing Executive Required: No Copper Plate Lithographer: Copper Plate Lithographer offered & declined Allergies anthesia Adverse Reaction (Uncoded 03/24/25 16:47) Confusion Medication List - Last Reconciled 03/24/25 by Abrahan Bautista MD aspirin 81 mg PO DAILY atorvastatin 20 mg PO DAILY cetirizine (Zyrtec) 10 mg PO DAILY cholecalciferol (vitamin D3) 25 mcg PO DAILY estazolam 0.5 mg PO BEDTIME PRN guaifenesin ER (Mucinex) 600 mg PO BID PRN naproxen 375 mg PO DAILY PRN ondansetron 4 mg PO DAILY pantoprazole 40 mg PO DAILY raloxifene 60 mg PO DAILY Do you need a note to return to daycare/school/sports/work: No HPI HPI pulmonary fibrosis: Details: BLAYNE, [age] YE[age] OLD, WITH PULMONARY FIBROSIS, IS HERE FOR FOLLOW-UP AFTER HER RECENT HOSPITALIZATION. SHE WAS ADMITTED TO THE HOSPITAL RECENTLY AND THEN SENT TO REHAB FACILITY WHERE SHE SPENT ABOUT TWO WEEKS. SHE HAD WONDERFUL TREATMENT IN THE REHAB PLACE AND GAINED SOME STRENGTH. NOW SHE IS HOME AND WILL BE GETTING HOME PHYSICAL THERAPY . SHE CONTINUES TO USE HER O2, THREE L PER MINUTE AT HOME WITH STATIONARY CONCENTRATOR , AND FOUR L PER MINUTE WITH THE POC WHEN SHE COMES OUTDOORS. SHE HAS INTERMITTENT COUGH FOR WHICH SHE USES MUCINEX SIX HUNDRED MG B.I.D.,, ALSO USES ZYRTEC 10 MG DAILY BUT COMPLAINS OF BEING SLEEPY THE WHOLE DAY. I TOLD HER THAT SHE MAY TRY TO USE HALF TABLET A DAY. [facility] Medical History (Updated 03/24/25 @ 17:01 by Abrahan Bautista MD) Respiratory failure with hypoxia Allergic rhinitis Exercise hypoxemia Pulmonary fibrosis History of smoking at least 1 pack per day for at least 30 years Early menopause Hypertension Surgical History H/O oral surgery Social History Patient Tobacco Use Status: Former Tobacco user Years Smoked: 39 Review of Systems Const All systems reviewed & are unremarkable except as noted in HPI and below Eyes Reports no additional complaints ENT Reports nasal congestion (Mild off and on) and Reports nasal discharge (Mild off and on, when she has sinus infection.) Card Denies chest pain, Denies irregular heart rhythm and Denies leg edema Resp Reports as per HPI GI Reports no additional complaints Reports no additional complaints Musc Reports arthralgias (mild) Skin/Breast Reports system reviewed and no additional complaints, except as documented Neuro Reports no additional complaints Psych Reports no additional complaints Endo Reports no additional complaints Physical Exam Vital Signs: Last Vital Signs Pulse 82 03/24/25 15:32 BP 124/68 03/24/25 15:32 Pulse Ox 93 03/24/25 15:32 Oxygen Delivery Method Nasal Cannula 03/24/25 15:32 Oxygen Flow Rate 3 03/24/25 15:32 BMI result Body Mass Index 17.2 She has lost a few lb of weight Const General: comfortable, no acute distress, alert and awake Orientation/consciousness: patient oriented x3 HEENT Head: Yes normal to inspection General nose exam: No nasal polyps present, No nasal discharge present and Other nasal findings present (Mild nasal congestion) Face and sinus: Yes sinuses nontender Mouth: oropharynx normal Throat: Yes posterior oropharynx normal Eyes General: appearance normal, both eyes and all related structures Neck Neck: Yes normal visual inspection, Yes no lymphadenopathy, Yes trachea midline and Yes no JVD Thyroid: Thyroid normal Chest Chest palpation & inspection: normal inspection of the chest, normal palpation of entire chest wall and no tenderness Resp Other: Percussion note is resonant, She does have good breath sounds on both sides. Inspiratory crackles are heard over both lower lobes and mid lungs, not any worse than before. Cardio Palpation: normal PMI Rate: regular rate Rhythm: regular rhythm Heart sounds: no gallops and no murmurs Peripheral pulses: Peripheral pulses 2+ throughout GI Palpation (GI): Soft to palpation, nontender, No hepatosplenomegaly present and no masses Auscultation: normal bowel sounds Back/Spine/Pelvis Thoracic/Lumbar Spine: thoracic and lumbar spine normal to inspection Skin General skin exam: no rashes or lesions noted Neuro General: patient oriented x3 and no focal motor deficits Cranial nerves: Yes CN's II-XII intact bilaterally Extrem General: Yes normal to inspection, Yes no clubbing, cyanosis or edema and Yes no calf tenderness Psych Appearance: grossly normal and well kempt Speech and movement: Normal speech and movement present Results Reviewed Results Reviewed: CT SCAN 03/08/25 IMPRESSION: 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 Fleischner guidelines were followed. Electronically signed by: Rick Huang MD 03/08/2025 04:59 PM EST Assessment & Plan Assessment & Plan (1) Pulmonary fibrosis: Comment: Physical examination and chest x-ray / CT scan findings are consistent with interstitial lung disease/pulmonary fibrosis ( UIP ) CURRENT CT SCAN SHOWS SOME PROGRESSION OF THE PULMONARY FIBROSIS . She has been relatively asymptomatic , and in good general health. Except for the need to use O2 with any physical activity but her O2 need has increased to three to four L per minute on a continuous basis. Code(s): J84.10 - Pulmonary fibrosis, unspecified Category: Medical Plan: The mainstay treatment is oxygen. We talked about the use of oxygen. She can continue to use O2 3 L/minute at home including at nighttime. For outdoors she is using POC and this can be used at 4 L/minute. I explained that the goal is to keep O2 sat above 90%. We discussed about using more aggressive treatment such as corticosteroids as well as antifibrotic agents. But she is not in favor of using steroids antifibrotic agents at this time. . (2) Allergic rhinitis: Comment: She has history of life long nasal allergies around the year. Has been using Zyrtec 10 mg daily for many years. She used to be on inhaled steroid preps , but it was stopped by the ENT specialist many years ago. Because using the steroid spray causes bleeding. She is complaining of excessive daytime sleepiness due to Zyrtec. I advised that she can use half tablet a day. Code(s): J30.9 - Allergic rhinitis, unspecified Category: Medical Plan: as above (3) Respiratory failure with hypoxia: Comment: Patient has hypoxemia, secondary to progressive fibrosis. Code(s): J96.91 - Respiratory failure, unspecified with hypoxia Category: Medical Plan: Use O2 as discussed under COPD Coding Level of Care Code Est Pt Level 3 (88029) Diagnoses Pulmonary fibrosis J84.10 Allergic rhinitis J30.9 Respiratory failure with hypoxia J96.91
--- OUTSIDE RECORDS SUMMARY | 2025-03-24 22:58 | XMS_ITS | Patient Health Record ---
Author Organization [facility] Address [address] [place] [address] Care Team Providers Care Single Wire Saw Operator Name Role Phone Grant Corley MD Primary Care Provider Sedrick Castillo [phone] Reason For Referral No Information Problems Problem Type SNOMED Code ICD Code Onset Dates Problem Status W/U Status Risk Notes Problem Screening for malignant neoplasm of colon (460037527) Special screening for malignant neoplasms, colon (V76.51) Active confirmed Plan Of Treatment No Information Insurance Providers Payer Name Payer Address Payer Phone Subscriber Number Group Number Insured Name Patient Relationship to Insured Coverage Start Date Coverage End Date MEDICARE OF [place] [address] [place] [address] [phone] [id number] BLAYNE BRO Self - patient is the insured [facility] [employer] INDEMNITY [address] [place] [address] [id number] BLAYNE BRO Self - patient is the insured
--- OUTSIDE RECORDS SUMMARY | 2025-03-24 22:58 | XMS_ITS | Clinical Summary ---
Author Organization [address] [place] [address] [place] [phone] Phone Care Team Providers Care Bingo Attendant Name Role Phone Yuri Turcios MD Primary Care Provider [phone] Allergies No known active allergies Medications atorvastatin [...] mouth 1 (one) time each day. Active Active Problems Problem Noted Date Diagnosed Date Epistaxis 02/07/2025 Encounters Date Type Department Care Team Description 02/07/2025 3:06 PM EDT - 02/08/2025 12:03 PM EDT Hospital Encounter [facility] Urology Unit [address] [place] [phone] Wendie John MD Bukalo, Nermina, MD Ziebro, John, MD Jones, Christopher, MD Alam, Aroosa, MD Acute anterior epistaxis (Primary Dx); Epistaxis Discharge Disposition: Home-Health Care [facility] 02/05/2025 10:31 AM EDT - 02/05/2025 11:13 AM EDT Emergency [facility] Emergency [address] [place] [address] Arminda Frost MD Epistaxis (Primary Dx) Discharge Disposition: Home or Self Care 01/24/2025 Telephone [facility] [address] [place] [address] Sam Madrid MD 01/03/2025 Lab Requisition [facility] [address] [place] [address] Deniz Duran MD Encounter for other general examination 12/29/2024 Lab Requisition [facility] [address] [place] [address] Donal Rodriguez PA Other meterman (current) drug therapy from Last 3 Months Surgical History Surgery Date Site/Laterality Comments CATARACT EXTRACTION Medical History Medical History Date Comments Carotid stenosis Pulmonary fibrosis ([facility] [place]24, [facility] V28) Chronic hypoxic respiratory failure ([facility] V24 , [facility] V28) Family History Medical History Relation Name [...] for your loved ones. For example, child welfare worker or elderly care for an older [...] TREATMENT/PROCEDURE ENT Routine 02/07/2025 4:49 PM EDT [place] CONTROL NOSEBLEED ANTERIOR SIMPLE Routine 02/07/2025 4:49 PM EDT [place] CRITICAL CARE 30-74 MINUTES Routine 02/07/2025 2:55 PM EDT CBC WITH AUTO DIFFERENTIAL Routine 01/03/2025 5:49 AM EDT Encounter for other general examination COMPREHENSIVE METABOLIC PANEL Routine 01/03/2025 5:49 AM EDT Encounter for other general examination CBC AND DIFFERENTIAL Routine 01/03/2025 5:49 AM EDT Encounter for other general examination CBC WITH AUTO DIFFERENTIAL Routine 12/29/2024 6:30 AM EDT Other meterman (current) drug therapy MAGNESIUM Routine 12/29/2024 6:30 AM EDT Other halfway (current) drug therapy COMPREHENSIVE METABOLIC PANEL Routine 12/29/2024 6:30 AM EDT Other halfway (current) drug therapy CBC AND DIFFERENTIAL Routine 12/29/2024 6:30 AM EDT Other meterman (current) drug therapy SHANNEN DEXA AXIAL SKELETON Routine 10/19/2019 10:35 AM EDT Asymptomatic menopausal state from Last 3 Months or Most Recently Relevant to Health Maintenance Results * (ABNORMAL) Complete blood count (02/08/2025 6:23 AM EDT) [facility] WBC 10.3 4.8 - 10.8 K/mcL LAB HEMETOLOGY METHOD 02/08/2025 7:28 AM [facility] RBC 4.90(H) 3.80 - 4.80 M/mcL LAB HEMETOLOGY METHOD 02/08/2025 7:28 AM [facility] Hemoglobin 14.4 11.5 - 16.0 g/dL LAB HEMETOLOGY METHOD 02/08/2025 7:28 AM [facility] Hematocrit 45.4 35.0 - 47.0 % LAB HEMETOLOGY METHOD 02/08/2025 7:28 AM [facility] MCV 93.4 79.0 - 98.0 FL LAB HEMETOLOGY METHOD 02/08/2025 7:28 AM [facility] MCH 29.6 27.0 - 32.0 pcg LAB HEMETOLOGY METHOD 02/08/2025 7:28 AM [facility] MCHC 31.7(L) 32.0 - 37.0 g/dL LAB HEMETOLOGY METHOD 02/08/2025 7:28 AM [facility] RDW 14.8 11.0 - 15.0 % LAB HEMETOLOGY METHOD 02/08/2025 7:28 AM [facility] Platelets 208 130 - 400 K/mcL LAB HEMETOLOGY METHOD 02/08/2025 7:28 AM [facility] MPV 11.8(H) 7.0 - 11.0 FL LAB HEMETOLOGY METHOD 02/08/2025 7:28 AM [facility] NRBC 0.0 <1.0 % LAB HEMETOLOGY METHOD 02/08/2025 7:28 AM EDT [facility] NRBC Absolute 0.00 <0.10 K/mcL LAB HEMETOLOGY METHOD 02/08/2025 7:28 AM [facility] Blood Venous blood specimen / Unknown Venipuncture / Unknown 02/08/2025 6:23 AM EDT 02/08/2025 7:10 AM EDT us Robert Jones MD LAB BLOOD ORDERABLES Final Res ult [facility] [address] [place] [address], [place] [phone] * Basic metabolic panel (02/08/2025 6:23 AM EDT) Sodium 139 133 - 145 mmol/L LAB CHEMISTRY METHOD 02/08/2025 7:55 AM [facility] Potassium 4.2 3.5 - 5.5 mmol/L LAB CHEMISTRY METHOD 02/08/2025 7:55 AM [facility] Chloride 104 96 - 110 mmol/L LAB CHEMISTRY METHOD 02/08/2025 7:55 AM [facility] CO2 31 21 - 32 mmol/L LAB CHEMISTRY METHOD 02/08/2025 7:55 AM [facility] Anion Gap 4 3 - 11 LAB CHEMISTRY METHOD 02/08/2025 7:55 AM [facility] Glucose 79 70 - 100 mg/dL LAB CHEMISTRY METHOD 02/08/2025 7:55 AM [facility] BUN 15 5 - 25 mg/dL LAB CHEMISTRY METHOD 02/08/2025 7:55 AM [facility] Creatinine 0.62 0.50 - 1.10 mg/dL LAB CHEMISTRY METHOD 02/08/2025 7:55 AM [facility] eGFR 88 >=60 mL/min/1. 73m2 LAB CHEMISTRY METHOD 02/08/2025 7:55 AM EDT [facility] Comment:Calculation based on the Chronic Kidney Disease Epidemiology Collaboration (CKD-EPI) equation refit without adjustment for race. BUN/Creatinine Ratio 24.2 LAB CHEMISTRY METHOD 02/08/2025 7:55 AM EDT [facility] Calcium 8.9 8.5 - 10.5 mg/dL LAB CHEMISTRY METHOD 02/08/2025 7:55 AM EDT [facility] Blood Venous blood specimen / Unknown Venipuncture / Unknown 02/08/2025 6:23 AM EDT 02/08/2025 7:10 AM EDT us Robert Jones MD LAB BLOOD ORDERABLES Final Res ult [facility] [address] [place] [address], [place] [phone] * (ABNORMAL) CBC auto differential (02/07/2025 4:54 PM EDT) Only the most recent of3 resultswithin the time period is included. WBC 10.9(H) 4.8 - 10.8 K/mcL LAB HEMETOLOGY METHOD 02/07/2025 5:27 PM EDT [facility] RBC 4.90(H) 3.80 - 4.80 M/mcL LAB HEMETOLOGY METHOD 02/07/2025 5:27 PM EDT [facility] Hemoglobin 14.4 11.5 - 16.0 g/dL LAB HEMETOLOGY METHOD 02/07/2025 5:27 PM EDT [facility] Hematocrit 45.0 35.0 - 47.0 % LAB HEMETOLOGY METHOD 02/07/2025 5:27 PM EDT [facility] MCV 92.6 79.0 - 98.0 FL LAB HEMETOLOGY METHOD 02/07/2025 5:27 PM EDT [facility] MCH 29.6 27.0 - 32.0 pcg LAB HEMETOLOGY METHOD 02/07/2025 5:27 PM EDT [facility] MCHC 32.0 32.0 - 37.0 g/dL LAB HEMETOLOGY METHOD 02/07/2025 5:27 PM EDT [facility] RDW 14.9 11.0 - 15.0 % LAB HEMETOLOGY METHOD 02/07/2025 5:27 PM EDT [facility] Platelets 212 130 - 400 K/mcL LAB HEMETOLOGY METHOD 02/07/2025 5:27 PM EDT [facility] MPV 11.7(H) 7.0 - 11.0 FL LAB [facility]OLOGY [facility] NR[facility] 0.0 <1.0 % LAB HEMETOLOGY METHOD 02/07/2025 5:27 PM EDT [facility] NRBC Absolute 0.00 <0.10 K/mcL LAB HEMETOLOGY METHOD 02/07/2025 5:27 PM EDT [facility] Neutrophils Relative 53.4 % LAB HEMETOLOGY METHOD 02/07/2025 5:27 PM EDT [facility] Lymphocytes Relative 35.4 % LAB HEMETOLOGY METHOD 02/07/2025 5:27 PM EDT [facility] Monocytes Relative 7.8 % LAB HEMETOLOGY METHOD 02/07/2025 5:27 PM EDT [facility] Eosinophils Relative 2.5 % LAB HEMETOLOGY METHOD 02/07/2025 5:27 PM EDT [facility] Basophils Relative 0.6 % [facility] Immature Granulocytes Relative 0.3 % LAB HEMETOLOGY METHOD 02/07/2025 5:27 PM EDT [facility] Neutrophils Absolute 5.83 1.50 - 7.00 K/mcL LAB HEMETOLOGY METHOD 02/07/2025 5:27 PM EDT [facility] Lymphocytes Absolute 3.86 1.00 - 5.00 K/mcL LAB HEMETOLOGY METHOD 02/07/2025 5:27 PM EDT [facility] Monocytes Absolute 0.85 0.20 - 1.00 K/mcL LAB HEMETOLOGY METHOD 02/07/2025 5:27 PM EDT [facility] Eosinophils Absolute 0.27 0.00 - 0.50 K/mcL LAB HEMETOLOGY METHOD 02/07/2025 5:27 PM EDT [facility] Basophils Absolute 0.06 0.00 - 0.20 K/mcL LAB HEMETOLOGY METHOD 02/07/2025 5:27 PM EDT [facility] Immature Granulocytes Absolute 0.03 0.00 - 0.03 K/mcL LAB HEMETOLOGY METHOD 02/07/2025 5:27 PM EDT [facility] Blood Venous blood specimen / Unknown Venipuncture / Unknown 02/07/2025 4:54 PM EDT 02/07/2025 5:18 PM EDT us Wendie John MD LAB BLOOD ORDERABLES Final Result [facility] [address] [place] [address], * [place] CONTROL NOSEBLEED ANTERIOR SIMPLE, HC TREATMENT/PROCEDURE ENT (02/07/2025 4:49 PM EDT) Narrative Wendie John MD - 02/07/2025 4:49 PM EDT Wendie John MD 02/07/2025 6:12 PM Epistaxis Management Date/Time: 02/07/2025 4:49 PM Performed by: Wendie John MD Authorized by: Wendie John MD Consent: Consent obtained: Verbal Consent given by: Patient Risks, benefits, and alternatives were discussed: yes Risks discussed: Nasal injury and pain [place] protocol: Patient identity confirmed: Verbally with patient [...] IN CLINIC/BEDSIDE ORDERABLE S Final Result * [place] CRITICAL CARE 30-74 MINUTES (02/07/2025 2:55 PM [...] mmol/L LAB CHEMISTRY METHOD 01/03/2025 2:25 PM EDT [facility] Potassium 4.3 3.5 - 5.5 mmol/L LAB CHEMISTRY METHOD 01/03/2025 2:25 PM EDT [facility] Chloride 100 96 - 110 mmol/L LAB CHEMISTRY METHOD 01/03/2025 2:25 PM [facility] CO2 32 21 - 32 mmol/L LAB CHEMISTRY METHOD 01/03/2025 2:25 PM [facility] Anion Gap 7 3 - 11 LAB CHEMISTRY METHOD 01/03/2025 2:25 PM [facility] Glucose 66(L) 70 - 100 mg/dL LAB CHEMISTRY METHOD 01/03/2025 2:25 PM [facility] BUN 13 5 - 25 mg/dL LAB CHEMISTRY METHOD 01/03/2025 2:25 PM [facility] Creatinine 0.64 0.50 - 1.10 mg/dL LAB CHEMISTRY METHOD 01/03/2025 2:25 PM [facility] eGFR 87 >=60 mL/min/1. 73m2 LAB CHEMISTRY METHOD 01/03/2025 2:25 PM [facility] Comment:Calculation based on the Chronic Kidney Disease Epidemiology Collaboration (CKD-EPI) equation refit without adjustment for race. BUN/Creatinine Ratio 20.3 LAB CHEMISTRY METHOD 01/03/2025 2:25 PM [facility] Calcium 8.8 8.5 - 10.5 mg/dL LAB CHEMISTRY METHOD 01/03/2025 2:25 PM [facility] AST (SGOT) 30 10 - 42 unit/L LAB CHEMISTRY METHOD 01/03/2025 2:25 PM [facility] ALT (SGPT) 29 10 - 60 unit/L LAB CHEMISTRY METHOD 01/03/2025 2:25 PM [facility] Alkaline Phosphatase 58 42 - 121 unit/L LAB CHEMISTRY METHOD 01/03/2025 2:25 PM [facility] Total Protein 5.7(L) 6.0 - 8.0 g/dL LAB CHEMISTRY METHOD 01/03/2025 2:25 PM [facility] Albumin 3.1(L) 3.2 - 5.0 g/dL LAB CHEMISTRY METHOD 01/03/2025 2:25 PM EDT [facility] Total Bilirubin 0.5 0.0 - 1.4 mg/dL LAB CHEMISTRY METHOD 01/03/2025 2:25 PM EDT [facility] Blood Venous blood specimen / Unknown Venipuncture / Unknown 01/03/2025 5:49 AM EDT 01/03/2025 11:04 AM EDT us Deniz Duran MD LAB BLOOD ORDERABLES Final Resu lt [facility] [address] [place] [address], [place] [phone] * Magnesium (12/29/2024 6:30 AM EDT) Magnesium 2.1 1.9 - 2.6 mg/dL LAB CHEMISTRY METHOD 12/29/2024 11:26 AM EDT [facility] Blood Venous blood specimen / Unknown Venipuncture / Unknown 12/29/2024 6:30 AM EDT 12/29/2024 10:37 AM EDT us Donal SMITH LAB BLOOD ORDERABLES Final R esult [facility] [address] [place] [address], [place] [phone] * SHANNEN DEXA AXIAL SKELETON (10/19/2019 10:35 AM EDT) Anatomical Region Laterality Modality Mammography 10/19/2019 9:50 AM EDT Narrative 10/19/2019 10:[address] [facility] Diagnostic Imaging Department [address] [place] [address] Patient: RADHA SILVERMAN /Age/Sex: 1940 79 - F Unit#: [id number] Location/Status: SPDIMAM/REG CLI Mnemonic/Ordering Site: MAMDEXAAX/SPMAM Ordering Physician: YURI TURCIOS MD Shannen Dexa [...] probability of hip fracture of 24.6%. Code 00639 Dictating Physician: CHRISTIANO JOSEPH MD Electronically Signed by: CHRISTIANO JOSEPH MD Dic Date/Time: 10/19/19 1034 Sign date/Time: 10/19/19 1035 Procedure Note Christiano Joseph MD - 04/03/[address] [facility] Diagnostic Imaging Department [address] [place] [address] Patient: ADALIRADHA Tim Art./Age/Sex: 1940 79 - F Unit#: [id number] Location/Status: [facility] Mnemonic[facility] Ordering Physician: YURI TURCIOS MD [facility] Dexa Axial Skeleton - 10/19/19 - 1023 [...] density of the femurs bilaterally is 0.846 gm/kv7iobiq is 84% of that of young normals [...] probability of hip fracture of 24.6%. Code 35258 Dictating Physician: CHRISTIANO JOSEPH MD Electronically Signed by: CHRISTIANO JOSEPH MD Dic Date/Time: 10/19/19 1034 Sign date/Time: 10/19/19 1035 Yuri Turcios MD IMG BI PROCEDURES Final Res ult from Last 3 Months or Most Recently Relevant to Health Maintenance Insurance MEDICARE [facility] Advance Directives * No CPR/Do Not Intubate [...] currently active code status orders. Care Teams Bingo Attendant Relationship Specialty Start Date End Date Yuri Turcios MD [address] [place] [address] [place] [id number] PCP - General Internal Medicine 02/07/25
--- OUTSIDE RECORDS SUMMARY | 2025-03-24 22:59 | XMS_ITS | Encounter Summary ---
Author Organization [facility] Address [address] [place] [address] Care Team Providers Care Operations Controller Name Role Phone Grant Corley MD Primary Care Provider [phone] Encounter Details Date Type Department Care Team (Late st Contact Info) Description 12/29/2024 Lab Requisition [facility] Main Lab [address] [facility] [place] [address] Donal Rodriguez PA [address] [phone] Other supervisor type photography (current) drug therapy Social History Tobacco Use [...] DIFFERENTIAL Routine 12/29/2024 6:30 AM EDT Other penitentiary (current) drug therapy CBC AND DIFFERENTIAL Routine 12/29/2024 6:30 AM EDT Other supervisor type photography (current) drug therapy MAGNESIUM Routine 12/29/2024 6:30 AM EDT Other supervisor type photography (current) drug therapy COMPREHENSIVE METABOLIC PANEL Routine 12/29/2024 6:30 AM EDT Other supervisor type photography (current) drug therapy documented in this encounter Results * (ABNORMAL) CBC auto differential (12/29/2024 6:30 AM EDT) [facility] WBC 10.8 4.8 - 10.8 K/mcL LAB [facility] 5.10(H) 3.80 - 4.80 M/mcL LAB HEMETOLOGY METHOD 12/29/2024 10:59 AM [facility] Hemoglobin 14.8 11.5 - 16.0 g/dL LAB HEMETOLOGY METHOD 12/29/2024 10:59 AM [facility] Hematocrit 46.8 35.0 - 47.0 % LAB HEMETOLOGY METHOD 12/29/2024 10:59 [facility] MCV 92.3 79.0 - 98.0 FL LAB HEMETOLOGY METHOD 12/29/2024 10:59 AM [facility] MCH 29.2 27.0 - 32.0 pcg LAB HEMETOLOGY METHOD 12/29/2024 10:59 AM [facility] MCHC 31.6(L) 32.0 - 37.0 g/dL LAB HEMETOLOGY METHOD 12/29/2024 10:59 AM EDT [facility] RDW 14.1 11.0 - 15.0 % LAB HEMETOLOGY METHOD 12/29/2024 10:59 AM [facility] Platelets 210 130 - 400 K/mcL LAB HEMETOLOGY METHOD 12/29/2024 10:59 AM [facility] MPV 12.3(H) 7.0 - 11.0 FL LAB HEMETOLOGY METHOD 12/29/2024 10:59 AM [facility] NRBC 0.0 <1.0 % LAB HEMETOLOGY METHOD 12/29/2024 10:59 AM [facility] NRBC Absolute 0.00 <0.10 K/mcL LAB HEMETOLOGY METHOD 12/29/2024 10:59 AM [facility] Neutrophils Relative 46.1 % LAB HEMETOLOGY METHOD 12/29/2024 10:59 AM [facility] Lymphocytes Relative 37.7 % LAB HEMETOLOGY METHOD 12/29/2024 10:59 AM [facility] Monocytes Relative 8.2 % LAB HEMETOLOGY METHOD 12/29/2024 10:59 AM [facility] Eosinophils Relative 7.1 % LAB HEMETOLOGY METHOD 12/29/2024 10:59 AM [facility] Basophils Relative 0.7 % LAB HEMETOLOGY METHOD 12/29/2024 10:59 AM [facility] Immature Granulocytes Relative 0.2 % LAB HEMETOLOGY METHOD 12/29/2024 10:59 AM [facility] Neutrophils Absolute 4.99 1.50 - 7.00 K/mcL LAB HEMETOLOGY METHOD 12/29/2024 10:59 AM [facility] Lymphocytes Absolute 4.09 1.00 - 5.00 K/mcL LAB HEMETOLOGY METHOD 12/29/2024 10:59 AM [facility] Monocytes Absolute 0.89 0.20 - 1.00 K/mcL LAB HEMETOLOGY METHOD 12/29/2024 10:59 AM [facility] Eosinophils Absolute 0.77(H) 0.00 - 0.50 K/mcL LAB HEMETOLOGY METHOD 12/29/2024 10:59 AM [facility] Basophils Absolute 0.08 0.00 - 0.20 K/mcL LAB HEMETOLOGY METHOD 12/29/2024 10:59 AM EDT [facility] Immature Granulocytes Absolute 0.02 0.00 - 0.03 K/mcL LAB HEMETOLOGY METHOD 12/29/2024 10:59 AM EDT [facility] Blood Venous blood specimen / Unknown Venipuncture / Unknown 12/29/2024 6:30 AM EDT 12/29/2024 10:37 AM EDT Donal SMITH LAB BLOOD ORDERABLES Final R esult [facility] [address] [place] [address], [place] [phone] * Magnesium (12/29/2024 6:30 AM EDT) Magnesium 2.1 1.9 - 2.6 mg/dL LAB CHEMISTRY METHOD 12/29/2024 11:26 AM EDT [facility] Blood Venous blood specimen / Unknown Venipuncture / Unknown 12/29/2024 6:30 AM EDT 12/29/2024 10:37 AM EDT Donal SMITH LAB BLOOD ORDERABLES Final R esult [facility] [address] [place] [address], [place] [phone] * Comprehensive metabolic panel (12/29/2024 6:30 AM EDT) Sodium 139 133 - 145 mmol/L LAB CHEMISTRY METHOD 12/29/2024 11:29 AM EDT [facility] Potassium 4.1 3.5 - 5.5 mmol/L LAB CHEMISTRY METHOD 12/29/2024 11:29 AM EDT [facility] Chloride 102 96 - 110 mmol/L LAB CHEMISTRY METHOD 12/29/2024 11:29 AM [facility] CO2 30 21 - 32 mmol/L LAB CHEMISTRY METHOD 12/29/2024 11:29 AM [facility] Anion Gap 7 3 - 11 LAB CHEMISTRY METHOD 12/29/2024 11:29 AM [facility] Glucose 77 70 - 100 mg/dL LAB CHEMISTRY METHOD 12/29/2024 11:29 AM [facility] BUN 19 5 - 25 mg/dL LAB CHEMISTRY METHOD 12/29/2024 11:29 AM [facility] Creatinine 0.67 0.50 - 1.10 mg/dL LAB CHEMISTRY METHOD 12/29/2024 11:29 AM [facility] eGFR 86 >=60 mL/min/1. 73m2 LAB CHEMISTRY METHOD 12/29/2024 11:29 AM [facility] Comment:Calculation based on the Chronic Kidney Disease Epidemiology Collaboration (CKD-EPI) equation refit without adjustment for race. BUN/Creatinine Ratio 28.4 LAB CHEMISTRY METHOD 12/29/2024 11:29 AM [facility] Calcium 8.7 8.5 - 10.5 mg/dL LAB CHEMISTRY METHOD 12/29/2024 11:29 AM [facility] AST (SGOT) 28 10 - 42 unit/L LAB CHEMISTRY METHOD 12/29/2024 11:29 AM [facility] ALT (SGPT) 26 10 - 60 unit/L LAB CHEMISTRY METHOD 12/29/2024 11:29 AM [facility] Alkaline Phosphatase 67 42 - 121 unit/L LAB CHEMISTRY METHOD 12/29/2024 11:29 AM [facility] Total Protein 6.2 6.0 - 8.0 g/dL LAB CHEMISTRY METHOD 12/29/2024 11:29 AM [facility] Albumin 3.3 3.2 - 5.0 g/dL LAB CHEMISTRY METHOD 12/29/2024 11:29 AM EDT [facility] Total Bilirubin 0.5 0.0 - 1.4 mg/dL LAB CHEMISTRY METHOD 12/29/2024 11:29 AM EDT [facility] Blood Venous blood specimen / Unknown Venipuncture / Unknown 12/29/2024 6:30 AM EDT 12/29/2024 10:37 AM EDT us Donal SMITH LAB BLOOD ORDERABLES Final R esult [facility] [address] [place] [address], documented in this encounter Visit Diagnoses Diagnosis Other supervisor type photography (current) drug therapy documented in this encounter Care Teams Operations Controller Relationship Specialty Start Date End Date Grant Corley MD [address] [place] [address] Drive [address] [place] [address] PCP - General Internal Medicine 02/07/25 documented as of this encounter
--- OUTSIDE RECORDS SUMMARY | 2025-03-24 22:59 | XMS_ITS | Patient Health Record ---
Author Organization Grant Corley MD Address [address] [place], [place] [id number] Care Team Providers Care Folding Machine Feeder Name Role Phone Grant Corley Primary Care Provider Allergies No Known Allergies Results Component Value Reference Range Notes Liver Panel Reviewed date:06/28/2024 04:21:08 PM Interpretation: Performing Lab:[facility], [address] [place] [phone] Notes/Report: Bilirubin Total 0.6 0.0-1.0 mg/dL Bilirubin Direct 0.2 0.0-0.5 mg/dL Aspartate Amino Transferase 33 5-31 U/L Alanine Aminotransferase 17 0-31 U/L Total Protein 7.1 6.5-8.0 g/dL Albumin Level 3.9 3.5-5.0 g/dL Alkaline Phosphatase 69 39-117 U/L Lipid Panel with Reflex Reviewed date:06/28/2024 04:21:39 PM Interpretation: Performing Lab:[facility], [address] [place] [address] Notes/Report: Triglycerides 76 <150 mg/dL Desirable Triglyceride: [...] Jimenes Reviewed date:06/28/2024 11:59:55 AM Interpretation: Performing Lab:[facility], [address] [place] [address] Notes/Report: Rivka Jimenes See Note Specimen held untested for 24 hours; Call to request Chemistry testing. Complete Blood Count Auto Di ff Reviewed date:12/26/2024 05:41:47 PM Interpretation: Performing Lab:[facility], [address] [place] [address] Notes/Report: White Blood Count 10.0 4.8-10.8 X10*3/uL [...] INR Reviewed date:12/26/2024 05:39:16 PM Interpretation: Performing Lab:[address] [address] Notes/Report: Prothrombin Time 11.6 10.9-12.4 [employer] [...] Panel Reviewed date:12/26/2024 05:35:28 PM Interpretation: Performing Lab:[address] [address] Notes/Report: Sodium 141 135-145 mmol/L Potassium 4.1 [...] Magnesium Reviewed date:12/26/2024 05:34:36 PM Interpretation: Performing Lab:[facility], [address] [place] [address] Notes/Report: Magnesium 1.9 1.6-2.6 mg/dL Troponin-I High Sensitivity Reviewed date:12/26/2024 05:34:15 PM Interpretation: Performing Lab:[facility], [address] [place] [address] Notes/Report: Troponin-I High Sensitivity 5.3 <3.5-17.0 ng/L The [place] high sensitivity Troponin-I results should be used in conjunction with other diagnostic information such as ECG, clinical observations and information, and patient symptoms to aid in the diagnosis of IL. B Type Natriuretic Peptide Reviewed date:12/26/2024 05:33:21 PM Interpretation: Performing Lab:[facility], [address] [place] [address] Notes/Report: B Type Natriuretic Peptide 117 <100 pg/mL COVID-19 ID NOW ([place]) Reviewed date:12/26/2024 05:34:26 PM Interpretation: Performing Lab:[facility], [address] [place] [address] Notes/Report: IDNOW Serial# [id number] COVID-19 Test Negative Negative COVID-19 Note See [...] with other viruses. Testing facilities within the [facility] and its territories are required to [...] by authorized laboratories. Testing performed on the [employer] ID NOW utilizing NAAT. Venous Blood Gases - POC Reviewed date:12/26/2024 05:39:26 PM Interpretation: Performing Lab:[address] [address] Notes/Report: VBG pH 7.42 7.32-7.43 METER #: [id number] additional_comment: Cb yinaelef VBG pCO2 44 METER #: [id number] additional_comment: Cb yinaelef VBG pO2 40 METER #: [id number] additional_comment: Cb yinaelef VBG Base Excess 3.6 METER #: [id number] additional_comment: Cb yinaelef VBG HCO3 28 22-26 mmol/L METER #: [id number] additional_comment: Cb yinaelef VBG O2 % Saturation 64.0 METER #: [id number] additional_comment: Silas christoph Influenza A B2 ID NOW (Abbot t) Reviewed date:12/26/2024 05:42:00 PM Interpretation: Performing Lab:[address] [address] Notes/Report: IDNOW Serial# [id number] Influenza A Negative Negative Influenza B2 Negative [...] date:12/26/2024 05:34:05 PM Interpretation: Performing Lab: Notes/Report: [address] [address] XRay Report Signed Patient: Radha Silverman MR#: [id number] 1466 : 1940 Acct:[id number] Age/Sex: 84 / F ADM Date: 12/25/24 Loc: .ED Attending Dr: Ordering Physician: Evita Arthur Date of Service: 12/25/24 Procedure(s): XR chest 2V Accession Number(s): [id number] cc: Grant Corley MD; Evita Arthur Reason [...] 12/25/24 1401 DD/ 1400 TD/TT: 12/25/24 1400 Manager Call: [address] [address] XRay Report Signed Patient: Christa Silverman MR#: [id number] 1466 : 1940 Acct:[id number] Age/Sex: 84 / F ADM Date: 12/25/24 Loc: HO.ED Attending Dr: Ordering Physician: Evita Arthur Date of Service: 12/25/24 Procedure(s): XR guido st 2V Accession Number(s): [id number] cc: Grant Corley MD; Evita Arthur Reason [...] 12/25/24 1401 DD/ 1400 TD/TT: 12/25/24 1400 Manager Call: CT chest wo con Reviewed date:03/09/2025 05:03:35 PM Interpretation: Performing Lab: Notes/Report: [address] [address] [address] Scan Report Signed Patient: Radha Silverman MR#: [id number] 1466 : 1940 Acct:[id number] Age/Sex: 85 / F ADM Date: 03/08/25 Loc: HO.CT Attending Dr: Abrahan Bautista MD Ordering Physician: Abrahan Bautista MD Date of Service: 03/08/25 Procedure(s): CT chest wo IV con Accession Number(s): [id number] cc: Abrahan Bautista MD; Grant Corley MD Report Number: [id number]: Total DLP = 73.00 mGy-cm Reason for [...] by: Rick Huang MD 03/08/2025 04:59 PM [facility] Dictated By: Rick Huang MD Signed By: <Electronically signed by Rick Huang MD in OV> 03/08/25 1659 DD/ 1631 TD/TT: 03/08/25 1642 Manager Call: [address] [address] [address] Scan Report Signed Patient: Christa Silverman MR#: [id number] 1466 : 1940 Acct:[id number] Age/Sex: 85 / F ADM Date: 03/08/25 Loc: HO.CT Attending Dr: Dania Bautista MD Ordering Physician: Abrahan Bautista MD Date of Service: 03/08/25 Procedure(s): CT guido st wo IV con Accession Number(s): [id number] cc: Abrahan Bautista MD; Grant Corley MD Report Number: [id number]: Total DLP = 73.00 mGy-cm Reason for [...] 03/08/25 1659 DD/ 1631 TD/TT: 03/08/25 1642 Manager Call: Reason For Referral No Information Medications Medication [...] Status Risk Notes Problem Carotid artery disease (121946197) Carotid artery disease (447.9) Active confirmed Problem 58866042 Lymphocytosis (D72.820) Active confirm ed Problem Insomnia (785475776) Insomnia (G47.00) Active confirmed Problem 01736425 Vitamin D defici ency (E55.9) Active confirmed Problem 6310997 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) Active confirmed Problem 46250517 Essential hypert ension (I10) Active confirmed Problem 1570794 Prediabetes (R73.09) Active confirmed Problem 91232368 RBBB (I45.10) Active confirmed Problem 960804067 History of hemat uria (Z87.448) Active confirmed Problem 495199741 Esophageal dysmo tility (K22.4) Active confirmed Problem 26208340 Dysthymia (F34.1) Active confirmed Problem 08075249 Carotid stenosis (I65.29) Active confirmed Problem 330774787 Pure hypercholesterolemia (E78.00) Active confirmed Problem 48362063 Pulmonary fibros is (J84.10) Active confirmed Problem 104324098 Osteopenia deter mined by x-ray (M85.80) Active confirmed Problem 451269732 Chronic insomnia (F51.04) Active confirmed Problem 851452914 Seasonal allergi c rhinitis, unspecified trigger (J30.2) Active confirmed Problem 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) (0541836635048 9102) Bed sore on buttock, right, unstageable (L89.310) Active confirmed Problem 346323458 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) Active confirmed [...] Grant Corley MD [address] [place] [id number] 06/28/2024 Grant Corley Pure hypercholestero lemia E78.00 Grant Corley MD [address] [place] [id number] 07/05/2024 Grant Corley Esophageal dysmotili ty K22.4 ; Insomnia G47.00 and Herpes B00.9 Grant Corley MD [address] [place] [id number] 01/14/2025 Grant Corley Essential hypertensi on I10 ; Idiopathic interstitial fibrosis J84.112 ; Bed sore on buttock, right, unstageable L89.310 and Encounter for administration of vaccine Z23 Grant Corley MD [address] [place] [id number] 04/15/2024 Grant Corley Esophageal dysmotili ty K22.4 Grant Corley MD [address] [place] [address] [id number] 06/01/2024 Grant Corley Herpes B00.9 Grant Corley MD [address] [place] [id number] 12/20/2024 Grant Corley Insomnia G47.00 Grant Corley MD [address] [place] [id number] 12/23/2024 Grant Corley MD [address] [place] [address] [id number] 01/10/2025 Grant Corley MD [address] [place] [address] [id number] 02/03/2025 Grant Corley MD [address] [place] [address] [id number] 02/07/2025 Grant Corley MD [address] [place] [address] [id number] 02/07/2025 Grant Corley MD [address] [place] [address] [id number] 02/08/2025 Grant Corley MD [address] [place] [address] [id number] 2025 Grant Corley MD [address] [place] [address] [id number] 02/24/2025 Grant Corley Assessments Encounter Date Diagnosis (ICD Code) Assessment Notes Treatment Notes Treatment Clinical Notes Section Notes 06/28/2024 Pure hypercholesterolemia (ICD-10 - E78.00) 07/05/2024 Esophageal dysmotili ty (ICD-10 - K22.4) [...] SCREEN 05/12 Next Appt Details Provider Name:Grant paulr, 04/18/2025 10:00:00 AM, [address] [place] [address] Drive, [address], [place], [place], [id number], Insurance Providers Payer Name Payer Address Payer Phone Subscriber Number Group Number Insured Name Patient Relationship to Insured Coverage Start Date Coverage End Date [employer] [address] [place] [address] [id number] [place] Radha Self - patient is the insured [facility] [address] [place] [phone] [id number] [place] Radha Self - patient is the insured Medical (General) History Medical History History ICD Code hematuria worked up by dr cantrell 2006 esophageal dysmotility 201012/19/2010 Colonoscopy has [facility] appt in May Hannah Calderón Cas.
--- OUTSIDE RECORDS SUMMARY | 2025-03-24 22:59 | XMS_ITS | Encounter Summary ---
Author Organization [facility] Address [address] [place] [address] Care Team Providers Care Lumber Sticker Name Role Phone Grant Corley MD Primary Care Provider [phone] Encounter Details Date Type Department Care Team (Late st Contact Info) Description 01/03/2025 Lab Requisition [facility] [address] [facility] [place] [address] Deniz Duran MD [address] [place] [address] Encounter for other general examination Social History [...] CBC auto differential (01/03/2025 5:49 AM EDT) [facility] WBC 9.1 4.8 - 10.8 K/mcL LAB HEMETOLOGY METHOD 01/03/2025 12:10 PM [facility] RBC 4.80 3.80 - 4.80 M/mcL LAB HEMETOLOGY METHOD 01/03/2025 12:10 PM [facility] Hemoglobin 14.5 11.5 - 16.0 g/dL LAB HEMETOLOGY METHOD 01/03/2025 12:10 PM [facility] Hematocrit 45.4 35.0 - 47.0 % LAB HEMETOLOGY METHOD 01/03/2025 12:10 PM [facility] MCV 94.2 79.0 - 98.0 FL LAB HEMETOLOGY METHOD 01/03/2025 12:10 PM [facility] MCH 30.1 27.0 - 32.0 pcg LAB HEMETOLOGY METHOD 01/03/2025 12:10 PM [facility] MCHC 31.9(L) 32.0 - 37.0 g/dL LAB HEMETOLOGY METHOD 01/03/2025 12:10 PM [facility] RDW 13.9 11.0 - 15.0 % LAB HEMETOLOGY METHOD 01/03/2025 12:10 PM [facility] Platelets 186 130 - 400 K/mcL LAB HEMETOLOGY METHOD 01/03/2025 12:10 PM [facility] MPV 12.3(H) 7.0 - 11.0 FL LAB HEMETOLOGY METHOD 01/03/2025 12:10 PM [facility] NRBC 0.0 <1.0 % LAB HEMETOLOGY METHOD 01/03/2025 12:10 PM [facility] NRBC Absolute 0.00 <0.10 K/mcL LAB HEMETOLOGY METHOD 01/03/2025 12:10 PM EDT [facility] Neutrophils Relative 43.4 % LAB HEMETOLOGY METHOD 01/03/2025 12:10 PM [facility] Lymphocytes Relative 39.1 % LAB [facility]OLOG[facility] Monocytes Relative 9.4 % LAB HEMETOLOGY METHOD 01/03/2025 12:10 PM [facility] Eosinophils Relative 7.2 % LAB HEMETOLOGY METHOD 01/03/2025 12:10 PM [facility] Basophils Relative 0.7 % LAB HEMETOLOGY METHOD 01/03/2025 12:10 PM [facility] Immature Granulocytes Relative 0.2 % LAB HEMETOLOGY METHOD 01/03/2025 12:10 PM [facility] Neutrophils Absolute 3.96 1.50 - 7.00 K/mcL LAB HEMETOLOGY METHOD 01/03/2025 12:10 PM [facility] Lymphocytes Absolute 3.57 1.00 - 5.00 K/mcL LAB HEMETOLOGY METHOD 01/03/2025 12:10 PM [facility] Monocytes Absolute 0.86 0.20 - 1.00 K/mcL LAB HEMETOLOGY METHOD 01/03/2025 12:10 PM [facility] Eosinophils Absolute 0.66(H) 0.00 - 0.50 K/mcL LAB HEMETOLOGY METHOD 01/03/2025 12:10 PM [facility] Basophils Absolute 0.06 0.00 - 0.20 K/mcL LAB HEMETOLOGY METHOD 01/03/2025 12:10 PM [facility] Immature Granulocytes Absolute 0.02 0.00 - 0.03 K/mcL LAB HEMETOLOGY METHOD 01/03/2025 12:10 PM EDT [facility] Blood Venous blood specimen / Unknown Venipuncture / Unknown 01/03/2025 5:49 AM EDT 01/03/2025 11:04 AM EDT us Deniz Duran MD LAB BLOOD ORDERABLES Final Resu lt [facility] [address] [place] [address], [place] [phone] * (ABNORMAL) Comprehensive metabolic panel (01/03/2025 5:49 AM EDT) Sodium 139 133 - 145 mmol/L LAB CHEMISTRY METHOD 01/03/2025 2:25 PM [facility] Potassium 4.3 3.5 - 5.5 mmol/L LAB CHEMISTRY METHOD 01/03/2025 2:25 PM [facility] Chloride 100 96 - 110 mmol/L LAB CHEMISTRY METHOD 01/03/2025 2:25 PM [facility] CO2 32 21 - 32 mmol/L LAB CHEMISTRY METHOD 01/03/2025 2:25 PM [facility] Anion Gap 7 3 - 11 LAB CHEMISTRY METHOD 01/03/2025 2:25 PM [facility] Glucose 66(L) 70 - 100 mg/dL LAB CHEMISTRY METHOD 01/03/2025 2:25 PM [facility] BUN 13 5 - 25 mg/dL LAB CHEMISTRY METHOD 01/03/2025 2:25 PM [facility] Creatinine 0.64 0.50 - 1.10 mg/dL LAB CHEMISTRY METHOD 01/03/2025 2:25 PM [facility] eGFR 87 >=60 mL/min/1. 73m2 LAB CHEMISTRY METHOD 01/03/2025 2:25 PM [facility] Comment:Calculation based on the Chronic Kidney Disease Epidemiology Collaboration (CKD-EPI) equation refit without adjustment for race. BUN/Creatinine Ratio 20.3 LAB CHEMISTRY METHOD 01/03/2025 2:25 PM EDT [facility] Calcium 8.8 8.5 - 10.5 mg/dL LAB CHEMISTRY METHOD 01/03/2025 2:25 PM EDT [facility] AST (SGOT) 30 10 - 42 unit/L LAB CHEMISTRY METHOD 01/03/2025 2:25 PM EDT [facility] ALT (SGPT) 29 10 - 60 unit/L LAB CHEMISTRY METHOD 01/03/2025 2:25 PM EDT [facility] Alkaline Phosphatase 58 42 - 121 unit/L LAB CHEMISTRY METHOD 01/03/2025 2:25 PM EDT [facility] Total Protein 5.7(L) 6.0 - 8.0 g/dL LAB CHEMISTRY METHOD 01/03/2025 2:25 PM EDT [facility] Albumin 3.1(L) 3.2 - 5.0 g/dL LAB CHEMISTRY METHOD 01/03/2025 2:25 PM EDT [facility] Total Bilirubin 0.5 0.0 - 1.4 mg/dL LAB CHEMISTRY METHOD 01/03/2025 2:25 PM EDT [facility] Blood Venous blood specimen / Unknown Venipuncture / Unknown 01/03/2025 5:49 AM EDT 01/03/2025 11:04 AM EDT us Deniz Duran MD LAB BLOOD ORDERABLES Final Resu lt [facility] [address] [place] [address], documented in this encounter Visit Diagnoses Diagnosis Encounter for other general examination documented in this encounter Care Teams Lumber Sticker Relationship Specialty Start Date End Date Grant Corley MD [address] [place] [address] [phone] PCP - General Internal Medicine 02/07/25 documented as of this encounter
--- OUTSIDE RECORDS SUMMARY | 2025-03-24 22:59 | XMS_ITS | Clinical Summary ---
Author Organization [facility] Address [address] [address] Phone Care Team Providers Care Infection Preventionist Name Role Phone Grant Corley MD Primary [...] file Insurance MEDICARE PART A & B [facility] MEDICARE SUPPLEMENT MEDICARE PART A & B [employer] MED[employer]ARE SUPPLEMENT MEDICARE PART A & B [employer] MED[employer]ARE SUPPLEMENT MEDICARE PART A & B [place] MED[employer]ARE SUPPLEMENT MEDICARE PART A & B [facility] [employer] MEDICARE SUPPLEMENT MEDICARE PART A & B [facility] MEDICARE SUPPLEMENT Care Teams Infection Preventionist Relationship Specialty Start Date End Date Grant Corley MD [address] [place] [address] [place] [address] PCP - General Internal Medicine 08/05/22 Additional Source Comments The information contained in this document represents components of the legal health record. It is not the complete legal health record.[facility]
--- OUTSIDE RECORDS SUMMARY | 2025-03-24 23:00 | XMS_ITS | Patient Health Record ---
Author Organization [facility] Address [address] [place] [address] Care Team Providers Care Surgical Services Manager Name Role Phone Grant Corley MD Primary Care Provider Arnie Montano Unavailable [phone] Allergies Allergen (clinical drug ingredient) Drug/Non Drug [...] Active Lipitor 10 MG Orally Active Glucosamine-Chondroitin 9855-1606 MG/30ML 30 ounces after a meal Orally [...] Status Risk Notes Problem Pain in limb (38367037) Pain in unspecified foot (M79.673) Active confirmed Problem Acquired hammer toe of right foot (462609334114 9105) Other hammer toe(s) (acquired), right foot (M20.41) Active confirmed Problem Acquired hammer toe of left foot (351385033054 9103) Other hammer toe(s) (acquired), left foot (M20.42) Active confirmed Plan Of Treatment Pending Test Test Name Order Date X ray : Foot, right 3V 03/17/2017 [id number] Plate 08/21/2011 [id number] Plate 12/11/2011 Insurance Providers Payer Name Payer Address Payer Phone Subscriber Number Group Number Insured Name Patient Relationship to Insured Coverage Start Date Coverage End Date Medicare [employer] [address] [facility] [place] [address] [id number] Radha Silverman Self - patient is the insured [employer] ([facility]) [address] [place] [address] [id number] Radha Silverman Self - patient is the insured Medical (General) History Medical History History ICD Code osteoarthritis broken bones cataracts glaucoma headaches/migraines sinus conditions measles chicken pox Back,Hip,and Knee pain Surgical History Surgery Date(Month/Year) cataract surgery 2002, 2003 iridectomy 2000, 2001 tridotomies 2000,2001 osseous surgeries 1979,1999
--- OUTSIDE RECORDS SUMMARY | 2025-05-09 19:00 | XMS_ITS | Clinical Summary ---
Author Organization Unknown Care Team Providers Care Spear Fisher Name Role Phone TAM JUAREZ, YURI Unavailable Unavailable SHELIA COOPER OT Unavailable Unavailkristian BARRAGAN PT, BERTIN Unavailable Unavailable SHON MEYERNEDILIA Unavailable Unavailable ANA RN, ZAYRA Unavailable Unavailable Payers Payer Name Policy Type Policy Number Effective Date Expira tion Date MEDICARE - [facility] [place] [id number] Problems Condition Name Condition Details Condition Category [...] OF NICOTINE DEPENDENCE Active 04-14 00:00: 00 PRE CODER (CURRENT) USE OF ASPIRIN Active 04-14 00:00: 00 OTHER SKILLED NURSING (CURRENT) DRUG THERAPY Active 04-14 00:00: 00 [...] 1 mg tablet 5-05 00:00: 00 Yes [id number] 0.5 tablet BEDTIME 0.5 tablet BEDTIME (route: oral) Med Classific ation: Central Nervous System Agents aspirin 81 mg tablet,raya yed release 5-12 00:00: 00 02-08 23:59 :00 No [id number] 1 tablet DAILY 1 tablet DAILY (route: oral) Med Classific ation: Hematolog ical Agents atorvastati n 20 mg tablet 5-05 00:00: 00 Yes [id number] 1 tablet BEDTIME 1 tablet BEDTIME (route: oral) Med Classific ation: Cardiovas cular Therapy Agents cetirizine 10 mg tablet 6-02 00:00: 00 Yes [id number] 1 tablet DAILY 1 tablet DAILY (route: oral) Med Classific ation: Respirato ry Therapy Agents cholecalcif ronnie (vitamin D3) 25 mcg (1,000 unit) capsule 2-03 00:00: 00 Yes [id number] 1 capsule DAILY 1 capsule DAILY (route: oral) Med Classific ation: Electroly te Balance-N utritiona l Products Flonase Allergy Relief 50 mcg/actuati on nasal spray,suspe nsion 3-03 00:00: 00 Yes [id number] 2 spray DAILY 2 spray DAILY (route: nasal) Med Classific ation: Respirato ry Therapy Agents Mucinex 600 mg tablet, extended release 7-07 00:00: 00 Yes [id number] 1 tablet 2 TIMES DAILY 1 tablet 2 TIMES DAILY (route: oral) Med Classific ation: Respirato ry Therapy Agents naproxen 375 mg tablet 4-07 00:00: 00 02-08 23:59 :00 No [id number] 1 tablet 2 TIMES DAILY 1 tablet 2 TIMES DAILY (route: oral) Med Classific ation: Analgesic , Anti-infl ammatory or Antipyret ic oxygen gas for inhalation 2-03 00:00: 00 Yes [id number] 3 Liter O2 - CONTINUOUS 3 Liter O2 - CONTINUOUS (route: inhalation ) Med Classific ation: Medical Supplies and Durable Medical Equipment (DME) pantoprazol e 40 mg tablet,raya yed release 4-07 00:00: 00 Yes [id number] 1 tablet DAILY 1 tablet DAILY (route: oral) Med Classific ation: Gastroint estinal Therapy Agents raloxifene 60 mg tablet 5-05 00:00: 00 Yes [id number] 1 tablet DAILY 1 tablet DAILY (route: oral) Med Classific ation: Endocrine Valtrex 500 mg tablet 01-09 00:00: 00 01-15 23:59 :00 No [id number] 1 tablet 3 TIMES DAILY 1 tablet 3 TIMES DAILY (route: oral) Med Classific ation: Anti-Infe ctive Agents Simply Saline 0.9 % nasal spray aerosol 2024-04 00:00: 00 Yes [id number] Per instruc tions DIRECTED Per instructio ns DIRECTED (route: nasal) Med Classific ation: Respirato ry Therapy Agents valacyclovi r 1 gram tablet 2024-0414 00:00: 00 03-04 23:59 :00 No [id number] 1 tablet 3 TIMES DAILY 1 tablet 3 TIMES DAILY (route: oral) Med Classific ation: Anti-Infe ctive Agents Immunizations Ordered Immunization Name Filled Immunization Name Date Status Comments Refusal Reason INFLUENZA, TIV (INACTIVATED) 2025-01-14 00:00:00 COVID BOOSTER, COVID BOOSTER 2024-07-20 00:00:00 Vital Signs Vital Name Observation Time Observation Value Commen ts Temperature 2025-03-23 13:34:00.000 97.5 [degF] Pulse 2025-03-23 13:34:00.000 84 /min O2 Saturation (%) 2025-03-23 13:48:00.000 90 % O2 Saturation (%) 2025-03-23 13:34:00.000 96 % Respirations 2025-03-23 13:34:00.000 20 /min Systolic Blood Pressure 2025-03-23 13:44:00.000 103 mm [Hg] Diastolic Blood Pressure 2025-03-23 13:44:00.000 63 mm [Hg] Plan of Treatment Planned Activity Planned Date Details Comments Future Scheduled Test PHYSICAL T HERAPIST TO EVALUATE PATIENT SECONDARY TO FUNCTIONAL DEFICITS/SAFETY CONCERNS. [code = PHYSICAL THERAPIST TO EVALUATE PATIENT SECONDARY TO FUNCTIONAL DEFICITS/SAFETY CONCERNS.] Future Scheduled Test SUMMARY OF THERAPY EVAL/ASSESSMENT FINDINGS AND REASON(S) SKILLS OF A THERAPIST ARE INDICATED: 03/16: PATIENT SEEN FOR RECERTIFICATION FOR ADDITIONAL HOME THERAPY VISITS. DENIES FALLS SINCE PRIOR VISIT. MEDICATIONS RECONCILED, PATIENT IS TAKING VALTREX 1 MG TABLET DAILY -NEEDED FOR SHINGLES RELATED PAIN AND STARTED TAKING YESTERDAY. PATIENT REPORTING COCCYX PAIN 2-3/10 AT REST BUT CAN INCREASE TO 5/10. PATIENT REPORTS THAT SHE HAS BEEN INTERMITTENTLY COMPLIANT WITH THERAPY RECOMMENDATIONS AND PT PLAN OF CARE, REPORTS DIFFICULTY WITH CONSISTENT PERFORMANCE SECONDARY TO PAIN LEVELS AND FATIGUE. EDUCATED PATIENT ON CONTINUED USE OF VALTREX UNTIL SYMPTOM IMPROVEMENT IS ACHIEVED, REVIEWED SACRAL/COCCYX UNLOADING TECHNIQUES FOR AVOIDING POSTERIOR PELVIC TILT AND SITTING POSITIONS AND TO AVOID EXCESSIVE HIP FLEXION, REVIEWED WITH PATIENT Q.2 H. POSITION CHANGES FOR SKIN PROTECTION. SACRUM AND COCCYX AND VISUALLY INSPECTED, NO WOUNDS ON ASSESSMENT. PATIENT REPORTS THAT SHE HAS BEEN PERFORMING HEP 1-2 TIMES A WEEK HOWEVER REPORTS THAT SHE WILL INCREASE HER CONSISTENCY PAIN LEVELS IMPROVE. PATIENT CONTINUES TO DEMONSTRATE ELEVATED RISK FOR FALLS AND POTENTIAL REHOSPITALIZATION, PATIENT REQUIRES HANDS ON PHYSICAL ASSISTANCE TO ENTER AND EXIT HER HOME, REQUIRES CGA TO MIN ASSIST X1 FOR STAIR NAVIGATION TODAY, ABLE TO PARTICIPATE AND STAIR TRAINING SINGLE STEP UPS X5 REPETITIONS REPEATED FOR 3 SETS, VERBAL/TACTILE CUES REQUIRED FOR PURSED LIP BREATHING AND APPROPRIATE LOWER EXTREMITY POSITIONING AND UPPER EXTREMITY PLACEMENT PRIOR TO INITIATING STAIR NAVIGATION. PATIENT REQUIRED SEATED REST BREAK BETWEEN EACH SET FOR 2-3 MINUTES, RPE 14-15/20. PATIENT DEMONSTRATES DIFFICULTY WITH AMBULATING HOUSEHOLD DISTANCES EVIDENCED BY TUG SCORE GREATER THAN 30 SECONDS, FUNCTIONAL LOWER EXTREMITY STRENGTH AND ELEVATED RISK FOR FALLS EVIDENCED BY 30 SECOND [id number] LESS THAN 8 REPETITIONS, AND IMPAIRED DYNAMIC STANDING BALANCE/ELEVATED RISK FOR FALLS EVIDENCED BY TINETTI SCORE LESS THAN 19/30. PATIENT WILL REQUIRE HOME PT SERVICES IN ORDER TO MAXIMIZE CURRENT LEVEL OF FUNCTION AND INDEPENDENCE WHILE PATIENT TO SAFELY ACCESS AND NAVIGATE HER HOME ENVIRONMENT. WILL PLAN FOR PT PLAN OF CARE 1 TIME A WEEK FOR NEXT 8 WEEKS. VERBAL ORDER RECEIVED FROM MINERVA AT OFFICE FOR PT PLAN OF CARE [code = SUMMARY OF THERAPY EVAL/ASSESSMENT FINDINGS AND REASON(S) SKILLS OF A THERAPIST ARE INDICATED: 03/16: PATIENT SEEN FOR RECERTIFICATION FOR ADDITIONAL HOME THERAPY VISITS. DENIES FALLS SINCE PRIOR VISIT. MEDICATIONS RECONCILED, PATIENT IS TAKING VALTREX 1 MG TABLET DAILY -NEEDED FOR SHINGLES RELATED PAIN AND STARTED TAKING YESTERDAY. PATIENT REPORTING COCCYX PAIN 2-3/10 AT REST BUT CAN INCREASE TO 5/10. PATIENT REPORTS THAT SHE HAS BEEN INTERMITTENTLY COMPLIANT WITH THERAPY RECOMMENDATIONS AND PT PLAN OF CARE, REPORTS DIFFICULTY WITH CONSISTENT PERFORMANCE SECONDARY TO PAIN LEVELS AND FATIGUE. EDUCATED PATIENT ON CONTINUED USE OF VALTREX UNTIL SYMPTOM IMPROVEMENT IS ACHIEVED, REVIEWED SACRAL/COCCYX UNLOADING TECHNIQUES FOR AVOIDING POSTERIOR PELVIC TILT AND SITTING POSITIONS AND TO AVOID EXCESSIVE HIP FLEXION, REVIEWED WITH PATIENT Q.2 H. POSITION CHANGES FOR SKIN PROTECTION. SACRUM AND COCCYX AND VISUALLY INSPECTED, NO WOUNDS ON ASSESSMENT. PATIENT REPORTS THAT SHE HAS BEEN PERFORMING HEP 1-2 TIMES A WEEK HOWEVER REPORTS THAT SHE WILL INCREASE HER CONSISTENCY PAIN LEVELS IMPROVE. PATIENT CONTINUES TO DEMONSTRATE ELEVATED RISK FOR FALLS AND POTENTIAL REHOSPITALIZATION, PATIENT REQUIRES HANDS ON PHYSICAL ASSISTANCE TO ENTER AND EXIT HER HOME, REQUIRES CGA TO MIN ASSIST X1 FOR STAIR NAVIGATION TODAY, ABLE TO PARTICIPATE AND STAIR TRAINING SINGLE STEP UPS X5 REPETITIONS REPEATED FOR 3 SETS, VERBAL/TACTILE CUES REQUIRED FOR PURSED LIP BREATHING AND APPROPRIATE LOWER EXTREMITY POSITIONING AND UPPER EXTREMITY PLACEMENT PRIOR TO INITIATING STAIR NAVIGATION. PATIENT REQUIRED SEATED REST BREAK BETWEEN EACH SET FOR 2-3 MINUTES, RPE 14-15/20. PATIENT DEMONSTRATES DIFFICULTY WITH AMBULATING HOUSEHOLD DISTANCES EVIDENCED BY TUG SCORE GREATER THAN 30 SECONDS, FUNCTIONAL LOWER EXTREMITY STRENGTH AND ELEVATED RISK FOR FALLS EVIDENCED BY 30 SECOND [id number] LESS THAN 8 REPETITIONS, AND IMPAIRED DYNAMIC STANDING BALANCE/ELEVATED RISK FOR FALLS EVIDENCED BY TINETTI SCORE LESS THAN 19/30. PATIENT WILL REQUIRE HOME PT SERVICES IN ORDER TO MAXIMIZE CURRENT LEVEL OF FUNCTION AND INDEPENDENCE WHILE PATIENT TO SAFELY ACCESS AND NAVIGATE HER HOME ENVIRONMENT. WILL PLAN FOR PT PLAN OF CARE 1 TIME A WEEK FOR NEXT 8 WEEKS. VERBAL ORDER RECEIVED FROM MINERVA AT OFFICE FOR PT PLAN OF CARE] Future Scheduled Test PHYSICAL T HERAPIST TO ASSESS BEST PRACTICE INTERVENTIONS TO ASSIST PATIENTS TO IMPROVE OR STABILIZE MEDICAL STATUS AND PREVENT RE-HOSPITALIZATION. MEASURES INCLUDING REVIEW AND IDENTIFICATION OF CONCERNS FOR THE FOLLOWING AREAS: PAIN, AND DISEASE MANAGEMENT. [code = PHYSICAL THERAPIST TO ASSESS BEST PRACTICE INTERVENTIONS TO ASSIST PATIENTS TO IMPROVE OR STABILIZE MEDICAL STATUS AND PREVENT RE-HOSPITALIZATION. MEASURES INCLUDING REVIEW AND IDENTIFICATION OF CONCERNS FOR THE FOLLOWING AREAS: PAIN, AND DISEASE MANAGEMENT.] Future Scheduled Test THERAPIST TO REVIEW PATIENT MEDICATIONS (PRESCRIPTION/OTC). INSTRUCT PATIENT/CAREGIVER ON ALL MEDICATIONS INCLUDING PURPOSE, WHEN TO TAKE, IMPORTANCE OF MEDICATION ADHERENCE, MONITORING OF EFFECTIVENESS, ADVERSE DRUG EVENTS, POSSIBLE SIDE EFFECTS, AND WHEN TO NOTIFY AGENCY OR PHYSICIAN/PROVIDER OF ANY CONCERNS. THERAPIST TO PROVIDE FUNCTIONAL STRATEGIES/TECHNIQUES FOR MANAGING MEDICATIONS. [code = THERAPIST TO REVIEW PATIENT MEDICATIONS (PRESCRIPTION/OTC). INSTRUCT PATIENT/CAREGIVER ON ALL MEDICATIONS INCLUDING PURPOSE, WHEN TO TAKE, IMPORTANCE OF MEDICATION ADHERENCE, MONITORING OF EFFECTIVENESS, ADVERSE DRUG EVENTS, POSSIBLE SIDE EFFECTS, AND WHEN TO NOTIFY AGENCY OR PHYSICIAN/PROVIDER OF ANY CONCERNS. THERAPIST TO PROVIDE FUNCTIONAL STRATEGIES/TECHNIQUES FOR MANAGING MEDICATIONS.] Future Scheduled Test PHYSICAL T HERAPY FOR OBSERVATION AND ASSESSMENT OF PAIN, EFFECTIVENESS OF PAIN MANAGEMENT REGIMEN AND SKILLED TEACHING RELATED TO PAIN MANAGEMENT. THERAPIST TO REPORT INCREASED PAIN LEVEL TO PHYSICIAN FOR PROMPT INTERVENTION. [code = PHYSICAL THERAPY FOR OBSERVATION AND ASSESSMENT OF PAIN, EFFECTIVENESS OF PAIN MANAGEMENT REGIMEN AND SKILLED TEACHING RELATED TO PAIN MANAGEMENT. THERAPIST TO REPORT INCREASED PAIN LEVEL TO PHYSICIAN FOR PROMPT INTERVENTION.] Future Scheduled Test PHYSICAL T HERAPY TO ESTABLISH /UPGRADE/DOWNGRADE THERAPEUTIC EXERCISE PROGRAM AND INSTRUCT PATIENT/CAREGIVER ON EXERCISE PRECAUTIONS WITH WRITTEN HOME PROGRAM. MAY INCLUDE PROM, AAROM, AROM, RROM APPROPRIATE TO IMPROVE FUNCTIONAL STRENGTH AND RANGE OF MOTION. [code = PHYSICAL THERAPY TO ESTABLISH /UPGRADE/DOWNGRADE THERAPEUTIC EXERCISE PROGRAM AND INSTRUCT PATIENT/CAREGIVER ON EXERCISE PRECAUTIONS WITH WRITTEN HOME PROGRAM. MAY INCLUDE PROM, AAROM, AROM, RROM APPROPRIATE TO IMPROVE FUNCTIONAL STRENGTH AND RANGE OF MOTION.] Future Scheduled Test PHYSICAL T HERAPY TO INSTRUCT PATIENT/CAREGIVER ON BED MOBILITY TECHNIQUES TO IMPROVE PATIENT MOBILITY AND POSITIONING TECHNIQUES IN ORDER TO INCREASE PATIENT S COMFORT AND DECREASE RISK OF SKIN BREAKDOWN. [code = PHYSICAL THERAPY TO INSTRUCT PATIENT/CAREGIVER ON BED MOBILITY TECHNIQUES TO IMPROVE PATIENT MOBILITY AND POSITIONING TECHNIQUES IN ORDER TO INCREASE PATIENT S COMFORT AND DECREASE RISK OF SKIN BREAKDOWN.] Future Scheduled Test PHYSICAL T HERAPY TO INSTRUCT PATIENT/CAREGIVER ON SAFE TRANSFER TECHNIQUES USING PROPER BODY MECHANICS AND EQUIPMENT. [code = PHYSICAL THERAPY TO INSTRUCT PATIENT/CAREGIVER ON SAFE TRANSFER TECHNIQUES USING PROPER BODY MECHANICS AND EQUIPMENT.] Future Scheduled Test PHYSICAL T HERAPY TO INSTRUCT PATIENT/CAREGIVER ON GAIT TRAINING TECHNIQUES USING APPROPRIATE ASSISTIVE DEVICE, PROPER BODY MECHANICS TO IMPROVE MOBILITY, AND PREVENT INJURY OF PATIENT AND/OR CAREGIVER. [code = PHYSICAL THERAPY TO INSTRUCT PATIENT/CAREGIVER ON GAIT TRAINING TECHNIQUES USING APPROPRIATE ASSISTIVE DEVICE, PROPER BODY MECHANICS TO IMPROVE MOBILITY, AND PREVENT INJURY OF PATIENT AND/OR CAREGIVER.] Future Scheduled Test PHYSICAL T HERAPY TO INSTRUCT PATIENT/CAREGIVER ON BALANCE AND BALANCE STRATEGIES TO IMPROVE SAFE MOBILITY AND REDUCE RISK FOR FALL AND INJURY [code = PHYSICAL THERAPY TO INSTRUCT PATIENT/CAREGIVER ON BALANCE AND BALANCE STRATEGIES TO IMPROVE SAFE MOBILITY AND REDUCE RISK FOR FALL AND INJURY] Future Scheduled Test PHYSICAL T HERAPY TO ASSESS AND RECOMMEND HOME SAFETY ADAPTATIONS AND EDUCATE PATIENT /CAREGIVER ON FALL PREVENTION STRATEGIES. [code = PHYSICAL THERAPY TO ASSESS AND RECOMMEND HOME SAFETY ADAPTATIONS AND EDUCATE PATIENT /CAREGIVER ON FALL PREVENTION STRATEGIES.] Future Scheduled Test OXYGEN VIA NASAL CANNULA, 3 L O2 AT REST AND WITH ACTIVITY, ASSESS SAO2 PRIOR TO, DURING, AND AFTER ACTIVITY. PHYSICAL THERAPIST FOR O/A AND SKILLED TEACHING OF SAFE OXYGEN USE IN THE HOME. [code = OXYGEN VIA NASAL CANNULA, 3 L O2 AT REST AND WITH ACTIVITY, ASSESS SAO2 PRIOR TO, DURING, AND AFTER ACTIVITY. PHYSICAL THERAPIST FOR O/A AND SKILLED TEACHING OF SAFE OXYGEN USE IN THE HOME.] Future Scheduled Test PHYSICAL T HERAPY TO PROVIDE INSTRUCTION IN SAFE FUNCTIONAL WHEELCHAIR MOBILITY AND PROVIDE RECOMMENDATIONS AND TRAINING FOR PROPER WHEELCHAIR FIT. [code = PHYSICAL THERAPY TO PROVIDE INSTRUCTION IN SAFE FUNCTIONAL WHEELCHAIR MOBILITY AND PROVIDE RECOMMENDATIONS AND TRAINING FOR PROPER WHEELCHAIR FIT.] Goal 2025-03-16 Patient Goal - GET STRONGER Goal Patient Goal - GET STRONGER Goal Provider Goal - PHYSICAL THERAPY EVALUATION TO BE COMPLETED WITH RECOMMENDATIONS AND/OR WRITTEN TREATMENT PLAN OF CARE ESTABLISHED FOR THE PHYSICIAN S SIGNATURE Goal Provider Goal - Goal Provider Goal - PATIENT/CAREGIVER VERBALIZES UNDERSTANDING OF THE INITIAL BEST PRACTICE RECOMMENDATIONS. PHYSICIAN TO BE NOTIFIED APPROPRIATE FOR ANY CHANGES OR COMPLICATIONS THROUGHOUT THE CERTIFICATION PERIOD. Goal Provider Goal - PATIENT/CAREGIVER WILL VERBALIZE/DEMONSTRATE UNDERSTANDING OF MEDICATIONS AND STRATEGIES/TECHNIQUES FOR MEDICATION MANAGEMENT BY THE END OF THE CERTIFICATION PERIOD. Goal Provider Goal - INCREASED PAIN OR INEFFECTIVE PAIN CONTROL MEASURES WILL BE IDENTIFIED AND PROMPTLY REPORTED TO THE PHYSICIAN. PATIENT/CAREGIVER WILL DEMONSTRATE EFFECTIVE PAIN MANAGEMENT. Goal Provider Goal - PATIENT/CAREGIVER WILL PERFORM THERAPEUTIC EXERCISE/S AND DEMONSTRATE PARTICIPATION IN A HOME PROGRAM. Goal Provider Goal - PATIENT/CAREGIVER WILL DEMONSTRATE IMPROVED BED MOBILITY TECHNIQUES. Goal Provider Goal - PATIENT/CAREGIVER WILL DEMONSTRATE SAFE TRANSFERS USING APPROPRIATE ASSISTIVE DEVICE, BODY MECHANICS AND EQUIPMENT. Goal Provider Goal - PATIENT/CAREGIVER WILL DEMONSTRATE IMPROVED GAIT TECHNIQUES TO MINIMIZE RISK OF INJURY. Goal Provider Goal - PATIENT/CAREGIVER WILL DEMONSTRATE IMPROVED BALANCE AND REDUCE THE RISK OF FALLS AND INJURY. Goal Provider Goal - PATIENT/CAREGIVER WILL DEMONSTRATE/VERBALIZE UNDERSTANDING OF RECOMMENDATIONS TO INCREASE SAFETY IN THE HOME AND FALL PREVENTION. Goal Provider Goal - PATIENT/CAREGIVER WILL VERBALIZE/DEMONSTRATE UNDERSTANDING OF SAFE OXYGEN USE IN THE HOME THROUGHOUT THE EPISODE. Goal Provider Goal - PATIENT/CAREGIVER WILL DEMONSTRATE IMPROVED WHEELCHAIR MOBILITY AND FITTING. Encounters Start Date/Time End Date/Time Encounter Type Admission Type Attending [facility] Department Encounter ID Discharge Date Discharge Status Discharge Condition Discharge Reason Percent Goals Met 2025-03-12 00:00:00 2025-05-10 00:00:00 Outpatient RECERTIFIC BERTIN [facility] [id number]
== END 2025-03-24 16:10 | disposition home or self-care (01) ==
LOC: HO.HPS 15:27
PROVIDERS: PCP Internal Medicine; Visit Provider Internal Medicine
DX: J84.10 Pulmonary fibrosis, unspecified (principal); J30.9 Allergic rhinitis, unspecified; J96.91 Respiratory failure, unspecified with hypoxia
CPT/HCPCS: 99213

== ENCOUNTER → 2025-03-24 15:27 | Outpatient (BNVA) | payer MEDICARE, OTHER, SELFPAY | PROVIDERS: PCP Internal Medicine; Visit Provider Internal Medicine | DX: J96.91 Respiratory failure, unspecified with hypoxia (principal); J84.10 Pulmonary fibrosis, unspecified; J30.9 Allergic rhinitis, unspecified | CPT/HCPCS: 99212 ==